=== PATIENT | female | born 1935 | race American Indian/Alaskan Native ===

== ENCOUNTER 2016-07-16 10:53 | Emergency (ER) | payer MEDICARE, MEDICAID ==
[2016-07-16 10:58] VITALS: BMI 17.7
[2016-07-16 11:07] VITALS: TEMP 97.7; O2SAT 100
--- NOTE | 2016-07-16 11:38 | ED PDOC ---
Arrival/HPI - General Chief Complaint: Medical Clearance Time Seen by Provider: 07/16/16 11:12 Historian: Patient - History of Present Illness Narrative History of Present Illness (Text): 07/16/16 11:35 A 81 year old female was brought into the emergency department by EMS after the power went out in her home. Patient reports she is uses 3L of O2 at home. Patient denies any fever, nausea, vomiting, abdominal pain, chest pain, shortness of breath or any other complaints at this time. Time/Duration: Prior to Arrival Symptom Course: Unchanged Quality: Other Context: Home Past Medical History - Provider Review Nursing Documentation Reviewed: Yes - Infectious Disease Hx of Infectious Diseases: None - Cardiac Hx Cardiac Disorders: Yes Hx Congestive Heart Failure: Yes Hx Hypertension: Yes - Pulmonary Hx Chronic Obstructive Pulmonary Disease (COPD): Yes - Neurological Hx Neurological Disorder: Yes Hx Seizures: Yes (with tia's as per daughter) Hx Transient Ischemic Attacks (TIA): Yes (x2) Other/Comment: residual from tia was slurred speech which resolved with therapy - HEENT Hx HEENT Disorder: Yes Hx Cataracts: Yes (left eye sx) Other/Comment: pt needs right eye cataract sx done but is a poor surgical risk as per daughter - Renal Hx Renal Disorder: No - Endocrine/Metabolic Hx Hypothyroidism: Yes - Hematological/Oncological Hx Blood Disorders: Yes Hx Cancer: (denies) Other/Comment: 4 yrs ago pt dx with lung ca at [facility] [place]. dr good sent pt for further tests which were negative for cancer, as per daughter - Integumentary Hx Dermatological Disorder: No - Musculoskeletal/Rheumatological Hx Falls: No - Gastrointestinal Hx Gastrointestinal Disorders: Yes Other/Comment: egd dx gastric erosions small hiatal hernia and gastric avm, 09/05 - Genitourinary/Gynecological Hx Reproductive Disorders: No - Psychiatric Hx Psychophysiologic Disorder: No Hx Substance Use: No - Surgical History Other/Comment: cataract extraction - Anesthesia Hx Anesthesia: Yes Hx Anesthesia Reactions: No Hx Malignant Hyperthermia: No Family/Social History - Physician Review Nursing Documentation Reviewed: Yes Family/Social History: No Known Family HX Smoking Status: Former Smoker Hx Alcohol Use: No Hx Substance Use: No Allergies/Home Meds Allergies/Adverse Reactions: Allergies No Known Allergies Allergy (Verified 07/16/16 10:58) Home Medications: Home Meds Medication Instructions Recorded Confirmed Fluticasone/Vilanterol [Breo 1 puff IH DAILY 06/28/16 07/03/16 Ellipta 100-25 Mcg INH] Review of Systems - Physician Review All systems were reviewed & negative as marked: Yes - Review of Systems Constitutional: Normal. absent: Fevers Respiratory: absent: SOB Cardiovascular: absent: Chest Pain Gastrointestinal: absent: Abdominal Pain, Nausea, Vomiting Physical Exam Vital Signs Reviewed: Yes Vital Signs Temp Pulse Resp BP Pulse Ox 07/16/16 11:05 97.7 F 81 18 132/83 100 Temperature: Afebrile Blood Pressure: Normal Pulse: Regular Respiratory Rate: Normal Appearance: Positive for: Well-Appearing, Non-Toxic, Comfortable Pain Distress: None Mental Status: Positive for: Alert and Oriented X 3 - Systems Exam Head: Present: Atraumatic, Normocephalic Pupils: Present: PERRL Extroacular Muscles: Present: EOMI Conjunctiva: Present: Normal Mouth: Present: Moist Mucous Membranes Neck: Present: Normal Range of Motion Respiratory/Chest: Present: Clear to Auscultation, Good Air Exchange. No: Respiratory Distress, Accessory Muscle Use Cardiovascular: Present: Regular Rate and Rhythm, Normal S1, S2. No: Murmurs Abdomen: Present: Normal Bowel Sounds. No: Tenderness, Distention, Peritoneal Signs Back: Present: Normal Inspection Upper Extremity: Present: Normal Inspection. No: Cyanosis, Edema Lower Extremity: Present: Normal Inspection. No: Edema Neurological: Present: GCS=15, CN II-XII Intact, Speech Normal Skin: Present: Warm, Dry, Normal Color. No: Rashes Psychiatric: Present: Alert, Oriented x 3, Normal Insight, Normal Concentration Medical Decision Making ED Course and Treatment: 07/16/16 11:35 Impression: A 81 year old female brought in after losing power in her home. Patient uses 3L of O2 at home. She denies any complaints. Progress Notes: - Scribe Statement The provider has reviewed the documentation as recorded by the Batsheva Hatfield Provider Scribe Attestation: All medical record entries made by the Scribe were at my direction and personally dictated by me. I have reviewed the chart and agree that the record accurately reflects my personal performance of the history, physical exam, medical decision making, and the department course for this patient. I have also personally directed, reviewed, and agree with the discharge instructions and disposition. Disposition/Present on Arrival - Present on Arrival Any Indicators Present on Arrival: No History of DVT/PE: No History of Uncontrolled Diabetes: No Urinary Catheter: No History of Decub. Ulcer: No History Surgical Site Infection Following: None - Disposition Have Diagnosis and Disposition been Completed?: Yes Diagnosis: Requires continuous at home supplemental oxygen Disposition: HOME/ ROUTINE Disposition Time: 12:15 Patient Problems: Current Active Problems Problem Status Diagnosed AAA (abdominal aortic aneurysm) without rupture Acute Chest pain Acute Chronic obstructive pulmonary disease Acute Dyspnea Acute Hypoxia Acute NSTEMI (non-ST elevated myocardial infarction) Acute Requires continuous at home supplemental oxygen Acute Weakness Acute Condition: GOOD Additional Instructions: Thank you for letting us take care of you today. Your provider was Dr. Linares. The emergency medical care you received today was directed at your acute symptoms. If you were prescribed any medication, please fill it and take as directed. It may take several days for your symptoms to resolve. Return to the Emergency Department if your symptoms worsen, do not improve, or if you have any other problems. Please contact your doctor or call one of the physicians/clinics you have been referred to that are listed on the Patient Visit Information form that is included in your discharge packet. Bring any paperwork you were given at discharge with you along with any medications you are taking to your follow up visit. Our treatment cannot replace ongoing medical care by a primary care provider (PCP) outside of the emergency department. Thank you for allowing the [facility] team to be part of your care today. Follow up with your doctor as scheduled. Referrals: [facility] Ed Rejuan, [Non-Staff] - Follow up with primary
[2016-07-16 13:11] VITALS: BP 144/81; PULSE 70; RESP 16
== END 2016-07-16 12:30 | disposition home or self-care (01) ==
LOC: ED 10:53
DX: Z99.81 Dependence on supplemental oxygen (principal); Z87.891 Personal history of nicotine dependence; I10 Essential (primary) hypertension; J44.9 Chronic obstructive pulmonary disease, unspecified

== ENCOUNTER 2016-07-20 17:38 | Observation (INO) | payer MEDICARE, MEDICAID ==
[2016-07-20 17:44] VITALS: BMI 17.7
--- NOTE | 2016-07-20 18:17 | ED PDOC ---
Arrival/HPI - General Chief Complaint: Female Genitourinary Historian: Patient - History of Present Illness Narrative History of Present Illness (Text): 07/20/16 18:16 Patient is an 81 yo female presents to ED complaining of bloody urine. Patient denies retention, denies flank pain or back pain, denies abdominal pain. Patient was reportedly at Dr. Good's office and gross hematuria was noted. She denies any bloody stool or vaginal bleeding. Denies lightheadedness or dizziness. Time/Duration: Prior to Arrival Past Medical History - Infectious Disease Hx of Infectious Diseases: None - Reproductive Menopause: Yes - Cardiac Hx Cardiac Disorders: Yes Hx Congestive Heart Failure: Yes Hx Hypertension: Yes - Pulmonary Hx Chronic Obstructive Pulmonary Disease (COPD): Yes - Neurological Hx Neurological Disorder: Yes Hx Seizures: Yes (with tia's as per daughter) Hx Transient Ischemic Attacks (TIA): Yes (x2) Other/Comment: residual from tia was slurred speech which resolved with therapy - HEENT Hx HEENT Disorder: Yes Hx Cataracts: Yes (left eye sx) Other/Comment: pt needs right eye cataract sx done but is a poor surgical risk as per daughter - Renal Hx Renal Disorder: No - Endocrine/Metabolic Hx Hypothyroidism: Yes - Hematological/Oncological Hx Blood Disorders: Yes Hx Cancer: (denies) Other/Comment: 4 yrs ago pt [place] [facility] [place] sent pt for further tests which were negative for cancer, as per daughter - Integumentary Hx Dermatological Disorder: No - Musculoskeletal/Rheumatological Hx Falls: No - Gastrointestinal Hx Gastrointestinal Disorders: Yes Other/Comment: egd dx gastric erosions small hiatal hernia and gastric avm, 09/05 - Genitourinary/Gynecological Hx Reproductive Disorders: No - Psychiatric Hx Psychophysiologic Disorder: No Hx Substance Use: No - Surgical History Other/Comment: cataract extraction - Anesthesia Hx Anesthesia: Yes Hx Anesthesia Reactions: No Hx Malignant Hyperthermia: No Family/Social History Family/Social History: Unknown Family HX Smoking Status: Former Smoker Hx Alcohol Use: No Hx Substance Use: No Allergies/Home Meds Allergies/Adverse Reactions: Allergies No Known Allergies Allergy (Verified 07/20/16 18:05) Home Medications: Home Meds Medication Instructions Recorded Confirmed Fluticasone/Vilanterol [Breo 1 puff IH DAILY 06/28/16 07/03/16 Ellipta 100-25 Mcg INH] Review of Systems - Review of Systems Constitutional: absent: Fatigue, Fevers Eyes: absent: Vision Changes ENT: absent: Hearing Changes Respiratory: absent: SOB Cardiovascular: absent: Chest Pain Gastrointestinal: absent: Abdominal Pain, Hematochezia, Hematemesis Genitourinary Female: Hematuria. absent: Dysuria, Frequency, Urine Output Changes, Vaginal Bleeding, Vaginal Discharge Musculoskeletal: absent: Back Pain Skin: absent: Rash Neurological: absent: Headache, Dizziness, Focal Weakness Hemo/Lymphatic: absent: Easy Bleeding, Easy Bruising Physical Exam - Physical Exam Narrative Physical Exam (Text): Head: Atraumatic. Normocephalic. Eyes: PERRL. EOMI. Conjunctivae are not pale. ENT: Mucous membranes are moist and intact. Oropharynx is clear and symmetric. Neck: Supple. Full ROM. No JVD. No lymphadenopathy. Cardiovascular: Regular rate. Regular rhythm. Systolic murmur. Pulmonary/Chest: No evidence of respiratory distress. Clear to auscultation bilaterally. No wheezing, rales or rhonchi. Abdominal: Soft and non-distended. No suprapubic pain or distension. Pulsatile mass noted but nontender. Equal and strong femoral pulses. Back: No CVA tenderness. No midline tenderness. No flank pain. Genitourinary: grossly bloody urine Extremities: No edema. No cyanosis. No clubbing. Full range of motion in all extremities. No calf tenderness. Skin: Skin is warm and dry. No petechiae. No purpura. Neurological: Alert, awake. No focal motor or sensory deficits. Psychiatric: Answers questions. At baseline mental status as per daughter. Vital Signs Reviewed: Yes Vital Signs Temp Pulse Resp BP Pulse Ox 07/20/16 23:48 80 16 142/90 98 07/20/16 20:48 93 H 16 132/79 96 07/20/16 17:47 97.4 F L 74 18 146/88 98 Temperature: Afebrile Appearance: Positive for: Well-Appearing, Non-Toxic Pain Distress: None Mental Status: No: Confused Medical Decision Making ED Course and Treatment: Patient sent from Dr. Good's office for hematuria. Patient with recent admission that was reviewed. During recent admission patient reportedly had chest pain, sob, abdominal pain WHICH SHE DOES NOT COMPLAIN OF CURRENTLY. Daughter at bedside and confirms history. She is comfortable with no chest pain or sob or abdominal pain in ED. She has prior hx of AAA, however no back pain is noted, no abdominal pain palpated. She has grossly bloody/dark urine here in the ED, this was reported by Dr. Good at office as well. She is not hypotensive or tachycardic. She is not in retention. I reviewed consultation from Dr. Fernandez during previous admission. Patient reportedly has possibly hematuria during her admission, but daughter reports she has not had grossly bloody urine such as currently. She is not on blood thinners current. No rectal bleeding of vaginal bleeding noted. She has not had outpatient cystoscopy. Given persistent hematuria, will admit for observation, case d/w Dr. Enrike Mccauley covering for PMD. Will initiate abx for possible uti, send urine culture. Treatment plan reviewed with patient with daughter at bedside. - Lab Interpretations Microbiology Results: Microbiology Results 07/20/16 20:12 Urine Urine Culture - Final 10-50,000 CFU/ML. MULTIPLE SPECIES. PROBABLE CONTAMINATION. Lab Results: 07/20/16 19:00 07/20/16 19:00 Lab Results 07/20/16 20:12: Urine Color Yellow, Urine Appearance Clear, Urine pH 6.0, Ur Specific [place] 1.015, Urine Protein Trace H, Urine Glucose (UA) Negative, Urine Ketones Negative, Urine Blood Large H, Urine Nitrate Negative, Urine Bilirubin Negative, Urine Urobilinogen 0.2, Ur Leukocyte Esterase Small H, Urine RBC 25 - 30, Urine WBC 10 - 15, Ur Epithelial Cells 4 - 5, Amorphous Sediment Few, Urine Bacteria Many, Urine Other Uyeast 07/20/16 19:00: WBC 6.7, RBC 5.14, Hgb 11.1 L, Hct 36.7, MCV 71.4 L, MCH 21.6 L , MCHC 30.2 L, RDW 24.4 H, Plt Count 568 H, Gran % 74.6 H, Lymph % (Auto) 14.2 L , Lawrence % (Auto) 7.2 H, Eos % (Auto) 3.1, Baso % (Auto) 0.9, Gran # 4.98, Lymph # 1.0 L, Lawrence # 0.5, Eos # 0.2, Baso # 0.06, PT 11.4, INR 1.06, APTT 29.2, Sodium 142, Potassium 3.7, Chloride 106, Carbon Dioxide 24, Anion Gap 16, BUN 25 H, Creatinine 1.0, Est GFR ( Amer) > 60, Est GFR (Non-Af Amer) 53, Random Glucose 96, Calcium 9.2, Total Bilirubin 0.4, AST 22, ALT 13, Alkaline Phosphatase 101, Total Protein 7.3, Albumin 3.8, Globulin 3.5, Albumin/Globulin Ratio 1.1 - RAD Interpretation Radiology Orders: 07/20/16 18:13 ABD & PELVIS W/O PO OR IV CONT [CT] Stat - Medication Orders Current Medication Orders: Discontinued Medications Albuterol/Ipratropium (Duoneb 3 Mg/0.5 Mg (3 Ml) Ud) 3 ml IH TIDRESP [facility] Aspirin (Ecotrin) 81 mg PO DAILY [facility] Last Admin: 07/22/16 09:45 Dose: 81 MG Docusate Sodium (Colace) 100 mg PO BID PRN PRN Reason: Constipation Donepezil HCl (Aricept) 5 mg PO HS [facility] Last Admin: 07/21/16 21:13 Dose: 5 MG Ferrous Sulfate (Feosol) 324 mg PO DAILY [facility] Last Admin: 07/22/16 09:41 Dose: 324 MG Ceftriaxone Sodium (Rocephin 1 Gram Ivpb) 100 mls @ 200 mls/hr IVPB ONCE STA PRN Reason: Protocol Stop: 07/20/16 22:31 Last Admin: 07/20/16 23:29 Dose: 200 MLS/HR eMAR Start Stop Document 07/20/16 23:29 HI (Rec: 07/20/16 23:29 HI [id number]) Intravenous Solution Start Date 07/20/16 Start Time 23:29 Ceftriaxone Sodium (Rocephin 1 Gram Ivpb) 100 mls @ 100 mls/hr IVPB DAILY [facility] PRN Reason: Protocol Last Admin: 07/22/16 09:45 Dose: 100 MLS/HR eMAR Start Stop Document 07/22/16 09:45 EP (Rec: 07/22/16 09:45 EP [id number]) Intravenous Solution Start Date 07/22/16 Start Time 09:45 End Date 07/22/16 End time 10:45 Total Infusion Time 60 Sodium Chloride (Sodium Chloride 0.45%) 1,000 mls @ 40 mls/hr IV .Q24H [facility] Last Admin: 07/21/16 17:26 Dose: 40 MLS/HR eMAR Start Stop Document 07/21/16 17:26 DM (Rec: 07/21/16 17:27 [id number] Intravenous Solution Start Date 07/21/16 Start Time 17:00 Potassium Chloride (Potassium Chloride 10 Meq/100 Ml) 100 mls @ 100 mls/hr IVPB ONCE ONE Stop: 07/22/16 11:34 Last Admin: 07/22/16 11:13 Dose: 100 MLS/HR eMAR Start Stop Document 07/22/16 11:13 EP (Rec: 07/22/16 11:15 EP [facility] [id number] Intravenous Solution Start Date 07/22/16 Start Time 11:15 End Date 07/22/16 End time 12:15 Total Infusion Time 60 Levetiracetam (Keppra) 750 mg PO DAILY [facility] Last Admin: 07/22/16 09:41 Dose: 750 MG Loratadine (Claritin) 10 mg PO DAILY [facility] Last Admin: 07/22/16 09:41 Dose: 10 MG Methimazole (Tapazole) 5 mg PO DAILY [facility] Last Admin: 07/22/16 09:42 Dose: 5 MG Metoprolol Tartrate (Lopressor) 25 mg PO 0800,1800 [facility] Last Admin: 07/22/16 08:44 Dose: Not Given Non-Admin Reason: BP Parameters Not Met MAR Pulse and Blood Pressure Document 07/22/16 08:44 EP (Rec: 07/22/16 08:44 EP [id number]) Pulse Pulse Rate (60-90) 80 Blood Pressure Blood Pressure (100/60-150/90) 100/71 Non-Formulary Medication (Fluticasone/Vilanterol [Breo Ellipta 100-25 Mcg Inh]) 1 puff IH DAILY [facility] Last Admin: 07/22/16 09:42 Dose: Pantoprazole Sodium (Protonix Ec Tab) 40 mg PO 0630 [facility] Last Admin: 07/22/16 05:47 Dose: 40 MG Polyethylene Glycol (Miralax) 17 gm PO DAILY [facility] Last Admin: 07/22/16 09:42 Dose: 17 GM Potassium Chloride (Potassium Chloride Oral Soln) 40 meq PO ONCE ONE Stop: 07/21/16 12:44 Last Admin: 07/21/16 17:23 Dose: 40 MEQ Tiotropium Kempner (Spiriva) 18 mcg IH DAILY [facility] Last Admin: 07/22/16 09:42 Dose: 18 MCG - Mindyibe Statement The provider has reviewed the documentation as recorded by the Batsheva Hayes Provider Scribe Attestation: All medical record entries made by the Batsheva were at my direction and personally dictated by me. I have reviewed the chart and agree that the record accurately reflects my personal performance of the history, physical exam, medical decision making, and the department course for this patient. I have also personally directed, reviewed, and agree with the discharge instructions and disposition. Disposition/Present on Arrival - Present on Arrival Any Indicators Present on Arrival: No History of DVT/PE: No History of Uncontrolled Diabetes: No Urinary Catheter: No History of Decub. Ulcer: No History Surgical Site Infection Following: None - Disposition Have Diagnosis and Disposition been Completed?: Yes Diagnosis: Hematuria, UTI (urinary tract infection) Disposition: HOSPITALIZED Disposition Time: 19:00 Patient Plan: Admission, Observation Patient Problems: Current Active Problems Problem Status Diagnosed AAA (abdominal aortic aneurysm) without rupture Acute Chest pain Acute Chronic obstructive pulmonary disease Acute Dyspnea Acute Hypoxia Acute NSTEMI (non-ST elevated myocardial infarction) Acute Weakness Acute Condition: FAIR
[2016-07-20 19:05] LABS: ADD MANUAL DIFF? NO
[2016-07-20 19:10] LABS: BASO # 0.06 [, K/mm3] (0.0-2.0); BASO % 0.9 % (0.0-3.0); EOS # 0.2 (0.0-0.7); EOS % 3.1 % (1.5-5.0); GRAN # 4.98 (1.4-6.5); GRAN % 74.6 % (50.0-68.0); HEMATOCRIT 36.7 % (36.0-48.0); LYMPH % 14.2 % (22.0-35.0); MEAN CELL VOLUME 71.4 fL (80.0-105.0); MEAN CORPUSCULAR HEMOGLOBIN 21.6 pg (25.0-35.0); MEAN CORPUSCULAR HGB CONC 30.2 g/dl (31.0-37.0); MONO # 0.5 (0.1-0.6); MONO % 7.2 % (1.0-6.0); PLATELET COUNT 568 [, 10^3/uL] (120.0-450.0); RED CELL DISTRIBUTION WIDTH 24.4 % (11.5-14.5); WHITE BLOOD COUNT 6.7 [, 10^3/ul] (4.5-11.0)
[2016-07-20 19:17] LABS: ALB/GLOB RATIO 1.1 (1.1-1.8); ALKALINE PHOSPHATASE 101 U/L (38-133); ALT/SGPT 13 U/L (7-56); AST/SGOT 22 U/L (15-39); BILIRUBIN,TOTAL 0.4 mg/dL (0.2-1.3); BLOOD UREA NITROGEN 25 mg/dL (7-21); CALCIUM 9.2 mg/dL (8.4-10.5); CARBON DIOXIDE 24 mmol/L (21-33); CHLORIDE 106 mmol/L (98-107); GFR AFRICAN-AMERICAN > 60; GLUCOSE,RANDOM 96 mg/dL (70-110); POTASSIUM 3.7 mmol/L (3.6-5.0); SODIUM 142 mmol/L (132-148); TOTAL PROTEIN 7.3 g/dL (5.8-8.3)
[2016-07-20 19:46] LABS: INR 1.06 (0.93-1.08); PARTIAL THROMBOPLASTIN TIME 29.2 Seconds (23.7-30.8)
[2016-07-20 20:32] LABS: URINE BILIRUBIN NEGATIVE (NEGATIVE); URINE BLOOD LARGE (NEGATIVE); URINE GLUCOSE (UA) NEGATIVE (NEGATIVE); URINE KETONE NEGATIVE (NEGATIVE); URINE LEUKOCYTE ESTERASE SMALL Leu/uL (NEGATIVE); URINE PROTEIN TRACE mg/dL (<30 mg/dL); URINE UROBILINOGEN 0.2 E.U./dL (<1 E.U./dL)
[2016-07-20 20:33] LABS: URINE APPEARANCE CLEAR (CLEAR); URINE COLOR YELLOW (YELLOW)
[2016-07-20 20:52] LABS: URINE AMORPHOUS SEDIMENT FEW; URINE BACTERIA MANY (NEG); URINE RBC 25 - 30 /hpf (0-2)
--- NOTE | 2016-07-20 21:16 | CT ---
EXAM: CT Abdomen and Pelvis Without Intravenous Contrast. CLINICAL HISTORY: 81 years old, female; Signs and symptoms; Other: Hematuria TECHNIQUE: Axial computed tomography images of the abdomen and pelvis without intravenous contrast. This CT exam was performed using one or more of the following dose reduction techniques: automated exposure control, adjustment of the mA and/or kV according to patient size, and/or use of iterative reconstruction technique. Coronal and sagittal reformatted images were created and reviewed. COMPARISON: CT - ABD PELVIS IV CONTRAST ONLY 06/29/2016 1:54:57 AM FINDINGS: Scarring at the lung bases, nodular appearance of the left lung base. This is evidenced changes. Atherosclerosis. Aneurysmal change involving the aorta. Proximal descending abdominal aorta measured at 3 cm. The abdominal aorta measured at up to 4.9 cm focus proximal to iliac bifurcation. Iliac arteries measured at 2.7 cm on the right and 2.5 cm on the left. Limited evaluation without intravenous contrast. The unenhanced liver, spleen, pancreas and adrenal glands demonstrate no acute abnormalities. Intrarenal calcification. No obstructing renal calculus or hydronephrosis. Phleboliths. Limited evaluation of the bowel without enteric contrast. Evidence of minimal hiatal hernia. The stomach is predominantly collapsed, limiting its evaluation. The small and large bowel as visualized demonstrate no evidence of obstruction or clear focus of inflammation. Degenerative changes. IMPRESSION: No definitive acute CT finding to correspond to reported history. Abdominal aorta as above. Correlate clinically. Followup as warranted.
[2016-07-20] MEDS ORDERED: cefTRIAXone 1 gm 100 ML IVPB STA (22:02)
--- NOTE | 2016-07-20 23:40 | CP.PCM.HP ---
History of Present Illness - History of Present Illness History of Present Illness: PGY-[address] Good/Parisa Admission: Hematuria 81 yo F with PMH of CVA, emphysema (on 5L O2 at home), Hx PE, and CAD with possible triple vessel disease, presents to ED complaining of bloody urine. Patient was reportedly at Dr. Good's office and gross hematuria was noted. It was described at "cool aid" bright red. In the ED, VSS. Hb stable at 11. BMP normal except BUN 25. U/A showed protein, blood, RBC. Many bacteria CT of abdomen and pelvis shows phleboliths, minimal hiatal hernia. No acute CT finding related to hemautira Pt receive 1g ceftriaxone x 1. blood and urine culture sent ROS: She denies any bloody stool or vaginal bleeding. Denies lightheadedness or dizziness. Patient denies retention, denies flank pain or back pain, denies abdominal pain. PMH: CVA (pt claims two TIAs), recent NSTEMI, May 2013 lung [place] [facility] [place], former smoker COPD/emphysema (on 5L O2 at home) AAA, bilobed, 9.4cm cranicaudal, and 4.1cm x 4.9 cm transverse, extending to common iliac aa. 2.7cm R, 2.6cm on L (Need tight blood pressure control for enlarged abdominal aortic aneurysm. Risk of rupture in 1-2 years is 10-12%) HTN Hx Seizure Alzheimer Hx Urinary retention and hematuria catarect L eye but poor surgical candidate Hypothyroidims Chronic microcytic anemia, Hx GI bleed Constipation Psx: thyroidectomy, L cataract FH: daughter w/ breast cancer Allergies: NKDA SH: Quit smoking half year ago, lives in senior home apt Meds: ASA, Budesonide, zofran, loperamide, Brovana PMD: Dr. Good POA: Daughter - please contact daughter in all medical decisions Urologist: Dr. Rucker Cardiac Technologist: Dr Luis avelar Present on Admission - Present on Admission Any Indicators Present on Admission: No Past Patient History - Infectious Disease Hx of Infectious Diseases: None - Past Social History Smoking Status: Former Smoker - CARDIAC Hx Cardiac Disorders: Yes Hx Congestive Heart Failure: Yes Hx Hypertension: Yes - PULMONARY Hx Chronic Obstructive Pulmonary Disease (COPD): Yes - NEUROLOGICAL Hx Neurological Disorder: Yes Hx Seizures: Yes (with tia's as per daughter) Hx Transient Ischemic Attacks (TIA): Yes (x2) Other/Comment: residual from tia was slurred speech which resolved with therapy - HEENT Hx HEENT Problems: Yes Hx Cataracts: Yes (left eye sx) Other/Comment: pt needs right eye cataract sx done but is a poor surgical risk as per daughter - RENAL Hx Chronic Kidney Disease: No - ENDOCRINE/METABOLIC Hx Hypothyroidism: Yes - HEMATOLOGICAL/ONCOLOGICAL Hx Blood Disorders: Yes Hx Cancer: (denies) Other/Comment: 4 yrs ago pt dx with lung ca [place] [facility] [place] good sent pt for further tests which were negative for cancer, as per daughter - INTEGUMENTARY Hx Dermatological Problems: No - MUSCULOSKELETAL/RHEUMATOLOGICAL Hx Falls: No - GASTROINTESTINAL Hx Gastrointestinal Disorders: Yes Other/Comment: egd dx gastric erosions small hiatal hernia and gastric avm, 09/05 - GENITOURINARY/GYNECOLOGICAL Hx Reproductive Disorders: No - PSYCHIATRIC Hx Psychophysiologic Disorder: No Hx Substance Use: No - SURGICAL HISTORY Other/Comment: cataract extraction - ANESTHESIA Hx Anesthesia: Yes Hx Anesthesia Reactions: No Hx Malignant Hyperthermia: No Meds Allergies/Adverse Reactions: Allergies Allergy/AdvReac Type Severity Reaction Status Date / Time No Known Allergies Allergy Verified 07/20/16 18:05 Physical Exam - Constitutional Appears: No Acute Distress - Head Exam Head Exam: ATRAUMATIC - Eye Exam Eye Exam: EOMI, Normal appearance, PERRL Pupil Exam: NORMAL ACCOMODATION - ENT Exam ENT Exam: Mucous Membranes Moist - Neck Exam Neck exam: Positive for: Normal Inspection. Negative for: Meningismus Additional comments: supple, no jvd - Respiratory Exam Respiratory Exam: Clear to Auscultation Bilateral, NORMAL BREATHING PATTERN. absent: Rales, Rhonchi, Wheezes - Cardiovascular Exam Cardiovascular Exam: REGULAR RHYTHM, +S1, +S2. absent: Systolic Murmur - GI/Abdominal Exam GI & Abdominal Exam: Normal Bowel Sounds, Soft. absent: Tenderness Additional comments: no suprapubic tendernss - Extremities Exam Extremities exam: Positive for: normal capillary refill, pedal pulses present. Negative for: calf tenderness, pedal edema - Back Exam Back exam: absent: CVA tenderness (L), CVA tenderness (R), paraspinal tenderness , vertebral tenderness - Neurological Exam Neurological exam: Alert, CN II-XII Intact, Oriented x3, Reflexes Normal - Psychiatric Exam Psychiatric exam: Normal Affect, Normal Mood - Skin Skin Exam: Dry, Normal Color, Warm Results - Vital Signs Recent Vital Signs: Last Vital Signs Temp 97.4 F L 07/20/16 17:47 Pulse 93 H 07/20/16 20:48 Resp 16 07/20/16 20:48 BP 132/79 07/20/16 20:48 Pulse Ox 96 07/20/16 20:48 - Labs Result Diagrams: 07/20/16 19:00 07/20/16 19:00 Labs: Laboratory Results - last 24 hr 07/20/16 07/20/16 19:00 20:12 WBC 6.7 RBC 5.14 Hgb 11.1 L Hct 36.7 MCV 71.4 L MCH 21.6 L MCHC 30.2 L RDW 24.4 H Plt Count 568 H Gran % 74.6 H Lymph % (Auto) 14.2 L [place] % (Auto) 7.2 H Eos % (Auto) 3.1 Baso % (Auto) 0.9 Gran # 4.98 Lymph # 1.0 L [place] # 0.5 Eos # 0.2 Baso # 0.06 PT 11.4 INR 1.06 APTT 29.2 Sodium 142 Potassium 3.7 Chloride 106 Carbon Dioxide 24 Anion Gap 16 BUN 25 H Creatinine 1.0 Est GFR ( Amer) > 60 Est GFR (Non-Af Amer) 53 Random Glucose 96 Calcium 9.2 Total Bilirubin 0.4 AST 22 ALT 13 Alkaline Phosphatase 101 Total Protein 7.3 Albumin 3.8 Globulin 3.5 Albumin/Globulin Ratio 1.1 Urine Color Yellow Urine Appearance Clear Urine pH 6.0 Ur Specific Tiro 1.015 Urine Protein Trace H Urine Glucose (UA) Negative Urine Ketones Negative Urine Blood Large H Urine Nitrate Negative Urine Bilirubin Negative Urine Urobilinogen 0.2 Ur Leukocyte Esterase Small H Urine RBC 25 - 30 Urine WBC 10 - 15 Ur Epithelial Cells 4 - 5 Amorphous Sediment Few Urine Bacteria Many Urine Other Uyeast Assessment & Plan - Assessment and Plan (Free Text) Plan: Hematuria, ulices UTI suspected, pending culture Hx urinary retention - infectious vs autoimmune vs malignancy vs recent trauma from [place] - CT of abdomen and pelvis shows phleboliths, minimal hiatal hernia. No acute CT finding related to hemautira - hemodynamically stable - Not on plavix - On ASA - coags wnl - No kidney stone visible - Ceftriaxone - HANNAH and dsDNA to r/o lupus pending culture - Check serum completment level - if low --> further investigate postinfectious glomerulonephritis, systemic lupus erythematosus nephritis, bacterial endocarditis, and membranoproliferative glomerulonephritis. - urol consult Microcytic Anemia, stable around 10, Asymptomatic Hx of angiodysplasia, duodenum, non-bleeding, per EGD August 2015 - Hemeoccult (+) - Still on ASA - Continue Feosol with laxative NSTEMI 06/29/16, Hx of CAD - ASA, BB (tartrate 25 bid), Lipitor 10, lipid at goal (May 2016) - Daughter, health Proxy - no cath. AAA, bilobed, 9.4cm cranicaudal, and 4.1cm x 4.9 cm transverse, extending to common iliac aa. 2.7cm R, 2.6cm on L. - Per IR: Risk of rupture next year is 10-12% - Family: no surgery. Continue medical management. HTN control COPD/Emphysema = Spiriva, Brovana, (on 5L O2 at home) O2 as needed Alzheimer = Donepezil Hx Seizure = Keppra, aspiration/seizure precautions Hyperthyroidism - Methiamzole 5 daily. Constipation = Miralax QD. Colace PRN Prophylaxis = SCD and protonix S/D/R/w Dr. Mccauley - Date & Time Date: 07/20/16 Time: 11:55
[2016-07-21] MEDS: Pantoprazole 40 mg EC Tab PO SCH (06:06)
[2016-07-21] MEDS ORDERED: Albuterol-Ipratrop 3 mg / 0.5 (3 ml) UD IH SCH (08:00)
[2016-07-21 08:06] LABS: ADD MANUAL DIFF? NO
[2016-07-21 08:24] LABS: BASO # 0.07 [, K/mm3] (0.0-2.0); BASO % 1.1 % (0.0-3.0); EOS # 0.2 (0.0-0.7); EOS % 3.7 % (1.5-5.0); GRAN # 4.61 (1.4-6.5); GRAN % 71.3 % (50.0-68.0); HEMATOCRIT 34.9 % (36.0-48.0); LYMPH % 15.9 % (22.0-35.0); MEAN CELL VOLUME 70.8 fL (80.0-105.0); MEAN CORPUSCULAR HEMOGLOBIN 21.5 pg (25.0-35.0); MEAN CORPUSCULAR HGB CONC 30.4 g/dl (31.0-37.0); MONO # 0.5 (0.1-0.6); PLATELET COUNT 550 [, 10^3/uL] (120.0-450.0); RED CELL DISTRIBUTION WIDTH 24.6 % (11.5-14.5); WHITE BLOOD COUNT 6.5 [, 10^3/ul] (4.5-11.0)
[2016-07-21 08:34] LABS: BLOOD UREA NITROGEN 20 mg/dL (7-21); CALCIUM 9.2 mg/dL (8.4-10.5); CARBON DIOXIDE 23 mmol/L (21-33); CHLORIDE 109 mmol/L (95-110); GFR AFRICAN-AMERICAN > 60; GLUCOSE,RANDOM 87 mg/dL (70-110); POTASSIUM 3.2 mmol/L (3.6-5.0); SODIUM 143 mmol/L (132-148)
[2016-07-21] MEDS: methIMAzole 5 MG TAB PO SCH (10:19)
[2016-07-21] MEDS: Non Formulary Medication (Fluticasone/Vilanterol [Breo Ellipta 100-25 Mcg Inh] 1 PUFF) IH SCH (10:20)
[2016-07-21] MEDS: POLYETHYLENE GLYCOL 3350 17 GM/Dose PACKET PO SCH (10:20)
[2016-07-21] MEDS: cefTRIAXone 1 gm 100 ML IVPB SCH (10:21)
[2016-07-21] MEDS: Tiotropium 18 mcg Cap For Inhalation IH SCH (10:23)
[2016-07-21] MEDS ORDERED: Potassium Chloride 40 mEq/30 ml LIQ UD PO ONE (12:43)
[2016-07-21] MEDS ORDERED: Sodium Chloride 0.45% 1,000 ML IV SCH (13:00)
--- NOTE | 2016-07-21 14:47 | HP ---
HISTORY OF PRESENT ILLNESS: I discussed this with her primary doctor, Dr. Soriano, [facility]. She has hematuria and she was worried. She comes into the Emergency Room with gross hematuria, painless. She is an [id number]-female who had gross hemat uria for the past 24 hours, comes to the Emergency Room. PAST MEDICAL HISTORY: She has history of CVA and emphysema on 5 liters oxygen at home, history of pu lmonary embolus, coronary artery disease, triple vessel disease. She was putting out gross blood whe n she urinated. She had an N-STEMI in 05/2013, lung cancer [facility], former smoker, COPD, emphysema. She had a AAA up to 9.4, I believe at this time they do not want anything done. S he has hypertension, history of seizures, Alzheimer's, history of urinary retention, hematuria, catar act left eye, hypothyroidism, chronic microcytic anemia, history of gastrointestinal bleed, constipat ion. PAST SURGICAL HISTORY: She had thyroidectomy, left cataract surgery. FAMILY HISTORY: She has a daughter with breast cancer. ALLERGIES: She has no known drug allergies. SOCIAL HISTORY: She quit smoking a half a year ago. No alcohol. Lives at a senior center. MEDICATIONS: She takes aspirin, budesonide, Zofran, loperamide, Brovana. I called and urology to take a look at her for the hematuria. She has CHF, hypertension, COPD. REVIEW OF SYSTEMS: She is comfortable at this time in bed, eating her lunch. No pain. No acute vis ion, or hearing changes, no sore throat. No chest pain or shortness of breath, no abdominal pain, no leg pain, just blood in the urine. PHYSICAL EXAMINATION: VITAL SIGNS: She has a 97.4 temp, 74 pulse, 18 respiratory rate, 146/88 blood pressure, 98% O2 sat o n room air. HEENT: Head is atraumatic, normocephalic. Extraocular muscles are intact. Pupils reactive to light . Throat is moist, no erythema. NECK: Supple, no JVD. HEART: Regular rate. LUNGS: Clear to auscultation with decreased breath sounds. ABDOMEN: Soft, nontender, positive bowel sounds. No palpable pain. There is a pulsatile mass noted from AAA. EXTREMITIES: No edema. No CVA tenderness. NEUROLOGIC: She is alert and pleasant. LABORATORY DATA: She has a white count of 6.5, hemoglobin 10.6, hematocrit 34.9, platelets of 550. INR is 1.06. She has a 143 sodium, potassium 3.2 I replaced potassium. BUN 20, creatinine 0.8, GFR is greater than 60, sugar is 87, calcium is 9.2. Urine is large blood, many bacteria. CAT scan of t he abdomen and pelvis showed no definite acute CT, she does have a AAA. I discussed this with the resident last night who did the H and P and today's resident who saw her, h oping that urology comes in. She is on IV fluids, ceftriaxone and her regular medications. We will check her labs tomorrow to see how the potassium is doing. She is here for hematuria, urinary tract infection, low potassium and a big history in the past. For Dr. Walsh who is off this weekend. Raul Mccauley DO cc: [id number] TT: 07/21/2016 14:46:20 rj
--- NOTE | 2016-07-21 14:58 | CARD ---
APPROVED REPORT EKG Measurement Heart [id number] ID [id number] <Conclusion> Normal sinus rhythm Left axis deviation Left bundle branch block Abnormal ECG
[2016-07-22] MEDS: Pantoprazole 40 mg EC Tab PO SCH (05:47)
[2016-07-22 08:12] LABS: ADD MANUAL DIFF? NO
[2016-07-22 08:19] LABS: BASO # 0.09 [, K/mm3] (0.0-2.0); BASO % 1.6 % (0.0-3.0); EOS # 0.3 (0.0-0.7); EOS % 4.4 % (1.5-5.0); GRAN # 4.17 (1.4-6.5); GRAN % 73.8 % (50.0-68.0); HEMATOCRIT 34.6 % (36.0-48.0); LYMPH # 0.7 (1.2-3.4); LYMPH % 12.6 % (22.0-35.0); MEAN CELL VOLUME 70.9 fL (80.0-105.0); MEAN CORPUSCULAR HEMOGLOBIN 20.9 pg (25.0-35.0); MEAN CORPUSCULAR HGB CONC 29.5 g/dl (31.0-37.0); MONO # 0.4 (0.1-0.6); MONO % 7.6 % (1.0-6.0); PLATELET COUNT 531 [, 10^3/uL] (120.0-450.0); RED CELL DISTRIBUTION WIDTH 24.7 % (11.5-14.5); WHITE BLOOD COUNT 5.7 [, 10^3/ul] (4.5-11.0)
[2016-07-22 08:32] LABS: ALB/GLOB RATIO 1.1 (1.1-1.8); ALKALINE PHOSPHATASE 84 U/L (38-133); ALT/SGPT 11 U/L (7-56); AST/SGOT 22 U/L (15-39); BILIRUBIN,TOTAL 0.5 mg/dL (0.2-1.3); BLOOD UREA NITROGEN 16 mg/dL (7-21); CALCIUM 8.8 mg/dL (8.4-10.5); CARBON DIOXIDE 24 mmol/L (21-33); CHLORIDE 106 mmol/L (98-107); GFR AFRICAN-AMERICAN > 60; GLUCOSE,RANDOM 87 mg/dL (70-110); POTASSIUM 3.4 mmol/L (3.6-5.0); SODIUM 138 mmol/L (132-148); TOTAL PROTEIN 6.4 g/dL (5.8-8.3)
[2016-07-22] MEDS: Tiotropium 18 mcg Cap For Inhalation IH SCH (09:42)
[2016-07-22] MEDS: POLYETHYLENE GLYCOL 3350 17 GM/Dose PACKET PO SCH (09:42)
[2016-07-22] MEDS: Non Formulary Medication (Fluticasone/Vilanterol [Breo Ellipta 100-25 Mcg Inh] 1 PUFF) IH SCH (09:42)
[2016-07-22] MEDS: methIMAzole 5 MG TAB PO SCH (09:42)
[2016-07-22] MEDS: cefTRIAXone 1 gm 100 ML IVPB SCH (09:45)
[2016-07-22] MEDS ORDERED: Potassium Chloride 10 mEq 100 ML IVPB ONE (10:35)
--- NOTE | 2016-07-22 12:15 | DS ---
SUBJECTIVE: I see her resting in bed. She is pleasant. She is eating, no acute distress. The nurs e tells me the urine has cleared up very nicely with the IV fluids and the antibiotics. She is comfo rtable in bed. I have been waiting for urology. She is in a 2-day observation status to come in and see her. I am hoping to discharge today after urology sees her, hopefully they will come. PHYSICAL EXAMINATION: VITAL SIGNS: She has a 97.8 temp, 70 pulse, 124/78 blood pressure, 20 respiratory rate, 100% O2 sat on nasal cannula. HEENT: Atraumatic, normocephalic. She is alert, no acute distress. No pain. HEART: Regular rate. LUNGS: Clear to auscultation. ABDOMEN: Soft, nontender, positive bowel sounds. No CVA tenderness. EXTREMITIES: No edema. LABORATORY DATA: She has a 5.7 white count, 10.2 hemoglobin, 34.6 hematocrit, with 531 platelets. I NR is 1.06, sodium 138, potassium 3.4. I am going to give her a K rider today before she can go home , I am hoping. BUN 16, creatinine 0.7, GFR is greater than 60, sugar is 87, calcium is 8.8, total bi li is 0.5, AST is 22, ALT is 11, alk phos 84, total protein 6.4. Urine had large, it is cleared now. ASSESSMENT AND PLAN: Waiting for urology to see her. I put a discharge order in after urology sees her today, I am hoping they come in. She will go home on her regular medications that she came in on , plus Cipro 500 twice a day for 16 days. Follow up with Dr. Walsh on the outpatient. This is al l pending on urology. Hopefully, this will work. She is still in observation status. She is here f or hematuria, urinary tract infection, low potassium. Hoping to discharge her today. Raul Mccauley DO cc: [id number] TT: 07/22/2016 12:14:09 jn
[2016-07-22 16:45] VITALS: PULSE 77
[2016-07-22 16:46] VITALS: BP 136/93; RESP 20; TEMP 98.4; O2SAT 100
== END 2016-07-22 17:33 | disposition home or self-care (01) ==
LOC: ED 17:38 → ERH 22:18 → 5RSO 07-21 00:43 → UNDODISOB 07-22 17:08
PROVIDERS: ADMIT Internal Medicine; ATTEND Internal Medicine
DX: R31.9 Hematuria, unspecified (principal); N39.0 Urinary tract infection, site not specified; I25.10 Atherosclerotic heart disease of native coronary artery without angina pectoris; Z86.711 Personal history of pulmonary embolism; Z86.73 Personal history of transient ischemic attack (TIA), and cerebral infarction without residual deficits; J44.9 Chronic obstructive pulmonary disease, unspecified; I10 Essential (primary) hypertension; G30.9 Alzheimer's disease, unspecified; F02.80 Dementia in other diseases classified elsewhere, unspecified severity, without behavioral disturbance, psychotic disturbance, mood disturbance, and anxiety; E03.9 Hypothyroidism, unspecified; R56.9 Unspecified convulsions; I71.4 Abdominal aortic aneurysm, without rupture; D50.9 Iron deficiency anemia, unspecified; I25.2 Old myocardial infarction; Z87.891 Personal history of nicotine dependence
CPT/HCPCS: 36415; 74176; 80048; 80053; 81001; 85025; 85610; 85730; 86039; 86160; 86225; 87040; 87086; 93005; 99284; G0378; J0696; J3480; J7030

== ENCOUNTER 2016-07-25 14:51 | Emergency (ER) | payer MEDICARE, MEDICAID ==
[2016-07-25 14:51] VITALS: BMI 17.7
[2016-07-25 15:31] VITALS: RESP 18
[2016-07-25 15:48] LABS: ADD MANUAL DIFF? NO
[2016-07-25 16:02] LABS: BLOOD UREA NITROGEN 20 mg/dL (7-21); CALCIUM 9.4 mg/dL (8.4-10.5); CARBON DIOXIDE 26 mmol/L (21-33); CHLORIDE 104 mmol/L (98-107); GFR AFRICAN-AMERICAN > 60; GLUCOSE,RANDOM 102 mg/dL (70-110); POTASSIUM 3.8 mmol/L (3.6-5.0); SODIUM 140 mmol/L (132-148); TOTAL PROTEIN 6.9 g/dL (5.8-8.3)
[2016-07-25 16:03] LABS: ALKALINE PHOSPHATASE 86 U/L (38-133); ALT/SGPT 11 U/L (7-56); AMYLASE 128 U/L (35-125); AST/SGOT 29 U/L (15-39); BILIRUBIN,TOTAL 0.4 mg/dL (0.2-1.3); LIPASE 236 U/L (23-300)
[2016-07-25 16:05] LABS: BASO # 0.08 K/mm3 (0.0-2.0); BASO % 1.4 % (0.0-3.0); EOS # 0.2 (0.0-0.7); GRAN # 4.27 (1.4-6.5); GRAN % 74.4 % (50.0-68.0); HEMATOCRIT 35.5 % (36.0-48.0); LYMPH # 0.7 (1.2-3.4); LYMPH % 12.9 % (22.0-35.0); MEAN CELL VOLUME 71.7 fL (80.0-105.0); MEAN CORPUSCULAR HGB CONC 30.7 g/dl (31.0-37.0); MONO # 0.4 (0.1-0.6); MONO % 7.3 % (1.0-6.0); PLATELET COUNT 579 10^3/uL (120.0-450.0); WHITE BLOOD COUNT 5.7 10^3/ul (4.5-11.0)
[2016-07-25 16:12] LABS: INR 1.05 (0.93-1.08); PARTIAL THROMBOPLASTIN TIME 28.8 Seconds (23.7-30.8)
[2016-07-25 16:15] LABS: TROPONIN I < 0.01 ng/mL
--- NOTE | 2016-07-25 16:30 | ED PDOC ---
Arrival/HPI - General Chief Complaint: Abdominal Pain Time Seen by Provider: 07/25/16 15:30 Historian: Patient - History of Present Illness Narrative History of Present Illness (Text): 07/25/16 16:26 81yo female with PMHx of COPD and abdominal Aneurysm present with complaint of mild RUQ abdominal pain. She reports similar symptom of abdominal pain intermittently x months. States she was told is secondary to the Aneurysm and in operable secondary to her history of COPD. States she is tolerating food and water. Denies nausea, vomiting, diarrhea, constipation, any other complaint. She was Discharged from the hospital on Saturday and still on Cipro for UTI. Past Medical History - Provider Review Nursing Documentation Reviewed: Yes - Infectious Disease Hx of Infectious Diseases: None - Cardiac Hx Cardiac Disorders: Yes Hx Congestive Heart Failure: Yes Hx Hypertension: Yes - Pulmonary Hx Chronic Obstructive Pulmonary Disease (COPD): Yes - Neurological Hx Neurological Disorder: Yes Hx Seizures: Yes (with tia's as per daughter) Hx Transient Ischemic Attacks (TIA): Yes (x2) Other/Comment: residual from tia was slurred speech which resolved with therapy - HEENT Hx HEENT Disorder: Yes Hx Cataracts: Yes (left eye sx) Other/Comment: pt needs right eye cataract sx done but is a poor surgical risk as per daughter - Renal Hx Renal Disorder: No - Endocrine/Metabolic Hx Hypothyroidism: Yes - Hematological/Oncological Hx Blood Disorders: Yes Hx Cancer: (denies) Other/Comment: 4 yrs ago pt dx with lung ca at [facility] [place]. dr good sent pt for further tests which were negative for cancer, as per daughter - Integumentary Hx Dermatological Disorder: No - Musculoskeletal/Rheumatological Hx Falls: No - Gastrointestinal Hx Gastrointestinal Disorders: Yes Other/Comment: egd dx gastric erosions small hiatal hernia and gastric avm, 09/05 - Genitourinary/Gynecological Hx Reproductive Disorders: No - Psychiatric Hx Psychophysiologic Disorder: No Hx Substance Use: No - Surgical History Other/Comment: cataract extraction - Anesthesia Hx Anesthesia: Yes Hx Anesthesia Reactions: No Hx Malignant Hyperthermia: No Family/Social History - Physician Review Nursing Documentation Reviewed: Yes Family/Social History: Unknown Family HX Smoking Status: Former Smoker Hx Alcohol Use: No Hx Substance Use: No Allergies/Home Meds Allergies/Adverse Reactions: Allergies No Known Allergies Allergy (Verified 07/25/16 15:30) Home Medications: Home Meds Medication Instructions Recorded Confirmed Fluticasone/Vilanterol [Breo 1 puff IH DAILY 06/28/16 07/03/16 Ellipta 100-25 Mcg INH] Review of Systems - Physician Review All systems were reviewed & negative as marked: Yes - Review of Systems Constitutional: Normal Eyes: Normal ENT: Normal Respiratory: Normal Cardiovascular: Normal Gastrointestinal: Abdominal Pain. absent: Constipation, Diarrhea, Nausea, Vomiting, Hematemesis Genitourinary Female: Normal Musculoskeletal: Normal Skin: Normal Neurological: Normal Endocrine: Normal Hemo/Lymphatic: Normal Psychiatric: Normal Physical Exam Vital Signs Reviewed: Yes Vital Signs Temp Pulse Resp BP Pulse Ox 07/25/16 17:30 98 F 70 18 132/76 96 07/25/16 15:27 97.3 F L 80 18 123/81 100 Temperature: Afebrile Blood Pressure: Normal Pulse: Regular Respiratory Rate: Normal Appearance: Positive for: Well-Appearing, Non-Toxic, Comfortable Pain Distress: None Mental Status: Positive for: Alert and Oriented X 3 - Systems Exam Head: Present: Atraumatic, Normocephalic Pupils: Present: PERRL Extroacular Muscles: Present: EOMI Conjunctiva: Present: Normal Mouth: Present: Moist Mucous Membranes Neck: Present: Normal Range of Motion Respiratory/Chest: Present: Clear to Auscultation, Good Air Exchange. No: Respiratory Distress, Accessory Muscle Use Cardiovascular: Present: Regular Rate and Rhythm, Normal S1, S2. No: Murmurs Abdomen: Present: Tenderness (Mild RUQ tenderness), Normal Bowel Sounds, Other ( soft). No: Distention, Peritoneal Signs, Rebound, Guarding, McBurney's Point Tender, Rovsing's Sign Present Back: Present: Normal Inspection Upper Extremity: Present: Normal Inspection. No: Cyanosis, Edema Lower Extremity: Present: Normal Inspection. No: Edema Neurological: Present: GCS=15, CN II-XII Intact, Speech Normal Skin: Present: Warm, Dry, Normal Color. No: Rashes Psychiatric: Present: Alert, Oriented x 3, Normal Insight, Normal Concentration Medical Decision Making ED Course and Treatment: 07/26/16 00:58 PT presented in ED for stated history. Lab was unremarkable. Pt was comfortable in ED. Noted to be tolerating sandwich and tea in ED. Abdominal US IMPRESSION: Hepatic steatosis. Mild aneurysmal dilatation of the aorta with anterior intramural thrombus. US finding was compared with pt's abdominal CT on 07/15/16 and no difference is noted. Case was DW Dr. Mccauley, States pt should be DC home. - Lab Interpretations Lab Results: 07/25/16 15:15 07/25/16 15:15 Lab Results 07/25/16 15:15: WBC 5.7, RBC 4.95, Hgb 10.9 L, Hct 35.5 L, MCV 71.7 L, MCH 22.0 L, MCHC 30.7 L, RDW 26.0 H, Plt Count 579 H, Gran % 74.4 H, Lymph % (Auto) 12.9 L, [place] % (Auto) 7.3 H, Eos % (Auto) 4.0, Baso % (Auto) 1.4, Gran # 4.27, Lymph # 0.7 L, [place] # 0.4, Eos # 0.2, Baso # 0.08, PT 11.3, INR 1.05, APTT 28.8, Sodium 140, Potassium 3.8, Chloride 104, Carbon Dioxide 26, Anion Gap 14, BUN 20 , Creatinine 0.8, Est GFR ( Amer) > 60, Est GFR (Non-Af Amer) > 60, Random Glucose 102, Calcium 9.4, Total Bilirubin 0.4, AST 29, ALT 11, Alkaline Phosphatase 86, Lactate Dehydrogenase 519, Total Creatine Kinase 34 L, Troponin I < 0.01 D, Total Protein 6.9, Albumin 3.4, Globulin 3.4, Albumin/Globulin Ratio 1.0 L, Amylase 128 H, Lipase 236 - RAD Interpretation Radiology Orders: 07/25/16 15:32 ABDOMEN COMPLETE [US] Stat Disposition/Present on Arrival - Present on Arrival Any Indicators Present on Arrival: No History of DVT/PE: No History of Uncontrolled Diabetes: No Urinary Catheter: No History of Decub. Ulcer: No History Surgical Site Infection Following: None - Disposition Have Diagnosis and Disposition been Completed?: Yes Diagnosis: AAA (abdominal aortic aneurysm), Abdominal pain Disposition: HOME/ ROUTINE Disposition Time: 18:15 Patient Plan: Discharge Patient Problems: Current Active Problems Problem Status Diagnosed AAA (abdominal aortic aneurysm) without rupture Acute Chest pain Acute Chronic obstructive pulmonary disease Acute Dyspnea Acute Hypoxia Acute NSTEMI (non-ST elevated myocardial infarction) Acute Weakness Acute Condition: STABLE Discharge Instructions (ExitCare): Abdominal Pain (ED) Additional Instructions: Follow up with your Doctor Return to ED for any new or worsening symptoms Referrals: Russ Good MD [Primary Care Provider] - Follow up with primary
--- NOTE | 2016-07-25 17:47 | US ---
HISTORY: RUQ pain COMPARISON: None. TECHNIQUE: Grayscale imaging was performed. FINDINGS: LIVER: Measures 14.1 cm. There is diffuse increased echogenicity of the liver parenchyma. No mass. No intrahepatic bile duct dilatation. GALLBLADDER: Unremarkable. No gallstones. COMMON BILE DUCT: Measures 3.6 mm. No stones. No dilatation. PANCREAS: Unremarkable as visualized. No mass. No ductal dilatation. RIGHT KIDNEY: Measures 9.1cm. Normal echogenicity. No calculus, mass, or hydronephrosis. LEFT KIDNEY: Measures 9.1cm. Normal echogenicity. No calculus, mass, or hydronephrosis. SPLEEN: Normal in size and contour. No mass. AORTA: There is mild aneurysmal dilatation of the aorta are with anterior intramural thrombus. IVC: Unremarkable. OTHER FINDINGS: None. IMPRESSION: Hepatic steatosis. Mild aneurysmal dilatation of the aorta with anterior intramural thrombus.
[2016-07-25 18:52] VITALS: BP 132/76; PULSE 70; TEMP 98; O2SAT 96
--- NOTE | 2016-07-26 18:34 | CARD ---
APPROVED REPORT EKG Measurement Heart [id number] <Conclusion> Normal sinus rhythm Possible Left atrial enlargement Left axis deviation Anteroseptal infarct, age undetermined T wave abnormality, consider lateral ischemia Abnormal ECG
== END 2016-07-25 19:02 | disposition home or self-care (01) ==
LOC: ED 14:51
DX: I71.4 Abdominal aortic aneurysm, without rupture (principal); R10.9 Unspecified abdominal pain; I10 Essential (primary) hypertension; Z86.73 Personal history of transient ischemic attack (TIA), and cerebral infarction without residual deficits; Z87.891 Personal history of nicotine dependence

== ENCOUNTER 2016-07-26 20:01 | Inpatient (IN) | payer MEDICARE, MEDICAID ==
[2016-07-26 20:01] VITALS: BMI 17.7
[2016-07-26 20:38] LABS: ADD MANUAL DIFF? NO
[2016-07-26 20:45] LABS: BASO # 0.06 K/mm3 (0.0-2.0); BASO % 0.9 % (0.0-3.0); EOS # 0.2 (0.0-0.7); EOS % 2.2 % (1.5-5.0); GRAN # 5.32 (1.4-6.5); GRAN % 76.5 % (50.0-68.0); HEMATOCRIT 36.8 % (36.0-48.0); LYMPH # 0.9 (1.2-3.4); LYMPH % 13.2 % (22.0-35.0); MEAN CELL VOLUME 72.3 fL (80.0-105.0); MEAN CORPUSCULAR HEMOGLOBIN 21.8 pg (25.0-35.0); MEAN CORPUSCULAR HGB CONC 30.2 g/dl (31.0-37.0); MONO # 0.5 (0.1-0.6); MONO % 7.2 % (1.0-6.0); PLATELET COUNT 607 10^3/uL (120.0-450.0)
--- NOTE | 2016-07-26 20:45 | ED PDOC ---
Arrival/HPI - General Chief Complaint: Abdominal Pain Time Seen by Provider: 07/26/16 20:02 - History of Present Illness Narrative History of Present Illness (Text): 81 y/o F c PMHx AAA p/w hematuria x 8 days. Patient has had gross hematuria and was previously on antibiotics for a possible UTI. She was initially planned on having a cystoscopy during admission but was discharged as she was stable at that time. She returned to the ER yesterday due to abdominal pain during which time a repeat US showed a stable AAA. She returns now with same complaint, denies any abdominal pain at this time. Denies vomiting, dyspnea, fever. Past Medical History - Infectious Disease Hx of Infectious Diseases: None - Cardiac Hx Cardiac Disorders: Yes Hx Congestive Heart Failure: Yes Hx Hypertension: Yes - Pulmonary Hx Chronic Obstructive Pulmonary Disease (COPD): Yes - Neurological Hx Neurological Disorder: Yes Hx Seizures: Yes Hx Transient Ischemic Attacks (TIA): Yes (x2) Other/Comment: residual from tia was slurred speech which resolved with therapy (from previous) - HEENT Hx HEENT Disorder: Yes Hx Cataracts: Yes (left eye sx) - Renal Hx Renal Disorder: No - Endocrine/Metabolic Hx Hypothyroidism: Yes - Hematological/Oncological Hx Blood Disorders: Yes Hx Cancer: Yes (denies) - Integumentary Hx Dermatological Disorder: No - Musculoskeletal/Rheumatological Hx Falls: No - Gastrointestinal Hx Gastrointestinal Disorders: Yes Other/Comment: egd dx gastric erosions small hiatal hernia and gastric avm, 09/05 (from previous) - Genitourinary/Gynecological Hx Reproductive Disorders: No - Psychiatric Hx Psychophysiologic Disorder: No Hx Substance Use: No - Surgical History Hx Cataract Extraction: Yes - Anesthesia Hx Anesthesia: Yes Hx Anesthesia Reactions: No Hx Malignant Hyperthermia: No Family/Social History Family/Social History: No Known Family HX Smoking Status: Former Smoker Hx Alcohol Use: No Hx Substance Use: No Allergies/Home Meds Allergies/Adverse Reactions: Allergies No Known Allergies Allergy (Verified 07/26/16 20:13) Home Medications: Home Meds Medication Instructions Recorded Confirmed Fluticasone/Vilanterol [Breo 1 puff IH DAILY 06/28/16 07/26/16 Ellipta 100-25 Mcg INH] Review of Systems - Physician Review All systems were reviewed & negative as marked: Yes - Review of Systems Constitutional: absent: Fevers Cardiovascular: absent: Chest Pain Physical Exam - Physical Exam Narrative Physical Exam (Text): Constitutional: No acute distress. Head: Normocephalic. Atraumatic. Eyes: PERRL. ENT: Moist mucous membranes. Neck: Supple. Cardiovascular: Regular rate. Chest: No tenderness. Respiratory: Clear to auscultation bilaterally. GI: Soft. Nontender. Nondistended. Back: No CVA tenderness. Musculoskeletal: No tenderness or swelling of extremities. Skin: No rash. Neurologic: Alert, no focal deficit. Vital Signs Reviewed: Yes Vital Signs Temp Pulse Resp BP Pulse Ox 07/26/16 20:24 98.6 F 75 24 119/77 98 Temperature: Afebrile Blood Pressure: Normal Pulse: Regular Respiratory Rate: Normal Appearance: Positive for: Well-Appearing, Non-Toxic, Comfortable Pain Distress: None Mental Status: Positive for: Alert and Oriented X 3 Medical Decision Making ED Course and Treatment: Dr. Soriano agrees with admission. Will consult with Dr. Rucker/Rebecca for hematuria. residential construction instructor notified. 07/26/16 20:57 EKG interpreted by me: NSR @ [address] elevations. - Lab Interpretations Lab Results: 07/26/16 20:34 Lab Results 07/26/16 20:34: WBC 7.0 D, RBC 5.09, Hgb 11.1 L, Hct 36.8, MCV 72.3 L, MCH 21.8 L, MCHC 30.2 L, RDW 26.0 H, Plt Count 607 H, Gran % 76.5 H, Lymph % (Auto) 13.2 L, [place] % (Auto) 7.2 H, Eos % (Auto) 2.2, Baso % (Auto) 0.9, Gran # 5.32, Lymph # 0.9 L, [place] # 0.5, Eos # 0.2, Baso # 0.06, PT 11.6, INR 1.07, APTT 29.3 Disposition/Present on Arrival - Present on Arrival Any Indicators Present on Arrival: No History of DVT/PE: No History of Uncontrolled Diabetes: No Urinary Catheter: No History of Decub. Ulcer: No History Surgical Site Infection Following: None - Disposition Have Diagnosis and Disposition been Completed?: Yes Diagnosis: Hematuria Disposition: HOSPITALIZED Disposition Time: 21:49 Patient Plan: Admission Patient Problems: Current Active Problems Problem Status Diagnosed AAA (abdominal aortic aneurysm) without rupture Acute Chest pain Acute Chronic obstructive pulmonary disease Acute Dyspnea Acute Hypoxia Acute NSTEMI (non-ST elevated myocardial infarction) Acute Weakness Acute Condition: FAIR
[2016-07-26 21:08] LABS: INR 1.07 (0.93-1.08); PARTIAL THROMBOPLASTIN TIME 29.3 Seconds (23.7-30.8)
[2016-07-26 22:32] LABS: BILIRUBIN,TOTAL 0.5 mg/dL (0.2-1.3); CALCIUM 9.3 mg/dL (8.4-10.5); POTASSIUM 3.8 mmol/L (3.6-5.0); TOTAL PROTEIN 7.5 g/dL (5.8-8.3)
--- NOTE | 2016-07-26 22:45 | CP.PCM.HP ---
History of Present Illness - History of Present Illness History of Present Illness: This is an 81 yo female with past medical hx of AAA, CVA, lung cancer, NSTEMI May 2013, COPD, CHF, on home O2, chronic microcytic anemia, HTN, seizures, dementia, cataracts, hyperthyroidism, constipation presenting with hematuria. Pt was recently admitted to the hospital and then discharged without cystoscopy. She was in the ER yesterday with abdominal and discharged. She was told to come into hospital today by Dr. Soriano. Pt has had gross hematuria with clots, it would happen every time she urinated. She says the hematuria has now resolved. She cannot say exactly when it resolved. She is on asa at home. She denies trauma, vigorous exercise. She reports weight loss of 10 lbs over the past month. She denies any exposure to chemicals or dyes. She denies bloody BMs. She denies dysuria or any other urinary sx. She denies any hx of radiation. She denies abdominal pain currently, but says earlier in the day she had some periumbilical pain that came on suddenly while she was watching tv. It was an achy sensation and was similar to pain she had yesterday when she came to ER. Rated it 8/10, did not take anything for it at home. PMH: AAA, bilobed, 9.4 cm, craniocaudal, 4.1 cm x 4.9 transverse, CVA, lung cancer, NSTEMI, CHF, COPD, on home o2, cataracts, anemia, HTN, seizures, dementia, hyperthyroidism, constipation PSH: thyroidectomy, left cataract Allergies: NKDA FH: Daughter- breast cancer; mother- stomach cancer Social hx: Quit 5 yrs ago. 1 ppd since very young age. No drinking. Denies drug use. Lives by herself in [facility] complex. Lives in [place]. Uses walker/ cane. Worked for [employer]. Present on Admission - Present on Admission Any Indicators Present on Admission: No History of DVT/PE: No History of Uncontrolled Diabetes: No Urinary Catheter: No Decubitus Ulcer Present: No Review of Systems - Review of Systems All systems: reviewed and no additional remarkable complaints except Review of Systems: Negative except as stated in HPI. Past Patient History - Infectious Disease Hx of Infectious Diseases: None - Tetanus Immunizations Tetanus Immunization: Unknown - Past Medical History & Family History Past Medical History?: Yes Pertinent Family History: Daughter- breast cancer Mother- stomach cancer - Past Social History Smoking Status: Former Smoker Chewing Tobacco Use: No Cigar Use: No Alcohol: None Drugs: Denies Home Situation {Lives}: Alone - CARDIAC Hx Cardiac Disorders: Yes Hx Congestive Heart Failure: Yes Hx Hypertension: Yes - PULMONARY Hx Chronic Obstructive Pulmonary Disease (COPD): Yes - NEUROLOGICAL Hx Neurological Disorder: Yes Hx Seizures: Yes Hx Transient Ischemic Attacks (TIA): Yes (x2) Other/Comment: residual from tia was slurred speech which resolved with therapy (from previous) - HEENT Hx HEENT Problems: Yes Hx Cataracts: Yes (left eye sx) - RENAL Hx Chronic Kidney Disease: No - ENDOCRINE/METABOLIC Hx Hypothyroidism: Yes - HEMATOLOGICAL/ONCOLOGICAL Hx Blood Disorders: Yes Hx Cancer: Yes (denies) - INTEGUMENTARY Hx Dermatological Problems: No - MUSCULOSKELETAL/RHEUMATOLOGICAL Hx Falls: No - GASTROINTESTINAL Hx Gastrointestinal Disorders: Yes Other/Comment: egd dx gastric erosions small hiatal hernia and gastric avm, 09/05 (from previous) - GENITOURINARY/GYNECOLOGICAL Hx Reproductive Disorders: No - PSYCHIATRIC Hx Psychophysiologic Disorder: No Hx Substance Use: No - SURGICAL HISTORY Hx Cataract Extraction: Yes - ANESTHESIA Hx Anesthesia: Yes Hx Anesthesia Reactions: No Hx Malignant Hyperthermia: No Meds Allergies/Adverse Reactions: Allergies Allergy/AdvReac Type Severity Reaction Status Date / Time No Known Allergies Allergy Verified 07/26/16 20:13 Physical Exam - Constitutional Appears: Non-toxic, No Acute Distress - Head Exam Head Exam: ATRAUMATIC, NORMAL INSPECTION, NORMOCEPHALIC - Eye Exam Eye Exam: EOMI - ENT Exam ENT Exam: Mucous Membranes Moist - Neck Exam Neck exam: Positive for: Normal Inspection - Respiratory Exam Respiratory Exam: Decreased Breath Sounds. absent: Accessory Muscle Use, Respiratory Distress - Cardiovascular Exam Cardiovascular Exam: REGULAR RHYTHM - GI/Abdominal Exam GI & Abdominal Exam: Tenderness. absent: Firm, Guarding Additional comments: mild periumbilical pain - Extremities Exam Extremities exam: Positive for: normal inspection - Neurological Exam Neurological exam: Alert, Oriented x3 - Psychiatric Exam Psychiatric exam: Normal Affect, Normal Mood - Skin Skin Exam: Dry, Intact, Normal Color, Warm Results - Vital Signs Recent Vital Signs: Last Vital Signs Temp 98.6 F 07/26/16 20:24 Pulse 75 07/26/16 20:24 Resp 24 07/26/16 20:24 BP 119/77 07/26/16 20:24 Pulse Ox 98 07/26/16 20:24 - Labs Result Diagrams: 07/26/16 20:34 07/26/16 20:34 Labs: Laboratory Results - last 24 hr 07/26/16 20:34 WBC 7.0 D RBC 5.09 Hgb 11.1 L Hct 36.8 MCV 72.3 L MCH 21.8 L MCHC 30.2 L RDW 26.0 H Plt Count 607 H Gran % 76.5 H Lymph % (Auto) 13.2 L [place] % (Auto) 7.2 H Eos % (Auto) 2.2 Baso % (Auto) 0.9 Gran # 5.32 Lymph # 0.9 L [place] # 0.5 Eos # 0.2 Baso # 0.06 PT 11.6 INR 1.07 APTT 29.3 Sodium 141 Potassium 3.8 Chloride 104 Carbon Dioxide 26 Anion Gap 15 BUN 24 H Creatinine 1.2 Est GFR ( Amer) 52 Est GFR (Non-Af Amer) 43 Random Glucose 124 H Calcium 9.3 Total Bilirubin 0.5 AST 26 ALT 8 Alkaline Phosphatase 94 Total Protein 7.5 Albumin 3.8 Globulin 3.7 Albumin/Globulin Ratio 1.0 L Lipase 203 Assessment & Plan - Assessment and Plan (Free Text) Assessment: This is an 81 yo female with pmh AAA, CVA, CHF, NSTEMI, COPD, chronic anemia, HTN, seizures, dementia, cataracts, hyperthyroidism presenting with hematuria 1. Hematuria -we will hold asa -urology consult. Dr. Rucker. recs appreciated -pt to go for cystoscopy -abdominal us showed hepatic steatosis and stable AAA -recent CT shows phleboliths, minimal hiatal hernia, no other acute findings -urine culture pending -NPO past midnight for possible cystoscopy 2. Hx of COPD -oxygen by nasal cannula -continue home breo and spiriva 3. Hx of NSTEMI -continue lipitor 10 daily -continue lopressor 4. Hx dementia -continue donepezil 5. Hx microcytic anemia -feosol daily 6. Hx seizures -aspiration/seizure precautions -continue keppra daily 7. Hx of hyperthyroidism -continue methimazole daily 8. Hx of constipation -continue miralax 9. GI/DVT ppx -protonix -SCDs to be discussed with Dr. Soriano
[2016-07-27 05:27] LABS: PH,URINE 5.5 (4.7-8.0); URINE BILIRUBIN NEGATIVE (NEGATIVE); URINE BLOOD TRACE-INTACT (NEGATIVE); URINE GLUCOSE (UA) NEGATIVE (NEGATIVE); URINE KETONE NEGATIVE (NEGATIVE); URINE LEUKOCYTE ESTERASE SMALL Leu/uL (NEGATIVE); URINE PROTEIN TRACE mg/dL (<30 mg/dL); URINE UROBILINOGEN 0.2 E.U./dL (<1 E.U./dL)
[2016-07-27 05:29] LABS: URINE APPEARANCE SLIGHT-CLOUDY (CLEAR); URINE COLOR YELLOW (YELLOW)
[2016-07-27 05:32] LABS: URINE BACTERIA RARE (NEG); URINE EPITHELIAL CELLS 0 - 2 /hpf (0-5); URINE RBC 0 - 2 /hpf (0-2)
[2016-07-27] MEDS: Tiotropium 18 mcg Cap For Inhalation IH SCH (09:17)
[2016-07-27] MEDS: methIMAzole 5 MG TAB PO SCH (09:18)
[2016-07-27] MEDS: POLYETHYLENE GLYCOL 3350 17 GM/Dose PACKET PO SCH (09:20)
--- NOTE | 2016-07-27 09:53 | CP.PCM.PN ---
Subjective - Date & Time of Evaluation Date of Evaluation: 07/27/16 Time of Evaluation: 09:51 - Subjective Subjective: PGY-1 medicine progress note. Patient seen and examined at bedside. No acute distress, patient is comfortable. Nurse reports no events overnight. Patient states she doing ok and her hematuria has resolved. She states that she was having abdominal pain but it has since gone away. She is reports difficulty swallowing when eating jello. She denies fever, chill, chest pain, sob, n/v/d/c. Per daughter home health nurse only visits for few hours a day and patient not getting all medication. Objective - Vital Signs/Intake and Output Vital Signs (last 24 hours): Temp Pulse Resp BP Pulse Ox 98.1 F 84 20 105/67 100 07/27/16 08:00 07/27/16 09:17 07/27/16 08:00 07/27/16 09:17 07/27/16 08:00 Intake and Output: 07/27/16 07/27/16 06:59 18:59 Intake Total 0 Balance 0 - Medications Medications: Current Medications Atorvastatin Calcium (Lipitor) 10 mg PO DIN [facility] Donepezil HCl (Aricept) 5 mg PO HS [facility] Ferrous Sulfate (Feosol) 324 mg PO DAILY [facility] Last Admin: 07/27/16 09:17 Dose: 324 mg Levetiracetam (Keppra) 750 mg PO DAILY [facility] Last Admin: 07/27/16 09:18 Dose: 750 mg Loratadine (Claritin) 10 mg PO DAILY [facility] Last Admin: 07/27/16 09:18 Dose: 10 mg Methimazole (Tapazole) 5 mg PO DAILY [facility] Last Admin: 07/27/16 09:18 Dose: 5 mg Metoprolol Tartrate (Lopressor) 25 mg PO 0800,1800 [facility] Last Admin: 07/27/16 09:17 Dose: 25 mg Non-Formulary Medication (Fluticasone/Vilanterol [Breo Ellipta 100-25 Mcg Inh]) 1 puff IH DAILY [facility] Pantoprazole Sodium (Protonix Inj) 40 mg IVP DAILY [facility] Last Admin: 07/27/16 09:19 Dose: 40 mg Polyethylene Glycol (Miralax) 17 gm PO DAILY [facility] Last Admin: 07/27/16 09:20 Dose: 17 gm Tiotropium [place] (Spiriva) 18 mcg IH DAILY [facility] Last Admin: 07/27/16 09:17 Dose: 18 mcg - Labs Labs: PT 11.6 Seconds (9.9-11.8) 07/26/16 20:34 INR 1.07 (0.93-1.08) 07/26/16 20:34 APTT 29.3 Seconds (23.7-30.8) 07/26/16 20:34 - Constitutional Appears: Well, No Acute Distress - Head Exam Head Exam: ATRAUMATIC, NORMOCEPHALIC - Eye Exam Eye Exam: EOMI, Normal appearance - ENT Exam ENT Exam: Mucous Membranes Moist - Respiratory Exam Respiratory Exam: Clear to Ausculation Bilateral, NORMAL BREATHING PATTERN. absent: Decreased Breath Sounds, Rhonchi, Wheezes, Respiratory Distress - Cardiovascular Exam Cardiovascular Exam: REGULAR RHYTHM. absent: Tachycardia, Murmur - GI/Abdominal Exam GI & Abdominal Exam: Soft, Normal Bowel Sounds. absent: Distended, Firm, Tenderness - Extremities Exam Extremities Exam: Normal Inspection. absent: Pedal Edema - Neurological Exam Neurological Exam: Alert, Awake, Oriented x3 - Skin Skin Exam: Dry, Intact, Normal Color, Warm Assessment and Plan - Assessment and Plan (Free Text) Assessment: 81 yo female with pmh AAA, CVA, CHF, NSTEMI, COPD, chronic anemia, HTN, seizures , dementia, cataracts, hyperthyroidism presenting with improving hematuria and abdominal pain Plan: 1. Hematuria - we will hold asa - urology consult. Dr. Rucker - abdominal us showed hepatic steatosis and stable AAA - recent CT on 07/20/16 showed phleboliths, minimal hiatal hernia, no other acute findings - urine culture pending - CT abd &pelvis with IV contrasted order - liquid diet 2. dysphagia - swallow eval - clear liquid diet, advance as tolerated 3. Hx of COPD - oxygen by nasal cannula, on home O2 - continue home breo and spiriva - start duonebs as needed 4. AAA - cont BP control - cont metoprolol 5. Hx of NSTEMI - continue Lipitor 10 daily - continue Lopressor 6. Hx microcytic anemia - feosol daily - at baseline, cont to monitor 7. Hx seizures - aspiration/seizure precautions - continue keppra daily 8. Hx of hyperthyroidism - continue methimazole daily 9. Hx of constipation - continue miralax 10. Hx dementia - continue donepezil 11. Ppx - GI ppx- protonix - DVT ppx- SCDs - PT/OT
[2016-07-27] MEDS ORDERED: Iohexol 350 MG/100 ML VIAL ONE (10:09)
[2016-07-27] MEDS ORDERED: Albuterol-Ipratrop 3 mg / 0.5 (3 ml) UD IH PRN (11:03)
--- NOTE | 2016-07-27 13:02 | CT ---
PROCEDURE: CT Abdomen and Pelvis with and without intravenous contrast HISTORY: hx of gross hematurias see ureters COMPARISON: 07/20/2016 TECHNIQUE: Axial images of the abdomen were obtained in the pre contrast, portal venous and delayed phases of enhancement. Coronal and sagittal reformats were generated. Contrast dose: 100 cc of Omni 350 Radiation dose: Total exam DLP = 580 mGy-cm. FINDINGS: LOWER THORAX: Unremarkable. LIVER: Unremarkable. No gross lesion or ductal dilatation. GALLBLADDER AND BILE DUCTS: Unremarkable. PANCREAS: Unremarkable. No gross lesion or ductal dilatation. SPLEEN: Unremarkable. ADRENALS: Unremarkable. No mass. KIDNEYS AND URETERS: Unremarkable. No hydronephrosis. No solid mass. There are no findings to explain the history hematuria VASCULATURE: There is a large infrarenal abdominal aortic aneurysm measuring 10 cm in length and 5.1 cm in diameter. There is large amount of mural thrombus. The aneurysm also extends into the common iliacs. BOWEL: Unremarkable. No obstruction. No gross mural thickening. APPENDIX: Normal appendix. PERITONEUM: Unremarkable. No free fluid. No free air. LYMPH NODES: Unremarkable. No enlarged lymph nodes. BLADDER: Unremarkable. REPRODUCTIVE: Unremarkable. BONES: No acute fracture. OTHER FINDINGS: None. IMPRESSION: Unremarkable bladder and kidneys. Large infrarenal abdominal aortic aneurysm.
--- NOTE | 2016-07-27 14:27 | CARD ---
APPROVED REPORT EKG Measurement Heart [id number] <Conclusion> Normal sinus rhythm Possible Left atrial enlargement Left Anterior Bhavesh-Block, Anteroseptal infarct, age undetermined ST & T wave abnormality, consider lateral ischemia Abnormal ECG
--- NOTE | 2016-07-27 14:59 | CON ---
DATE: 07/27/2016 CHIEF COMPLAINT: Hematuria. HISTORY OF PRESENT ILLNESS: This is an 81-year-old female with a history of gross hematuria bonilla g to the patient. She had a CAT scan done a week ago without contrast that was normal. She has a [facility] history of lung cancer, an abdominal aortic aneurysm, COPD. She is on oxygen at home, hypertensio n, and seizures. She complains of some abdominal pain which was upper abdominal pain. According to the nurses, she is voiding in good amounts. Her urine on this admission was clear. The ER shows the urine to have 0-2 RBCs and the urine is grossly clear. She is only on aspirin at home. She has no dysuria, no flank pain. I ordered a CT urogram this morning which I reviewed. It showed normal kidn eys and ureters. The bladder did not show any obvious intrinsic mass. PAST MEDICAL HISTORY: Significant also for cataract surgery and thyroidectomy. ALLERGIES: She has no allergies. SOCIAL HISTORY: She quit smoking 5 years ago, but smoked probably for 70-pack years. No alcohol use . REVIEW OF SYMPTOMS: Currently, she has no symptoms referable to the head, eyes, ears, nose or throat . She is on oxygen at rest. She has no abdominal pain at this time. No dysuria, no gross hematuria , no flank pain, no symptoms referable to her skin. PHYSICAL EXAMINATION: VITAL SIGNS: Show her to be afebrile, pulse 84, blood pressure 105/67, respirations 20. HEENT: Normocephalic. Sclerae clear. ABDOMEN: Soft, no rebound or guarding. No palpable masses, no CVA tenderness. GENITALIA: Unremarkable. I catheterized her since, on CAT scan, the bladder appeared full to make s ure there was no significant residual. She only had approximately 100 mL and had not voided for at l east an hour. I am sending a urine for cytology. IMPRESSION: I do not think this patient needs to have a cystoscopy at this time. She has many sever e medical issues. Urine is now clear. I spoke to her daughter and told her that she can bring her t o the office and I will do a cystoscopy just in the office under local. We will wait and see what th e urine cytology shows. I found no obvious source of the hematuria. If there is any intrinsic bladd er lesion, it would have to be small since nothing was seen on CAT scan and there was good acoustical windowing from the urine. I discussed this with the family. They are in agreement and from the uro logic point of view, she can be discharged and we will do a cystoscopy under local in the office. Marino Rucker MD cc: [id number] TT: 07/27/2016 14:58:19 Confirmation # [id number] Dictation # [id number]
[2016-07-27] MEDS: Non Formulary Medication (Fluticasone/Vilanterol [Breo Ellipta 100-25 Mcg Inh] 1 PUFF) IH SCH (18:28)
[2016-07-28 07:50] LABS: ADD MANUAL DIFF? NO
[2016-07-28 08:07] LABS: BASO # 0.05 K/mm3 (0.0-2.0); BASO % 0.6 % (0.0-3.0); EOS # 0.3 (0.0-0.7); EOS % 3.8 % (1.5-5.0); GRAN # 5.98 (1.4-6.5); GRAN % 76.3 % (50.0-68.0); HEMATOCRIT 35.3 % (36.0-48.0); LYMPH % 12.7 % (22.0-35.0); MEAN CELL VOLUME 72.2 fL (80.0-105.0); MEAN CORPUSCULAR HEMOGLOBIN 21.7 pg (25.0-35.0); MONO # 0.5 (0.1-0.6); MONO % 6.6 % (1.0-6.0); PLATELET COUNT 581 10^3/uL (120.0-450.0); RED CELL DISTRIBUTION WIDTH 26.2 % (11.5-14.5); WHITE BLOOD COUNT 7.9 10^3/ul (4.5-11.0)
[2016-07-28 08:10] LABS: ALKALINE PHOSPHATASE 86 U/L (38-133); ALT/SGPT 13 U/L (7-56); AST/SGOT 22 U/L (15-39); BILIRUBIN,TOTAL 0.6 mg/dL (0.2-1.3); BLOOD UREA NITROGEN 17 mg/dL (7-21); CALCIUM 9.2 mg/dL (8.4-10.5); CARBON DIOXIDE 27 mmol/L (21-33); CHLORIDE 104 mmol/L (98-107); GFR AFRICAN-AMERICAN > 60; GLUCOSE,RANDOM 81 mg/dL (70-110); POTASSIUM 3.2 mmol/L (3.6-5.0); SODIUM 141 mmol/L (132-148); TOTAL PROTEIN 6.7 g/dL (5.8-8.3)
[2016-07-28] MEDS ORDERED: Potassium Chloride 40 mEq/30 ml LIQ UD PO ONE (08:28)
--- NOTE | 2016-07-28 08:46 | CP.PCM.PN ---
Subjective - Date & Time of Evaluation Date of Evaluation: 07/28/16 Time of Evaluation: 08:43 - Subjective Subjective: PGY-1 Medicine progress note Patient seen and examined at bedside. No acute distress. Nurse reporst no acute event overnight. Patient reports some abdominal discomfort but denies n/v/d/c. She denies any urinary symptoms including hematuria. She denies any sob while on O2. She deneis chest pain, fever, chill, headache. She is eating will. Did not participate in PT yesterday. Objective - Vital Signs/Intake and Output Vital Signs (last 24 hours): Temp Pulse Resp BP Pulse Ox 97.9 F 77 18 137/86 100 07/28/16 07:30 07/28/16 07:30 07/28/16 07:30 07/28/16 07:30 07/28/16 07:30 Intake and Output: 07/28/16 07/28/16 06:59 18:59 Intake Total 660 Output Total 100 Balance 560 - Medications Medications: Current Medications Albuterol/Ipratropium (Duoneb 3 Mg/0.5 Mg (3 Ml) Ud) 3 ml IH [id number] PRN PRN Reason: Shortness of Breath Atorvastatin Calcium (Lipitor) 10 mg PO DIN [facility] Last Admin: 07/27/16 18:27 Dose: 10 mg Donepezil HCl (Aricept) 5 mg PO HS [facility] Last Admin: 07/27/16 21:07 Dose: 5 mg Ferrous Sulfate (Feosol) 324 mg PO DAILY [facility] Last Admin: 07/27/16 09:17 Dose: 324 mg Levetiracetam (Keppra) 750 mg PO DAILY [facility] Last Admin: 07/27/16 09:18 Dose: 750 mg Loratadine (Claritin) 10 mg PO DAILY [facility] Last Admin: 07/27/16 09:18 Dose: 10 mg Methimazole (Tapazole) 5 mg PO DAILY [facility] Last Admin: 07/27/16 09:18 Dose: 5 mg Metoprolol Tartrate (Lopressor) 25 mg PO 0800,1800 [facility] Last Admin: 07/27/16 18:27 Dose: 25 mg Non-Formulary Medication (Fluticasone/Vilanterol [Breo Ellipta 100-25 Mcg Inh]) 1 puff IH DAILY [facility] Last Admin: 07/27/16 18:28 Dose: Not Given Pantoprazole Sodium (Protonix Inj) 40 mg IVP DAILY [facility] Last Admin: 07/27/16 09:19 Dose: 40 mg Polyethylene Glycol (Miralax) 17 gm PO DAILY [facility] Last Admin: 07/27/16 09:20 Dose: 17 gm Tiotropium [place] (Spiriva) 18 mcg IH DAILY [facility] Last Admin: 07/27/16 09:17 Dose: 18 mcg - Labs Labs: 07/28/16 07:35 07/28/16 07:35 PT 11.6 Seconds (9.9-11.8) 07/26/16 20:34 INR 1.07 (0.93-1.08) 07/26/16 20:34 APTT 29.3 Seconds (23.7-30.8) 07/26/16 20:34 - Constitutional Appears: Well, No Acute Distress - Head Exam Head Exam: ATRAUMATIC, NORMOCEPHALIC - Eye Exam Eye Exam: Normal appearance - ENT Exam ENT Exam: Mucous Membranes Moist - Respiratory Exam Respiratory Exam: Clear to Ausculation Bilateral, NORMAL BREATHING PATTERN. absent: Decreased Breath Sounds, Rhonchi, Wheezes, Respiratory Distress - Cardiovascular Exam Cardiovascular Exam: REGULAR RHYTHM. absent: Tachycardia, Murmur - GI/Abdominal Exam GI & Abdominal Exam: Soft, Tenderness, Normal Bowel Sounds. absent: Distended, Firm, Guarding - Extremities Exam Extremities Exam: Normal Inspection. absent: Pedal Edema - Neurological Exam Neurological Exam: Alert, Awake, Oriented x3 - Skin Skin Exam: Dry, Intact, Normal Color, Warm Assessment and Plan - Assessment and Plan (Free Text) Assessment: 81 yo female with pmh AAA, CVA, CHF, NSTEMI, COPD, chronic anemia, HTN, seizures , dementia, cataracts, hyperthyroidism presenting with improving hematuria and abdominal pain. CT abd/pelvis with contrast showed unremarkable bladder and kidney. Plan: 1. Hematuria - we will hold asa - urology following Dr. Rucker recommend outpatient cystoscopy - CT abd/pelvis with contrast showed unremarkable bladder and kidney. 2. dysphagia - patient tolerating regular diet - patient refused swallow eval - continue aspiration precaution 3. hyperkalemia - this morning K is 3.2 - patient could not tolerate PO liquid KCl - K-rider was ordered - repeat K in AM 4. Hx of COPD - oxygen by nasal cannula, on home O2 - continue home breo and spiriva - start duonebs as needed 5. abnormal urine culture - clean catch urine culture showed gram positive cocci - however second urine culture is negative - most likely contamination 6. AAA - cont BP control - cont metoprolol 7. Hx of NSTEMI - continue Lipitor 10 daily - continue Lopressor 8. Hx microcytic anemia - feosol daily - at baseline, cont to monitor 9. Hx seizures - aspiration/seizure precautions - continue keppra daily 10. Hx of hyperthyroidism - continue methimazole daily 11. Hx of constipation - continue miralax 12. Hx dementia - continue donepezil 13. Ppx - GI ppx- protonix - DVT ppx- SCDs - PT/OT
[2016-07-28] MEDS: methIMAzole 5 MG TAB PO SCH (10:33)
[2016-07-28] MEDS: POLYETHYLENE GLYCOL 3350 17 GM/Dose PACKET PO SCH (10:34)
[2016-07-28] MEDS: Tiotropium 18 mcg Cap For Inhalation IH SCH (10:34)
[2016-07-28] MEDS: Non Formulary Medication (Fluticasone/Vilanterol [Breo Ellipta 100-25 Mcg Inh] 1 PUFF) IH SCH (10:34)
[2016-07-28] MEDS ORDERED: Potassium Chloride 10 mEq 100 ML IVPB ONE (10:50)
[2016-07-28] MEDS ORDERED: ALBUTEROL INH SCH (14:00)
[2016-07-28] MEDS ORDERED: IPRATROPIUM BROMIDE INH SCH (14:00)
[2016-07-28] MEDS ORDERED: Potassium Chloride 20 mEq ER Tab PO STA (14:34)
[2016-07-28 17:05] VITALS: O2SAT 98
[2016-07-28] MEDS: ALBUTEROL INH SCH ×2 (18:13→18:14)
[2016-07-28] MEDS: IPRATROPIUM BROMIDE INH SCH ×2 (18:13→18:14)
[2016-07-29 07:00] LABS: ADD MANUAL DIFF? NO
[2016-07-29 07:06] LABS: BASO # 0.04 K/mm3 (0.0-2.0); BASO % 0.5 % (0.0-3.0); EOS # 0.3 (0.0-0.7); EOS % 4.1 % (1.5-5.0); GRAN # 5.42 (1.4-6.5); GRAN % 74.2 % (50.0-68.0); HEMATOCRIT 35.2 % (36.0-48.0); LYMPH # 0.9 (1.2-3.4); MEAN CELL VOLUME 72.6 fL (80.0-105.0); MEAN CORPUSCULAR HEMOGLOBIN 22.1 pg (25.0-35.0); MEAN CORPUSCULAR HGB CONC 30.4 g/dl (31.0-37.0); MONO # 0.7 (0.1-0.6); MONO % 9.2 % (1.0-6.0); PLATELET COUNT 534 10^3/uL (120.0-450.0); RED CELL DISTRIBUTION WIDTH 25.7 % (11.5-14.5); WHITE BLOOD COUNT 7.3 10^3/ul (4.5-11.0)
[2016-07-29 07:19] LABS: ALKALINE PHOSPHATASE 84 U/L (38-133); ALT/SGPT 11 U/L (7-56); AST/SGOT 20 U/L (15-39); BILIRUBIN,TOTAL 0.5 mg/dL (0.2-1.3); BLOOD UREA NITROGEN 24 mg/dL (7-21); CALCIUM 9.2 mg/dL (8.4-10.5); CARBON DIOXIDE 27 mmol/L (21-33); CHLORIDE 107 mmol/L (98-107); GFR AFRICAN-AMERICAN > 60; GLUCOSE,RANDOM 88 mg/dL (70-110); POTASSIUM 3.9 mmol/L (3.6-5.0); SODIUM 140 mmol/L (132-148); TOTAL PROTEIN 6.5 g/dL (5.8-8.3)
[2016-07-29 07:41] VITALS: RESP 20; TEMP 97.9
[2016-07-29] MEDS: POLYETHYLENE GLYCOL 3350 17 GM/Dose PACKET PO SCH (09:14)
[2016-07-29] MEDS: Tiotropium 18 mcg Cap For Inhalation IH SCH (09:15)
[2016-07-29] MEDS: methIMAzole 5 MG TAB PO SCH (09:15)
[2016-07-29 09:17] VITALS: BP 116/68; PULSE 80
[2016-07-29] MEDS: Non Formulary Medication (Fluticasone/Vilanterol [Breo Ellipta 100-25 Mcg Inh] 1 PUFF) IH SCH (09:22)
[2016-07-29] MEDS: IPRATROPIUM BROMIDE INH SCH (09:22)
[2016-07-29] MEDS: ALBUTEROL INH SCH (09:22)
--- NOTE | 2016-07-29 21:56 | DS ---
For Dr. Soriano and Dr. Walsh, who are off. HISTORY OF PRESENT ILLNESS: She is resting comfortably in bed. She is pleasantly confused, which I believe is her baseline. She has no chest pain or shortness of breath, no abdominal pain. She is ea ting and I saw her with the nurse and there is no hematuria anymore. She is in good spirits and she is eating. PHYSICAL EXAMINATION: VITAL SIGNS: She has a 97.9 temp, 76 pulse, 131/80 blood pressure, 20 respiratory rate, 98% O2 sat o n room air. HEENT: Head is atraumatic, normocephalic. HEART: Regular rate. LUNGS: Clear to auscultation. ABDOMEN: Soft. EXTREMITIES: No edema. She is very funny when she talks. MEDICATIONS: She is currently on Aricept, Claritin, DuoNeb, Feosol, Ellipta inhaler, ipratropium/alb uterol inhaler, Keppra, Lipitor, Lopressor, MiraLax, Protonix, Spiriva, and Tapazole. LABORATORY DATA: She has a 140 sodium, potassium 3.9 normal now, BUN 24, creatinine 0.9, GFR is grea ter than 60, sugar is 88, calcium is 9.2, total bili is 0.5, AST is 20, ALT is 11, alk phos 84, total protein 6.5 and lipase is 203. INR is 1.07. White count 7.3, hemoglobin stable at 10.7, hematocrit 35.2, platelets are 534. PLAN: I plan on discharging her home with the same medication she came in on. There is no plan for cystoscopy from urology. She will follow up with Dr. Soriano and Dr. Walsh on the outpatient. Raul Mccauley DO cc: [id number] TT: 07/29/2016 21:56:03 [email or web address]
== END 2016-07-29 14:07 | disposition home health service (06) | DRG 696 ==
LOC: ED 20:01 → ERH 21:47 → 5RNO 23:40
PROVIDERS: ADMIT Internal Medicine; ATTEND Internal Medicine
DX: R31.0 Gross hematuria (principal); I11.0 Hypertensive heart disease with heart failure; I50.9 Heart failure, unspecified; E87.5 Hyperkalemia; F03.90 Unspecified dementia, unspecified severity, without behavioral disturbance, psychotic disturbance, mood disturbance, and anxiety; R13.10 Dysphagia, unspecified; R56.9 Unspecified convulsions; J44.9 Chronic obstructive pulmonary disease, unspecified; I71.4 Abdominal aortic aneurysm, without rupture; K59.00 Constipation, unspecified; H26.9 Unspecified cataract; D50.9 Iron deficiency anemia, unspecified; E05.90 Thyrotoxicosis, unspecified without thyrotoxic crisis or storm; K44.9 Diaphragmatic hernia without obstruction or gangrene; Z99.81 Dependence on supplemental oxygen; I25.2 Old myocardial infarction; Z87.891 Personal history of nicotine dependence; Z86.73 Personal history of transient ischemic attack (TIA), and cerebral infarction without residual deficits; Z85.118 Personal history of other malignant neoplasm of bronchus and lung; Z79.82 Long term (current) use of aspirin

== ENCOUNTER 2016-09-11 14:05 | Observation (INO) | payer MEDICARE, MEDICAID ==
[2016-09-11 14:21] VITALS: BMI 21.6
--- NOTE | 2016-09-11 14:59 | ED PDOC ---
Arrival/HPI - General Chief Complaint: Shortness Of Breath Time Seen by Provider: 09/11/16 14:30 Historian: Patient - History of Present Illness Narrative History of Present Illness (Text): 09/11/16 14:38 Juanita Steele is an 81 year old female, whose past medical history includes COPD and CHF, who presents to the emergency department complaining of worsening dyspnea on exertion for two days. Patient is currently asymptomatic and has no other complaint at this time. PMD: Dr. Soriano Time/Duration: < week Symptom Onset: Gradual Symptom Course: Worsening Severity Level: Mild Activities at Onset: Rest Context: Home Past Medical History - Provider Review Nursing Documentation Reviewed: Yes - Infectious Disease Hx of Infectious Diseases: None - Tetanus Immunization Tetanus Immunization: Unknown - Cardiac Hx Cardiac Disorders: Yes Hx Congestive Heart Failure: Yes Hx Hypertension: Yes - Pulmonary Hx Chronic Obstructive Pulmonary Disease (COPD): Yes - Neurological Other/Comment: residual from tia was slurred speech which resolved with therapy - HEENT Hx HEENT Disorder: Yes Hx Cataracts: Yes (left eye sx) - Renal Hx Renal Disorder: No - Endocrine/Metabolic Hx Hypothyroidism: Yes - Hematological/Oncological Hx Cancer: (denies) - Integumentary Hx Dermatological Disorder: No - Musculoskeletal/Rheumatological Hx Falls: No - Gastrointestinal Other/Comment: egd dx gastric erosions small hiatal hernia and gastric avm, 09/05 - Genitourinary/Gynecological Hx Genitourinary Disorders: No - Psychiatric Hx Psychophysiologic Disorder: No Hx Substance Use: No - Surgical History Hx Cataract Extraction: Yes - Anesthesia Hx Anesthesia: Yes Hx Anesthesia Reactions: No Hx Malignant Hyperthermia: No Family/Social History - Physician Review Nursing Documentation Reviewed: Yes Family/Social History: No Known Family HX Smoking Status: Never Smoked Hx Alcohol Use: No Hx Substance Use: No Allergies/Home Meds Allergies/Adverse Reactions: Allergies No Known Allergies Allergy (Verified 07/26/16 20:13) Home Medications: Home Meds Medication Instructions Recorded Confirmed Fluticasone/Vilanterol [Breo 1 puff IH DAILY 06/28/16 07/26/16 Ellipta 100-25 Mcg INH] Physical Exam - Physical Exam Narrative Physical Exam (Text): - Review of Systems Constitutional: Normal. absent: Fatigue, Weight Change, Fevers Eyes: Normal ENT: Normal Respiratory: Worsening dyspnea on exertion. Cardiovascular: Normal absent: Chest pain, Palpitations, Syncope Gastrointestinal: Normal absent: Abdominal pain, Diarrhea, Nausea, Vomiting Genitourinary: Normal. absent: Dysuria, Frequency, Hematuria Musculoskeletal: Normal. absent: Arthralgias, Back Pain, Neck Pain Skin: Normal Neurological: Normal absent: Focal Weakness Endocrine: Normal Hemo/Lymphatic: Normal Psychiatric: Normal - Physical exam Patient appears age appropriate, speaking full sentences without difficulty - Systems Exam Head: Present: Atraumatic, Normocephalic Pupils: Present: PERRL Extraocular Muscles: Present: EOMI Conjunctiva: Present: Normal Mouth: Present: Moist Mucous Membranes Neck: Present: Normal Range of Motion. No: MIDLINE TENDERNESS, Paraspinal Tenderness Respiratory/Chest: Present: Clear to Auscultation, Good Air Exchange. No: Respiratory Distress, Accessory Muscle Use, Tachypnic Cardiovascular: Present: Regular Rate and Rhythm, Normal S1, S2, Peripheral Pulses Present. No: Murmurs Abdomen: Present: Normal Bowel Sounds, No: Tenderness, Peritoneal Signs, Rebound, Guarding, Distention Back: Present: Normal Inspection. No: Midline Tenderness, Paraspinal Tenderness Upper Extremity: Present: Normal Inspection. No: Cyanosis, Edema Lower Extremity: Present: Normal Inspection. No: Edema Neurological: Present: GCS=15, Speech Normal, cranial nerves II through XII fully intact with no cerebellar abnormality, neuro-sensory fully intact. No focal neurological deficits. Skin: Present: Warm, Dry, Normal Color. No: Rashes Lymphatic: Present: OX3, NI, NC Psychiatric: Present: Alert, Oriented x 3, Normal Insight, Normal Concentration Vital Signs Reviewed: Yes Vital Signs Temp Pulse Resp BP Pulse Ox 09/11/16 18:41 64 18 131/68 98 09/11/16 16:54 69 18 133/71 98 09/11/16 15:27 75 18 135/79 98 09/11/16 14:20 98.4 F 77 18 137/86 98 Temperature: Afebrile Blood Pressure: Normal Pulse: Regular Respiratory Rate: Normal Appearance: Positive for: Well-Appearing, Non-Toxic, Comfortable Pain Distress: None Medical Decision Making ED Course and Treatment: 09/11/16 14:38 Impression: 81 year old female complaining of worsening dyspnea upon exertion for two days. Differential Diagnosis included but are not limited to: CHF, PNA, anemia Plan: -- EKG -- Chest X-ray -- Urinalysis -- Blood Culture -- Labs -- Aspirin -- Reassess and disposition Prior Visits: Notes and results from previous visits were reviewed. Patient last seen in the ED on 07/26/16 for a possible UTI. Patient was admitted to hospitalist care for further evaluation. Progress Notes: Patient's previous records were reviewed on 07/09/16. Patient had an echocardiogram done which showed borderline LVH, impaired systolic function, and severe pulmonary hypertension. 09/11/16 16:21 Chest X-ray: Creator : Dewayne Perez MD IMPRESSION: No active disease. Patient's EKG shows normal sinus, 77 bpm, LVH, no ST segment elevations. Interpreted by me.. 09/11/16 19:[address] Mccauley, agrees with obs under Dr. Soriano's service pt and family aware of and agree with plan - Lab Interpretations Lab Results: 09/11/16 15:17 09/11/16 15:17 Lab Results 09/11/16 15:33: Urine Color Yellow, Urine Appearance Clear, Urine pH 6.0, Ur Specific [place] 1.020, Urine Protein Negative, Urine Glucose (UA) Negative, Urine Ketones Negative, Urine Blood Negative, Urine Nitrate Negative, Urine Bilirubin Negative, Urine Urobilinogen 0.2, Ur Leukocyte Esterase Negative 09/11/16 15:17: Sodium 143, Potassium 4.3, Chloride 110 H, Carbon Dioxide 24, Anion Gap 13, BUN 25 H, Creatinine 0.9, Est GFR ( Amer) > 60, Est GFR ( Non-Af Amer) > 60, Random Glucose 89, Calcium 9.5, Total Bilirubin 0.5, AST 37, ALT 18, Alkaline Phosphatase 81, Lactate Dehydrogenase 522, Total Creatine Kinase 44, Troponin I < 0.01, NT-Pro-B Natriuret Pep 529 H, Total Protein 7.1, Albumin 3.6, Globulin 3.5, Albumin/Globulin Ratio 1.0 L 09/11/16 15:17: PT 10.5, INR 0.97, APTT 27.1 09/11/16 15:17: WBC 10.7 D, RBC 5.05, Hgb 12.6, Hct 40.3, MCV 79.8 L, MCH 25.0 , MCHC 31.3, RDW 25.3 H, Plt Count 586 H, MPV 10.4, Gran % 82.6 H, Lymph % (Auto ) 8.8 L, Camp % (Auto) 6.6 H, Eos % (Auto) 1.7, Baso % (Auto) 0.3, Gran # 8.85 H , Lymph # 0.9 L, Camp # 0.7 H, Eos # 0.2, Baso # 0.03 I have reviewed the lab results: Yes - RAD Interpretation Radiology Orders: 09/11/16 14:31 CHEST PORTABLE [RAD] Stat - Medication Orders Current Medication Orders: Discontinued Medications Aspirin (Aspirin Chewable) 324 mg PO STAT [facility] Stop: 09/11/16 14:44 Last Admin: 09/11/16 14:44 Dose: - Scribe Statement The provider has reviewed the documentation as recorded by the Scribe Sylwia Ascencio Provider Scribe Attestation: All medical record entries made by the Scribe were at my direction and personally dictated by me. I have reviewed the chart and agree that the record accurately reflects my personal performance of the history, physical exam, medical decision making, and the department course for this patient. I have also personally directed, reviewed, and agree with the discharge instructions and disposition. Disposition/Present on Arrival - Present on Arrival Any Indicators Present on Arrival: No History of DVT/PE: No History of Uncontrolled Diabetes: No Urinary Catheter: No History of Decub. Ulcer: No History Surgical Site Infection Following: None - Disposition Have Diagnosis and Disposition been Completed?: Yes Diagnosis: Dyspnea Disposition: HOSPITALIZED Disposition Time: 19:04 Patient Plan: Observation Condition: FAIR Referrals: Russ Soriano MD [Primary Care Provider] - Follow up with primary
--- NOTE | 2016-09-11 15:19 | RAD ---
HISTORY: cough COMPARISON: 06/28/2016 FINDINGS: LUNGS: No active pulmonary disease. PLEURA: No significant pleural effusion identified, no pneumothorax apparent. CARDIOVASCULAR: Normal. OSSEOUS STRUCTURES: No significant abnormalities. VISUALIZED UPPER ABDOMEN: Normal. OTHER FINDINGS: None. IMPRESSION: No active disease.
[2016-09-11 15:38] LABS: ADD MANUAL DIFF? NO
[2016-09-11 15:46] LABS: URINE BILIRUBIN NEGATIVE (NEGATIVE); URINE BLOOD NEGATIVE (NEGATIVE); URINE GLUCOSE (UA) NEGATIVE (NEGATIVE); URINE KETONE NEGATIVE (NEGATIVE); URINE LEUKOCYTE ESTERASE NEGATIVE Leu/uL (NEGATIVE); URINE PROTEIN NEGATIVE mg/dL (<30 mg/dL); URINE UROBILINOGEN 0.2 E.U./dL (<1 E.U./dL)
[2016-09-11 15:46] LABS: BASO # 0.03 K/mm3 (0.0-2.0); BASO % 0.3 % (0.0-3.0); EOS # 0.2 (0.0-0.7); EOS % 1.7 % (1.5-5.0); GRAN # 8.85 (1.4-6.5); GRAN % 82.6 % (50.0-68.0); HEMATOCRIT 40.3 % (36.0-48.0); LYMPH # 0.9 (1.2-3.4); LYMPH % 8.8 % (22.0-35.0); MEAN CELL VOLUME 79.8 fL (80.0-105.0); MEAN CORPUSCULAR HGB CONC 31.3 g/dl (31.0-37.0); MEAN PLATELET VOLUME 10.4 fl (7.0-11.0); MONO # 0.7 (0.1-0.6); MONO % 6.6 % (1.0-6.0); PLATELET COUNT 586 10^3/uL (120.0-450.0); RED CELL DISTRIBUTION WIDTH 25.3 % (11.5-14.5); WHITE BLOOD COUNT 10.7 10^3/ul (4.5-11.0)
[2016-09-11 15:50] LABS: URINE APPEARANCE CLEAR (CLEAR); URINE COLOR YELLOW (YELLOW)
[2016-09-11 15:55] LABS: ALKALINE PHOSPHATASE 81 U/L (38-133); ALT/SGPT 18 U/L (7-56); AST/SGOT 37 U/L (15-39); BILIRUBIN,TOTAL 0.5 mg/dL (0.2-1.3); BLOOD UREA NITROGEN 25 mg/dL (7-21); CALCIUM 9.5 mg/dL (8.4-10.5); CARBON DIOXIDE 24 mmol/L (21-33); CHLORIDE 110 mmol/L (98-107); GFR AFRICAN-AMERICAN > 60; GLUCOSE,RANDOM 89 mg/dL (70-110); POTASSIUM 4.3 mmol/L (3.6-5.0); SODIUM 143 mmol/L (132-148); TOTAL PROTEIN 7.1 g/dL (5.8-8.3)
[2016-09-11 16:00] LABS: INR 0.97 (0.93-1.08); PARTIAL THROMBOPLASTIN TIME 27.1 Seconds (23.7-30.8)
[2016-09-11 16:16] LABS: TROPONIN I < 0.01 ng/mL
--- NOTE | 2016-09-11 20:10 | CP.PCM.HP ---
<Holland Chatman - Last Filed: 09/12/16 03:20> History of Present Illness - History of Present Illness History of Present Illness: 81 y/o F with PMH of AAA, CVA, lung cancer, NSTEMI, CHF, COPD on home O2, cataracts, anemia, HTN, seizures, dementia, and hyperthyroidism presents to the hospital for 2 day hx of shortness of breath on exertion. Pt states she has experienced these symptoms in the past, but they have progressively gotten worse over the past 2 days. Pt is usually able to walk to down her hallway to the bathroom with ease, but states she now gets short of breath and has to sit in a chair before getting to the bathroom. Pt is accompanied by her daughter at bedside. Daughter states pt has been lethargic over the past week and has experienced flu-like symptoms, including cough and runny nose. Pt denies CP, N/V /D, fevers, chills, headaches, dizziness. PMH: AAA, CVA, lung cancer, NSTEMI, CHF, COPD, on home o2, cataracts, anemia, HTN, seizures, dementia, hyperthyroidism Surigical Hx: thyroidectomy, left cataract Family Hx: Breast and stomach cancer Social hx: Former smoker, occasional alcohol use. Denies illicit drug use Allergies: NKDA Medication: See MAR Present on Admission - Present on Admission Any Indicators Present on Admission: No Review of Systems - Constitutional Constitutional: absent: Fatigue, Fever, Weakness - EENT Eyes: absent: Blurred Vision, Change in Vision Nose/Mouth/Throat: absent: Nasal Congestion, Nasal Discharge - Cardiovascular Cardiovascular: absent: Chest Pain, Irregular Heart Rhythm - Respiratory Respiratory: Cough, Dyspnea - Gastrointestinal Gastrointestinal: absent: Abdominal Pain, Diarrhea, Vomiting - Genitourinary Genitourinary: absent: Dysuria, Hematuria - Integumentary Integumentary: absent: New Lesions, Rash - Neurological Neurological: absent: Numbness, Syncope, Tingling - Hematologic/Lymphatic Hematologic: absent: Easy Bleeding, Easy Bruising Past Patient History - Infectious Disease Hx of Infectious Diseases: None - Tetanus Immunizations Tetanus Immunization: Unknown - Past Medical History & Family History Past Medical History?: Yes - Past Social History Smoking Status: Never Smoked - CARDIAC Hx Cardiac Disorders: Yes Hx Congestive Heart Failure: Yes Hx Hypertension: Yes - PULMONARY Hx Chronic Obstructive Pulmonary Disease (COPD): Yes - NEUROLOGICAL Other/Comment: residual from tia was slurred speech which resolved with therapy - HEENT Hx HEENT Problems: Yes Hx Cataracts: Yes (left eye sx) - RENAL Hx Chronic Kidney Disease: No - ENDOCRINE/METABOLIC Hx Hypothyroidism: Yes - HEMATOLOGICAL/ONCOLOGICAL Hx Cancer: (denies) - INTEGUMENTARY Hx Dermatological Problems: No - MUSCULOSKELETAL/RHEUMATOLOGICAL Hx Falls: No - GASTROINTESTINAL Other/Comment: egd dx gastric erosions small hiatal hernia and gastric avm, 09/05 - GENITOURINARY/GYNECOLOGICAL Hx Genitourinary Disorders: No - PSYCHIATRIC Hx Psychophysiologic Disorder: No Hx Substance Use: No - SURGICAL HISTORY Hx Cataract Extraction: Yes - ANESTHESIA Hx Anesthesia: Yes Hx Anesthesia Reactions: No Hx Malignant Hyperthermia: No Meds Allergies/Adverse Reactions: Allergies Allergy/AdvReac Type Severity Reaction Status Date / Time No Known Allergies Allergy Verified 09/28/16 17:45 Physical Exam - Constitutional Appears: Well, No Acute Distress - Head Exam Head Exam: ATRAUMATIC, NORMAL INSPECTION, NORMOCEPHALIC - Eye Exam Eye Exam: EOMI, Normal appearance - ENT Exam ENT Exam: Mucous Membranes Moist, Normal Exam - Neck Exam Neck exam: Positive for: Normal Inspection. Negative for: Lymphadenopathy - Respiratory Exam Respiratory Exam: Clear to Auscultation Bilateral, NORMAL BREATHING PATTERN. absent: Rales, Rhonchi, Wheezes - Cardiovascular Exam Cardiovascular Exam: RRR, +S1, +S2 - GI/Abdominal Exam GI & Abdominal Exam: Normal Bowel Sounds, Soft. absent: Tenderness - Extremities Exam Extremities exam: Positive for: normal inspection. Negative for: calf tenderness, pedal edema - Neurological Exam Neurological exam: Alert, CN II-XII Intact, Oriented x3 - Psychiatric Exam Psychiatric exam: Normal Affect, Normal Mood - Skin Skin Exam: Intact, Normal Color, Warm Results - Vital Signs Recent Vital Signs: Last Vital Signs Temp 98.4 F 09/11/16 14:20 Pulse 64 09/11/16 18:41 Resp 18 09/11/16 18:41 BP 131/68 09/11/16 18:41 Pulse Ox 98 09/11/16 18:41 - Labs Result Diagrams: 09/11/16 15:17 09/11/16 15:17 Assessment & Plan - Assessment and Plan (Free Text) Plan: 81 y/o F with PMH of AAA, CVA, lung cancer, NSTEMI, CHF, COPD on home O2, cataracts, anemia, HTN, seizures, dementia, and hyperthyroidism presents with shortness of breath on exertion for the past 2 days. BNP mildly elevated at this time, it is unlikely this pt is in acute CHF exacerbation. Pt will be admitted and cardiology consultation is ordered. 1. SOB on exertion Solumedrol 40 mg q12 Duonebs scheduled and prn NC prn Cardiology consulted, Dr. Lopez 2. CAD Continue home medications Continue to monitor BP and vitals 3. Alzheimer Dementia Continue aricept 5. Hyperthyroidism Continue methimazole 6. Seizure disorder Continue Jaylan Chatman, PGY-1 <Justus Walsh - Last Filed: 10/03/16 13:47> Results - Vital Signs Recent Vital Signs: Last Vital Signs Temp 97.6 F 09/12/16 12:00 Pulse 70 09/12/16 14:00 Resp 19 09/12/16 12:00 BP 132/81 09/12/16 12:00 Pulse Ox 100 09/12/16 05:58 - Labs Result Diagrams: 09/12/16 05:15 09/12/16 05:15 Attending/Attestation - Attestation I have personally seen and examined this patient.: Yes I have fully participated in the care of the patient.: Yes I have reviewed all pertinent clinical information: Yes Notes (Text): 10/03/16 13:46 Resident note done after seen and examined by me with discussion. The note is a representation of my history, physical and plan for patient.
[2016-09-11] MEDS ORDERED: Albuterol-Ipratrop 3 mg / 0.5 (3 ml) UD IH PRN (20:18)
[2016-09-11 21:32] VITALS: O2SAT 100
--- NOTE | 2016-09-11 22:28 | CARD ---
APPROVED REPORT EKG Measurement Heart [id number] <Conclusion> Normal sinus rhythm Left axis deviation Anteroseptal infarct, age undetermined ST & T wave abnormality, consider lateral ischemia Abnormal ECG
[2016-09-11] MEDS: MethylPREDNISolone 40 mg Vial IVP SCH (23:26)
[2016-09-11 23:45] VITALS: RESP 19
[2016-09-12] MEDS: Albuterol-Ipratrop 3 mg / 0.5 (3 ml) UD IH SCH ×3 (02:00→13:58)
[2016-09-12] MEDS ORDERED: Pantoprazole 40 mg EC Tab PO SCH (06:30)
[2016-09-12 06:36] LABS: HEMATOCRIT 40.6 % (36.0-48.0); MEAN CELL VOLUME 78.4 fL (80.0-105.0); MEAN CORPUSCULAR HEMOGLOBIN 25.3 pg (25.0-35.0); MEAN CORPUSCULAR HGB CONC 32.3 g/dl (31.0-37.0); MEAN PLATELET VOLUME 10.3 fl (7.0-11.0); RED CELL DISTRIBUTION WIDTH 24.7 % (11.5-14.5); WHITE BLOOD COUNT 10.7 10^3/ul (4.5-11.0)
[2016-09-12 06:44] LABS: ALKALINE PHOSPHATASE 81 U/L (38-133); ALT/SGPT 21 U/L (7-56); AST/SGOT 20 U/L (15-39); BILIRUBIN,TOTAL 0.4 mg/dL (0.2-1.3); BLOOD UREA NITROGEN 24 mg/dL (7-21); CALCIUM 9.5 mg/dL (8.4-10.5); CARBON DIOXIDE 21 mmol/L (21-33); CHLORIDE 110 mmol/L (95-110); GFR AFRICAN-AMERICAN > 60; GLUCOSE,RANDOM 130 mg/dL (70-110); POTASSIUM 4.6 mmol/L (3.6-5.0); SODIUM 144 mmol/L (132-148); TOTAL PROTEIN 6.6 g/dL (5.8-8.3)
--- NOTE | 2016-09-12 06:53 | CP.PCM.PN ---
Objective - Vital Signs/Intake and Output Vital Signs (last 24 hours): Temp Pulse Resp BP Pulse Ox 98.3 F 72 19 152/97 H 100 09/12/16 05:58 09/12/16 05:59 09/12/16 05:58 09/12/16 05:58 09/12/16 05:58 Intake and Output: 09/11/16 09/12/16 18:59 06:59 Intake Total 360 Output Total 300 Balance 60 - Medications Medications: Current Medications Albuterol/Ipratropium (Duoneb 3 Mg/0.5 Mg (3 Ml) Ud) 3 ml IH Q2H PRN PRN Reason: Shortness of Breath Last Admin: 09/11/16 23:19 Dose: 3 ml Albuterol/Ipratropium (Duoneb 3 Mg/0.5 Mg (3 Ml) Ud) 3 ml IH [id number] [facility] Last Admin: 09/12/16 02:00 Dose: Not Given Aspirin (Ecotrin) 81 mg PO DAILY [facility] Atorvastatin Calcium (Lipitor) 10 mg PO DIN [facility] Donepezil HCl (Aricept) 5 mg PO HS [facility] Last Admin: 09/11/16 23:26 Dose: 5 mg Heparin Sodium (Porcine) (Heparin) 5,000 units SC Q12 [facility] PRN Reason: Protocol Last Admin: 09/11/16 23:26 Dose: 5,000 units Levetiracetam (Keppra) 750 mg PO DAILY [facility] Loratadine (Claritin) 10 mg PO DAILY [facility] Methimazole (Tapazole) 5 mg PO DAILY [facility] Methylprednisolone (Solu-Medrol) 40 mg IVP Q12 [facility] Last Admin: 09/11/16 23:26 Dose: 40 mg Metoprolol Tartrate (Lopressor) 25 mg PO 0800,1800 [facility] Non-Formulary Medication (Fluticasone/Vilanterol [Breo Ellipta 100-25 Mcg Inh]) 1 puff IH DAILY [facility] Pantoprazole Sodium (Protonix Ec Tab) 40 mg PO 0630 [facility] Last Admin: 09/12/16 06:28 Dose: 40 mg Polyethylene Glycol (Miralax) 17 gm PO DAILY [facility] - Labs Labs: 09/12/16 05:15 PT 10.5 Seconds (9.9-11.8) 09/11/16 15:17 INR 0.97 (0.93-1.08) 09/11/16 15:17 APTT 27.1 Seconds (23.7-30.8) 09/11/16 15:17
[2016-09-12] MEDS ORDERED: POLYETHYLENE GLYCOL 3350 17 GM/Dose PACKET PO SCH (10:00)
[2016-09-12] MEDS ORDERED: methIMAzole 5 MG TAB PO SCH (10:00)
[2016-09-12] MEDS ORDERED: Non Formulary Medication (Fluticasone/Vilanterol [Breo Ellipta 100-25 Mcg Inh] 1 PUFF) IH SCH (10:00)
[2016-09-12] MEDS: MethylPREDNISolone 40 mg Vial IVP SCH (11:14)
--- NOTE | 2016-09-12 11:50 | CP.PCM.DIS ---
<CarolmarciEdyta harley - Last Filed: 09/17/16 19:24> Provider - Provider Date of Admission: 09/11/16 19:04 Attending physician: Justus Walsh MD Primary care physician: Russ Soriano MD Consults: Cardio Time Spent in preparation of Discharge (in minutes): 40 Diagnosis - Discharge Diagnosis (1) Dyspnea Status: Acute (2) CHF (congestive heart failure) Status: Chronic (3) Chronic obstructive pulmonary disease Status: Chronic (4) On home O2 Status: Acute Hospital Course - Lab Results Lab Results: Most Recent Lab Values WBC 10.7 10^3/ul (4.5-11.0) 09/12/16 05:15 RBC 5.18 10^6/uL (3.5-6.1) 09/12/16 05:15 Hgb 13.1 gm/dL (12.0-16.0) 09/12/16 05:15 Hct 40.6 % (36.0-48.0) 09/12/16 05:15 MCV 78.4 fL (80.0-105.0) L 09/12/16 05:15 MCH 25.3 pg (25.0-35.0) 09/12/16 05:15 MCHC 32.3 g/dl (31.0-37.0) 09/12/16 05:15 RDW 24.7 % (11.5-14.5) H 09/12/16 05:15 Plt Count 604 10^3/uL (120.0-450.0) H 09/12/16 05:15 MPV 10.3 fl (7.0-11.0) 09/12/16 05:15 Gran % 82.6 % (50.0-68.0) H 09/11/16 15:17 Lymph % (Auto) 8.8 % (22.0-35.0) L 09/11/16 15:17 Freeborn % (Auto) 6.6 % (1.0-6.0) H 09/11/16 15:17 Eos % (Auto) 1.7 % (1.5-5.0) 09/11/16 15:17 Baso % (Auto) 0.3 % (0.0-3.0) 09/11/16 15:17 Gran # 8.85 (1.4-6.5) H 09/11/16 15:17 Lymph # 0.9 (1.2-3.4) L 09/11/16 15:17 Freeborn # 0.7 (0.1-0.6) H 09/11/16 15:17 Eos # 0.2 (0.0-0.7) 09/11/16 15:17 Baso # 0.03 K/mm3 (0.0-2.0) 09/11/16 15:17 PT 10.5 Seconds (9.9-11.8) 09/11/16 15:17 INR 0.97 (0.93-1.08) 09/11/16 15:17 APTT 27.1 Seconds (23.7-30.8) 09/11/16 15:17 Sodium 144 mmol/L (132-148) 09/12/16 05:15 Potassium 4.6 mmol/L (3.6-5.0) 09/12/16 05:15 Chloride 110 mmol/L (95-110) 09/12/16 05:15 Carbon Dioxide 21 mmol/L (21-33) 09/12/16 05:15 Anion Gap 18 (10-20) 09/12/16 05:15 BUN 24 mg/dL (7-21) H 09/12/16 05:15 Creatinine 0.9 mg/dL (0.5-1.4) 09/12/16 05:15 Est GFR ( Amer) > 60 09/12/16 05:15 Est GFR (Non-Af Amer) > 60 09/12/16 05:15 Random Glucose 130 mg/dL (70-110) H 09/12/16 05:15 Calcium 9.5 mg/dL (8.4-10.5) 09/12/16 05:15 Total Bilirubin 0.4 mg/dL (0.2-1.3) 09/12/16 05:15 AST 20 U/L (15-39) 09/12/16 05:15 ALT 21 U/L (7-56) 09/12/16 05:15 Alkaline Phosphatase 81 U/L (38-133) 09/12/16 05:15 Lactate Dehydrogenase 522 U/L (333-699) 09/11/16 15:17 Total Creatine Kinase 44 U/L (35-230) 09/11/16 15:17 Troponin I 0.01 ng/mL 09/12/16 08:00 NT-Pro-B Natriuret Pep 529 pg/mL (0-450) H 09/11/16 15:17 Total Protein 6.6 g/dL (5.8-8.3) 09/12/16 05:15 Albumin 3.3 g/dL (3.0-4.8) 09/12/16 05:15 Globulin 3.3 gm/dL 09/12/16 05:15 Albumin/Globulin Ratio 1.0 (1.1-1.8) L 09/12/16 05:15 Urine Color Yellow (YELLOW) 09/11/16 15:33 Urine Appearance Clear (CLEAR) 09/11/16 15:33 Urine pH 6.0 (4.7-8.0) 09/11/16 15:33 Ur Specific Pillager 1.020 (1.005-1.035) 09/11/16 15:33 Urine Protein Negative mg/dL (<30 mg/dL) 09/11/16 15:33 Urine Glucose (UA) Negative mg/dL (NEGATIVE) 09/11/16 15:33 Urine Ketones Negative mg/dL (NEGATIVE) 09/11/16 15:33 Urine Blood Negative (NEGATIVE) 09/11/16 15:33 Urine Nitrate Negative (NEGATIVE) 09/11/16 15:33 Urine Bilirubin Negative (NEGATIVE) 09/11/16 15:33 Urine Urobilinogen 0.2 E.U./dL (<1 E.U./dL) 09/11/16 15:33 Ur Leukocyte Esterase Negative Mildred/uL (NEGATIVE) 09/11/16 15:33 - Hospital Course Hospital Course: Patient is an 81 y/o with h/o AAA, CVA, lung cancer, NSTEMI, CHF, COPD on home O2, cataracts, anemia, HTN, seizures, dementia, and hyperthyroidism presented with exertional dyspnea. All the work ups were normal, including pro bnp, troponin and ekg. Patient was discharged to follow up with pmd ( Dr Soriano) and to continue home oxygen. - Date & Time of H&P Date of H&P: 09/11/16 Time of H&P: 20:10 Discharge Exam - Head Exam Head Exam: ATRAUMATIC, NORMAL INSPECTION, NORMOCEPHALIC - Eye Exam Eye Exam: EOMI, Normal appearance, PERRL - ENT Exam ENT Exam: Mucous Membranes Moist - Neck Exam Neck exam: Normal Inspection - Respiratory Exam Respiratory Exam: Clear to PA & Lateral, NORMAL BREATHING PATTERN, UNREMARKABLE. absent: Rales, Rhonchi, Wheezes, Respiratory Distress, Stridor - Cardiovascular Exam Cardiovascular Exam: REGULAR RHYTHM, RRR, +S1, +S2 - GI/Abdominal Exam GI & Abdominal Exam: Normal Bowel Sounds, Unremarkable. absent: Distended, Guarding, Rigid, Soft, Tenderness - Extremities Exam Extremities exam: normal inspection - Back Exam Back exam: NORMAL INSPECTION - Neurological Exam Neurological exam: Alert, Oriented x3 - Psychiatric Exam Psychiatric exam: Normal Affect, Normal Mood - Skin Skin Exam: Dry, Intact, Normal Color, Warm Discharge Plan - Follow Up Plan Condition: FAIR Disposition: HOME/ ROUTINE Patient education suggested?: Yes Instructions: Heart Failure (DC), Heart Failure (GEN), Chest Pain (DC), Chest Pain (GEN), Pacemaker (DC), Pacemaker (GEN), Pulmonary Edema (DC), Pulmonary Edema (GEN), Constipation (DC), Constipation (GEN), Syncope (DC), Syncope (GEN) , Ascites (DC), Ascites (GEN) Additional Instructions: Please continue your home oxygen. Follow up with Dr Soriano in the office. Referrals: Russ Soriano MD [Primary Care Provider] - <Russ Soriano - Last Filed: 09/30/16 19:09> Provider - Provider Date of Admission: 09/11/16 19:04 Attending physician: Justus Walsh MD Primary care physician: Russ Soriano MD Hospital Course - Lab Results Lab Results: Most Recent Lab Values WBC 10.7 10^3/ul (4.5-11.0) 09/12/16 05:15 RBC 5.18 10^6/uL (3.5-6.1) 09/12/16 05:15 Hgb 13.1 gm/dL (12.0-16.0) 09/12/16 05:15 Hct 40.6 % (36.0-48.0) 09/12/16 05:15 MCV 78.4 fL (80.0-105.0) L 09/12/16 05:15 MCH 25.3 pg (25.0-35.0) 09/12/16 05:15 MCHC 32.3 g/dl (31.0-37.0) 09/12/16 05:15 RDW 24.7 % (11.5-14.5) H 09/12/16 05:15 Plt Count 604 10^3/uL (120.0-450.0) H 09/12/16 05:15 MPV 10.3 fl (7.0-11.0) 09/12/16 05:15 Gran % 82.6 % (50.0-68.0) H 09/11/16 15:17 Lymph % (Auto) 8.8 % (22.0-35.0) L 09/11/16 15:17 Freeborn % (Auto) 6.6 % (1.0-6.0) H 09/11/16 15:17 Eos % (Auto) 1.7 % (1.5-5.0) 09/11/16 15:17 Baso % (Auto) 0.3 % (0.0-3.0) 09/11/16 15:17 Gran # 8.85 (1.4-6.5) H 09/11/16 15:17 Lymph # 0.9 (1.2-3.4) L 09/11/16 15:17 Freeborn # 0.7 (0.1-0.6) H 09/11/16 15:17 Eos # 0.2 (0.0-0.7) 09/11/16 15:17 Baso # 0.03 K/mm3 (0.0-2.0) 09/11/16 15:17 PT 10.5 Seconds (9.9-11.8) 09/11/16 15:17 INR 0.97 (0.93-1.08) 09/11/16 15:17 APTT 27.1 Seconds (23.7-30.8) 09/11/16 15:17 Sodium 144 mmol/L (132-148) 09/12/16 05:15 Potassium 4.6 mmol/L (3.6-5.0) 09/12/16 05:15 Chloride 110 mmol/L (95-110) 09/12/16 05:15 Carbon Dioxide 21 mmol/L (21-33) 09/12/16 05:15 Anion Gap 18 (10-20) 09/12/16 05:15 BUN 24 mg/dL (7-21) H 09/12/16 05:15 Creatinine 0.9 mg/dL (0.5-1.4) 09/12/16 05:15 Est GFR ( Amer) > 60 09/12/16 05:15 Est GFR (Non-Af Amer) > 60 09/12/16 05:15 Random Glucose 130 mg/dL (70-110) H 09/12/16 05:15 Calcium 9.5 mg/dL (8.4-10.5) 09/12/16 05:15 Total Bilirubin 0.4 mg/dL (0.2-1.3) 09/12/16 05:15 AST 20 U/L (15-39) 09/12/16 05:15 ALT 21 U/L (7-56) 09/12/16 05:15 Alkaline Phosphatase 81 U/L (38-133) 09/12/16 05:15 Lactate Dehydrogenase 522 U/L (333-699) 09/11/16 15:17 Total Creatine Kinase 44 U/L (35-230) 09/11/16 15:17 Troponin I 0.01 ng/mL 09/12/16 08:00 NT-Pro-B Natriuret Pep 529 pg/mL (0-450) H 09/11/16 15:17 Total Protein 6.6 g/dL (5.8-8.3) 09/12/16 05:15 Albumin 3.3 g/dL (3.0-4.8) 09/12/16 05:15 Globulin 3.3 gm/dL 09/12/16 05:15 Albumin/Globulin Ratio 1.0 (1.1-1.8) L 09/12/16 05:15 Urine Color Yellow (YELLOW) 09/11/16 15:33 Urine Appearance Clear (CLEAR) 09/11/16 15:33 Urine pH 6.0 (4.7-8.0) 09/11/16 15:33 Ur Specific Pillager 1.020 (1.005-1.035) 09/11/16 15:33 Urine Protein Negative mg/dL (<30 mg/dL) 09/11/16 15:33 Urine Glucose (UA) Negative mg/dL (NEGATIVE) 09/11/16 15:33 Urine Ketones Negative mg/dL (NEGATIVE) 09/11/16 15:33 Urine Blood Negative (NEGATIVE) 09/11/16 15:33 Urine Nitrate Negative (NEGATIVE) 09/11/16 15:33 Urine Bilirubin Negative (NEGATIVE) 09/11/16 15:33 Urine Urobilinogen 0.2 E.U./dL (<1 E.U./dL) 09/11/16 15:33 Ur Leukocyte Esterase Negative Mildred/uL (NEGATIVE) 09/11/16 15:33 Attending/Attestation - Attestation I have personally seen and examined this patient.: Yes I have fully participated in the care of the patient.: Yes I have reviewed all pertinent clinical information, including history, physical exam and plan: Yes Notes (Text): 09/30/16 19:09 Medical record note made by the resident after discussion with my direction and input after the patient was personally seen and examined by me. I have reviewed the chart and agree that the record accurately reflects by personal performance of the history, physical exam, data review, and medical decision-making, in the course for the patient. I have also personally directed the plan of care.
[2016-09-12 13:10] VITALS: BP 132/81; TEMP 97.6
--- NOTE | 2016-09-12 15:11 | CON ---
DATE: 09/12/2016 HISTORY OF PRESENT ILLNESS: The patient is an 81-year-old woman who recently was admitted for a non- STEMI. It was elected to treat her medically according to the family, given her age, her history of dementia and her comorbidities. She was treated medically on aspirin as well as atorvastatin and Lop ressor. She presents now with shortness of breath. PAST MEDICAL HISTORY: Also notable for COPD. Workup in the past included an echocardiogram which re vealed an ejection fraction of 28%. No diabetes noted. SOCIAL HISTORY: She is a former smoker. REVIEW OF SYSTEMS: The patient is free of cardiac symptomatology with dyspnea markedly improved. PHYSICAL EXAMINATION: VITAL SIGNS: Blood pressure is 152/97, heart rate is in the 70s. NECK: Negative JVD. LUNGS: Decreased breath sounds bilaterally. HEART: Reveals S1, S2. EXTREMITIES: Without edema. EKG shows normal sinus rhythm with poor R-wave progression and IVCD. LABORATORIES: Troponins are negative x 2. The proBNP is 529. BUN and creatinine are unremarkable, hemoglobin of 13. IMPRESSION: 1. Mild systolic congestive heart failure. 2. Severe dilated cardiomyopathy. 3. Chronic obstructive pulmonary disease. 4. Coronary artery disease. 5. History of non-ST elevation myocardial infarction in the past treated medically. PLAN: Given these findings, we will add Lasix to her cardiac regimen. We will continue her Lasix as well as her beta blockers. Carlos Lopez MD cc: [facility] TT: 09/12/2016 15:10:50 Confirmation # [id number] Dictation # [id number]
[2016-09-12 17:21] VITALS: PULSE 70
== END 2016-09-12 19:20 | disposition home or self-care (01) ==
LOC: ED 14:05 → ERH 19:04 → 2RSO 22:21
PROVIDERS: ADMIT Internal Medicine; ATTEND Internal Medicine
DX: I11.0 Hypertensive heart disease with heart failure (principal); I50.20 Unspecified systolic (congestive) heart failure; J44.9 Chronic obstructive pulmonary disease, unspecified; Z99.81 Dependence on supplemental oxygen; I42.0 Dilated cardiomyopathy; R06.00 Dyspnea, unspecified; I25.2 Old myocardial infarction; D64.9 Anemia, unspecified; E05.90 Thyrotoxicosis, unspecified without thyrotoxic crisis or storm; I25.10 Atherosclerotic heart disease of native coronary artery without angina pectoris; G40.909 Epilepsy, unspecified, not intractable, without status epilepticus; G30.9 Alzheimer's disease, unspecified; F02.80 Dementia in other diseases classified elsewhere, unspecified severity, without behavioral disturbance, psychotic disturbance, mood disturbance, and anxiety; Z86.73 Personal history of transient ischemic attack (TIA), and cerebral infarction without residual deficits; Z85.118 Personal history of other malignant neoplasm of bronchus and lung; Z87.891 Personal history of nicotine dependence; Z80.0 Family history of malignant neoplasm of digestive organs
CPT/HCPCS: 36415; 71010; 80053; 81003; 82550; 83615; 83880; 84484; 85025; 85027; 85610; 85730; 87040; 93005; 94640; 94760; 99285; G0378; J1644; J2920

== ENCOUNTER 2016-09-25 15:56 | Emergency (ER) | payer MEDICARE, MEDICAID ==
[2016-09-25 15:56] VITALS: BMI 21.6
--- NOTE | 2016-09-25 16:21 | ED PDOC ---
Arrival/HPI - General Time Seen by Provider: 09/25/16 16:14 - History of Present Illness Narrative History of Present Illness (Text): 81 y/o F c PMHx COPD and CHF p/w dyspnea on exertion since this morning. Patient states breathing is worse with laying flat. She states it feels like her previous CHF, unlike COPD. She is on home O2 3-4L. She denies chest pain, palpitations, abdominal pain, nausea, vomiting, dysuria, back pain. Past Medical History - Infectious Disease Hx of Infectious Diseases: None - Tetanus Immunization Tetanus Immunization: Unknown - Pulmonary Hx Chronic Obstructive Pulmonary Disease (COPD): Yes - Neurological Other/Comment: residual from tia was slurred speech which resolved with therapy - HEENT Hx HEENT Disorder: Yes Hx Cataracts: Yes (left eye sx) - Renal Hx Renal Disorder: No - Endocrine/Metabolic Hx Hypothyroidism: Yes - Hematological/Oncological Hx Cancer: (denies) - Integumentary Hx Dermatological Disorder: No - Musculoskeletal/Rheumatological Hx Falls: No - Gastrointestinal Other/Comment: egd dx gastric erosions small hiatal hernia and gastric avm, 09/05 - Genitourinary/Gynecological Hx Genitourinary Disorders: No - Psychiatric Hx Psychophysiologic Disorder: No Hx Substance Use: No - Surgical History Hx Cataract Extraction: Yes - Anesthesia Hx Anesthesia: Yes Hx Anesthesia Reactions: No Hx Malignant Hyperthermia: No Family/Social History Family/Social History: No Known Family HX Smoking Status: Never Smoked Hx Alcohol Use: No Hx Substance Use: No Allergies/Home Meds Allergies/Adverse Reactions: Allergies No Known Allergies Allergy (Verified 07/26/16 20:13) Home Medications: Home Meds Medication Instructions Recorded Confirmed Fluticasone/Vilanterol [Breo 1 puff IH DAILY 06/28/16 09/12/16 Ellipta 100-25 Mcg INH] Carvedilol 3.125 PO BID 09/12/16 Review of Systems - Physician Review All systems were reviewed & negative as marked: Yes - Review of Systems Constitutional: absent: Fevers Cardiovascular: absent: Chest Pain Physical Exam - Physical Exam Narrative Physical Exam (Text): Constitutional: No acute distress. Head: Normocephalic. Atraumatic. Eyes: PERRL. ENT: Moist mucous membranes. Neck: Supple. No JVD. Cardiovascular: Regular rate. No S3. Chest: No tenderness. Respiratory: Mild bibasilar crackles bilaterally. GI: Soft. Nontender. Nondistended. Back: No CVA tenderness. Musculoskeletal: No tenderness of extremities. No pitting edema. Skin: No rash. Neurologic: Alert, no focal deficit. Vital Signs Temp Pulse Resp BP Pulse Ox 09/25/16 17:02 140/87 09/25/16 16:56 16 95 09/25/16 16:40 98.2 F 71 18 129/73 97 Medical Decision Making ED Course and Treatment: EKG Sinus rhythm, 90 bpm, no ST elevations. ST depressions laterally. No change from previous. Differential includes CHF/COPD/PNA/URI/ACS. Will treat with supplemental O2, Lasix. 09/25/16 18:07 Patient appears well, no accessory muscle use. CXR no active disease. Pulse oximetry on home dose O2 normal. Labs unremarkable. Discussed case with Dr. Soriano who is in agreement with discharge home and follow up with him in office. - Lab Interpretations Lab Results: 09/25/16 16:57 09/25/16 16:57 Lab Results 09/25/16 16:57: Sodium 143, Potassium 4.9, Chloride 111 H, Carbon Dioxide 25, Anion Gap 12, BUN 29 H, Creatinine 1.0, Est GFR ( Amer) > 60, Est GFR ( Non-Af Amer) 53, Random Glucose 112 H, Calcium 9.2, Total Bilirubin 0.3, AST 20 , ALT 24, Alkaline Phosphatase 76, Total Creatine Kinase 40, Troponin I < 0.01, NT-Pro-B Natriuret Pep 328, Total Protein 6.6, Albumin 3.5, Globulin 3.1, Albumin/Globulin Ratio 1.1 09/25/16 16:57: PT 10.3, INR 0.95, APTT 27.5 09/25/16 16:57: WBC 10.1, RBC 4.97, Hgb 13.2, Hct 40.4, MCV 81.3, MCH 26.6, MCHC 32.7, RDW 22.7 H, Plt Count 429, MPV 10.2, Gran % 84.0 H, Lymph % (Auto) 6.6 L, Gosper % (Auto) 6.7 H, Eos % (Auto) 2.3, Baso % (Auto) 0.4, Gran # 8.49 H, Lymph # 0.7 L, Gosper # 0.7 H, Eos # 0.2, Baso # 0.04 - RAD Interpretation Radiology Orders: 09/25/16 16:17 CHEST PORTABLE [RAD] Stat - Medication Orders Current Medication Orders: Discontinued Medications Furosemide (Lasix) 20 mg IVP STAT STA Stop: 09/25/16 16:19 Last Admin: 09/25/16 17:02 Dose: 20 mg Disposition/Present on Arrival - Present on Arrival Any Indicators Present on Arrival: No History of DVT/PE: No History of Uncontrolled Diabetes: No Urinary Catheter: No History Surgical Site Infection Following: None - Disposition Have Diagnosis and Disposition been Completed?: Yes Diagnosis: CHF (congestive heart failure) Disposition: HOME/ ROUTINE Disposition Time: 18:09 Patient Plan: Discharge Condition: STABLE Discharge Instructions (ExitCare): Heart Failure (ED) Referrals: Russ Soriano MD [Primary Care Provider] - Follow up with primary
[2016-09-25 16:42] VITALS: TEMP 98.2
[2016-09-25 17:02] VITALS: RESP 16
[2016-09-25 17:02] LABS: ADD MANUAL DIFF? NO
[2016-09-25 17:05] LABS: BASO # 0.04 K/mm3 (0.0-2.0); BASO % 0.4 % (0.0-3.0); EOS # 0.2 (0.0-0.7); EOS % 2.3 % (1.5-5.0); GRAN # 8.49 (1.4-6.5); HEMATOCRIT 40.4 % (36.0-48.0); LYMPH # 0.7 (1.2-3.4); LYMPH % 6.6 % (22.0-35.0); MEAN CELL VOLUME 81.3 fL (80.0-105.0); MEAN CORPUSCULAR HEMOGLOBIN 26.6 pg (25.0-35.0); MEAN CORPUSCULAR HGB CONC 32.7 g/dl (31.0-37.0); MEAN PLATELET VOLUME 10.2 fl (7.0-11.0); MONO # 0.7 (0.1-0.6); MONO % 6.7 % (1.0-6.0); PLATELET COUNT 429 10^3/uL (120.0-450.0); RED CELL DISTRIBUTION WIDTH 22.7 % (11.5-14.5); WHITE BLOOD COUNT 10.1 10^3/ul (4.5-11.0)
[2016-09-25 17:15] LABS: INR 0.95 (0.93-1.08); PARTIAL THROMBOPLASTIN TIME 27.5 Seconds (23.7-30.8)
[2016-09-25 17:16] LABS: ALB/GLOB RATIO 1.1 (1.1-1.8); ALKALINE PHOSPHATASE 76 U/L (38-133); ALT/SGPT 24 U/L (7-56); AST/SGOT 20 U/L (15-39); BILIRUBIN,TOTAL 0.3 mg/dL (0.2-1.3); BLOOD UREA NITROGEN 29 mg/dL (7-21); CALCIUM 9.2 mg/dL (8.4-10.5); CARBON DIOXIDE 25 mmol/L (21-33); CHLORIDE 111 mmol/L (98-107); GFR AFRICAN-AMERICAN > 60; GLUCOSE,RANDOM 112 mg/dL (70-110); POTASSIUM 4.9 mmol/L (3.6-5.0); SODIUM 143 mmol/L (132-148); TOTAL PROTEIN 6.6 g/dL (5.8-8.3)
[2016-09-25 17:30] LABS: TROPONIN I < 0.01 ng/mL
[2016-09-25 18:04] LABS: URINE BILIRUBIN NEGATIVE (NEGATIVE); URINE BLOOD NEGATIVE (NEGATIVE); URINE GLUCOSE (UA) NEGATIVE (NEGATIVE); URINE KETONE NEGATIVE (NEGATIVE); URINE LEUKOCYTE ESTERASE NEGATIVE Leu/uL (NEGATIVE); URINE PROTEIN NEGATIVE mg/dL (<30 mg/dL); URINE UROBILINOGEN 0.2 E.U./dL (<1 E.U./dL)
[2016-09-25 18:06] LABS: URINE APPEARANCE CLEAR (CLEAR); URINE COLOR YELLOW (YELLOW)
[2016-09-25 19:18] VITALS: BP 140/83; PULSE 82; O2SAT 99
--- NOTE | 2016-09-26 01:31 | CARD ---
APPROVED REPORT EKG Measurement Heart [id number] <Conclusion> Sinus rhythm with short TN Left axis deviation Incomplete left bundle branch block ST & T wave abnormality, consider lateral ischemia Abnormal ECG
--- NOTE | 2016-09-26 08:00 | RAD ---
HISTORY: dyspnea COMPARISON: No prior. FINDINGS: LUNGS: Mild hyperinflation. Rule out chronic changes of emphysema or overlying COPD. No acute consolidation. . PLEURA: No significant pleural effusion identified, no pneumothorax apparent. CARDIOVASCULAR: Heart is enlarged OSSEOUS STRUCTURES: Mild multilevel degenerative spondylosis of the thoracic spine. Degenerative changes both shoulder girdles. VISUALIZED UPPER ABDOMEN: Normal. OTHER FINDINGS: None. IMPRESSION: Mild hyperinflation. Rule out chronic changes of emphysema or overlying COPD. No acute consolidation. . Cardiomegaly.
== END 2016-09-25 19:33 | disposition home or self-care (01) ==
LOC: ED 15:56
DX: I50.9 Heart failure, unspecified (principal)
CPT/HCPCS: 71010; 80053; 81003; 82550; 83880; 84484; 85025; 85610; 85730; 87086; 93005; 96374; 99284; J1940

== ENCOUNTER 2016-09-28 17:42 | Inpatient (IN) | payer MEDICARE, MEDICAID ==
[2016-09-28 17:45] VITALS: BMI 17.8
[2016-09-28] MEDS ORDERED: Albuterol-Ipratrop 3 mg / 0.5 (3 ml) UD ONE (17:59)
--- NOTE | 2016-09-28 18:04 | ED PDOC ---
Arrival/HPI - General Chief Complaint: Shortness Of Breath Time Seen by Provider: 09/28/16 17:46 Historian: Patient - History of Present Illness Narrative History of Present Illness (Text): 09/28/16 18:03 81 year old female whose past medical history includes COPD and CHF presents to the emergency department with shortness of breath. Denies chest pain, fever/ chills, or cough. Time/Duration: < week Symptom Onset: Gradual Symptom Course: Unchanged Associated Symptoms (Text): None Past Medical History - Provider Review Nursing Documentation Reviewed: Yes - Infectious Disease Hx of Infectious Diseases: None - Tetanus Immunization Tetanus Immunization: Unknown - Pulmonary Hx Chronic Obstructive Pulmonary Disease (COPD): Yes - Neurological Other/Comment: residual from tia was slurred speech which resolved with therapy - HEENT Hx HEENT Disorder: Yes Hx Cataracts: Yes (left eye sx) - Renal Hx Renal Disorder: No - Endocrine/Metabolic Hx Hypothyroidism: Yes - Hematological/Oncological Hx Cancer: (denies) - Integumentary Hx Dermatological Disorder: No - Musculoskeletal/Rheumatological Hx Falls: No - Gastrointestinal Other/Comment: egd dx gastric erosions small hiatal hernia and gastric avm, 09/05 - Genitourinary/Gynecological Hx Genitourinary Disorders: No - Psychiatric Hx Psychophysiologic Disorder: No Hx Substance Use: No - Surgical History Hx Cataract Extraction: Yes - Anesthesia Hx Anesthesia: Yes Hx Anesthesia Reactions: No Hx Malignant Hyperthermia: No Family/Social History - Physician Review Nursing Documentation Reviewed: Yes Family/Social History: Unknown Family HX Smoking Status: Never Smoked Hx Alcohol Use: No Hx Substance Use: No Allergies/Home Meds Allergies/Adverse Reactions: Allergies No Known Allergies Allergy (Verified 09/28/16 17:45) Home Medications: Home Meds Medication Instructions Recorded Confirmed Fluticasone/Vilanterol [Breo 1 puff IH DAILY 06/28/16 09/28/16 Ellipta 100-25 Mcg INH] Albuterol 0.083% [Albuterol 0.083% 1 inh NEB PRN PRN 09/28/16 09/28/16 Inhal Twyla (2.5 mg/3 ml) UD] Review of Systems - Physician Review All systems were reviewed & negative as marked: Yes Physical Exam - Physical Exam Narrative Physical Exam (Text): - Review of Systems Constitutional: Normal. absent: Fatigue, Weight Change, Fevers Eyes: Normal ENT: Normal Respiratory: SOB absent: Cough, Sputum Cardiovascular: Normal absent: Chest pain, Palpitations, Syncope Gastrointestinal: Normal absent: Abdominal pain, Diarrhea, Nausea, Vomiting Genitourinary: Normal. absent: Dysuria, Frequency, Hematuria Musculoskeletal: Normal. absent: Arthralgias, Back Pain, Neck Pain Skin: Normal Neurological: Normal absent: Focal Weakness Endocrine: Normal Hemo/Lymphatic: Normal Psychiatric: Normal - Physical exam Patient appears age appropriate, speaking full sentences without difficulty - Systems Exam Head: Present: Atraumatic, Normocephalic Pupils: Present: PERRL Extraocular Muscles: Present: EOMI Conjunctiva: Present: Normal Mouth: Present: Moist Mucous Membranes Neck: Present: Normal Range of Motion. No: MIDLINE TENDERNESS, Paraspinal Tenderness Respiratory/Chest: Present: Mild Respiratory Distress, Expiratory Wheeze No: Accessory Muscle Use, Tachypneic Cardiovascular: Present: Regular Rate and Rhythm, Normal S1, S2, Peripheral Pulses Present. No: Murmurs Abdomen: Present: Normal Bowel Sounds, No: Tenderness, Peritoneal Signs, Rebound, Guarding, Distention Back: Present: Normal Inspection. No: Midline Tenderness, Paraspinal Tenderness Upper Extremity: Present: Normal Inspection. No: Cyanosis, Edema Lower Extremity: Present: Normal Inspection. No: Edema Neurological: Present: GCS=15, Speech Normal, cranial nerves II through XII fully intact with no cerebellar abnormality, neuro-sensory fully intact. No focal neurological deficits. Skin: Present: Warm, Dry, Normal Color. No: Rashes Lymphatic: Present: OX3, NI, NC Psychiatric: Present: Alert, Oriented x 3, Normal Insight, Normal Concentration Vital Signs Temp Pulse Resp BP Pulse Ox 09/28/16 21:05 87 20 129/84 99 09/28/16 19:12 87 18 135/78 98 09/28/16 18:54 149/85 09/28/16 18:05 20 98 09/28/16 17:50 98.9 F 84 20 149/81 99 Medical Decision Making ED Course and Treatment: Impression: 81 year old female whose past medical history includes COPD and CHF presents to the emergency department with shortness of breath. On physical exam , patient in mild respiratory distress with expiratory wheeze. Differential Diagnosis include but are not limited to: COPD vs Pneumonia Plan: -- Aspirin, Duoneb, Lasix, Solumedrol -- Labs -- Reassess and disposition Prior Visits: Notes and results from previous visits were reviewed. Patient last seen in the ED on 09/25/16, treated with Lasix, and discharged home. Progress Notes: 09/28/16 18:24 EKG shows NSR at [address] segment elevations, LVH, ST depressions in lateral leads. No changes vs previous EKG on 09/11/16. Interpreted by me. Chest x-ray read by me shows no pneumothorax, no pneumonia, no cardiomegaly, no infiltrates. 09/28/16 19:33 On reevaluation, patient states that she feels much better, but still remains symptomatic. Wheezing has greatly improved. 09/28/16 19:46 vane Mccauley, covering Dr. Walsh, agrees with admission for COPD exacerbation resident aware pt and family aware of and agree with plan - Lab Interpretations Microbiology Results: Microbiology Results 09/28/16 18:53 Blood-Venous Blood Culture - Preliminary NO GROWTH AFTER 48 HOURS 09/28/16 18:45 Blood-Venous Blood Culture - Preliminary NO GROWTH AFTER 48 HOURS Lab Results: 09/28/16 18:45 09/28/16 18:45 Lab Results 09/28/16 18:45: Sodium 145, Potassium 3.8, Chloride 110, Carbon Dioxide 26, Anion Gap 13, BUN 31 H, Creatinine 0.9, Est GFR ( Amer) > 60, Est GFR ( Non-Af Amer) > 60, Random Glucose 95, Calcium 9.4, Total Bilirubin 0.4, AST 28, ALT 24, Alkaline Phosphatase 87, Lactate Dehydrogenase 706 H, Total Creatine Kinase 54, Troponin I < 0.01, NT-Pro-B Natriuret Pep 350, Total Protein 7.3, Albumin 3.8, Globulin 3.4, Albumin/Globulin Ratio 1.1 09/28/16 18:45: PT 10.4, INR 0.96, APTT 22.9 L 09/28/16 18:45: WBC 10.1, RBC 5.01, Hgb 13.3, Hct 41.1, MCV 82.0, MCH 26.5, MCHC 32.4, RDW 22.3 H, Plt Count 434, MPV 10.7, Gran % 81.3 H, Lymph % (Auto) 8.2 L, Grimes % (Auto) 7.3 H, Eos % (Auto) 2.8, Baso % (Auto) 0.4, Gran # 8.22 H, Lymph # 0.8 L, Grimes # 0.7 H, Eos # 0.3, Baso # 0.04 - RAD Interpretation Radiology Orders: 09/28/16 18:02 CHEST PORTABLE [RAD] Stat - EKG Interpretation Interpreted by ED Physician: Yes Type: 12 lead EKG - Medication Orders Current Medication Orders: Aspirin (Ecotrin) 81 mg PO DAILY [facility] Last Admin: 09/30/16 10:42 Dose: 81 mg Atorvastatin Calcium (Lipitor) 10 mg PO DIN [facility] Last Admin: 09/30/16 18:37 Dose: 10 mg Budesonide (Pulmicort Respules) 0.5 mg IH [id number] [facility] Last Admin: 10/01/16 07:25 Dose: 0.5 mg Donepezil HCl (Aricept) 5 mg PO HS [facility] Last Admin: 09/30/16 22:05 Dose: 5 mg Ferrous Sulfate (Feosol) 324 mg PO DAILY [facility] Last Admin: 09/30/16 10:42 Dose: 324 mg Levalbuterol HCl (Xopenex) 0.63 mg IH [id number] [facility] Last Admin: 10/01/16 07:25 Dose: 0.63 mg Levalbuterol HCl (Xopenex) 0.63 mg IH Q2 PRN PRN Reason: Shortness of Breath Levetiracetam (Keppra) 750 mg PO DAILY [facility] Last Admin: 09/30/16 10:42 Dose: 750 mg Levofloxacin (Levaquin) 500 mg PO DAILY [facility] Last Admin: 09/30/16 10:42 Dose: 500 mg Loratadine (Claritin) 10 mg PO DAILY [facility] Last Admin: 09/30/16 10:42 Dose: 10 mg Methimazole (Tapazole) 5 mg PO DAILY [facility] Last Admin: 09/30/16 10:42 Dose: 5 mg Methylprednisolone (Solu-Medrol) 20 mg IVP Q12 [facility] Metoprolol Tartrate (Lopressor) 25 mg PO 0800,1800 [facility] Last Admin: 09/30/16 18:38 Dose: 25 mg Pantoprazole Sodium (Protonix Ec Tab) 40 mg PO 0630 [facility] Last Admin: 10/01/16 05:58 Dose: 40 mg Polyethylene Glycol (Miralax) 17 gm PO DAILY [facility] Last Admin: 09/30/16 10:42 Dose: 17 gm Tiotropium Fortuna (Spiriva) 18 mcg IH DAILY [facility] Last Admin: 09/30/16 10:42 Dose: 18 mcg Discontinued Medications Albuterol/Ipratropium (Duoneb 3 Mg/0.5 Mg (3 Ml) Ud) Confirm Administered Dose 3 ml .ROUTE .STK-MED ONE Stop: 09/28/16 18:00 Last Admin: 09/28/16 18:55 Dose: Albuterol/Ipratropium (Duoneb 3 Mg/0.5 Mg (3 Ml) Ud) 3 ml IH Q15M [facility] Stop: 09/28/16 18:46 Last Admin: 09/28/16 18:45 Dose: 3 ml Albuterol/Ipratropium (Duoneb 3 Mg/0.5 Mg (3 Ml) Ud) 3 ml IH Q4H FRANCESCO Stop: 09/29/16 04:46 Last Admin: 09/29/16 04:15 Dose: Not Given Non-Admin Reason: Agitation Aspirin (Aspirin Chewable) 324 mg PO STAT STA Stop: 09/28/16 18:02 Last Admin: 09/28/16 18:55 Dose: 324 mg Carvedilol (Coreg) 3.125 mg PO BID [facility] Last Admin: 09/29/16 10:26 Dose: 3.125 mg Furosemide (Lasix) 20 mg IVP STAT STA Stop: 09/28/16 18:02 Last Admin: 09/28/16 18:54 Dose: 20 mg Methylprednisolone (Solu-Medrol) 125 mg IVP STAT STA Stop: 09/28/16 18:02 Last Admin: 09/28/16 18:54 Dose: 125 mg Methylprednisolone (Solu-Medrol) 40 mg IVP Q8 [facility] Last Admin: 09/29/16 05:44 Dose: 40 mg Methylprednisolone (Solu-Medrol) 40 mg IVP Q12 [facility] Methylprednisolone (Solu-Medrol) 40 mg IVP 0600,1800 [facility] Last Admin: 09/30/16 05:40 Dose: 40 mg Methylprednisolone (Solu-Medrol) 30 mg IVP Q12 [facility] Methylprednisolone (Solu-Medrol) 30 mg IVP Q12 [facility] Last Admin: 09/30/16 22:05 Dose: 30 mg - Scribe Statement The provider has reviewed the documentation as recorded by the Batsheva Hayes Provider Batsheva Attestation: All medical record entries made by the Batsheva were at my direction and personally dictated by me. I have reviewed the chart and agree that the record accurately reflects my personal performance of the history, physical exam, medical decision making, and the department course for this patient. I have also personally directed, reviewed, and agree with the discharge instructions and disposition. Disposition/Present on Arrival - Present on Arrival Any Indicators Present on Arrival: No History of DVT/PE: No History of Uncontrolled Diabetes: No Urinary Catheter: No History of Decub. Ulcer: No History Surgical Site Infection Following: None - Disposition Have Diagnosis and Disposition been Completed?: Yes Diagnosis: Chronic obstructive pulmonary disease Disposition: HOSPITALIZED Disposition Time: 19:46 Patient Plan: Admission Condition: FAIR
[2016-09-28] MEDS: Albuterol-Ipratrop 3 mg / 0.5 (3 ml) UD IH SCH ×4 (18:15→20:57)
[2016-09-28 18:46] LABS: ADD MANUAL DIFF? NO
[2016-09-28 19:03] LABS: BASO # 0.04 K/mm3 (0.0-2.0); BASO % 0.4 % (0.0-3.0); EOS # 0.3 (0.0-0.7); EOS % 2.8 % (1.5-5.0); GRAN # 8.22 (1.4-6.5); GRAN % 81.3 % (50.0-68.0); HEMATOCRIT 41.1 % (36.0-48.0); LYMPH # 0.8 (1.2-3.4); LYMPH % 8.2 % (22.0-35.0); MEAN CORPUSCULAR HEMOGLOBIN 26.5 pg (25.0-35.0); MEAN CORPUSCULAR HGB CONC 32.4 g/dl (31.0-37.0); MEAN PLATELET VOLUME 10.7 fl (7.0-11.0); MONO # 0.7 (0.1-0.6); MONO % 7.3 % (1.0-6.0); PLATELET COUNT 434 10^3/uL (120.0-450.0); RED CELL DISTRIBUTION WIDTH 22.3 % (11.5-14.5); WHITE BLOOD COUNT 10.1 10^3/ul (4.5-11.0)
[2016-09-28 19:09] LABS: INR 0.96 (0.93-1.08); PARTIAL THROMBOPLASTIN TIME 22.9 Seconds (23.7-30.8)
[2016-09-28 19:30] LABS: ALB/GLOB RATIO 1.1 (1.1-1.8); ALKALINE PHOSPHATASE 87 U/L (38-133); ALT/SGPT 24 U/L (7-56); AST/SGOT 28 U/L (15-39); BILIRUBIN,TOTAL 0.4 mg/dL (0.2-1.3); BLOOD UREA NITROGEN 31 mg/dL (7-21); CALCIUM 9.4 mg/dL (8.4-10.5); CARBON DIOXIDE 26 mmol/L (21-33); CHLORIDE 110 mmol/L (95-110); GFR AFRICAN-AMERICAN > 60; GLUCOSE,RANDOM 95 mg/dL (70-110); POTASSIUM 3.8 mmol/L (3.6-5.0); SODIUM 145 mmol/L (132-148); TOTAL PROTEIN 7.3 g/dL (5.8-8.3)
[2016-09-28 19:31] LABS: TROPONIN I < 0.01 ng/mL
[2016-09-28] MEDS ORDERED: Albuterol 0.083% Inhal Sol (2.5 mg/3 mL) UD IH PRN (20:42)
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
[2016-09-28] MEDS: MethylPREDNISolone 40 mg Vial IVP SCH (23:39)
[2016-09-29] MEDS: Albuterol-Ipratrop 3 mg / 0.5 (3 ml) UD IH SCH ×2 (00:27→04:15)
[2016-09-29] MEDS: MethylPREDNISolone 40 mg Vial IVP SCH ×2 (05:44→18:28)
[2016-09-29] MEDS: Pantoprazole 40 mg EC Tab PO SCH (05:45)
[2016-09-29] MEDS ORDERED: Levalbuterol 0.63 MG/3 ML Inhal Soln UD IH PRN (06:33)
[2016-09-29 06:47] LABS: ADD MANUAL DIFF? NO
[2016-09-29 06:51] LABS: BASO # 0.01 K/mm3 (0.0-2.0); BASO % 0.1 % (0.0-3.0); GRAN % 95.1 % (50.0-68.0); HEMATOCRIT 40.6 % (36.0-48.0); LYMPH # 0.3 (1.2-3.4); LYMPH % 3.7 % (22.0-35.0); MEAN CELL VOLUME 80.2 fL (80.0-105.0); MEAN CORPUSCULAR HEMOGLOBIN 26.3 pg (25.0-35.0); MEAN CORPUSCULAR HGB CONC 32.8 g/dl (31.0-37.0); MEAN PLATELET VOLUME 10.3 fl (7.0-11.0); MONO # 0.1 (0.1-0.6); MONO % 1.1 % (1.0-6.0); PLATELET COUNT 436 10^3/uL (120.0-450.0); RED CELL DISTRIBUTION WIDTH 21.8 % (11.5-14.5); WHITE BLOOD COUNT 9.3 10^3/ul (4.5-11.0)
[2016-09-29 07:03] LABS: ALKALINE PHOSPHATASE 77 U/L (38-133); ALT/SGPT 23 U/L (7-56); AST/SGOT 22 U/L (15-39); BILIRUBIN,TOTAL 0.3 mg/dL (0.2-1.3); BLOOD UREA NITROGEN 33 mg/dL (7-21); CALCIUM 9.3 mg/dL (8.4-10.5); CARBON DIOXIDE 24 mmol/L (21-33); CHLORIDE 111 mmol/L (98-107); GFR AFRICAN-AMERICAN > 60; GLUCOSE,RANDOM 160 mg/dL (70-110); POTASSIUM 4.1 mmol/L (3.6-5.0); SODIUM 145 mmol/L (132-148); TOTAL PROTEIN 6.7 g/dL (5.8-8.3)
[2016-09-29] MEDS: Budesonide 0.5 mg/2 ml Inhal Susp UD IH SCH ×2 (08:17→19:13)
[2016-09-29] MEDS: Levalbuterol 0.63 MG/3 ML Inhal Soln UD IH SCH ×3 (08:18→19:13)
[2016-09-29] MEDS ORDERED: MethylPREDNISolone 40 mg Vial IVP SCH (10:00)
[2016-09-29] MEDS ORDERED: Non Formulary Medication (Fluticasone/Vilanterol [Breo Ellipta 100-25 Mcg Inh] 1 PUFF) IH SCH (10:00)
--- NOTE | 2016-09-29 10:10 | CON ---
DATE: 09/29/2016 REASON FOR CONSULTATION: Chronic obstructive pulmonary disease. REFERRING PHYSICIAN: Dr. Mccauley. HISTORY OF PRESENT ILLNESS: The patient is an 81-year-old female with past medical history significant for advanced chronic obstructive pulmonary disease, on home oxygen, coronary artery disease, cerebrovascular accident, pulmonary embolism in the past, who presents with a 3-day history of worsening shortness of breath at rest, dyspnea on exertion, and cough. The patient denies sputum production. The patient also denies chest pain, coughing up of blood or chest pain -- made worse with deep respirations. There is no history of temperatures , chills or infectious exposure. There is no history of night sweats, weight loss or appetite change prior to the above events. No history of leg or calf pains. No history of syncope or diaphoresis. No history of recent travel or trauma. REVIEW OF SYSTEMS: No history of nausea, vomiting or diarrhea. No acute urinary symptoms. No new neurological or musculoskeletal complaints. Rest of review of systems is negative. ALLERGIES: No known allergies. SOCIAL HISTORY: Positive for extensive tobacco usage. No alcohol. FAMILY HISTORY: No inheritable diseases. HOME MEDICATIONS: Include Tapazole, Keppra, Spiriva, Claritin, Breo Ellipta, Feosol Aricept, Lipitor, Ecotrin, albuterol nebulizer treatments, and Coreg. PHYSICAL EXAMINATION: GENERAL: The patient appears comfortable this morning. She is not short of breath at rest. VITAL SIGNS: Temperature is 97.0, pulse 89, respirations 18, blood pressure 129 /73. Oxygen saturation on nasal cannula is 100%. HEENT: Normocephalic, atraumatic. NECK: No JVD. CARDIOVASCULAR: Systolic ejection murmur at the lower left sternal border. No S3 gallop. LUNGS: Decreased breath sounds at the bases. Minimal rhonchi. Minimal wheezing. EXTREMITIES: No clubbing, cyanosis, or edema. Calves are nontender to palpation. GASTROINTESTINAL: Abdomen is soft, nontender, nondistended. Bowel sounds are positive. SKIN: No acute rash. NEUROLOGIC: Limited at the present time. PERTINENT LABORATORY DATA: Chest x-ray was done yesterday and reviewed. There is no official reading on the chart at this point in time. The most current chest x-ray does not seem significantly changed from the previous film. CBC: White count 10.1, hemoglobin 13.3, hematocrit 41.1, platelets of 434. Complete metabolic profile: BUN 31, LDH 706. Rest of the metabolic profile is within normal limits. IMPRESSION: 1. Acute bronchitis. 2. Acute bronchospasm. 3. Advanced chronic obstructive pulmonary disease -- on home oxygen. 4. Coronary artery disease. PLAN: The patient presents to [facility] with a 3-day history of worsening pulmonary symptoms. I did review the chest x-ray -- as above. The chest x-ray does not seem significantly changed from the previous film. On physical exam, the patient is in mild to moderate bronchospasm. However, there is no significant alveolar arterial gradient. Oxygen saturation on nasal cannula is currently 100%. This morning, I will discontinue the Breo Ellipta ( which is a long-acting drug). I will switch to a short acting beta agonist and inhaled Pulmicort. The patient is also on Spiriva. I will also decrease the intravenous steroids this morning. Lastly, due to her age and above diagnoses, I will start the patient on oral antibiotic therapy. There are no temperatures noted. There is no leukocytosis. The patient does state to feeling much better this morning -- compared to the past few days. She is clinically improved. Additional pulmonary intervention will be based on the clinical status of the patient. I will discuss the above with the attending physician. Thank you very much for this pulmonary consultation. Dylon Galvan MD cc: [phone] TT: 09/29/2016 10:09:57 Confirmation # [id number] Dictation # [id number]
[2016-09-29] MEDS: POLYETHYLENE GLYCOL 3350 17 GM/Dose PACKET PO SCH (10:26)
[2016-09-29] MEDS: levoFLOXacin 500 MG TAB PO SCH (10:26)
[2016-09-29] MEDS: methIMAzole 5 MG TAB PO SCH (10:26)
[2016-09-29] MEDS: Tiotropium 18 mcg Cap For Inhalation IH SCH (11:52)
--- NOTE | 2016-09-29 14:41 | HP ---
HISTORY OF PRESENT ILLNESS: I discussed this with the resident yesterday and we admitted her to the hospital. She has been back and forth to the hospital a few times. She was sent home from the ER le ss than a week ago. She comes into the Emergency Room with sudden shortness of breath and not feelin g well. She has done this many times in the past and here she is with COPD, breathing treatments hel ped and she is on steroids. PAST MEDICAL HISTORY: Hypertension, AAA, CVA, lung cancer, NSTEMI, CHF, COPD on oxygen at home, anem ia, hypertension, seizures, dementia, hyperthyroidism. She is here wheezing even after breathing [place] atments and steroids and not feeling well. She had a thyroidectomy, left cataract surgery. FAMILY HISTORY: There is breast and stomach cancer in the family. SOCIAL HISTORY: Former smoker, occasional alcohol, no drugs. ALLERGIES: No known drug allergies. MEDICATIONS: She is on a fair amount of medications. REVIEW OF SYSTEMS: She had some weight loss, old poor vision, old hearing loss, nothing acute. Not dizzy. No sore throat. No chest pain, no palpitations. She is wheezing. She is coughing. She has phlegm. No blood. No abdominal pain, no nausea, vomiting, no back pain or leg pain. Skin for the most part intact. Not dizzy, not numb. She is alert. She understands what is going on, a little sca red, for multiple trips to the ER, uncomfortable. She had left eye surgery, cataracts, hypothyroidis m. EGD showed gastric erosions with a small hiatal hernia and gastric AVM. No known drug allergies. PHYSICAL EXAMINATION: VITAL SIGNS: 98.9 temp, 87 pulse, 18 respiratory rate, 135/78 blood pressure, 98% O2 sat on oxygen. HEENT: Head is atraumatic, normocephalic. Extraocular muscles are intact. Pupils equal and reactiv e to light. Throat is moist. NECK: Supple. HEART: Regular rate. Normal S1, S2. LUNGS: Decreased breath sounds. There is wheezing bilaterally, even 24 hours later, on steroids and breathing treatments, still wheezing, uncomfortable. ABDOMEN: Soft, nontender, positive bowel sounds. No CVA tenderness. EXTREMITIES: No edema. NEUROLOGIC: Alert and oriented x 3. Normal affect. LABORATORY DATA: She had a bunch of tests. Sodium 145, potassium 4.1, BUN 33, creatinine 0.9, GFR is greater than 60, sugar is 160, calcium is 9.3, total bili is 0.3, AST is 22, ALT is 23, alkaline melanie sphatase 77, troponin is less than 0.01, total protein 6.7. White count 9.3, 13.3 hemoglobin, 40.6 h ematocrit with 436 platelets. She is on Aricept, Claritin, Coreg, Ecotrin, Feosol, Keppra, Levaquin, Lipitor, Lopressor, MiraLax, p antoprazole, Protonix, Pulmicort, Solu-Medrol 40 b.i.d. now, Spiriva, Tapazole, Xopenex. She was seen by Dr. Galvan, the group fitness assistant department head. She is here for chronic obstructive pulmonary diseas e, numerous times to the hospital. Raul Mccauley DO cc: [id number] TT: 09/29/2016 14:40:48 cookie
--- NOTE | 2016-09-29 15:53 | CARD ---
APPROVED REPORT EKG Measurement Heart [id number] <Conclusion> Normal sinus rhythm Left axis deviation Pulmonary disease pattern ST & T wave abnormality, consider lateral ischemia Abnormal ECG
[2016-09-30] MEDS: Levalbuterol 0.63 MG/3 ML Inhal Soln UD IH SCH ×4 (01:01→20:11)
[2016-09-30] MEDS: MethylPREDNISolone 40 mg Vial IVP SCH ×3 (05:40→22:05)
[2016-09-30] MEDS: Pantoprazole 40 mg EC Tab PO SCH (05:41)
[2016-09-30] MEDS: Budesonide 0.5 mg/2 ml Inhal Susp UD IH SCH ×2 (07:59→20:11)
[2016-09-30 08:04] LABS: HEMATOCRIT 39.7 % (36.0-48.0); MEAN CORPUSCULAR HEMOGLOBIN 26.7 pg (25.0-35.0); MEAN PLATELET VOLUME 10.7 fl (7.0-11.0); RED CELL DISTRIBUTION WIDTH 21.9 % (11.5-14.5); WHITE BLOOD COUNT 17.8 10^3/ul (4.5-11.0)
--- NOTE | 2016-09-30 08:10 | RAD ---
HISTORY: cough COMPARISON: No prior. FINDINGS: LUNGS: No active pulmonary disease. PLEURA: No significant pleural effusion identified, no pneumothorax apparent. CARDIOVASCULAR: Normal. OSSEOUS STRUCTURES: No significant abnormalities. VISUALIZED UPPER ABDOMEN: Normal. OTHER FINDINGS: None. IMPRESSION: No active disease.
[2016-09-30 08:21] LABS: ALKALINE PHOSPHATASE 78 U/L (38-133); ALT/SGPT 27 U/L (7-56); AST/SGOT 29 U/L (15-39); BILIRUBIN,TOTAL 0.3 mg/dL (0.2-1.3); BLOOD UREA NITROGEN 37 mg/dL (7-21); CALCIUM 9.2 mg/dL (8.4-10.5); CARBON DIOXIDE 27 mmol/L (21-33); CHLORIDE 109 mmol/L (98-107); GFR AFRICAN-AMERICAN > 60; GLUCOSE,RANDOM 104 mg/dL (70-110); POTASSIUM 4.2 mmol/L (3.6-5.0); SODIUM 143 mmol/L (132-148); TOTAL PROTEIN 6.4 g/dL (5.8-8.3)
--- NOTE | 2016-09-30 08:55 | PN ---
DATE: 09/30/2016 SUBJECTIVE: The patient appears comfortable this morning. She is not short of breath at rest. PHYSICAL EXAMINATION: VITAL SIGNS: Temperature is 97.7, pulse 84, respirations 18/20, blood pressure 128/85. Oxygen saturation on nasal cannula is 98%. HEENT: Normocephalic, atraumatic. No JVD. CARDIOVASCULAR: Systolic ejection murmur at the lower left sternal border. No S3 gallop. LUNGS: Improved breath sounds at the bases. Less rhonchi. No wheezing this morning. EXTREMITIES: No clubbing, cyanosis, or edema. Calves are nontender to palpation. GASTROINTESTINAL: Abdomen is soft, nontender, nondistended. Bowel sounds are positive. SKIN: No acute rash. NEUROLOGIC: Limited at the present time. IMPRESSION: 1. Acute bronchitis. 2. Acute bronchospasm. 3. Advanced chronic obstructive pulmonary disease -- on home oxygen. 4. Coronary artery disease. PLAN: The patient appears comfortable this morning. She is not short of breath at rest. She states she is feeling much better overall. On physical exam, there is certainly less bronchospasm noted. In addition, the oxygen saturation is now 98% on nasal cannula. I will continue with the current nebulizer treatments and decrease the intravenous steroids this morning. The patient also remains on antibiotic therapy. There are no temperatures noted. There is no leukocytosis. Repeat a.m. labs are pending. Clinical status of the patient is significantly improved -- compared to yesterday. I will discuss the above with the attending physician. Dylon Galvan MD cc: [phone] TT: 09/30/2016 08:55:08 Confirmation # [id number] Dictation # [id number] en MTDD
[2016-09-30] MEDS ORDERED: MethylPREDNISolone 40 mg Vial IVP SCH (10:00)
--- NOTE | 2016-09-30 10:01 | PN ---
DATE: 09/30/2016 I saw the patient this morning, resting comfortably in bed. She had a fairly good night. She is sti ll on oxygen. She is breathing fairly well. She is on lots of medications for her lungs, Aricept, Claritin, Ecotrin, Feosol, Keppra, Levaquin, Li pitor, Lopressor, MiraLax, Protonix, Pulmicort, Solu-Medrol which was knocked down to 30 IV q. [address] registry officer today, Spiriva, Tapazole, Xopenex around the clock. PHYSICAL EXAMINATION: VITAL SIGNS: Temp 98.3, 80 pulse, 148/86 blood pressure, 20 respiratory rate, 99% O2 sat on nasal ca nnula. HEENT: Head is atraumatic, normocephalic. HEART: Regular rate. LUNGS: Decreased breath sounds, but clear. Wheezing is still there, but less. ABDOMEN: Soft. EXTREMITIES: No edema. She feels weak. She has a 9.3 white count, 13.3 hemoglobin, 40.6 hematocrit with 436 platelets. Sodium 145, potassiu m 4.1, BUN 33, creatinine 0.9, GFR is greater than 60, sugar is 160, calcium is 9.3, total bili is 0. 3, AST is 22, ALT is 23, alk phos 77, total protein 6.7. She is being seen by pulmonary. She is on IV steroids. She is here for chronic obstructive pulmonar y disease, acute bronchitis, coronary artery disease. I think she is slowly improving. We will see if we can get physical therapy involved. She might need TCU. I will put in an evaluation. I will c heck her labs tomorrow. Encouraged her to get out of bed to chair and eat her breakfast. Continue w ith her pulmonary toilet as per pulmonary. Raul Mccauley DO cc: [id number] TT: 09/30/2016 10:01:23 Confirmation # [id number] Dictation # [id number] en
[2016-09-30] MEDS: levoFLOXacin 500 MG TAB PO SCH (10:42)
[2016-09-30] MEDS: methIMAzole 5 MG TAB PO SCH (10:42)
[2016-09-30] MEDS: POLYETHYLENE GLYCOL 3350 17 GM/Dose PACKET PO SCH (10:42)
[2016-09-30] MEDS: Tiotropium 18 mcg Cap For Inhalation IH SCH (10:42)
[2016-10-01] MEDS: Levalbuterol 0.63 MG/3 ML Inhal Soln UD IH SCH ×4 (01:36→20:03)
[2016-10-01] MEDS: Pantoprazole 40 mg EC Tab PO SCH (05:58)
[2016-10-01 07:06] LABS: HEMATOCRIT 41.2 % (36.0-48.0); MEAN CELL VOLUME 80.8 fL (80.0-105.0); MEAN CORPUSCULAR HEMOGLOBIN 26.3 pg (25.0-35.0); MEAN CORPUSCULAR HGB CONC 32.5 g/dl (31.0-37.0); MEAN PLATELET VOLUME 10.5 fl (7.0-11.0); RED CELL DISTRIBUTION WIDTH 21.7 % (11.5-14.5); WHITE BLOOD COUNT 15.2 10^3/ul (4.5-11.0)
[2016-10-01 07:12] LABS: ALKALINE PHOSPHATASE 71 U/L (38-133); ALT/SGPT 34 U/L (7-56); AST/SGOT 27 U/L (15-39); BILIRUBIN,TOTAL 0.2 mg/dL (0.2-1.3); BLOOD UREA NITROGEN 48 mg/dL (7-21); CALCIUM 8.9 mg/dL (8.4-10.5); CARBON DIOXIDE 24 mmol/L (21-33); CHLORIDE 110 mmol/L (98-107); GFR AFRICAN-AMERICAN > 60; GLUCOSE,RANDOM 140 mg/dL (70-110); POTASSIUM 4.2 mmol/L (3.6-5.0); SODIUM 143 mmol/L (132-148); TOTAL PROTEIN 6.2 g/dL (5.8-8.3)
[2016-10-01] MEDS: Budesonide 0.5 mg/2 ml Inhal Susp UD IH SCH ×2 (07:25→20:03)
--- NOTE | 2016-10-01 08:27 | PN ---
DATE: 10/01/2016 SUBJECTIVE: The patient appears comfortable this morning. She is not short of breath at rest. PHYSICAL EXAMINATION: VITAL SIGNS: Temperature 98.5, pulse 79, respirations 18/20, blood pressure 154 /94. HEENT: Normocephalic, atraumatic. No JVD. CARDIOVASCULAR: Systolic ejection murmur at the lower left sternal border. No S3 gallop. LUNGS: Minimal/less rhonchi. No wheezing. EXTREMITIES: No clubbing, cyanosis, or edema. Calves are nontender to palpation. GASTROINTESTINAL: Abdomen is soft, nontender, nondistended. Bowel sounds are positive. SKIN: No acute rash. NEUROLOGIC: Limited at the present time. IMPRESSION: 1. Acute bronchitis. 2. Acute bronchospasm. 3. Advanced chronic obstructive pulmonary disease -- on home oxygen. 4. Coronary artery disease. PLAN: The patient appears comfortable this morning. She is not short of breath at rest. She does state to feeling better overall. On physical exam, her bronchospasm continues to resolve. In addition, the alveolar-arterial gradient also continues to resolve. I will continue with the current nebulizer treatments and decrease the intravenous steroids this morning. The patient also remains on oral antibiotic therapy. There are no temperatures noted. There is a leukocytosis -- which may very well be due to the steroids. Initial white count was normal. Clinical status of the patient is significantly improved -- compared to the initial presentation. I will discuss the above with the attending physician. Dylon Galvan MD cc: [phone] TT: 10/01/2016 08:26:43 Confirmation # [id number] Dictation # [id number] en MTDD
[2016-10-01] MEDS ORDERED: MethylPREDNISolone 40 mg Vial IVP SCH (10:00)
[2016-10-01] MEDS: levoFLOXacin 500 MG TAB PO SCH (10:26)
[2016-10-01] MEDS: methIMAzole 5 MG TAB PO SCH (10:27)
[2016-10-01] MEDS: POLYETHYLENE GLYCOL 3350 17 GM/Dose PACKET PO SCH (10:33)
[2016-10-01] MEDS: Tiotropium 18 mcg Cap For Inhalation IH SCH (11:05)
--- NOTE | 2016-10-01 11:35 | CP.PCM.DIS ---
<Tristin Boyce - Last Filed: 10/06/16 08:29> Provider - Provider Date of Admission: 09/28/16 19:49 Attending physician: Justus Walsh MD Primary care physician: Russ Soriano MD Consults: pulmonary - Dr. Galvan Time Spent in preparation of Discharge (in minutes): 40 Hospital Course - Lab Results Lab Results: Most Recent Lab Values WBC 15.2 10^3/ul (4.5-11.0) H 10/01/16 06:30 RBC 5.10 10^6/uL (3.5-6.1) 10/01/16 06:30 Hgb 13.4 gm/dL (12.0-16.0) 10/01/16 06:30 Hct 41.2 % (36.0-48.0) 10/01/16 06:30 MCV 80.8 fL (80.0-105.0) 10/01/16 06:30 MCH 26.3 pg (25.0-35.0) 10/01/16 06:30 MCHC 32.5 g/dl (31.0-37.0) 10/01/16 06:30 RDW 21.7 % (11.5-14.5) H 10/01/16 06:30 Plt Count 474 10^3/uL (120.0-450.0) H 10/01/16 06:30 MPV 10.5 fl (7.0-11.0) 10/01/16 06:30 Gran % 95.1 % (50.0-68.0) H 09/29/16 06:30 Lymph % (Auto) 3.7 % (22.0-35.0) L 09/29/16 06:30 [place] % (Auto) 1.1 % (1.0-6.0) 09/29/16 06:30 Eos % (Auto) 0.0 % (1.5-5.0) L 09/29/16 06:30 Baso % (Auto) 0.1 % (0.0-3.0) 09/29/16 06:30 Gran # 8.80 (1.4-6.5) H 09/29/16 06:30 Lymph # 0.3 (1.2-3.4) L 09/29/16 06:30 Dent # 0.1 (0.1-0.6) 09/29/16 06:30 Eos # 0.0 (0.0-0.7) 09/29/16 06:30 Baso # 0.01 K/mm3 (0.0-2.0) 09/29/16 06:30 PT 10.4 Seconds (9.9-11.8) 09/28/16 18:45 INR 0.96 (0.93-1.08) 09/28/16 18:45 APTT 22.9 Seconds (23.7-30.8) L 09/28/16 18:45 Sodium 143 mmol/L (132-148) 10/01/16 05:10 Potassium 4.2 mmol/L (3.6-5.0) 10/01/16 05:10 Chloride 110 mmol/L (98-107) H 10/01/16 05:10 Carbon Dioxide 24 mmol/L (21-33) 10/01/16 05:10 Anion Gap 13 (10-20) 10/01/16 05:10 BUN 48 mg/dL (7-21) H 10/01/16 05:10 Creatinine 1.0 mg/dL (0.5-1.4) 10/01/16 05:10 Est GFR ( Amer) > 60 10/01/16 05:10 Est GFR (Non-Af Amer) 53 10/01/16 05:10 Random Glucose 140 mg/dL (70-110) H 10/01/16 05:10 Calcium 8.9 mg/dL (8.4-10.5) 10/01/16 05:10 Total Bilirubin 0.2 mg/dL (0.2-1.3) 10/01/16 05:10 AST 27 U/L (15-39) 10/01/16 05:10 ALT 34 U/L (7-56) 10/01/16 05:10 Alkaline Phosphatase 71 U/L (38-133) 10/01/16 05:10 Lactate Dehydrogenase 706 U/L (333-699) H 09/28/16 18:45 Total Creatine Kinase 54 U/L (35-230) 09/28/16 18:45 Troponin I < 0.01 ng/mL 09/28/16 18:45 NT-Pro-B Natriuret Pep 350 pg/mL (0-450) 09/28/16 18:45 Total Protein 6.2 g/dL (5.8-8.3) 10/01/16 05:10 Albumin 3.1 g/dL (3.0-4.8) 10/01/16 05:10 Globulin 3.1 gm/dL 10/01/16 05:10 Albumin/Globulin Ratio 1.0 (1.1-1.8) L 10/01/16 05:10 - Hospital Course Hospital Course: Patient is an 81yo female with history of hypertension, AAA, CVA, lung cancer, NSTEMI, CHF, COPD on home oxygen, anemia, hypertension, seizure disorder, dementia and hyperthyroidism that presented to [facility] c/o shortness of breath and wheezing. She had reported that the symptoms started suddenly while at home. She reported that her symptoms had been gradually getting worse over the last few days prior to presentation. She reported using home oxygen and inhalers but stated that they provided only minimal relief. Her CXR revealed no active disease and her EKG showed normal sinus rhythm at 81bpm with left axis deviation, pulmonary disease pattern, ST-T wave abnormality ( unchanged from prior EKGs). She was subsequently treated with bronchodilators ( duoneb 3mL INH q4h), oxygen via NC, solumedrol 40mg q8h. Pulmonology was consulted (Dr. Galvan). Her home medications were reconciled and resumed as deemed necessary. She subsequently reported improvement in her symptoms. She was eventually discharged and was agreeable to follow up with her primary doctor within 1-2 weeks as well as pulmonary within 1-2 weeks. Discharge Exam - Head Exam Head Exam: ATRAUMATIC, NORMAL INSPECTION, NORMOCEPHALIC - Eye Exam Eye Exam: EOMI, PERRL - Respiratory Exam Respiratory Exam: Clear to PA & Lateral. absent: Rales, Rhonchi, Wheezes - Cardiovascular Exam Cardiovascular Exam: RRR, +S1, +S2. absent: Gallop, Rubs - GI/Abdominal Exam GI & Abdominal Exam: Soft. absent: Distended, Firm, Guarding, Rebound, Tenderness - Neurological Exam Neurological exam: Alert, Oriented x3 - Psychiatric Exam Psychiatric exam: Normal Affect, Normal Mood - Skin Skin Exam: Dry, Intact, Normal Color, Warm Discharge Plan - Discharge Medications Prescriptions: Methylprednisolone [Medrol Dose Pack (21 tabs)] See Taper PO DAILY #21 mg - Follow Up Plan Condition: FAIR Disposition: HOME/ ROUTINE Instructions: Pulmonary Embolism (GEN), COPD (Chronic Obstructive Pulmonary Disease) (DC), Noncardiac Chest Pain (DC) Additional Instructions: 1. Follow up with your primary doctor within 1-2 weeks. 2. Fill the prescription sent to your pharmacy and take as directed. 3. Return to the emergency room should your symptoms worsen or change in severity. Referrals: Russ Soriano MD [Primary Care Provider] - <Russ Soriano - Last Filed: 10/11/16 19:30> Provider - Provider Date of Admission: 09/28/16 19:49 Attending physician: Justus Walsh MD Primary care physician: Russ Soriano MD Hospital Course - Lab Results Lab Results: Most Recent Lab Values WBC 15.2 10^3/ul (4.5-11.0) H 10/01/16 06:30 RBC 5.10 10^6/uL (3.5-6.1) 10/01/16 06:30 Hgb 13.4 gm/dL (12.0-16.0) 10/01/16 06:30 Hct 41.2 % (36.0-48.0) 10/01/16 06:30 MCV 80.8 fL (80.0-105.0) 10/01/16 06:30 MCH 26.3 pg (25.0-35.0) 10/01/16 06:30 MCHC 32.5 g/dl (31.0-37.0) 10/01/16 06:30 RDW 21.7 % (11.5-14.5) H 10/01/16 06:30 Plt Count 474 10^3/uL (120.0-450.0) H 10/01/16 06:30 MPV 10.5 fl (7.0-11.0) 10/01/16 06:30 Gran % 95.1 % (50.0-68.0) H 09/29/16 06:30 Lymph % (Auto) 3.7 % (22.0-35.0) L 09/29/16 06:30 Dent % (Auto) 1.1 % (1.0-6.0) 09/29/16 06:30 Eos % (Auto) 0.0 % (1.5-5.0) L 09/29/16 06:30 Baso % (Auto) 0.1 % (0.0-3.0) 09/29/16 06:30 Gran # 8.80 (1.4-6.5) H 09/29/16 06:30 Lymph # 0.3 (1.2-3.4) L 09/29/16 06:30 Dent # 0.1 (0.1-0.6) 09/29/16 06:30 Eos # 0.0 (0.0-0.7) 09/29/16 06:30 Baso # 0.01 K/mm3 (0.0-2.0) 09/29/16 06:30 PT 10.4 Seconds (9.9-11.8) 09/28/16 18:45 INR 0.96 (0.93-1.08) 09/28/16 18:45 APTT 22.9 Seconds (23.7-30.8) L 09/28/16 18:45 Sodium 143 mmol/L (132-148) 10/01/16 05:10 Potassium 4.2 mmol/L (3.6-5.0) 10/01/16 05:10 Chloride 110 mmol/L (98-107) H 10/01/16 05:10 Carbon Dioxide 24 mmol/L (21-33) 10/01/16 05:10 Anion Gap 13 (10-20) 10/01/16 05:10 BUN 48 mg/dL (7-21) H 10/01/16 05:10 Creatinine 1.0 mg/dL (0.5-1.4) 10/01/16 05:10 Est GFR ( Amer) > 60 10/01/16 05:10 Est GFR (Non-Af Amer) 53 10/01/16 05:10 Random Glucose 140 mg/dL (70-110) H 10/01/16 05:10 Calcium 8.9 mg/dL (8.4-10.5) 10/01/16 05:10 Total Bilirubin 0.2 mg/dL (0.2-1.3) 10/01/16 05:10 AST 27 U/L (15-39) 10/01/16 05:10 ALT 34 U/L (7-56) 10/01/16 05:10 Alkaline Phosphatase 71 U/L (38-133) 10/01/16 05:10 Lactate Dehydrogenase 706 U/L (333-699) H 09/28/16 18:45 Total Creatine Kinase 54 U/L (35-230) 09/28/16 18:45 Troponin I < 0.01 ng/mL 09/28/16 18:45 NT-Pro-B Natriuret Pep 350 pg/mL (0-450) 09/28/16 18:45 Total Protein 6.2 g/dL (5.8-8.3) 10/01/16 05:10 Albumin 3.1 g/dL (3.0-4.8) 10/01/16 05:10 Globulin 3.1 gm/dL 10/01/16 05:10 Albumin/Globulin Ratio 1.0 (1.1-1.8) L 10/01/16 05:10 Attending/Attestation - Attestation I have personally seen and examined this patient.: Yes I have fully participated in the care of the patient.: Yes I have reviewed all pertinent clinical information, including history, physical exam and plan: Yes Notes (Text): 10/11/16 19:30 Medical record note made by the resident after discussion with my direction and input after the patient was personally seen and examined by me. I have reviewed the chart and agree that the record accurately reflects by personal performance of the history, physical exam, data review, and medical decision-making, in the course for the patient. I have also personally directed the plan of care.
[2016-10-01 18:02] VITALS: PULSE 92
[2016-10-01 18:45] VITALS: BP 125/87; RESP 18; TEMP 98.6; O2SAT 95
== END 2016-10-01 21:30 | disposition home or self-care (01) | DRG 192 ==
LOC: ED 17:42 → ERH 19:49 → 2RNO 21:28
PROVIDERS: ADMIT Internal Medicine; ATTEND Internal Medicine
DX: J44.1 Chronic obstructive pulmonary disease with (acute) exacerbation (principal); I11.0 Hypertensive heart disease with heart failure; I50.9 Heart failure, unspecified; F03.90 Unspecified dementia, unspecified severity, without behavioral disturbance, psychotic disturbance, mood disturbance, and anxiety; E05.90 Thyrotoxicosis, unspecified without thyrotoxic crisis or storm; I71.4 Abdominal aortic aneurysm, without rupture; J44.0 Chronic obstructive pulmonary disease with (acute) lower respiratory infection; J20.9 Acute bronchitis, unspecified; I25.10 Atherosclerotic heart disease of native coronary artery without angina pectoris; G40.909 Epilepsy, unspecified, not intractable, without status epilepticus; D50.9 Iron deficiency anemia, unspecified; K59.00 Constipation, unspecified; Z99.81 Dependence on supplemental oxygen; I25.2 Old myocardial infarction; Z86.73 Personal history of transient ischemic attack (TIA), and cerebral infarction without residual deficits; Z85.118 Personal history of other malignant neoplasm of bronchus and lung; Z87.891 Personal history of nicotine dependence; Z86.711 Personal history of pulmonary embolism

== ENCOUNTER 2016-10-09 17:24 | Inpatient (IN) | payer MEDICARE, MEDICAID ==
--- NOTE | 2016-10-09 18:43 | ED PDOC ---
Arrival/HPI <Nicholas Tang - Last Filed: 10/09/16 20:17> - General Historian: Patient, Family - History of Present Illness Time/Duration: Other (1 day) Context: Home <Anabela Mendoza - Last Filed: 10/11/16 12:21> - General Chief Complaint: Weakness/Neurological Deficit Time Seen by Provider: 10/09/16 18:27 - History of Present Illness Narrative History of Present Illness (Text): 10/09/16 18:30 This 81 yo female with a pmh senile dementia, copd, chf, presents to this ED c/ o generalized weakness, b/l swelling legs x 3 days. Patient's daughter stated patient is to weak to ambulate. Daughter Called Dr. Walsh, who told daughter to come to ED for revaluation, and possible admission. Dr. Edwards pmd (Anabela Mendoza) Past Medical History - Provider Review Nursing Documentation Reviewed: Yes - Infectious Disease Hx of Infectious Diseases: None - Tetanus Immunization Tetanus Immunization: Unknown - Reproductive Menopause: Yes - Cardiac Hx Congestive Heart Failure: Yes Hx Hypertension: Yes - Pulmonary Hx Chronic Obstructive Pulmonary Disease (COPD): Yes - Neurological Other/Comment: residual from tia was slurred speech which resolved with therapy - HEENT Hx HEENT Disorder: Yes Hx Cataracts: Yes (left eye sx) - Renal Hx Renal Disorder: No - Endocrine/Metabolic Hx Hypothyroidism: Yes - Hematological/Oncological Hx Cancer: (denies) - Integumentary Hx Dermatological Disorder: No - Musculoskeletal/Rheumatological Hx Falls: No - Gastrointestinal Other/Comment: egd dx gastric erosions small hiatal hernia and gastric avm, 09/05 - Genitourinary/Gynecological Hx Genitourinary Disorders: No - Psychiatric Hx Psychophysiologic Disorder: No Hx Substance Use: No - Surgical History Hx Cataract Extraction: Yes - Anesthesia Hx Anesthesia: Yes Hx Anesthesia Reactions: No Hx Malignant Hyperthermia: No <Anabela Mendoza - Last Filed: 10/11/16 12:21> Family/Social History - Physician Review Nursing Documentation Reviewed: Yes Family/Social History: No Known Family HX Smoking Status: Never Smoked Hx Alcohol Use: No Hx Substance Use: No <Anabela Mendoza - Last Filed: 10/11/16 12:21> Allergies/Home Meds <Nicholas Tang - Last Filed: 10/09/16 20:17> <Anabela Mendoza Luis - Last Filed: 10/11/16 12:21> Allergies/Adverse Reactions: Allergies No Known Allergies Allergy (Verified 10/09/16 17:49) Home Medications: Home Meds Medication Instructions Recorded Confirmed Fluticasone/Vilanterol [Breo 1 puff IH DAILY 06/28/16 10/09/16 Ellipta 100-25 Mcg INH] Albuterol 0.083% [Albuterol 0.083% 1 inh NEB PRN PRN 09/28/16 10/09/16 Inhal Twyla (2.5 mg/3 ml) UD] Carvedilol [Coreg] 3.125 mg PO BID 10/09/16 10/09/16 Ferrous Sulfate [Feosol] 325 mg PO DAILY 10/09/16 10/09/16 Review of Systems - Review of Systems Constitutional: Fatigue, Other (failure to thrive). absent: Weight Change, Fevers Eyes: Normal ENT: Normal Respiratory: absent: SOB, Cough, Sputum, Wheezing Cardiovascular: Normal. absent: Chest Pain, Palpitations Gastrointestinal: Normal. absent: Abdominal Pain, Nausea, Vomiting Genitourinary Female: Normal Musculoskeletal: Other (swelling legs) Skin: Normal Neurological: Other (dementia. unable to ambulate) Endocrine: Normal Hemo/Lymphatic: Normal Psychiatric: Normal <Anabela Mendoza Luis - Last Filed: 10/11/16 12:21> Physical Exam Temperature: Afebrile Blood Pressure: Normal Pulse: Regular Respiratory Rate: Normal Appearance: Positive for: Well-Appearing, Non-Toxic, Comfortable Pain Distress: None - Systems Exam Head: Present: Atraumatic, Normocephalic Pupils: Present: PERRL Extroacular Muscles: Present: EOMI Conjunctiva: Present: Normal Mouth: Present: Moist Mucous Membranes Pharnyx: Present: Normal Nose (External): Present: Atraumatic Neck: Present: Normal Range of Motion, Trachea Midline. No: Meningeal Signs, JVD Respiratory/Chest: Present: Clear to Auscultation, Good Air Exchange. No: Respiratory Distress, Accessory Muscle Use, Wheezes, Decreased Breath Sounds, Rales, Retracting, Rhonchi Cardiovascular: Present: Regular Rate and Rhythm, Normal S1, S2. No: Murmurs Abdomen: Present: Normal Bowel Sounds. No: Tenderness, Distention, Peritoneal Signs, Rebound, Guarding Back: Present: Normal Inspection. No: CVA Tenderness, Midline Tenderness, Paraspinal Tenderness Upper Extremity: Present: Normal Inspection, Normal ROM, NORMAL PULSES, Capillary Refill < 2s. No: Cyanosis, Edema Lower Extremity: Present: Normal Inspection, NORMAL PULSES, Neurovascularly Intact, Capillary Refill < 2 s. No: Edema, CALF TENDERNESS Neurological: Present: GCS=15, CN II-XII Intact, Speech Normal (baseline). No: Memory Normal (pmh dementia) Skin: Present: Warm, Dry, Normal Color. No: Rashes Psychiatric: Present: Alert <Anabela Mendoza P - Last Filed: 10/11/16 12:21> Vital Signs Temp Pulse Resp BP Pulse Ox 10/09/16 21:55 82 21 120/81 100 10/09/16 18:06 98 F 87 22 114/84 100 Medical Decision Making <Nicholas Tang - Last Filed: 10/09/16 20:17> Re-evaluation Time: 22:35 Reassessment Condition: Re-examined, Improving,but remains with symptoms <Anabela Mendoza P - Last Filed: 10/11/16 12:21> ED Course and Treatment: 10/09/16 22:[address] Mccauley regarding physical exam, and symptoms. I reviewed labs , cxr. I recommended admission for CHF exacerbation. He agrees with admission , and recommended to admit patient on Dr. Walsh service, and to call medical concierge. (Anabela Mendoza P) - Lab Interpretations Microbiology Results: Microbiology Results 10/09/16 18:50 Urine Urine Culture - Final No Growth (<1,000 CFU/ML) Lab Results: 10/09/16 19:35 10/09/16 20:16 Lab Results 10/09/16 21:00: Troponin I 0.02 D 10/09/16 20:16: Sodium 139, Potassium 3.9, Chloride 106, Carbon Dioxide 27, Anion Gap 10, BUN 30 H, Creatinine 1.0, Est GFR ( Amer) > 60, Est GFR ( Non-Af Amer) 53, Random Glucose 80, Calcium 8.3 L, Total Bilirubin 0.5, AST 23, ALT 22, Alkaline Phosphatase 59, NT-Pro-B Natriuret Pep 475 H, Total Protein 5.9 , Albumin 2.9 L, Globulin 3.0, Albumin/Globulin Ratio 1.0 L, Lipase 86 10/09/16 19:35: PT 11.1, INR 1.03, APTT 28.9 10/09/16 19:35: WBC 13.0 H, RBC 5.21, Hgb 14.1, Hct 42.9, MCV 82.3, MCH 27.1, MCHC 32.9, RDW 20.5 H, Plt Count 460 H, MPV 10.6, Gran % 84.0 H, Lymph % (Auto) 6.9 L, [place] % (Auto) 7.5 H, Eos % (Auto) 1.4 L, Baso % (Auto) 0.2, Gran # 10.91 H, Lymph # 0.9 L, [place] # 1.0 H, Eos # 0.2, Baso # 0.03 10/09/16 18:50: Urine Color yellow, Urine Appearance Clear, Urine pH 6.0, Ur Specific [place] >= 1.030, Urine Protein Negative, Urine Glucose (UA) Negative, Urine Ketones Negative, Urine Blood Negative, Urine Nitrate Negative, Urine Bilirubin Negative, Urine Urobilinogen 0.2, Ur Leukocyte Esterase Negative - RAD Interpretation Radiology Orders: 10/09/16 20:34 CHEST PORTABLE [RAD] Stat - Medication Orders Current Medication Orders: Acetaminophen (Tylenol 325mg Tab) 650 mg PO Q4 PRN PRN Reason: Fever >100.4 F Albuterol Sulfate (Albuterol 0.083% Inhal [place] (2.5 Mg/3 Ml) Ud) 2.5 mg INH Q2H PRN PRN Reason: Wheezing Aspirin (Ecotrin) 81 mg PO DAILY [facility] Last Admin: 10/11/16 10:05 Dose: 81 mg Atorvastatin Calcium (Lipitor) 10 mg PO DIN [facility] Last Admin: 10/10/16 18:02 Dose: 10 mg Budesonide (Pulmicort Respules) 0.5 mg IH [id number] [facility] Last Admin: 10/11/16 07:53 Dose: 0.5 mg Carvedilol (Coreg) 3.125 mg PO BID [facility] Last Admin: 10/11/16 10:04 Dose: 3.125 mg Donepezil HCl (Aricept) 5 mg PO HS [facility] Last Admin: 10/10/16 21:50 Dose: 5 mg Enoxaparin Sodium (Lovenox) 40 mg SC DAILY [facility] PRN Reason: Protocol Last Admin: 10/11/16 10:07 Dose: 40 mg Ferrous Sulfate (Feosol) 324 mg PO DAILY [facility] Last Admin: 10/11/16 10:05 Dose: 324 mg Furosemide (Lasix) 20 mg IVP Q12 [facility] Last Admin: 10/11/16 10:06 Dose: 20 mg Ibuprofen (Motrin Tab) 800 mg PO Q8H PRN PRN Reason: Pain, Mild (1-3) Levalbuterol HCl (Xopenex) 0.63 mg IH [id number] [facility] Last Admin: 10/11/16 07:54 Dose: 0.63 mg Levalbuterol HCl (Xopenex) 0.63 mg IH Q2 PRN PRN Reason: Shortness of Breath Levetiracetam (Keppra) 750 mg PO DAILY [facility] Last Admin: 10/11/16 10:06 Dose: 750 mg Lisinopril (Zestril) 2.5 mg PO DAILY [facility] Last Admin: 10/11/16 10:17 Dose: 2.5 mg Loratadine (Claritin) 10 mg PO DAILY [facility] Last Admin: 10/11/16 10:03 Dose: 10 mg Methimazole (Tapazole) 5 mg PO DAILY [facility] Last Admin: 10/11/16 10:08 Dose: 5 mg Ondansetron HCl (Zofran Inj) 8 mg IVP Q6H PRN PRN Reason: Nausea/Vomiting Last Admin: 10/11/16 10:17 Dose: 8 mg Pantoprazole Sodium (Protonix Ec Tab) 40 mg PO 0630 [facility] Last Admin: 10/11/16 05:35 Dose: 40 mg Polyethylene Glycol (Miralax) 17 gm PO DAILY [facility] Last Admin: 10/11/16 10:07 Dose: 17 gm Prednisone (Prednisone Tab) 30 mg PO DAILY [facility] Last Admin: 10/11/16 10:07 Dose: 30 mg Tiotropium [place] (Spiriva) 18 mcg IH DAILY [facility] Last Admin: 10/11/16 10:08 Dose: 18 mcg Discontinued Medications Furosemide (Lasix) 40 mg IVP STAT STA Stop: 10/09/16 21:37 Last Admin: 10/09/16 21:55 Dose: 40 mg Prednisone (Prednisone Tab) 40 mg PO DAILY [facility] Last Admin: 10/10/16 11:13 Dose: 40 mg - PA / ENGINEERING TECH / Resident Statement SHEN has reviewed & agrees with the documentation as recorded. SHEN has examined the patient and agrees with the treatment plan. <Nicholas Tang - Last Filed: 10/09/16 20:17> Disposition/Present on Arrival <Nicholas Tang - Last Filed: 10/09/16 20:17> - Present on Arrival Any Indicators Present on Arrival: No History of DVT/PE: No History of Uncontrolled Diabetes: No Urinary Catheter: No History of Decub. Ulcer: No History Surgical Site Infection Following: None - Disposition Have Diagnosis and Disposition been Completed?: Yes Disposition Time: 22:38 Patient Plan: Admission <Anabela Mendoza - Last Filed: 10/11/16 12:21> - Disposition Diagnosis: CHF exacerbation Disposition: HOSPITALIZED Patient Problems: Current Active Problems Problem Status Onset CHF exacerbation Acute Condition: GOOD
[2016-10-09 19:51] LABS: ADD MANUAL DIFF? NO
[2016-10-09 20:05] LABS: URINE BILIRUBIN NEGATIVE (NEGATIVE); URINE BLOOD NEGATIVE (NEGATIVE); URINE GLUCOSE (UA) NEGATIVE (NEGATIVE); URINE KETONE NEGATIVE (NEGATIVE); URINE LEUKOCYTE ESTERASE NEGATIVE Leu/uL (NEGATIVE); URINE UROBILINOGEN 0.2 E.U./dL (<1 E.U./dL)
[2016-10-09 20:06] LABS: BASO # 0.03 K/mm3 (0.0-2.0); BASO % 0.2 % (0.0-3.0); EOS # 0.2 (0.0-0.7); EOS % 1.4 % (1.5-5.0); GRAN # 10.91 (1.4-6.5); HEMATOCRIT 42.9 % (36.0-48.0); LYMPH # 0.9 (1.2-3.4); LYMPH % 6.9 % (22.0-35.0); MEAN CELL VOLUME 82.3 fL (80.0-105.0); MEAN CORPUSCULAR HEMOGLOBIN 27.1 pg (25.0-35.0); MEAN CORPUSCULAR HGB CONC 32.9 g/dl (31.0-37.0); MEAN PLATELET VOLUME 10.6 fl (7.0-11.0); MONO % 7.5 % (1.0-6.0); PLATELET COUNT 460 10^3/uL (120.0-450.0); RED CELL DISTRIBUTION WIDTH 20.5 % (11.5-14.5)
[2016-10-09 20:11] LABS: URINE APPEARANCE CLEAR (CLEAR); URINE PROTEIN NEGATIVE mg/dL (<30 mg/dL)
[2016-10-09 20:13] LABS: INR 1.03 (0.93-1.08); PARTIAL THROMBOPLASTIN TIME 28.9 Seconds (23.7-30.8)
[2016-10-09 20:59] LABS: ALKALINE PHOSPHATASE 59 U/L (38-133); ALT/SGPT 22 U/L (7-56); AST/SGOT 23 U/L (15-39); BILIRUBIN,TOTAL 0.5 mg/dL (0.2-1.3); BLOOD UREA NITROGEN 30 mg/dL (7-21); CALCIUM 8.3 mg/dL (8.4-10.5); CARBON DIOXIDE 27 mmol/L (21-33); CHLORIDE 106 mmol/L (98-107); GFR AFRICAN-AMERICAN > 60; GLUCOSE,RANDOM 80 mg/dL (70-110); LIPASE 86 U/L (23-300); POTASSIUM 3.9 mmol/L (3.6-5.0); SODIUM 139 mmol/L (132-148); TOTAL PROTEIN 5.9 g/dL (5.8-8.3)
--- NOTE | 2016-10-09 22:36 | CP.PCM.HP ---
History of Present Illness - History of Present Illness History of Present Illness: Patient is an 81yo female with history of hypertension, AAA, CVA, lung cancer, NSTEMI, CHF, COPD on home oxygen, anemia, hypertension, seizure disorder, dementia and hyperthyroidism that presented to [facility] c/o shortness of breath and wheezing and lower extremity swelling as per the daughter. She had reported that the symptoms started suddenly gradually since discharge last week. As per daughter, she has been acting a little bit slower than normal, not answering questions that she normally can, and has been incontinent of urine the past week as well which is new. Patient herself denies any MUELLER, CP, SOB, abdominal pain, N/V/D, dysuria/freq/urg, or lower extremity pain but the patient is ANOx1 and has advanced dementia PMD: Dr. Walsh/Christie PMH: AAA, CVA, lung cancer, NSTEMI, CHF, COPD, on home o2, cataracts, anemia, HTN, seizures, dementia, hyperthyroidism Surigical Hx: thyroidectomy, left cataract Family Hx: Breast and stomach cancer Social hx: Former smoker, occasional alcohol use. Denies illicit drug use Allergies: NKDA Medication: See MAR Present on Admission - Present on Admission Any Indicators Present on Admission: No History of DVT/PE: No History of Uncontrolled Diabetes: No Urinary Catheter: No Decubitus Ulcer Present: No Review of Systems - Review of Systems All systems: reviewed and no additional remarkable complaints except Past Patient History - Infectious Disease Hx of Infectious Diseases: None - Tetanus Immunizations Tetanus Immunization: Unknown - Past Medical History & Family History Past Medical History?: Yes - Past Social History Smoking Status: Never Smoked - CARDIAC Hx Congestive Heart Failure: Yes Hx Hypertension: Yes - PULMONARY Hx Chronic Obstructive Pulmonary Disease (COPD): Yes - NEUROLOGICAL Other/Comment: residual from tia was slurred speech which resolved with therapy - HEENT Hx HEENT Problems: Yes Hx Cataracts: Yes (left eye sx) - RENAL Hx Chronic Kidney Disease: No - ENDOCRINE/METABOLIC Hx Hypothyroidism: Yes - HEMATOLOGICAL/ONCOLOGICAL Hx Cancer: (denies) - INTEGUMENTARY Hx Dermatological Problems: No - MUSCULOSKELETAL/RHEUMATOLOGICAL Hx Falls: No - GASTROINTESTINAL Other/Comment: egd dx gastric erosions small hiatal hernia and gastric avm, 09/05 - GENITOURINARY/GYNECOLOGICAL Hx Genitourinary Disorders: No - PSYCHIATRIC Hx Psychophysiologic Disorder: No Hx Substance Use: No - SURGICAL HISTORY Hx Cataract Extraction: Yes - ANESTHESIA Hx Anesthesia: Yes Hx Anesthesia Reactions: No Hx Malignant Hyperthermia: No Meds Allergies/Adverse Reactions: Allergies Allergy/AdvReac Type Severity Reaction Status Date / Time No Known Allergies Allergy Verified 10/09/16 17:49 Physical Exam - Constitutional Appears: Non-toxic, Confused Additional comments: pleasant elderly female, responding to questions mostly with cocktail chatter - Head Exam Head Exam: ATRAUMATIC, NORMAL INSPECTION - Eye Exam Eye Exam: EOMI - ENT Exam ENT Exam: Mucous Membranes Moist - Neck Exam Neck exam: Positive for: Full Rom. Negative for: Lymphadenopathy - Respiratory Exam Respiratory Exam: Wheezes, NORMAL BREATHING PATTERN. absent: Clear to Auscultation Bilateral, Rales, Rhonchi, Respiratory Distress, Stridor - Cardiovascular Exam Cardiovascular Exam: REGULAR RHYTHM, +S1, +S2, Systolic Murmur - GI/Abdominal Exam GI & Abdominal Exam: Normal Bowel Sounds, Soft. absent: Organomegaly, Tenderness - Extremities Exam Extremities exam: Positive for: full ROM, normal capillary refill, normal inspection, pedal pulses present. Negative for: calf tenderness, joint swelling , pedal edema, tenderness - Back Exam Back exam: NORMAL INSPECTION. absent: CVA tenderness (L), CVA tenderness (R) - Neurological Exam Neurological exam: Alert, Oriented x3 Results - Vital Signs Recent Vital Signs: Last Vital Signs Temp 98 F 10/09/16 18:06 Pulse 82 10/09/16 21:55 Resp 21 10/09/16 21:55 BP 120/81 10/09/16 21:55 Pulse Ox 100 10/09/16 21:55 - Labs Result Diagrams: 10/09/16 19:35 10/09/16 20:16 Labs: Laboratory Results - last 24 hr 10/09/16 10/09/16 10/09/16 18:50 19:35 19:35 WBC 13.0 H RBC 5.21 Hgb 14.1 Hct 42.9 MCV 82.3 MCH 27.1 MCHC 32.9 RDW 20.5 H Plt Count 460 H MPV 10.6 Gran % 84.0 H Lymph % (Auto) 6.9 L [place] % (Auto) 7.5 H Eos % (Auto) 1.4 L Baso % (Auto) 0.2 Gran # 10.91 H Lymph # 0.9 L [place] # 1.0 H Eos # 0.2 Baso # 0.03 PT 11.1 INR 1.03 APTT 28.9 Sodium Potassium Chloride Carbon Dioxide Anion Gap BUN Creatinine Est GFR ( Amer) Est GFR (Non-Af Amer) Random Glucose Calcium Total Bilirubin AST ALT Alkaline Phosphatase Troponin I NT-Pro-B Natriuret Pep Total Protein Albumin Globulin Albumin/Globulin Ratio Lipase Urine Color yellow Urine Appearance Clear Urine pH 6.0 Ur Specific [place] >= 1.030 Urine Protein Negative Urine Glucose (UA) Negative Urine Ketones Negative Urine Blood Negative Urine Nitrate Negative Urine Bilirubin Negative Urine Urobilinogen 0.2 Ur Leukocyte Esterase Negative 10/09/16 10/09/16 20:16 21:00 WBC RBC Hgb Hct MCV MCH MCHC RDW Plt Count MPV Gran % Lymph % (Auto) [place] % (Auto) Eos % (Auto) Baso % (Auto) Gran # Lymph # [place] # Eos # Baso # PT INR APTT Sodium 139 Potassium 3.9 Chloride 106 Carbon Dioxide 27 Anion Gap 10 BUN 30 H Creatinine 1.0 Est GFR ( Amer) > 60 Est GFR (Non-Af Amer) 53 Random Glucose 80 Calcium 8.3 L Total Bilirubin 0.5 AST 23 ALT 22 Alkaline Phosphatase 59 Troponin I 0.02 D NT-Pro-B Natriuret Pep 475 H Total Protein 5.9 Albumin 2.9 L Globulin 3.0 Albumin/Globulin Ratio 1.0 L Lipase 86 Urine Color Urine Appearance Urine pH Ur Specific [place] Urine Protein Urine Glucose (UA) Urine Ketones Urine Blood Urine Nitrate Urine Bilirubin Urine Urobilinogen Ur Leukocyte Esterase Assessment & Plan - Assessment and Plan (Free Text) Assessment: 81 yo female with pmh AAA, CVA, CHF, NSTEMI, COPD, chronic anemia, HTN, seizures , dementia, cataracts, hyperthyroidism presenting with shortness of breath and wheezing secondary to COPD exacerbation. COPD Exacerbation/CHF exacerbation -Prednisone PO 40mg daily -Albuterol IH prn -Oxygen via NC prn when hypoxic -Aspiration precaution Leukoyctosis -most likely from steroids -urine clean -f/u VBG lactate -sent blood cultures; chest x-ray does not look suspicious for PNA; patient is oxygenating well -BNP slightly elevated at 420; compared to previous levels not extremely high for her CAD -Resume home medications -Resume to monitor BP and vitals Alzheimer Dementia -Resume aricept Hyperthyroidism -Resume methimazole Seizure disorder Prophylactic measures -protonix for GI ppx -lovenox for DVT -Miralax daily -Palliative Care consult for POLST and goals of care discussion Case discussed with Dr. Parisa Curiel Decision To Admit - Pt Status Changed To: Hospital Disposition Of: Observation - . Bed Request Type: Med/Surg Admitting Physician: Justus Walsh
[2016-10-09] MEDS ORDERED: Albuterol 0.083% Inhal Sol (2.5 mg/3 mL) UD INH PRN ×2 (22:37→22:45)
[2016-10-10 00:29] VITALS: BMI 18.7
[2016-10-10] MEDS: Pantoprazole 40 mg EC Tab PO SCH (06:59)
[2016-10-10] MEDS ORDERED: Levalbuterol 0.63 MG/3 ML Inhal Soln UD IH PRN (07:54)
[2016-10-10] MEDS: Budesonide 0.5 mg/2 ml Inhal Susp UD IH SCH ×2 (08:04→19:58)
[2016-10-10] MEDS: Levalbuterol 0.63 MG/3 ML Inhal Soln UD IH SCH ×3 (08:04→19:58)
--- NOTE | 2016-10-10 08:49 | RAD ---
HISTORY: weakness. for admission COMPARISON: 09/28/2016 FINDINGS: LUNGS: Vascular tear appears minimally prominent minimal pulmonary venous congestion with cephalization is possible. No dense consolidation suggested. Infrahilar peribronchial possible thickening and/or summation of soft tissues is noted and similar to equivocally slightly increased. Trace discoid atelectasis left lung base -an interval change PLEURA: No significant pleural effusion identified, no pneumothorax apparent. CARDIOVASCULAR: Top-normal heart size. Atherosclerotic vascular calcification OSSEOUS STRUCTURES: No significant abnormalities. VISUALIZED UPPER ABDOMEN: Normal. OTHER FINDINGS: None. IMPRESSION: No infiltrate. Trace interval discoid atelectasis left lung base lateral Possible minimal pulmonary venous congestion -not too dissimilar Left infrahilar Possible peribronchial thickening versus summation a finding is cyst similar to equivocally slightly increased Nonspecific inflammatory changes can simulate this.
--- NOTE | 2016-10-10 08:49 | CON ---
DATE: 10/10/2016 REASON FOR CONSULTATION: Chronic obstructive pulmonary disease. REFERRING PHYSICIAN: Dr. aWlsh. History is obtained via extensive discussion with the night nurse. I have also reviewed the chart at length, discuss the case with the patient at length. HISTORY OF PRESENT ILLNESS: The patient is an 81-year-old female with past medical history significant for advanced chronic obstructive pulmonary disease, on home oxygen; coronary artery disease, cerebrovascular accident, pulmonary embolism in the past, who presents to [facility] with a 3-day history of worsening shortness of breath at rest and dyspnea on exertion. I have also reviewed the Emergency Room notes. As per the daughter, the patient has also been increasingly weak over the past 3 days. There is no history of cough or sputum production. There is no history of chest pain, coughing up of blood or chest pain - made worse with deep respirations. There is no history of temperatures, chills or infectious exposure. There is no history of night sweats. There is no documented history of weight loss or appetite change - prior to the above events. There is no history of leg or calf pains. There is no history of syncope or diaphoresis. No history of recent travel or trauma. REVIEW OF SYSTEMS: No history of nausea, vomiting or diarrhea. No acute urinary symptoms. No new musculoskeletal complaints. Rest of review of systems is negative. ALLERGIES: No known allergies. SOCIAL HISTORY: Positive for tobacco, negative for alcohol. FAMILY HISTORY: No inheritable diseases. HOME MEDICATIONS: Include Spiriva, Protonix, Claritin, Breo Ellipta, Aricept, Lipitor, Ecotrin, albuterol, Tapazole, Keppra, MiraLax, Coreg, Medrol Dosepak, Feosol. PHYSICAL EXAMINATION: GENERAL: The patient is not short of breath at rest this morning. She appears comfortable, but very weak. VITAL SIGNS: Temperature is 97.9, pulse 84, respirations 18, blood pressure 116 /71. Oxygen saturation on nasal cannula is 97-100%. HEENT: Normocephalic, atraumatic. NECK: No JVD. CARDIOVASCULAR: Systolic ejection murmur at the lower left sternal border. No S3 gallop. LUNGS: Decreased breath sounds at the bases. Minimal bilateral rhonchi. No wheezing. EXTREMITIES: No clubbing, cyanosis, or edema. Calves are nontender to palpation. GASTROINTESTINAL: Abdomen is soft, nontender, nondistended. Bowel sounds are positive. SKIN: No acute rash. NEUROLOGIC: Limited at the present time. IMPRESSION: 1. Recurrent bronchitis. 2. Advanced chronic obstructive pulmonary disease - on home oxygen. 3. Coronary artery disease. 4. Failure to thrive. PLAN: Again, I did discuss the case with the night nurse at length. I have also reviewed the chart at length, and discussed the case with the patient at length. The patient presents to [facility] with a 3-day history of worsening shortness of breath at rest and dyspnea on exertion. There are no other pulmonary symptoms reported. However, the daughter does report that the patient has had increased weakness over the past 3 days. She was thus admitted for additional evaluation. I did review the chest x-ray as above. The chest x- ray shows no significant change - compared to the previous films. On physical exam, there is mild bronchospasm noted. The patient is on Breo Ellipta at home. However, in her condition, I doubt that she will remember use the medication. I will thus change to a short acting beta agonist and inhaled Pulmicort for now. The patient has also been placed on oral steroids. There is no significant alveolar arterial gradient. Oxygen saturation on nasal cannula is 97-100%. The patient has had multiple admissions over the past month. She does appear increasingly weak and debilitated. Consult with Brandie Liu (palliative care) is ordered. Consult with Dr. Lopez (cardiology) is also ordered. The patient's overall status does appear poor at this point in time. I will discuss the above with Dr. Walsh. Thank you very much for this pulmonary consultation. Dylon Galvan MD cc: [phone] TT: 10/10/2016 08:48:22 Confirmation # [id number] Dictation # [id number] mn ANGEL
[2016-10-10 08:50] LABS: ADD MANUAL DIFF? NO; BASO # 0.02 K/mm3 (0.0-2.0); BASO % 0.2 % (0.0-3.0); EOS # 0.2 (0.0-0.7); EOS % 1.4 % (1.5-5.0); GRAN # 10.96 (1.4-6.5); GRAN % 85.5 % (50.0-68.0); HEMATOCRIT 44.8 % (36.0-48.0); LYMPH # 0.8 (1.2-3.4); LYMPH % 6.2 % (22.0-35.0); MEAN CELL VOLUME 81.2 fL (80.0-105.0); MEAN CORPUSCULAR HEMOGLOBIN 27.4 pg (25.0-35.0); MEAN CORPUSCULAR HGB CONC 33.7 g/dl (31.0-37.0); MEAN PLATELET VOLUME 10.2 fl (7.0-11.0); MONO # 0.9 (0.1-0.6); MONO % 6.7 % (1.0-6.0); PLATELET COUNT 414 10^3/uL (120.0-450.0); WHITE BLOOD COUNT 12.8 10^3/ul (4.5-11.0)
[2016-10-10 08:51] LABS: VENOUS BLOOD GAS BASE EXCESS 3.8 mmol/L (0.0-2.0); VENOUS BLOOD PH 7.51 (7.32-7.43)
[2016-10-10 08:55] LABS: ALB/GLOB RATIO 1.1 (1.1-1.8); ALKALINE PHOSPHATASE 72 U/L (38-133); ALT/SGPT 26 U/L (7-56); AST/SGOT 22 U/L (15-39); BILIRUBIN,TOTAL 0.5 mg/dL (0.2-1.3); BLOOD UREA NITROGEN 24 mg/dL (7-21); CALCIUM 8.7 mg/dL (8.4-10.5); CARBON DIOXIDE 26 mmol/L (21-33); CHLORIDE 105 mmol/L (95-110); GFR AFRICAN-AMERICAN > 60; GLUCOSE,RANDOM 87 mg/dL (70-110); POTASSIUM 3.6 mmol/L (3.6-5.0); SODIUM 140 mmol/L (132-148); TOTAL PROTEIN 6.2 g/dL (5.8-8.3)
--- NOTE | 2016-10-10 09:35 | CP.PCM.PN ---
Subjective - Date & Time of Evaluation Date of Evaluation: 10/10/16 Time of Evaluation: 09:29 - Subjective Subjective: Medicine progress note for Dr. Walsh/Dr. Christie Boyce PGY1 Patient seen and examined at bedside. No acute overnight events or new complaints reported. Poor historian regarding events that lead her to being admitted to the hospital. History of dementia. However, denies chest pain, palpitations, abdominal pain, nausea, vomiting. Objective - Vital Signs/Intake and Output Vital Signs (last 24 hours): Temp Pulse Resp BP Pulse Ox 98.3 F 93 H 20 139/92 H 100 10/10/16 09:25 10/10/16 09:25 10/10/16 09:25 10/10/16 09:25 10/10/16 09:25 Intake and Output: 10/10/16 10/10/16 06:59 18:59 Intake Total 100 Balance 100 - Medications Medications: Current Medications Acetaminophen (Tylenol 325mg Tab) 650 mg PO Q4 PRN PRN Reason: Fever >100.4 F Albuterol Sulfate (Albuterol 0.083% Inhal Twyla (2.5 Mg/3 Ml) Ud) 2.5 mg INH Q2H PRN PRN Reason: Wheezing Aspirin (Ecotrin) 81 mg PO DAILY [facility] Atorvastatin Calcium (Lipitor) 10 mg PO DIN [facility] Budesonide (Pulmicort Respules) 0.5 mg IH [id number] [facility] Last Admin: 10/10/16 08:04 Dose: 0.5 mg Carvedilol (Coreg) 3.125 mg PO BID [facility] Donepezil HCl (Aricept) 5 mg PO HS [facility] Enoxaparin Sodium (Lovenox) 40 mg SC DAILY [facility] PRN Reason: Protocol Ferrous Sulfate (Feosol) 324 mg PO DAILY [facility] Furosemide (Lasix) 20 mg IVP Q12 [facility] Ibuprofen (Motrin Tab) 800 mg PO Q8H PRN PRN Reason: Pain, Mild (1-3) Levalbuterol HCl (Xopenex) 0.63 mg IH [id number] [facility] Last Admin: 10/10/16 08:04 Dose: 0.63 mg Levalbuterol HCl (Xopenex) 0.63 mg IH Q2 PRN PRN Reason: Shortness of Breath Levetiracetam (Keppra) 750 mg PO DAILY [facility] Loratadine (Claritin) 10 mg PO DAILY [facility] Methimazole (Tapazole) 5 mg PO DAILY [facility] Ondansetron HCl (Zofran Inj) 8 mg IVP Q6H PRN PRN Reason: Nausea/Vomiting Pantoprazole Sodium (Protonix Ec Tab) 40 mg PO 0630 [facility] Last Admin: 10/10/16 06:59 Dose: 40 mg Polyethylene Glycol (Miralax) 17 gm PO DAILY [facility] Prednisone (Prednisone Tab) 40 mg PO DAILY [facility] Tiotropium [place] (Spiriva) 18 mcg IH DAILY [facility] - Labs Labs: 10/10/16 05:00 10/10/16 08:30 PT 11.1 Seconds (9.9-11.8) 10/09/16 19:35 INR 1.03 (0.93-1.08) 10/09/16 19:35 APTT 28.9 Seconds (23.7-30.8) 10/09/16 19:35 - Constitutional Appears: No Acute Distress, Confused - Head Exam Head Exam: ATRAUMATIC, NORMAL INSPECTION, NORMOCEPHALIC - Eye Exam Eye Exam: EOMI, PERRL - Respiratory Exam Respiratory Exam: Wheezes, NORMAL BREATHING PATTERN. absent: Rales, Rhonchi, Respiratory Distress, Stridor - Cardiovascular Exam Cardiovascular Exam: +S1, +S2. absent: Gallop, JVD, Rubs - GI/Abdominal Exam GI & Abdominal Exam: Soft. absent: Distended, Firm, Guarding, Rigid, Tenderness , Rebound - Extremities Exam Extremities Exam: absent: Pedal Edema, Tenderness - Neurological Exam Neurological Exam: Alert, Awake - Skin Skin Exam: Dry, Intact, Normal Color, Warm Assessment and Plan - Assessment and Plan (Free Text) Plan: 81yo female with history of AAA, CVA, CHF (LVEF 28% on echo from 06/2016), NSTEMI, COPD, chronic anemia, HTN, seizures, dementia, cataracts, hyperthyroidism presenting with shortness of breath and wheezing secondary likely secondary to COPD exacerbation. 1. COPD Exacerbation -Continue with prednisone 40mg PO qd; will taper -Continue xopenex and budesonide per pulmonary recommendations -Oxygen via NC; titrate to SaO2 >90% -CXR reviewed -Blood cultures pending -Leukocytosis likely secondary to steroids 2. Compensated CHF -LVEF 28% on echo from 06/2016 -BNP elevated however no significant pulmonary edema on CXR, lower extremity edema, or JVD -CXR reviewed -Continue lasix 20mg IVP q12h -EKG revealed sinus rhythm at 90bpm with left axis deviation, t wave inversions in lateral leads seen on prior EKG -Cardiology consulted - Dr. Lopez 3. CAD -Continue ASA, lipitor, coreg 4. Dementia -Continue aricept 5. Hyperthyroidism -Continue methimazole 6. GI/DVT prophylaxis -Protonix/Lovenox Patient seen and case discussed with attending, Dr. Walsh
[2016-10-10] MEDS ORDERED: Non Formulary Medication (Fluticasone/Vilanterol [Breo Ellipta 100-25 Mcg Inh] 1 PUFF) IH SCH (10:00)
[2016-10-10] MEDS: Enoxaparin 40 mg Syringe SC SCH (11:13)
[2016-10-10] MEDS: methIMAzole 5 MG TAB PO SCH (11:13)
[2016-10-10] MEDS: POLYETHYLENE GLYCOL 3350 17 GM/Dose PACKET PO SCH (11:14)
[2016-10-10] MEDS: Tiotropium 18 mcg Cap For Inhalation IH SCH (11:20)
--- NOTE | 2016-10-10 16:14 | CARD ---
APPROVED REPORT EKG Measurement Heart [id number] <Conclusion> Sinus rhythm with short [place] Possible Left atrial enlargement Left axis deviation Anterior infarct, age undetermined ST & T wave abnormality, consider lateral ischemia Abnormal ECG
--- NOTE | 2016-10-10 17:26 | CON ---
DATE: 10/10/2016 HISTORY OF PRESENT ILLNESS: The patient is an 81-year-old woman who presents with CHF symptoms. PAST MEDICAL HISTORY: Notable for marked dementia. The patient was admitted in 08/2016 for a non-STEMI. Because of her dementia and her comorbidities, the family elected to treat her medically only; no invasive procedures were planned. She was treated with aspirin, beta blockers as well as statin therapy. She has a known ischemic dilated cardiomyopathy with an ejection fraction of 28%. In addition, she has notable disease for COPD and severe pulmonary hypertension. The rest of her history is not reliable nor obtainable, although the patient denies chest pain. PHYSICAL EXAMINATION: VITAL SIGNS: Blood pressure 139/92, heart rate is in the 90s. NECK: Negative JVD. LUNGS: Decreased breath sounds bilaterally. HEART: Reveals S1, S2. EXTREMITIES: Without edema. EKG shows LVH, poor R-wave progression and diffuse ST-T changes. LABORATORY DATA: The hemoglobin is 15.1. Chemistries: Troponins are negative x 2 with a proBNP stephanie t is mildly elevated. IMPRESSION: 1. Mild congestive heart failure, acute systolic. 2. End-stage ischemic dilated cardiomyopathy. 3. Chronic obstructive pulmonary disease. 4. Pulmonary hypertension. 5. Dementia. Given these findings, I agree with conservative medical therapy. Lasix has been ordered. The respon se to Lasix has been good. Will continue her aspirin and beta blockers. Carlos Lopez MD cc: [id number] TT: 10/10/2016 17:26:21 Confirmation # [id number] Dictation # [id number] mn
[2016-10-11] MEDS: Levalbuterol 0.63 MG/3 ML Inhal Soln UD IH SCH ×4 (02:25→20:54)
[2016-10-11] MEDS: Pantoprazole 40 mg EC Tab PO SCH (05:35)
[2016-10-11 07:49] LABS: ADD MANUAL DIFF? NO
[2016-10-11 07:53] LABS: BASO # 0.03 K/mm3 (0.0-2.0); BASO % 0.4 % (0.0-3.0); EOS # 0.3 (0.0-0.7); EOS % 3.7 % (1.5-5.0); GRAN # 4.58 (1.4-6.5); GRAN % 61.2 % (50.0-68.0); HEMATOCRIT 38.8 % (36.0-48.0); LYMPH # 1.8 (1.2-3.4); LYMPH % 24.6 % (22.0-35.0); MEAN CELL VOLUME 94.9 fL (80.0-105.0); MEAN CORPUSCULAR HEMOGLOBIN 30.3 pg (25.0-35.0); MEAN PLATELET VOLUME 10.8 fl (7.0-11.0); MONO # 0.8 (0.1-0.6); MONO % 10.1 % (1.0-6.0); PLATELET COUNT 232 10^3/uL (120.0-450.0); RED CELL DISTRIBUTION WIDTH 15.9 % (11.5-14.5); WHITE BLOOD COUNT 7.5 10^3/ul (4.5-11.0)
[2016-10-11] MEDS: Budesonide 0.5 mg/2 ml Inhal Susp UD IH SCH ×2 (07:53→20:54)
--- NOTE | 2016-10-11 08:26 | PN ---
DATE: 10/11/2016 PULMONARY NOTE SUBJECTIVE: The patient appears comfortable this morning. She is not short of breath at rest. OBJECTIVE: VITAL SIGNS: Temperature 98.2, pulse 78, respirations 18/20, blood pressure 120 /87. Oxygen saturation on nasal cannula is 100%. HEENT: Normocephalic, atraumatic. No JVD. CARDIOVASCULAR: Systolic ejection murmur at the lower left sternal border. No S3 gallop. LUNGS: Decreased breath sounds at the bases. Less rhonchi. No wheezing. EXTREMITIES: No clubbing, cyanosis, or edema. Calves are nontender to palpation. GASTROINTESTINAL: Abdomen is soft, nontender, nondistended. Bowel sounds are positive. SKIN: No acute rash. NEUROLOGIC: Limited at the present time. IMPRESSION: 1. Recurrent bronchitis. 2. Advanced chronic obstructive pulmonary disease - on home oxygen. 3. Coronary artery disease. 4. Failure to thrive. PLAN: The patient appears comfortable this morning. She is not short of breath at rest. She states she is feeling better overall. On physical exam, her bronchospasm is less. In addition, the oxygen saturation on nasal cannula is now 100%. I will continue with the current nebulizer treatments and decrease the oral steroids this morning. The patient remains on Lasix/ afterload reduction. Input by cardiology (Dr. Lopez) is noted. Clinical status of the patient is certainly improved - compared to the initial presentation. However, the overall status/prognosis of this elderly woman - remains very guarded. I will discuss the above with Dr. Walsh. Dylon Galvan MD cc: [phone] TT: 10/11/2016 08:26:16 Confirmation # [id number] Dictation # [id number] MTDD
[2016-10-11 08:35] LABS: BLOOD UREA NITROGEN 17 mg/dL (7-21); CARBON DIOXIDE 29 mmol/L (21-33); CHLORIDE 103 mmol/L (98-107); GFR AFRICAN-AMERICAN > 60; GLUCOSE,RANDOM 83 mg/dL (70-110); POTASSIUM 4.4 mmol/L (3.6-5.0); SODIUM 140 mmol/L (132-148)
[2016-10-11 08:36] LABS: ALB/GLOB RATIO 1.3 (1.1-1.8); ALKALINE PHOSPHATASE 132 U/L (38-133); ALT/SGPT 35 U/L (7-56); AST/SGOT 23 U/L (15-39); BILIRUBIN,TOTAL 0.6 mg/dL (0.2-1.3); CALCIUM 9.7 mg/dL (8.4-10.5); TOTAL PROTEIN 6.2 g/dL (5.8-8.3)
[2016-10-11] MEDS: POLYETHYLENE GLYCOL 3350 17 GM/Dose PACKET PO SCH (10:07)
[2016-10-11] MEDS: Enoxaparin 40 mg Syringe SC SCH (10:07)
[2016-10-11] MEDS: Tiotropium 18 mcg Cap For Inhalation IH SCH (10:08)
[2016-10-11] MEDS: methIMAzole 5 MG TAB PO SCH (10:08)
--- NOTE | 2016-10-11 10:10 | PN ---
DATE: 10/11/2016 SUBJECTIVE: The patient's breathing is much improved. PHYSICAL EXAMINATION: VITAL SIGNS: Blood pressure varies from 101-120 systolic, heart rate is in the 90s. NECK: Negative JVD. LUNGS: Without rales. HEART: Revealed S1, S2. EXTREMITIES: Without edema. LABORATORY DATA: Troponins are negative. Glucose is 197, potassium is 4.4. IMPRESSION: 1. Status post congestive heart failure. 2. Chronic obstructive pulmonary disease. 3. Dilated cardiomyopathy. 4. Pulmonary hypertension. 5. Dementia. PLAN: Given these findings, the patient is on low dose beta blockers. We will add low dose SETH inhi bitors. Carlos Lopez MD cc: [id number] TT: 10/11/2016 10:09:15 Confirmation # [id number] Dictation # [id number]
[2016-10-11] MEDS ORDERED: POLYETHYLENE GLYCOL 3350 17 GM/Dose PACKET PO PRN (12:35)
--- NOTE | 2016-10-11 14:53 | CP.PCM.CON ---
History of Present Illness - History of Present Illness History of Present Illness: Palliative consult requested by Dr Sofia Walsh Reason: Advance care planning 81 year old female who presented with shortness of breath, dyspnea on exertion and weakness for prior three days. PMHx: COPD, dementia,CAD, CHF,pulmonary hypertension, NSTEMI, EF 28%, cadrdiomyopathy. Social History: Former smoker, no alcohol or drug use. Lives with daughter. Family History: Non contributory. Advanced Care Planning: The patient does not have an Advanced Directive Review of Systems:As per HPI, all other systems negative. Past Patient History - Infectious Disease Hx of Infectious Diseases: None - Tetanus Immunizations Tetanus Immunization: Unknown - Past Medical History & Family History Past Medical History?: Yes - Past Social History Smoking Status: Never Smoked - CARDIAC Hx Congestive Heart Failure: Yes Hx Hypertension: Yes - PULMONARY Hx Chronic Obstructive Pulmonary Disease (COPD): Yes - NEUROLOGICAL Other/Comment: residual from tia was slurred speech which resolved with therapy - HEENT Hx HEENT Problems: Yes Hx Cataracts: Yes (left eye sx) - RENAL Hx Chronic Kidney Disease: No - ENDOCRINE/METABOLIC Hx Hypothyroidism: Yes - HEMATOLOGICAL/ONCOLOGICAL Hx Cancer: (denies) - INTEGUMENTARY Hx Dermatological Problems: No - MUSCULOSKELETAL/RHEUMATOLOGICAL Hx Falls: No - GASTROINTESTINAL Other/Comment: egd dx gastric erosions small hiatal hernia and gastric avm, 09/05 - GENITOURINARY/GYNECOLOGICAL Hx Genitourinary Disorders: No - PSYCHIATRIC Hx Psychophysiologic Disorder: No Hx Substance Use: No - SURGICAL HISTORY Hx Cataract Extraction: Yes - ANESTHESIA Hx Anesthesia: Yes Hx Anesthesia Reactions: No Hx Malignant Hyperthermia: No Meds Allergies/Adverse Reactions: Allergies Allergy/AdvReac Type Severity Reaction Status Date / Time No Known Allergies Allergy Verified 10/09/16 17:49 - Medications Medications: Current Medications Acetaminophen (Tylenol 325mg Tab) 650 mg PO Q4 PRN PRN Reason: Fever >100.4 F Albuterol Sulfate (Albuterol 0.083% Inhal Twyla (2.5 Mg/3 Ml) Ud) 2.5 mg INH Q2H PRN PRN Reason: Wheezing Aspirin (Ecotrin) 81 mg PO DAILY ON LICENSE OF [facility] Last Admin: 10/11/16 10:05 Dose: 81 mg Atorvastatin Calcium (Lipitor) 10 mg PO DIN ON [facility] OF [facility] Last Admin: 10/10/16 18:02 Dose: 10 mg Budesonide (Pulmicort Respules) 0.5 mg IH [id number] ON [facility] OF [facility] Last Admin: 10/11/16 07:53 Dose: 0.5 mg Carvedilol (Coreg) 3.125 mg PO BID ON [facility] OF [facility] Last Admin: 10/11/16 10:04 Dose: 3.125 mg Donepezil HCl (Aricept) 5 mg PO HS ON [facility] OF [facility] Last Admin: 10/10/16 21:50 Dose: 5 mg Enoxaparin Sodium (Lovenox) 40 mg SC DAILY ON [facility] PRN Reason: Protocol Last Admin: 10/11/16 10:07 Dose: 40 mg Ferrous Sulfate (Feosol) 324 mg PO DAILY ON [facility] Last Admin: 10/11/16 10:05 Dose: 324 mg Furosemide (Lasix) 20 mg IVP Q12 ON [facility] Last Admin: 10/11/16 10:06 Dose: 20 mg Ibuprofen (Motrin Tab) 800 mg PO Q8H PRN PRN Reason: Pain, Mild (1-3) Levalbuterol HCl (Xopenex) 0.63 mg IH [id number] ON [facility] OF [facility] Last Admin: 10/11/16 13:18 Dose: 0.63 mg Levalbuterol HCl (Xopenex) 0.63 mg IH Q2 PRN PRN Reason: Shortness of Breath Levetiracetam (Keppra) 750 mg PO DAILY [facility] Last Admin: 10/11/16 10:06 Dose: 750 mg Lisinopril (Zestril) 2.5 mg PO DAILY [facility] Last Admin: 10/11/16 10:17 Dose: 2.5 mg Loratadine (Claritin) 10 mg PO DAILY [facility] Last Admin: 10/11/16 10:03 Dose: 10 mg Methimazole (Tapazole) 5 mg PO DAILY [facility] Last Admin: 10/11/16 10:08 Dose: 5 mg Ondansetron HCl (Zofran Inj) 8 mg IVP Q6H PRN PRN Reason: Nausea/Vomiting Last Admin: 10/11/16 10:17 Dose: 8 mg Pantoprazole Sodium (Protonix Ec Tab) 40 mg PO 0630 [facility] Last Admin: 10/11/16 05:35 Dose: 40 mg Polyethylene Glycol (Miralax) 17 gm PO TID PRN PRN Reason: Constipation Prednisone (Prednisone Tab) 30 mg PO DAILY ON [facility] Last Admin: 10/11/16 10:07 Dose: 30 mg Tiotropium [place] (Spiriva) 18 mcg IH DAILY ON [facility] Last Admin: 10/11/16 10:08 Dose: 18 mcg Physical Exam - Constitutional Appears: No Acute Distress, Chronically Ill - Head Exam Head Exam: NORMOCEPHALIC - Eye Exam Eye Exam: Normal appearance, PERRL - ENT Exam ENT Exam: Mucous Membranes Moist, Normal Oropharynx - Neck Exam Neck exam: Positive for: Normal Inspection - Respiratory Exam Respiratory Exam: Decreased Breath Sounds, NORMAL BREATHING PATTERN - Cardiovascular Exam Cardiovascular Exam: REGULAR RHYTHM, +S1, +S2 - GI/Abdominal Exam GI & Abdominal Exam: Normal Bowel Sounds, Soft Additional comments: no tenderness - Extremities Exam Extremities exam: Positive for: normal inspection, pedal pulses present - Back Exam Back exam: NORMAL INSPECTION - Neurological Exam Neurological exam: Alert Additional comments: oriented to self - Skin Skin Exam: Dry, Warm - Additional Findings Additional findings: palliative performance scale rating 50% Results - Vital Signs Recent Vital Signs: Last Vital Signs Temp 98.2 F 10/11/16 09:07 Pulse 95 H 10/11/16 10:04 Resp 20 10/11/16 09:07 BP 127/85 10/11/16 10:06 Pulse Ox 100 10/11/16 09:07 - Labs Result Diagrams: 10/11/16 07:00 10/11/16 07:00 Labs: Laboratory Results - last 24 hr 10/11/16 10/11/16 10/11/16 07:00 07:00 07:31 WBC 7.5 D RBC 4.09 Hgb 12.4 Hct 38.8 MCV 94.9 MCH 30.3 MCHC 32.0 RDW 15.9 H Plt Count 232 MPV 10.8 Gran % 61.2 Lymph % (Auto) 24.6 [place] % (Auto) 10.1 H Eos % (Auto) 3.7 Baso % (Auto) 0.4 Gran # 4.58 Lymph # 1.8 [place] # 0.8 H Eos # 0.3 Baso # 0.03 Sodium 140 Potassium 4.4 Chloride 103 Carbon Dioxide 29 Anion Gap 12 BUN 17 Creatinine 0.9 Est GFR ( Amer) > 60 Est GFR (Non-Af Amer) > 60 POC Glucose (mg/dL) 197 H Random Glucose 83 Calcium 9.7 Total Bilirubin 0.6 AST 23 ALT 35 Alkaline Phosphatase 132 Total Protein 6.2 Albumin 3.5 Globulin 2.7 Albumin/Globulin Ratio 1.3 Assessment & Plan - Assessment and Plan (Free Text) Assessment: 81 year old female admitted with CHF, COPD,dementia, deconditioning . I was asked to discuss goals of care and advanced care planning .The patient is alert. She appears to comprehend questions but her responses are no accurate. She is in no apparent distress. She needs assistance with ADL's I left a message for patient daughter to have further discussion regarding advance care planning. Plan: Advance care planning
--- NOTE | 2016-10-11 21:56 | CP.PCM.PN ---
<Tristin Boyce - Last Filed: 10/11/16 21:53> Subjective - Date & Time of Evaluation Date of Evaluation: 10/11/16 Time of Evaluation: 08:10 - Subjective Subjective: Medicine progress note for Dr. Walsh/Dr. Soriano service - Tristin Boyce PGY1 Patient seen and examined at bedside this morning. Patient reported constipation and requested something for relief. Otherwise, denies chest pain, palpitations, SOB. Objective - Vital Signs/Intake and Output Vital Signs (last 24 hours): Temp Pulse Resp BP Pulse Ox 98.6 F 93 H 20 96/69 L 99 10/11/16 16:00 10/11/16 18:31 10/11/16 16:00 10/11/16 21:49 10/11/16 16:00 - Medications Medications: Current Medications Acetaminophen (Tylenol 325mg Tab) 650 mg PO Q4 PRN PRN Reason: Fever >100.4 F Albuterol Sulfate (Albuterol 0.083% Inhal Twyla (2.5 Mg/3 Ml) Ud) 2.5 mg INH Q2H PRN PRN Reason: Wheezing Aspirin (Ecotrin) 81 mg PO DAILY [facility] Last Admin: 10/11/16 10:05 Dose: 81 mg Atorvastatin Calcium (Lipitor) 10 mg PO DIN [facility] Last Admin: 10/11/16 18:32 Dose: 10 mg Budesonide (Pulmicort Respules) 0.5 mg IH [id number] [facility] Last Admin: 10/11/16 20:54 Dose: 0.5 mg Carvedilol (Coreg) 3.125 mg PO BID [facility] Last Admin: 10/11/16 18:31 Dose: 3.125 mg Donepezil HCl (Aricept) 5 mg PO HS [facility] Last Admin: 10/11/16 21:49 Dose: 5 mg Enoxaparin Sodium (Lovenox) 40 mg SC DAILY [facility] PRN Reason: Protocol Last Admin: 10/11/16 10:07 Dose: 40 mg Ferrous Sulfate (Feosol) 324 mg PO DAILY [facility] Last Admin: 10/11/16 10:05 Dose: 324 mg Furosemide (Lasix) 20 mg IVP Q12 [facility] Last Admin: 10/11/16 21:49 Dose: Not Given Ibuprofen (Motrin Tab) 800 mg PO Q8H PRN PRN Reason: Pain, Mild (1-3) Levalbuterol HCl (Xopenex) 0.63 mg IH [id number] [facility] Last Admin: 10/11/16 20:54 Dose: 0.63 mg Levalbuterol HCl (Xopenex) 0.63 mg IH Q2 PRN PRN Reason: Shortness of Breath Levetiracetam (Keppra) 750 mg PO DAILY [facility] Last Admin: 10/11/16 10:06 Dose: 750 mg Lisinopril (Zestril) 2.5 mg PO DAILY [facility] Last Admin: 10/11/16 10:17 Dose: 2.5 mg Loratadine (Claritin) 10 mg PO DAILY [facility] Last Admin: 10/11/16 10:03 Dose: 10 mg Methimazole (Tapazole) 5 mg PO DAILY [facility] Last Admin: 10/11/16 10:08 Dose: 5 mg Ondansetron HCl (Zofran Inj) 8 mg IVP Q6H PRN PRN Reason: Nausea/Vomiting Last Admin: 10/11/16 10:17 Dose: 8 mg Pantoprazole Sodium (Protonix Ec Tab) 40 mg PO 0630 [facility] Last Admin: 10/11/16 05:35 Dose: 40 mg Polyethylene Glycol (Miralax) 17 gm PO TID PRN PRN Reason: Constipation Prednisone (Prednisone Tab) 30 mg PO DAILY [facility] Last Admin: 10/11/16 10:07 Dose: 30 mg Tiotropium [place] (Spiriva) 18 mcg IH DAILY [facility] Last Admin: 10/11/16 10:08 Dose: 18 mcg - Labs Labs: 10/11/16 07:00 10/11/16 07:00 PT 11.1 Seconds (9.9-11.8) 10/09/16 19:35 INR 1.03 (0.93-1.08) 10/09/16 19:35 APTT 28.9 Seconds (23.7-30.8) 10/09/16 19:35 - Constitutional Appears: No Acute Distress - Head Exam Head Exam: ATRAUMATIC, NORMAL INSPECTION, NORMOCEPHALIC - Eye Exam Eye Exam: EOMI, PERRL - ENT Exam ENT Exam: Mucous Membranes Moist - Respiratory Exam Respiratory Exam: Clear to Ausculation Bilateral. absent: Rales, Rhonchi, Wheezes - Cardiovascular Exam Cardiovascular Exam: RRR, +S1, +S2. absent: Gallop, Rubs - GI/Abdominal Exam GI & Abdominal Exam: Soft. absent: Distended, Firm, Guarding, Rigid, Tenderness , Rebound - Neurological Exam Neurological Exam: Alert, Awake, Oriented x3 - Skin Skin Exam: Dry, Intact, Normal Color, Warm Assessment and Plan - Assessment and Plan (Free Text) Plan: 81yo female with history of AAA, CVA, CHF (LVEF 28% on echo from 06/2016), NSTEMI, COPD, chronic anemia, HTN, seizures, dementia, cataracts, hyperthyroidism presenting with shortness of breath and wheezing secondary likely secondary to COPD exacerbation. 1. COPD Exacerbation -Continue with prednisone 40mg PO qd; will taper -Continue xopenex and budesonide per pulmonary recommendations -Oxygen via NC; titrate to SaO2 >90% -CXR reviewed -Blood cultures pending -Leukocytosis likely secondary to steroids 2. Compensated CHF -LVEF 28% on echo from 06/2016 -BNP elevated however no significant pulmonary edema on CXR, lower extremity edema, or JVD -CXR reviewed -Continue lasix 20mg IVP q12h -EKG revealed sinus rhythm at 90bpm with left axis deviation, t wave inversions in lateral leads seen on prior EKG -Cardiology consulted - Dr. Lopez 3. Constipation -Miralax PRN 4. CAD -Continue ASA, lipitor, coreg 5. Dementia -Continue aricept 6. Hyperthyroidism -Continue methimazole 7. GI/DVT prophylaxis -Protonix/Lovenox Patient seen and case discussed with attending, Dr. Soriano <Russ Soriano - Last Filed: 10/12/16 18:48> Objective - Vital Signs/Intake and Output Vital Signs (last 24 hours): Temp Pulse Resp BP Pulse Ox 98.2 F 72 18 110/68 100 10/12/16 06:00 10/12/16 17:48 10/12/16 06:00 10/12/16 17:48 10/12/16 06:00 Intake and Output: 10/12/16 10/12/16 06:59 18:59 Intake Total 480 Balance 480 - Medications Medications: Current Medications Acetaminophen (Tylenol 325mg Tab) 650 mg PO Q4 PRN PRN Reason: Fever >100.4 F Albuterol Sulfate (Albuterol 0.083% Inhal Twyla (2.5 Mg/3 Ml) Ud) 2.5 mg INH Q2H PRN PRN Reason: Wheezing Aspirin (Ecotrin) 81 mg PO DAILY [facility] Last Admin: 10/12/16 09:41 Dose: 81 mg Atorvastatin Calcium (Lipitor) 10 mg PO DIN [facility] Last Admin: 10/12/16 17:48 Dose: 10 mg Budesonide (Pulmicort Respules) 0.5 mg IH [id number] [facility] Last Admin: 10/12/16 07:36 Dose: 0.5 mg Carvedilol (Coreg) 3.125 mg PO BID [facility] Last Admin: 10/12/16 17:48 Dose: 3.125 mg Donepezil HCl (Aricept) 5 mg PO HS [facility] Last Admin: 10/11/16 21:49 Dose: 5 mg Enoxaparin Sodium (Lovenox) 40 mg SC DAILY [facility] PRN Reason: Protocol Last Admin: 10/12/16 09:42 Dose: 40 mg Ferrous Sulfate (Feosol) 324 mg PO DAILY [facility] Last Admin: 10/12/16 09:41 Dose: 324 mg Furosemide (Lasix) 20 mg IVP Q12 [facility] Last Admin: 10/11/16 21:49 Dose: Not Given Ibuprofen (Motrin Tab) 800 mg PO Q8H PRN PRN Reason: Pain, Mild (1-3) Levalbuterol HCl (Xopenex) 0.63 mg IH [id number] [facility] Last Admin: 10/12/16 13:31 Dose: Not Given Levalbuterol HCl (Xopenex) 0.63 mg IH Q2 PRN PRN Reason: Shortness of Breath Levetiracetam (Keppra) 750 mg PO DAILY [facility] Last Admin: 10/12/16 09:41 Dose: 750 mg Lisinopril (Zestril) 2.5 mg PO DAILY [facility] Last Admin: 10/11/16 10:17 Dose: 2.5 mg Loratadine (Claritin) 10 mg PO DAILY [facility] Last Admin: 10/12/16 09:40 Dose: 10 mg Methimazole (Tapazole) 5 mg PO DAILY [facility] Last Admin: 10/12/16 09:43 Dose: 5 mg Ondansetron HCl (Zofran Inj) 8 mg IVP Q6H PRN PRN Reason: Nausea/Vomiting Last Admin: 10/11/16 10:17 Dose: 8 mg Pantoprazole Sodium (Protonix Ec Tab) 40 mg PO 0630 [facility] Last Admin: 10/12/16 06:00 Dose: 40 mg Polyethylene Glycol (Miralax) 17 gm PO TID PRN PRN Reason: Constipation Last Admin: 10/12/16 09:42 Dose: 17 gm Prednisone (Prednisone Tab) 20 mg PO DAILY [facility] Last Admin: 10/12/16 09:42 Dose: 20 mg Tiotropium [place] (Spiriva) 18 mcg IH DAILY [facility] Last Admin: 10/12/16 09:42 Dose: 18 mcg - Labs Labs: 10/12/16 07:00 10/12/16 07:00 PT 11.1 Seconds (9.9-11.8) 10/09/16 19:35 INR 1.03 (0.93-1.08) 10/09/16 19:35 APTT 28.9 Seconds (23.7-30.8) 10/09/16 19:35 Attending/Attestation - Attestation I have personally seen and examined this patient.: Yes I have fully participated in the care of the patient.: Yes I have reviewed all pertinent clinical information, including history, physical exam and plan: Yes Notes (Text): 10/12/16 18:48 Medical record note made by the resident after discussion with my direction and input after the patient was personally seen and examined by me. I have reviewed the chart and agree that the record accurately reflects by personal performance of the history, physical exam, data review, and medical decision-making, in the course for the patient. I have also personally directed the plan of care.
[2016-10-12 01:21] VITALS: O2SAT 100
[2016-10-12] MEDS: Pantoprazole 40 mg EC Tab PO SCH (06:00)
[2016-10-12] MEDS: Budesonide 0.5 mg/2 ml Inhal Susp UD IH SCH (07:36)
[2016-10-12] MEDS: Levalbuterol 0.63 MG/3 ML Inhal Soln UD IH SCH ×2 (07:36→13:31)
[2016-10-12 07:49] LABS: ADD MANUAL DIFF? NO
[2016-10-12 07:54] LABS: BASO # 0.01 K/mm3 (0.0-2.0); BASO % 0.1 % (0.0-3.0); EOS % 0.1 % (1.5-5.0); GRAN # 17.05 (1.4-6.5); HEMATOCRIT 43.3 % (36.0-48.0); LYMPH # 0.6 (1.2-3.4); LYMPH % 3.3 % (22.0-35.0); MEAN CELL VOLUME 81.9 fL (80.0-105.0); MEAN CORPUSCULAR HEMOGLOBIN 27.6 pg (25.0-35.0); MEAN CORPUSCULAR HGB CONC 33.7 g/dl (31.0-37.0); MEAN PLATELET VOLUME 10.3 fl (7.0-11.0); MONO # 0.6 (0.1-0.6); MONO % 3.5 % (1.0-6.0); PLATELET COUNT 525 10^3/uL (120.0-450.0); RED CELL DISTRIBUTION WIDTH 19.9 % (11.5-14.5); WHITE BLOOD COUNT 18.3 10^3/ul (4.5-11.0)
--- NOTE | 2016-10-12 08:19 | PN ---
DATE: 10/12/2016 SUBJECTIVE: The patient appears comfortable at rest. She is not short of breath. PHYSICAL EXAMINATION: VITAL SIGNS: Temperature is 97.4, pulse at the present time is approximately 80 , respiratory rate 18, blood pressure 96/71. Oxygen saturation on nasal cannula is 100%. HEENT: Normocephalic, atraumatic. No JVD. CARDIOVASCULAR: Systolic ejection murmur at the lower left sternal border. No S3 gallop. LUNGS: Decreased breath sounds at the bases. No rhonchi or wheezing this morning. EXTREMITIES: No clubbing, cyanosis, or edema. Calves are nontender to palpation. GASTROINTESTINAL: Abdomen is soft, nontender, nondistended. Bowel sounds are positive. SKIN: No acute rash. NEUROLOGIC: Limited at the present time. IMPRESSION: 1. Recurrent bronchitis. 2. Advanced chronic obstructive pulmonary disease -- on home oxygen. 3. Coronary artery disease. 4. Failure to thrive. PLAN: The patient appears comfortable this morning. She is not short of breath at rest. She does state to feeling better overall. On physical exam, her bronchospasm continues to resolve. In addition, the oxygen saturation on nasal cannula is now 100%. I will continue with the current nebulizer treatments and steroid taper this morning. The patient remains on Lasix/ afterload reduction. Input by Dr. Lopez (cardiology) is noted. Input by Brandie Liu (palliative care) is also noted. Clinical status of the patient is certainly improved -- compared to the initial presentation. However, the overall status/prognosis for this elderly patient -- with multiple medical problems -- remains poor. I will discuss the above with Dr. Walsh. Dylon Galvan MD cc: [phone] TT: 10/12/2016 08:19:16 Confirmation # [id number] Dictation # [id number]
[2016-10-12 08:37] LABS: ALB/GLOB RATIO 1.1 (1.1-1.8); BILIRUBIN,TOTAL 0.5 mg/dL (0.2-1.3); CALCIUM 9.2 mg/dL (8.4-10.5)
[2016-10-12] MEDS: Tiotropium 18 mcg Cap For Inhalation IH SCH (09:42)
[2016-10-12] MEDS: Enoxaparin 40 mg Syringe SC SCH (09:42)
[2016-10-12] MEDS: methIMAzole 5 MG TAB PO SCH (09:43)
[2016-10-12 10:01] VITALS: RESP 18; TEMP 98.2
--- NOTE | 2016-10-12 10:52 | CP.PCM.PN ---
Subjective - Date & Time of Evaluation Date of Evaluation: 10/12/16 Time of Evaluation: 10:00 - Subjective Subjective: Medicine progress note for Dr. Walsh/Dr. Soriano service - Tristin Boyce PGY1 Patient seen and examined at bedside this morning. No acute overnight events or new complaints reported. Leukocytosis this morning however patient has been on prednisone. Additionally, creatinine 1.5 with a BUn/Cr ratio of 38. Likely acute kidney injury secondary to dehydration however workup pending. Patient reports that she wishes to go home however she discussed with her daughter who wants her to go to TCU or [facility]. She denied physical therapy eval and discussed with patient this morning that she needs to work with physical therapy. Will obtain TCU eval. Denies chest pain, palpitations, SOB. Objective - Vital Signs/Intake and Output Vital Signs (last 24 hours): Temp Pulse Resp BP Pulse Ox 98.2 F 75 18 106/74 100 10/12/16 06:00 10/12/16 09:40 10/12/16 06:00 10/12/16 09:40 10/12/16 06:00 - Medications Medications: Current Medications Acetaminophen (Tylenol 325mg Tab) 650 mg PO Q4 PRN PRN Reason: Fever >100.4 F Albuterol Sulfate (Albuterol 0.083% Inhal Twyla (2.5 Mg/3 Ml) Ud) 2.5 mg INH Q2H PRN PRN Reason: Wheezing Aspirin (Ecotrin) 81 mg PO DAILY [facility] Last Admin: 10/12/16 09:41 Dose: 81 mg Atorvastatin Calcium (Lipitor) 10 mg PO DIN [facility] Last Admin: 10/11/16 18:32 Dose: 10 mg Budesonide (Pulmicort Respules) 0.5 mg IH [id number] [facility] Last Admin: 10/12/16 07:36 Dose: 0.5 mg Carvedilol (Coreg) 3.125 mg PO BID [facility] Last Admin: 10/12/16 09:40 Dose: 3.125 mg Donepezil HCl (Aricept) 5 mg PO HS [facility] Last Admin: 10/11/16 21:49 Dose: 5 mg Enoxaparin Sodium (Lovenox) 40 mg SC DAILY [facility] PRN Reason: Protocol Last Admin: 10/12/16 09:42 Dose: 40 mg Ferrous Sulfate (Feosol) 324 mg PO DAILY [facility] Last Admin: 10/12/16 09:41 Dose: 324 mg Furosemide (Lasix) 20 mg IVP Q12 [facility] Last Admin: 10/11/16 21:49 Dose: Not Given Ibuprofen (Motrin Tab) 800 mg PO Q8H PRN PRN Reason: Pain, Mild (1-3) Levalbuterol HCl (Xopenex) 0.63 mg IH [id number] [facility] Last Admin: 10/12/16 07:36 Dose: 0.63 mg Levalbuterol HCl (Xopenex) 0.63 mg IH Q2 PRN PRN Reason: Shortness of Breath Levetiracetam (Keppra) 750 mg PO DAILY [facility] Last Admin: 10/12/16 09:41 Dose: 750 mg Lisinopril (Zestril) 2.5 mg PO DAILY [facility] Last Admin: 10/11/16 10:17 Dose: 2.5 mg Loratadine (Claritin) 10 mg PO DAILY [facility] Last Admin: 10/12/16 09:40 Dose: 10 mg Methimazole (Tapazole) 5 mg PO DAILY [facility] Last Admin: 10/12/16 09:43 Dose: 5 mg Ondansetron HCl (Zofran Inj) 8 mg IVP Q6H PRN PRN Reason: Nausea/Vomiting Last Admin: 10/11/16 10:17 Dose: 8 mg Pantoprazole Sodium (Protonix Ec Tab) 40 mg PO 0630 [facility] Last Admin: 10/12/16 06:00 Dose: 40 mg Polyethylene Glycol (Miralax) 17 gm PO TID PRN PRN Reason: Constipation Last Admin: 10/12/16 09:42 Dose: 17 gm Prednisone (Prednisone Tab) 20 mg PO DAILY [facility] Last Admin: 10/12/16 09:42 Dose: 20 mg Tiotropium [place] (Spiriva) 18 mcg IH DAILY [facility] Last Admin: 10/12/16 09:42 Dose: 18 mcg - Labs Labs: 10/12/16 07:00 10/12/16 07:00 PT 11.1 Seconds (9.9-11.8) 10/09/16 19:35 INR 1.03 (0.93-1.08) 10/09/16 19:35 APTT 28.9 Seconds (23.7-30.8) 10/09/16 19:35 - Constitutional Appears: Non-toxic, No Acute Distress - Head Exam Head Exam: ATRAUMATIC, NORMAL INSPECTION, NORMOCEPHALIC - Eye Exam Eye Exam: EOMI - Respiratory Exam Respiratory Exam: Wheezes (mild wheezing bilaterally). absent: Rales, Rhonchi - Cardiovascular Exam Cardiovascular Exam: RRR, +S1, +S2. absent: Gallop, JVD, Rubs - GI/Abdominal Exam GI & Abdominal Exam: Soft. absent: Distended, Firm, Guarding, Rigid, Tenderness , Rebound - Neurological Exam Neurological Exam: Alert, Awake - Psychiatric Exam Psychiatric exam: Normal Affect, Normal Mood - Skin Skin Exam: Dry, Intact, Normal Color, Warm Assessment and Plan - Assessment and Plan (Free Text) Plan: 81yo female with history of AAA, CVA, CHF (LVEF 28% on echo from 06/2016), NSTEMI, COPD, chronic anemia, HTN, seizures, dementia, cataracts, hyperthyroidism presenting with shortness of breath and wheezing secondary likely secondary to COPD exacerbation. 1. COPD Exacerbation -Continue with prednisone taper -Continue xopenex and budesonide per pulmonary recommendations -Oxygen via NC; titrate to SaO2 >90% -CXR reviewed -Blood cultures pending -Leukocytosis likely secondary to steroids 2. Acute kidney injury -Held patients lisinopril, lasix and motrin -BUN/Cr ratio >20 indicated pre-renal cause likely dehydration -Encouraged increased fluid intake -Urine studies pending 3. Leukocytosis -Likely secondary to oral steroids -Afebrile -Will continue to follow white count 4. Compensated CHF -LVEF 28% on echo from 06/2016 -BNP elevated however no significant pulmonary edema on CXR, lower extremity edema, or JVD -CXR reviewed -Continue lasix 20mg IVP q12h -EKG revealed sinus rhythm at 90bpm with left axis deviation, t wave inversions in lateral leads seen on prior EKG -Cardiology consulted - Dr. Lopez 5. Constipation -Miralax PRN 6. CAD -Continue ASA, lipitor, coreg 7. Dementia -Continue aricept 8. Hyperthyroidism -Continue methimazole 9. GI/DVT prophylaxis -Protonix/Lovenox 10. Disposition -Patient requires evaluation by physical therapy for discharge planning purposes. Daughter wishes for patient to go to TCU or [facility]. TCU eval pending. Will follow up with residential case manager. Patient seen and case discussed with attending, Dr. Soriano
--- NOTE | 2016-10-12 11:33 | CP.PCM.DIS ---
<Tristin Boyce - Last Filed: 10/13/16 10:33> Provider - Provider Date of Admission: 10/09/16 22:31 Attending physician: Justus Walsh MD Primary care physician: Justus Walsh MD Consults: Cardiology - Dr. Lopez Pulmonary - Dr. Galvan Time Spent in preparation of Discharge (in minutes): 30 Hospital Course - Lab Results Lab Results: Micro Results 10/10/16 08:30 Blood-Venous Blood Culture - Preliminary NO GROWTH AFTER 48 HOURS 10/10/16 08:30 Blood-Venous Blood Culture - Preliminary NO GROWTH AFTER 48 HOURS Most Recent Lab Values WBC 18.3 10^3/ul (4.5-11.0) H D 10/12/16 07:00 RBC 5.29 10^6/uL (3.5-6.1) 10/12/16 07:00 Hgb 14.6 gm/dL (12.0-16.0) 10/12/16 07:00 Hct 43.3 % (36.0-48.0) 10/12/16 07:00 MCV 81.9 fL (80.0-105.0) 10/12/16 07:00 MCH 27.6 pg (25.0-35.0) 10/12/16 07:00 MCHC 33.7 g/dl (31.0-37.0) 10/12/16 07:00 RDW 19.9 % (11.5-14.5) H 10/12/16 07:00 Plt Count 525 10^3/uL (120.0-450.0) H 10/12/16 07:00 MPV 10.3 fl (7.0-11.0) 10/12/16 07:00 Gran % 93.0 % (50.0-68.0) H 10/12/16 07:00 Lymph % (Auto) 3.3 % (22.0-35.0) L 10/12/16 07:00 Ventura % (Auto) 3.5 % (1.0-6.0) 10/12/16 07:00 Eos % (Auto) 0.1 % (1.5-5.0) L 10/12/16 07:00 Baso % (Auto) 0.1 % (0.0-3.0) 10/12/16 07:00 Gran # 17.05 (1.4-6.5) H 10/12/16 07:00 Lymph # 0.6 (1.2-3.4) L 10/12/16 07:00 Ventura # 0.6 (0.1-0.6) 10/12/16 07:00 Eos # 0.0 (0.0-0.7) 10/12/16 07:00 Baso # 0.01 K/mm3 (0.0-2.0) 10/12/16 07:00 PT 11.1 Seconds (9.9-11.8) 10/09/16 19:35 INR 1.03 (0.93-1.08) 10/09/16 19:35 APTT 28.9 Seconds (23.7-30.8) 10/09/16 19:35 pO2 127 mm/Hg (30-55) H 10/10/16 08:35 VBG pH 7.51 (7.32-7.43) H 10/10/16 08:35 VBG pCO2 33.0 (40-60) L 10/10/16 08:35 VBG HCO3 26.3 mmol/l (21-28) 10/10/16 08:35 VBG Total CO2 27.3 mmol.L (22-28) 10/10/16 08:35 VBG O2 Sat (Calc) 99.5 % (40-65) H 10/10/16 08:35 VBG Base Excess 3.8 mmol/L (0.0-2.0) H 10/10/16 08:35 VBG Potassium 3.6 mmol/L (3.6-5.2) 10/10/16 08:35 Sodium 141.0 mmol/L (132-148) 10/10/16 08:35 Chloride 107.0 mmol/L (98-107) 10/10/16 08:35 Glucose 88 mg/dl (65-105) 10/10/16 08:35 Lactate 1.1 mmol/L (0.7-2.1) 10/10/16 08:35 FiO2 21.0 % 10/10/16 08:35 Sodium 138 mmol/L (132-148) 10/12/16 07:00 Potassium 5.0 mmol/L (3.6-5.0) 10/12/16 07:00 Chloride 103 mmol/L (98-107) 10/12/16 07:00 Carbon Dioxide 24 mmol/L (21-33) 10/12/16 07:00 Anion Gap 16 (10-20) 10/12/16 07:00 BUN 57 mg/dL (7-21) H 10/12/16 07:00 Creatinine 1.5 mg/dL (0.5-1.4) H 10/12/16 07:00 Est GFR ( Amer) 40 10/12/16 07:00 Est GFR (Non-Af Amer) 33 10/12/16 07:00 POC Glucose (mg/dL) 197 mg/dL (65-110) H 10/11/16 07:31 Random Glucose 96 mg/dL (70-110) 10/12/16 07:00 Calcium 9.2 mg/dL (8.4-10.5) 10/12/16 07:00 Total Bilirubin 0.5 mg/dL (0.2-1.3) 10/12/16 07:00 AST 23 U/L (15-39) 10/12/16 07:00 ALT 35 U/L (7-56) 10/12/16 07:00 Alkaline Phosphatase 64 U/L (38-133) 10/12/16 07:00 Troponin I 0.03 ng/mL D 10/10/16 02:05 NT-Pro-B Natriuret Pep 475 pg/mL (0-450) H 10/09/16 20:16 Total Protein 6.0 g/dL (5.8-8.3) 10/12/16 07:00 Albumin 3.1 g/dL (3.0-4.8) 10/12/16 07:00 Globulin 2.9 gm/dL 10/12/16 07:00 Albumin/Globulin Ratio 1.1 (1.1-1.8) 10/12/16 07:00 Lipase 86 U/L (23-300) 10/09/16 20:16 Venous Blood Potassium 3.6 mmol/L (3.6-5.2) 10/10/16 08:35 Urine Color yellow (YELLOW) 10/09/16 18:50 Urine Appearance Clear (CLEAR) 10/09/16 18:50 Urine pH 6.0 (4.7-8.0) 10/09/16 18:50 Ur Specific Stafford >= 1.030 (1.005-1.035) 10/09/16 18:50 Urine Protein Negative mg/dL (<30 mg/dL) 10/09/16 18:50 Urine Glucose (UA) Negative mg/dL (NEGATIVE) 10/09/16 18:50 Urine Ketones Negative mg/dL (NEGATIVE) 10/09/16 18:50 Urine Blood Negative (NEGATIVE) 10/09/16 18:50 Urine Nitrate Negative (NEGATIVE) 10/09/16 18:50 Urine Bilirubin Negative (NEGATIVE) 10/09/16 18:50 Urine Urobilinogen 0.2 E.U./dL (<1 E.U./dL) 10/09/16 18:50 Ur Leukocyte Esterase Negative Mildred/uL (NEGATIVE) 10/09/16 18:50 - Hospital Course Hospital Course: Patient is an 81yo female with history of hypertension, AAA, CVA, lung cancer, NSTEMI, CHF, COPD on home oxygen, anemia, hypertension, seizure disorder, dementia and hyperthyroidism that presented to [facility] c/o shortness of breath and wheezing. She had reported that the symptoms started suddenly while at home. She reported that her symptoms had been gradually getting worse since discharge of her prior hospital course. Patient's daughter reported that she had been not acting as her usual self. Her CXR revealed no infiltrate, trace discoid atelectasis left lung base, possible minimal pulmonary venous congestion, possible peribronchial thickening (see full report) . Her EKG revealed normal sinus rhythm at 90bpm with possible left atrial enlargement, left axis deviation, anterior infarct (age undetermined), ST&T wave abnormality/consider lateral ischemia. Pulmonology (Dr. Galvan) and Cardiology (Dr. Lopez) were consulted. She was subsequently treated with bronchodilators, oxygen via NC, oral prednisone taper and lasix. Her home medications were reconciled and resumed as deemed necessary. She subsequently reported improvement in her symptoms and was discharged to the transitional care unit for further treatment and physical therapy/rehabilitation. Discharge Exam - Head Exam Head Exam: ATRAUMATIC, NORMAL INSPECTION, NORMOCEPHALIC - Eye Exam Eye Exam: EOMI, PERRL - Respiratory Exam Respiratory Exam: Wheezes. absent: Rales, Rhonchi - Cardiovascular Exam Cardiovascular Exam: RRR, +S1, +S2. absent: Gallop, JVD, Rubs - GI/Abdominal Exam GI & Abdominal Exam: Soft. absent: Distended, Firm, Guarding, Rebound, Tenderness - Neurological Exam Neurological exam: Alert - Skin Skin Exam: Dry, Intact, Normal Color, Warm Discharge Plan - Follow Up Plan Condition: GOOD Disposition: TRANSF TO SNF Instructions: Heart Failure (DC), Heart Failure (GEN), Chest Pain (DC), Chest Pain (GEN) Additional Instructions: Patient discharged to TCU. Patient to follow up with primary care doctor while on TCU. Referrals: Justus Walsh MD [Primary Care Provider] - <Russ Soriano - Last Filed: 10/15/16 17:46> Provider - Provider Date of Admission: 10/09/16 22:31 Attending physician: Justus Walsh MD Primary care physician: Justus Walsh MD Hospital Course - Lab Results Lab Results: Micro Results 10/10/16 08:30 Blood-Venous Blood Culture - Final NO GROWTH AFTER 5 DAYS 10/10/16 08:30 Blood-Venous Gram Stain - Final TEST NOT PERFORMED 10/10/16 08:30 Blood-Venous Blood Culture - Final NO GROWTH AFTER 5 DAYS 10/10/16 08:30 Blood-Venous Gram Stain - Final TEST NOT PERFORMED Most Recent Lab Values WBC 18.3 10^3/ul (4.5-11.0) H D 10/12/16 07:00 RBC 5.29 10^6/uL (3.5-6.1) 10/12/16 07:00 Hgb 14.6 gm/dL (12.0-16.0) 10/12/16 07:00 Hct 43.3 % (36.0-48.0) 10/12/16 07:00 MCV 81.9 fL (80.0-105.0) 10/12/16 07:00 MCH 27.6 pg (25.0-35.0) 10/12/16 07:00 MCHC 33.7 g/dl (31.0-37.0) 10/12/16 07:00 RDW 19.9 % (11.5-14.5) H 10/12/16 07:00 Plt Count 525 10^3/uL (120.0-450.0) H 10/12/16 07:00 MPV 10.3 fl (7.0-11.0) 10/12/16 07:00 Gran % 93.0 % (50.0-68.0) H 10/12/16 07:00 Lymph % (Auto) 3.3 % (22.0-35.0) L 10/12/16 07:00 Ventura % (Auto) 3.5 % (1.0-6.0) 10/12/16 07:00 Eos % (Auto) 0.1 % (1.5-5.0) L 10/12/16 07:00 Baso % (Auto) 0.1 % (0.0-3.0) 10/12/16 07:00 Gran # 17.05 (1.4-6.5) H 10/12/16 07:00 Lymph # 0.6 (1.2-3.4) L 10/12/16 07:00 Ventura # 0.6 (0.1-0.6) 10/12/16 07:00 Eos # 0.0 (0.0-0.7) 10/12/16 07:00 Baso # 0.01 K/mm3 (0.0-2.0) 10/12/16 07:00 PT 11.1 Seconds (9.9-11.8) 10/09/16 19:35 INR 1.03 (0.93-1.08) 10/09/16 19:35 APTT 28.9 Seconds (23.7-30.8) 10/09/16 19:35 pO2 127 mm/Hg (30-55) H 10/10/16 08:35 VBG pH 7.51 (7.32-7.43) H 10/10/16 08:35 VBG pCO2 33.0 (40-60) L 10/10/16 08:35 VBG HCO3 26.3 mmol/l (21-28) 10/10/16 08:35 VBG Total CO2 27.3 mmol.L (22-28) 10/10/16 08:35 VBG O2 Sat (Calc) 99.5 % (40-65) H 10/10/16 08:35 VBG Base Excess 3.8 mmol/L (0.0-2.0) H 10/10/16 08:35 VBG Potassium 3.6 mmol/L (3.6-5.2) 10/10/16 08:35 Sodium 141.0 mmol/L (132-148) 10/10/16 08:35 Chloride 107.0 mmol/L (98-107) 10/10/16 08:35 Glucose 88 mg/dl (65-105) 10/10/16 08:35 Lactate 1.1 mmol/L (0.7-2.1) 10/10/16 08:35 FiO2 21.0 % 10/10/16 08:35 Sodium 138 mmol/L (132-148) 10/12/16 07:00 Potassium 5.0 mmol/L (3.6-5.0) 10/12/16 07:00 Chloride 103 mmol/L (98-107) 10/12/16 07:00 Carbon Dioxide 24 mmol/L (21-33) 10/12/16 07:00 Anion Gap 16 (10-20) 10/12/16 07:00 BUN 57 mg/dL (7-21) H 10/12/16 07:00 Creatinine 1.5 mg/dL (0.5-1.4) H 10/12/16 07:00 Est GFR ( Amer) 40 10/12/16 07:00 Est GFR (Non-Af Amer) 33 10/12/16 07:00 POC Glucose (mg/dL) 197 mg/dL (65-110) H 10/11/16 07:31 Random Glucose 96 mg/dL (70-110) 10/12/16 07:00 Calcium 9.2 mg/dL (8.4-10.5) 10/12/16 07:00 Total Bilirubin 0.5 mg/dL (0.2-1.3) 10/12/16 07:00 AST 23 U/L (15-39) 10/12/16 07:00 ALT 35 U/L (7-56) 10/12/16 07:00 Alkaline Phosphatase 64 U/L (38-133) 10/12/16 07:00 Troponin I 0.03 ng/mL D 10/10/16 02:05 NT-Pro-B Natriuret Pep 475 pg/mL (0-450) H 10/09/16 20:16 Total Protein 6.0 g/dL (5.8-8.3) 10/12/16 07:00 Albumin 3.1 g/dL (3.0-4.8) 10/12/16 07:00 Globulin 2.9 gm/dL 10/12/16 07:00 Albumin/Globulin Ratio 1.1 (1.1-1.8) 10/12/16 07:00 Lipase 86 U/L (23-300) 10/09/16 20:16 Venous Blood Potassium 3.6 mmol/L (3.6-5.2) 10/10/16 08:35 Urine Color yellow (YELLOW) 10/09/16 18:50 Urine Appearance Clear (CLEAR) 10/09/16 18:50 Urine pH 6.0 (4.7-8.0) 10/09/16 18:50 Ur Specific Stafford >= 1.030 (1.005-1.035) 10/09/16 18:50 Urine Protein Negative mg/dL (<30 mg/dL) 10/09/16 18:50 Urine Glucose (UA) Negative mg/dL (NEGATIVE) 10/09/16 18:50 Urine Ketones Negative mg/dL (NEGATIVE) 10/09/16 18:50 Urine Blood Negative (NEGATIVE) 10/09/16 18:50 Urine Nitrate Negative (NEGATIVE) 10/09/16 18:50 Urine Bilirubin Negative (NEGATIVE) 10/09/16 18:50 Urine Urobilinogen 0.2 E.U./dL (<1 E.U./dL) 10/09/16 18:50 Ur Leukocyte Esterase Negative Mildred/uL (NEGATIVE) 10/09/16 18:50 Attending/Attestation - Attestation I have personally seen and examined this patient.: Yes I have fully participated in the care of the patient.: Yes I have reviewed all pertinent clinical information, including history, physical exam and plan: Yes Notes (Text): 10/15/16 17:46 Medical record note made by the resident after discussion with my direction and input after the patient was personally seen and examined by me. I have reviewed the chart and agree that the record accurately reflects by personal performance of the history, physical exam, data review, and medical decision-making, in the course for the patient. I have also personally directed the plan of care.
[2016-10-12 17:55] VITALS: BP 110/68; PULSE 72
== END 2016-10-12 18:45 | DRG 190 ==
LOC: ED 17:24 → ERH 22:31 → 3RSO 23:18
PROVIDERS: ADMIT Internal Medicine; ATTEND Internal Medicine
DX: J44.1 Chronic obstructive pulmonary disease with (acute) exacerbation (principal); I50.23 Acute on chronic systolic (congestive) heart failure; N17.9 Acute kidney failure, unspecified; I11.0 Hypertensive heart disease with heart failure; I42.0 Dilated cardiomyopathy; I27.2 Other secondary pulmonary hypertension; Z99.81 Dependence on supplemental oxygen; G30.9 Alzheimer's disease, unspecified; F02.80 Dementia in other diseases classified elsewhere, unspecified severity, without behavioral disturbance, psychotic disturbance, mood disturbance, and anxiety; G40.909 Epilepsy, unspecified, not intractable, without status epilepticus; D64.9 Anemia, unspecified; E05.90 Thyrotoxicosis, unspecified without thyrotoxic crisis or storm; I25.10 Atherosclerotic heart disease of native coronary artery without angina pectoris; R62.7 Adult failure to thrive; I25.5 Ischemic cardiomyopathy; K59.00 Constipation, unspecified; E86.0 Dehydration; D72.829 Elevated white blood cell count, unspecified; T38.0X5A Adverse effect of glucocorticoids and synthetic analogues, initial encounter; Z86.73 Personal history of transient ischemic attack (TIA), and cerebral infarction without residual deficits; Z85.118 Personal history of other malignant neoplasm of bronchus and lung; I25.2 Old myocardial infarction; Z86.711 Personal history of pulmonary embolism; Z79.51 Long term (current) use of inhaled steroids; Z87.891 Personal history of nicotine dependence

== ENCOUNTER 2016-10-12 18:45 | Inpatient (IN) | payer OTHER, MEDICAID ==
[2016-10-12] MEDS ORDERED: POLYETHYLENE GLYCOL 3350 17 GM/Dose PACKET PO PRN (19:16)
[2016-10-12] MEDS ORDERED: Albuterol 0.083% Inhal Sol (2.5 mg/3 mL) UD IH PRN (19:16)
[2016-10-12] MEDS ORDERED: Levalbuterol 0.63 MG/3 ML Inhal Soln UD IH PRN (19:16)
[2016-10-12] MEDS: Budesonide 0.5 mg/2 ml Inhal Susp UD IH SCH (19:50)
[2016-10-12] MEDS: Arformoterol 15 mcg/2 ml Inh Sol IH SCH (19:50)
[2016-10-13] MEDS: Levalbuterol 0.63 MG/3 ML Inhal Soln UD IH SCH ×4 (02:05→19:47)
[2016-10-13] MEDS: Enoxaparin 40 mg Syringe SC SCH (05:27)
[2016-10-13] MEDS: Pantoprazole 40 mg EC Tab PO SCH (05:30)
[2016-10-13] MEDS ORDERED: Pantoprazole 40 mg EC Tab PO SCH (07:30)
[2016-10-13] MEDS: Arformoterol 15 mcg/2 ml Inh Sol IH SCH ×2 (07:35→19:47)
[2016-10-13] MEDS: Budesonide 0.5 mg/2 ml Inhal Susp UD IH SCH ×2 (07:35→19:47)
[2016-10-13] MEDS ORDERED: Enoxaparin 40 mg Syringe SC SCH (10:00)
[2016-10-13] MEDS: levETIRAcetam Solution 100 MG/ML BOTTLE PO SCH (10:16)
[2016-10-13] MEDS: Tiotropium 18 mcg Cap For Inhalation IH SCH (10:17)
[2016-10-13] MEDS: methIMAzole 5 MG TAB PO SCH (10:17)
--- NOTE | 2016-10-13 10:51 | PN ---
DATE: 10/13/2016 SUBJECTIVE: The patient appears comfortable this morning. She is not short of breath at rest. PHYSICAL EXAMINATION: VITAL SIGNS: Temperature is 97.5, pulse 75, respirations 18, blood pressure 105 /75. Oxygen saturation on nasal cannula is 99%. HEENT: Normocephalic, atraumatic. No JVD. CARDIOVASCULAR: Systolic ejection murmur at the lower left sternal border. No S3 gallop. LUNGS: Decreased breath sounds at the bases. No rhonchi. No wheezing. EXTREMITIES: No clubbing, cyanosis, or edema. Calves are nontender to palpation. GASTROINTESTINAL: Abdomen is soft, nontender, nondistended. Bowel sounds are positive. SKIN: No acute rash. NEUROLOGIC: Limited at the present time. IMPRESSION: 1. Recurrent bronchitis. 2. Advanced chronic obstructive pulmonary disease--on home oxygen. 3. Coronary artery disease. 4. Failure to thrive. PLAN: The patient appears comfortable this morning. She is not short of breath at rest. She does state to feeling much better overall. On physical exam, her bronchospasm continues to resolve. In addition, the oxygen saturation on nasal cannula is now 99%-100%. I will continue with the current nebulizer treatments and oral steroids (decreased yesterday) for now. The patient is now on the transitional unit -- where she will participate with physical therapy. Her clinical status is significantly improved -- compared to the initial presentation. However, due to her age and above diagnoses, she does remain guarded overall. I will discuss the above with the attending physician. Dylon Galvan MD cc: [id number] TT: 10/13/2016 10:51:02 Confirmation # [id number] Dictation # [id number] jn [place]TD[place]
--- NOTE | 2016-10-13 15:28 | HP ---
For Dr. Walsh who is off. HISTORY OF PRESENT ILLNESS: The patient is now in the transitional care unit. I am seeing her for Dr. Walsh, who is off this weekend. She came to the hospital not feeling well. She had shortness of breath and wheezing and acute COPD, when she came in with CHF. She has leukocytosis, coronary artery disease , Alzheimer disease. She has failure to thrive and weakness. She has a history of aortic abdominal aneurysm, CVA, CHF, NSTEMI, COPD, chronic anemia, hypertension, seizures, dementia, cataracts, hypothyroidism, she is short of breath, COPD. She had a thyroidectomy, left eye cataract. FAMILY HISTORY: Breast and stomach cancer. SOCIAL HISTORY: She is a former smoker, occasional alcohol, no illicit drugs. ALLERGIES: No known drug allergies. MEDICATIONS: She is currently on albuterol, Aricept, aspirin, Brovana, Claritin , Coreg, iron, Keppra, Lasix, Lipitor, Lovenox, MiraLax, Motrin, prednisone, Protonix, Pulmicort, Spiriva, Tapazole, Tylenol, Xopenex, Zestril, Zofran. REVIEW OF SYSTEMS: No acute vision or hearing changes. No sore throat. She is alert and aware and she knows where she is. No neck pain. No chest pain or palpitations. There is shortness of breath that is a chronic thing. No coughing at this time. No abdominal pain, nausea, vomiting, constipation, diarrhea. She is weak in the legs. PHYSICAL EXAMINATION: VITAL SIGNS: 97.5 temp, 75 pulse, 105/75 blood pressure, 18 respiratory rate, 99% O2 sat on room air. HEENT: Head is atraumatic, normocephalic. Extraocular muscles are intact. Throat is moist, no erythema. NECK: Supple, no JVD. HEART: Regular rate, systolic ejection murmur. LUNGS: Decreased breath sounds bilaterally. No wheezes, no rhonchi, no rales. ABDOMEN: Soft, nontender, positive bowel sounds, no guarding, no rebound. No CVA tenderness. SKIN: No acute rash. Is intact. NEUROLOGIC: She is alert and comfortable at this time. No numbness or tingling appreciated. EXTREMITIES: Have no edema, but they are weak. LABORATORY DATA: She had no blood tests. She will get blood tests. She will be back on her medications. She is here for physical therapy. Continue treatment and will follow her. Raul Mccauley DO cc: [id number] TT: 10/13/2016 15:27:46 cookie ORTIZ
--- NOTE | 2016-10-13 19:06 | CON ---
DATE: 10/13/2016 REASON FOR CONSULTATION: Congestive heart failure. HISTORY OF PRESENT ILLNESS: The patient does not give reliable answers and is confused to place and most of the information was obtained from the most recent admission. The patient is an 81-year-old A frican [place] female who has a history of dementia and cardiomyopathy and because of her dementia, the family has elected to manage the patient conservatively and not to consider invasive cardiac work up. The patient was recently transferred to TCU. There was no reported dizziness or syncope and whe n the patient was asked about chest pain or shortness of breath, she denied either; however, her answ ers may not be reliable. CURRENT MEDICATIONS: Albuterol inhaler q.2 hours p.r.n., Aricept 5 mg at bedtime, aspirin 81 mg once a day, Brovana 15 mg inhalation twice a day, Claritin 10 mg daily, Coreg 3.125 mg once a day, Feosol 1 tablet daily, Keppra 750 mg daily, Lasix 20 mg intravenously q.12 hours, Lovenox 40 mg subcutaneou sly daily, Lipitor 10 mg once a day, prednisone 20 mg daily, Protonix 40 mg once a day, Spiriva 18 mc g inhalation daily, Tapazole 5 mg daily, Zestril 2.5 mg once a day, Xopenex inhaler q.6 hours p.r.n., Zofran 8 mg intravenously q.6 hours p.r.n. REVIEW OF SYSTEMS: According to the nursing team no reported seizures and no reported nausea or vomi ting. PHYSICAL EXAMINATION: GENERAL: The patient is an elderly female who does not appear to be in acute distress. VITAL SIGNS: Blood pressure, 105/74, heart rate 75, temperature 97.5, respirations 18. HEENT: Normocephalic. CHEST: Minimal rhonchi. HEART: S1, S2 regular. ABDOMEN: Soft. EXTREMITIES: No edema. LABORATORY DATA: The most recent CBC yesterday: WBC 18.3, hemoglobin 14.6, hematocrit 43.3, platele t count 525,000. D-dimer is 2.73. Chemistry yesterday revealed BUN and creatinine of 57 and 1.5 res pectively. Blood sugar was 197. EKG revealed sinus rhythm with short WI interval, possible left atr ial enlargement, left axis deviation, anterior infarct of indeterminate age, ST-T wave changes, consi jackson lateral ischemia. Echocardiographic study performed in June of this year revealed borderline co ncentric LVH, severely impaired systolic function with septal and apical hypokinesis, ldicrwlr-ri-ksa ere pulmonary hypertension, ejection fraction was estimated at 28.8%. ASSESSMENT: 1. Cardiomyopathy. 2. Consider ischemic etiology. 3. Dementia. 4. Xulwuhgz-qy-wwqfvl pulmonary hypertension. 5. Hyperthyroidism. RECOMMENDATIONS: Continue current conservative medical approach including aspirin 81 mg once a day, Coreg 3.125 mg twice a day, Keppra 750 mg once daily, Lasix at 20 mg intravenous twice a day, Lipitor 10 mg once a day, subcutaneous Lovenox 40 mg once a day, prednisone 20 mg once a day, Protonix 40 mg p.o. once a day, Tapazole 5 mg once a day, Zestril 2.5 mg once a day. The patient may not be a suit able candidate for either Aldactone or SETH inhibitors because of underlying renal insufficiency. Carroll Scherer MD cc: [id number] TT: 10/13/2016 19:05:24 Confirmation # [id number] Dictation # [id number] dn
[2016-10-13 19:27] LABS: HEMATOCRIT 44.3 % (36.0-48.0); MEAN CELL VOLUME 83.6 fL (80.0-105.0); MEAN CORPUSCULAR HEMOGLOBIN 27.7 pg (25.0-35.0); MEAN CORPUSCULAR HGB CONC 33.2 g/dl (31.0-37.0); MEAN PLATELET VOLUME 10.7 fl (7.0-11.0); RED CELL DISTRIBUTION WIDTH 19.8 % (11.5-14.5); WHITE BLOOD COUNT 15.5 10^3/ul (4.5-11.0)
[2016-10-13 19:36] LABS: CALCIUM 8.2 mg/dL (8.4-10.5); POTASSIUM 4.6 mmol/L (3.6-5.0)
[2016-10-14] MEDS: Levalbuterol 0.63 MG/3 ML Inhal Soln UD IH SCH ×4 (01:56→20:01)
[2016-10-14] MEDS: Enoxaparin 40 mg Syringe SC SCH (05:35)
[2016-10-14] MEDS: Pantoprazole 40 mg EC Tab PO SCH (05:36)
[2016-10-14] MEDS: Budesonide 0.5 mg/2 ml Inhal Susp UD IH SCH ×2 (07:27→20:01)
[2016-10-14] MEDS: Arformoterol 15 mcg/2 ml Inh Sol IH SCH ×2 (07:27→20:00)
[2016-10-14 08:54] LABS: HEMATOCRIT 44.6 % (36.0-48.0); MEAN CELL VOLUME 83.7 fL (80.0-105.0); MEAN CORPUSCULAR HEMOGLOBIN 27.6 pg (25.0-35.0); MEAN PLATELET VOLUME 10.3 fl (7.0-11.0); RED CELL DISTRIBUTION WIDTH 19.5 % (11.5-14.5)
[2016-10-14 09:20] LABS: ALB/GLOB RATIO 1.1 (1.1-1.8); BILIRUBIN,TOTAL 0.4 mg/dL (0.2-1.3); CALCIUM 8.4 mg/dL (8.4-10.5); TOTAL PROTEIN 6.2 g/dL (5.8-8.3)
[2016-10-14] MEDS: Tiotropium 18 mcg Cap For Inhalation IH SCH (10:27)
[2016-10-14] MEDS: methIMAzole 5 MG TAB PO SCH (10:27)
[2016-10-14] MEDS: levETIRAcetam Solution 100 MG/ML BOTTLE PO SCH (11:17)
--- NOTE | 2016-10-14 11:43 | PN ---
DATE: 10/14/[address] Walsh who is off this morning. I saw her in the transitional care unit. She is doing well. There was pancakes in front of her, apple pie on her table and she is comfortable, no chest pain or shortness of breath, no abdominal pain. MEDICATIONS: She is on albuterol, Aricept, aspirin, Brovana, Claritin, Coreg, Feosol, Keppra, Lasix, Lipitor, Lovenox, MiraLAX, Motrin, prednisone, Protonix, Pulmicort, Spiriva, Tapazole, Tylenol, Xopenex, Zestril, Zofran. PHYSICAL EXAMINATION: VITAL SIGNS: 97.5 temp, 75 pulse, 105/75 blood pressure, 18 respiratory rate, 99% O2 sat on room air. HEAD: Atraumatic, normocephalic. Throat is moist. NECK: Supple. HEART: Regular rate. LUNGS: Decreased breath sounds bilaterally but clear, no wheezes, no rhonchi, no rales. ABDOMEN: Soft. EXTREMITIES: No edema. LABORATORY DATA: She has a 15 white count, probably from the steroids, prednisone, 14.7 hemoglobin, 44.6 hematocrit, 409 platelets. Sodium 138, potassium is 4, BUN is 15, creatinine 1.2 and getting better. GFR is better, sugar is 122, calcium 8.4, total bili is 0.4, AST is 29, ALT is 34, alk phosphatase 64, total protein 6.2, albumin 3.2, globulin 3. ASSESSMENT AND PLAN: She is being seen by cardiology, pulmonology. She has recurrent bronchitis, advanced chronic obstructive pulmonary disease, coronary artery disease, failure to thrive. I think she is starting to turn around. I think more days here will help her. We will check her labs tomorrow. We will continue as per consults. Raul Mccauley DO cc: [id number] TT: 10/14/2016 11:42:42 Confirmation # [id number] Dictation # [id number] ciera ORTIZ
--- NOTE | 2016-10-14 15:45 | PN ---
DATE: 10/14/2016 SUBJECTIVE: The patient is confused. Denies any shortness of breath or chest pain. No reported pro blems by the nursing team in terms of shortness of breath. PHYSICAL EXAMINATION: VITAL SIGNS: Blood pressure /79, heart rate 76, temperature 97.5, respirations 18. HEENT: Normocephalic. CHEST: Minimal rhonchi. HEART: S1, S2 regular. ABDOMEN: Soft. EXTREMITIES: No edema. LABORATORIES: CBC: WBC , hemoglobin 14.7, hematocrit 44.6, platelet count 409,000. Today's SM A-7 is within normal limits except for glucose 122 and BUN of 58. Creatinine has improved to 1.2. ASSESSMENT: 1. Cardiomyopathy. 2. Consider underlying coronary artery disease. 3. Moderate to severe pulmonary hypertension. 4. Dementia. 5. Pre-renal azotemia. 6. Hyperthyroidism. RECOMMENDATIONS: Continue current albuterol inhaler, continue Aricept, continue aspirin 81 mg once a day, Coreg 3.125 mg twice a day, Keppra 750 mg daily, change Lasix to 20 mg orally daily, continue L ipitor 10 mg once a day, subcutaneous Lovenox at 40 mg once a day, Tapazole 5 mg once a day. Carroll Scherer MD cc: [id number] TT: 10/14/2016 15:44:29 Confirmation # [id number] Dictation # [id number]
[2016-10-15] MEDS: Levalbuterol 0.63 MG/3 ML Inhal Soln UD IH SCH ×4 (02:08→19:55)
[2016-10-15] MEDS: Enoxaparin 40 mg Syringe SC SCH (05:12)
[2016-10-15 07:08] LABS: HEMATOCRIT 41.2 % (36.0-48.0); MEAN CELL VOLUME 83.1 fL (80.0-105.0); MEAN CORPUSCULAR HEMOGLOBIN 27.2 pg (25.0-35.0); MEAN CORPUSCULAR HGB CONC 32.8 g/dl (31.0-37.0); MEAN PLATELET VOLUME 10.3 fl (7.0-11.0); RED CELL DISTRIBUTION WIDTH 19.3 % (11.5-14.5); WHITE BLOOD COUNT 12.3 10^3/ul (4.5-11.0)
[2016-10-15] MEDS: Budesonide 0.5 mg/2 ml Inhal Susp UD IH SCH ×2 (07:23→19:55)
[2016-10-15] MEDS: Arformoterol 15 mcg/2 ml Inh Sol IH SCH ×2 (07:23→19:54)
[2016-10-15 07:26] LABS: BILIRUBIN,TOTAL 0.3 mg/dL (0.2-1.3); CALCIUM 8.4 mg/dL (8.4-10.5); POTASSIUM 4.3 mmol/L (3.6-5.0); TOTAL PROTEIN 5.8 g/dL (5.8-8.3)
--- NOTE | 2016-10-15 08:05 | PN ---
DATE: 10/15/2016 SUBJECTIVE: The patient appears very comfortable at rest. She is not short of breath. PHYSICAL EXAMINATION: VITAL SIGNS: Temperature is 97.5, pulse 76, respirations 18, blood pressure 112 /79. Oxygen saturation on nasal cannula is 99%. HEENT: Normocephalic, atraumatic. No JVD. CARDIOVASCULAR: Systolic ejection murmur at the lower left sternal border. No S3 gallop. LUNGS: Improved breath sounds at the bases. No rhonchi. No wheezing. EXTREMITIES: No clubbing, cyanosis, or edema. Calves are nontender to palpation. GASTROINTESTINAL: Abdomen is soft, nontender, nondistended. Bowel sounds are positive. SKIN: No acute rash. NEUROLOGIC: Limited at the present time. IMPRESSION: 1. Recurrent bronchitis. 2. Advanced chronic obstructive pulmonary disease - on home oxygen. 3. Coronary artery disease. 4. Failure to thrive. PLAN: The patient appears comfortable this morning. She is not short of breath at rest. She does state to feeling much better overall. On physical exam, her bronchospasm continues to resolve. In addition, there is no significant alveolar arterial gradient. I will continue with the current nebulizer treatments and oral steroids for now. The patient remains on the transitional unit - where she will participate with physical therapy. Her clinical status is significantly improved -- compared to the initial presentation. However, again, due to her age and above diagnoses -- her overall prognosis does remain very guarded. I will discuss the above with the attending physician. Dylon Galvan MD cc: [id number] TT: 10/15/2016 08:04:28 Confirmation # [id number] Dictation # [id number] jn [email or web address]
[2016-10-15] MEDS: Tiotropium 18 mcg Cap For Inhalation IH SCH (10:29)
[2016-10-15] MEDS: methIMAzole 5 MG TAB PO SCH (10:29)
[2016-10-15] MEDS: levETIRAcetam Solution 100 MG/ML BOTTLE PO SCH (11:11)
--- NOTE | 2016-10-15 12:45 | CP.PCM.CON ---
History of Present Illness - History of Present Illness History of Present Illness: Palliate care consult requested by Dr Cece Walsh Reason Advance Care planning 81 year old admitted to TCU for deconditioning. She was recently transferred for the acute care setting after being treated for weakness and dyspnea, PMHx: COPD,dementia, CAD,CHF, pulmonary hypertension, NSTEMI, EF 28%, cardiomyopathy,hypothyroidism,TIA. Social History: Former smoker, no alcohol or drug use. . Family History: Non contributory. Advance Care Planning: The patient does not have an Advanced Directive. Review of Systems: As per HPI, all else reviewed and are negative Past Patient History - Infectious Disease Hx of Infectious Diseases: None - Tetanus Immunizations Tetanus Immunization: Unknown - Past Medical History & Family History Past Medical History?: Yes - Past Social History Smoking Status: Former Smoker - CARDIAC Hx Cardiac Disorders: Yes (CAD, NSTEMI) Hx Congestive Heart Failure: Yes Hx Hypertension: Yes - PULMONARY Hx Chronic Obstructive Pulmonary Disease (COPD): Yes - NEUROLOGICAL HX Cerebrovascular Accident: Yes - HEENT Hx HEENT Problems: Yes Hx Cataracts: Yes (left eye sx) - RENAL Hx Chronic Kidney Disease: No - ENDOCRINE/METABOLIC Hx Hypothyroidism: Yes - HEMATOLOGICAL/ONCOLOGICAL Hx Cancer: (denies) - INTEGUMENTARY Hx Dermatological Problems: No - MUSCULOSKELETAL/RHEUMATOLOGICAL Hx Falls: No - GASTROINTESTINAL Other/Comment: egd dx gastric erosions small hiatal hernia and gastric avm, 09/05 - GENITOURINARY/GYNECOLOGICAL Hx Genitourinary Disorders: No - PSYCHIATRIC Hx Psychophysiologic Disorder: No - SURGICAL HISTORY Hx Surgeries: Yes (L Cataract removal) - ANESTHESIA Hx Anesthesia: Yes Hx Anesthesia Reactions: No Hx Malignant Hyperthermia: No Meds Allergies/Adverse Reactions: Allergies Allergy/AdvReac Type Severity Reaction Status Date / Time No Known Allergies Allergy Verified 10/09/16 17:49 - Medications Medications: Current Medications Acetaminophen (Tylenol 325mg Tab) 325 mg PO Q6H PRN; Protocol PRN Reason: Fever >100.4 F Albuterol Sulfate (Albuterol 0.083% Inhal Twyla (2.5 Mg/3 Ml) Ud) 2.5 mg IH Q2H PRN; Protocol PRN Reason: Shortness of Breath Arformoterol Tartrate (Brovana) 15 mcg IH [id number] [facility] Last Admin: 10/15/16 07:23 Dose: 15 mcg Aspirin (Aspirin Chewable) 81 mg PO 0800 [facility] PRN Reason: Protocol Last Admin: 10/15/16 08:48 Dose: 81 mg Atorvastatin Calcium (Lipitor) 10 mg PO DIN [facility] PRN Reason: Protocol Last Admin: 10/14/16 18:09 Dose: 10 mg Budesonide (Pulmicort Respules) 0.5 mg IH [id number] [facility] PRN Reason: Protocol Last Admin: 10/15/16 07:23 Dose: 0.5 mg Carvedilol (Coreg) 3.125 mg PO 0800,1800 [facility] PRN Reason: Protocol Last Admin: 10/15/16 08:48 Dose: 3.125 mg Donepezil HCl (Aricept) 5 mg PO HS [facility] PRN Reason: Protocol Last Admin: 10/14/16 21:55 Dose: 5 mg Enoxaparin Sodium (Lovenox) 40 mg SC 0600 [facility] PRN Reason: Protocol Last Admin: 10/15/16 05:12 Dose: 40 mg Ferrous Sulfate (Feosol) 324 mg PO DAILY [facility] PRN Reason: Protocol Last Admin: 10/13/16 10:16 Dose: 324 mg Ibuprofen (Motrin Tab) 800 mg PO Q8H PRN; Protocol PRN Reason: Pain, Mild (1-3) Levalbuterol HCl (Xopenex) 0.63 mg IH Q2H PRN; Protocol PRN Reason: Shortness of Breath Levalbuterol HCl (Xopenex) 0.63 mg IH [id number] [facility] PRN Reason: Protocol Last Admin: 10/15/16 07:23 Dose: 0.63 mg Levetiracetam (Keppra) 750 mg PO DAILY [facility] PRN Reason: Protocol Last Admin: 10/15/16 11:11 Dose: 750 mg Lisinopril (Zestril) 2.5 mg PO DAILY [facility] PRN Reason: Protocol Loratadine (Claritin) 10 mg PO DAILY [facility] PRN Reason: Protocol Last Admin: 10/15/16 10:29 Dose: 10 mg Methimazole (Tapazole) 5 mg PO DAILY [facility] PRN Reason: Protocol Last Admin: 10/15/16 10:29 Dose: 5 mg Ondansetron HCl (Zofran Inj) 8 mg IVP Q6H PRN; Protocol PRN Reason: Nausea/Vomiting Pantoprazole Sodium (Protonix Ec Tab) 40 mg PO 0630 [facility] PRN Reason: Protocol Last Admin: 10/14/16 05:36 Dose: 40 mg Polyethylene Glycol (Miralax) 17 gm PO TID PRN; Protocol PRN Reason: Constipation Prednisone (Prednisone Tab) 20 mg PO DAILY [facility] PRN Reason: Protocol Last Admin: 10/15/16 10:29 Dose: 20 mg Tiotropium [place] (Spiriva) 18 mcg IH DAILY [facility] PRN Reason: Protocol Last Admin: 10/15/16 10:29 Dose: 18 mcg Physical Exam - Constitutional Appears: No Acute Distress, Chronically Ill - Head Exam Head Exam: NORMAL INSPECTION - Eye Exam Eye Exam: Normal appearance, PERRL - ENT Exam ENT Exam: Mucous Membranes Moist, Normal Oropharynx - Neck Exam Neck exam: Positive for: Normal Inspection - Respiratory Exam Respiratory Exam: Decreased Breath Sounds, NORMAL BREATHING PATTERN - Cardiovascular Exam Cardiovascular Exam: REGULAR RHYTHM, +S1, +S2, Systolic Murmur - GI/Abdominal Exam GI & Abdominal Exam: Normal Bowel Sounds, Soft Additional comments: no tenderness - Extremities Exam Extremities exam: Positive for: normal inspection, pedal edema, pedal pulses present - Back Exam Back exam: NORMAL INSPECTION - Neurological Exam Neurological exam: Alert Additional comments: confused - Skin Skin Exam: Dry, Warm - Additional Findings Additional findings: Palliative performance scale rating 40 % Results - Vital Signs Recent Vital Signs: Last Vital Signs Temp 97.9 F 10/15/16 10:00 Pulse 77 10/15/16 10:00 Resp 14 10/15/16 10:00 BP 109/76 10/15/16 10:00 Pulse Ox 99 10/15/16 10:00 - Labs Result Diagrams: 10/15/16 06:15 10/15/16 06:15 Labs: Laboratory Results - last 24 hr 10/15/16 10/15/16 06:15 06:15 WBC 12.3 H RBC 4.96 Hgb 13.5 Hct 41.2 MCV 83.1 MCH 27.2 MCHC 32.8 RDW 19.3 H Plt Count 440 MPV 10.3 Sodium 140 Potassium 4.3 Chloride 110 Carbon Dioxide 24 Anion Gap 10 BUN 47 H Creatinine 1.1 Est GFR ( Amer) 58 Est GFR (Non-Af Amer) 48 Random Glucose 110 Calcium 8.4 Total Bilirubin 0.3 AST 19 ALT 35 Alkaline Phosphatase 57 Total Protein 5.8 Albumin 2.9 L Globulin 2.8 Albumin/Globulin Ratio 1.0 L Assessment & Plan - Assessment and Plan (Free Text) Assessment: 81 year old female admitted with dyspnea ,weakness and deconditioning. multiple comorbidities, pklease see PMH. Patient is confused, unable to make decisions regarding resuscitation wishes. She defers to her daughter Jinny who is her POA. Patient daughter at bedside. Advance care planning discussed. Daughter feels that patient would want DNR/DNI. POLST explained. Questions answered. Daughter agrees to enact a POLST. She and I are meeting again tomorrow to finalize POLST document. Time spent with daughter in goals of care discussion and advance care planning, 30 minutes. Plan: [place] of care. Advance care planning.
--- NOTE | 2016-10-15 13:08 | PN ---
DATE: 10/15/2016 SUBJECTIVE: The patient is in the TCU. She is comfortable. Eating. Sitting in a chair. PHYSICAL EXAMINATION: VITAL SIGNS: Blood pressure is 109/76. The heart rate is in the 70s. NECK: Negative JVD. LUNGS: Without rales. HEART: S1, S2. EXTREMITIES: Without edema. LABORATORY DATA: The hemoglobin is 13.5. Chemistries: BUN and creatinine are 47 and 1.1. IMPRESSION: 1. Resolution of congestive heart failure. 2. Dilated cardiomyopathy. 3. Chronic obstructive pulmonary disease. 4. Pulmonary hypertension. 5. Renal insufficiency. Given these findings, the patient is doing well on her present medication. Will continue her low dos e lisinopril as well as her beta blockers for her cardiomyopathy. Carlos Lopez MD cc: [id number] TT: 10/15/2016 13:08:20 Confirmation # [id number] Dictation # [id number] mn
[2016-10-16] MEDS: Levalbuterol 0.63 MG/3 ML Inhal Soln UD IH SCH ×5 (02:41→20:54)
[2016-10-16] MEDS: Enoxaparin 40 mg Syringe SC SCH (06:07)
[2016-10-16] MEDS: Pantoprazole 40 mg EC Tab PO SCH ×2 (06:07→07:36)
[2016-10-16] MEDS: Budesonide 0.5 mg/2 ml Inhal Susp UD IH SCH ×2 (07:18→20:49)
[2016-10-16] MEDS: Arformoterol 15 mcg/2 ml Inh Sol IH SCH ×2 (07:18→20:48)
[2016-10-16 08:01] LABS: ADD MANUAL DIFF? NO
[2016-10-16 08:05] LABS: BASO # 0.01 K/mm3 (0.0-2.0); BASO % 0.1 % (0.0-3.0); EOS # 0.1 (0.0-0.7); GRAN % 85.2 % (50.0-68.0); HEMATOCRIT 42.2 % (36.0-48.0); LYMPH # 0.9 (1.2-3.4); LYMPH % 7.3 % (22.0-35.0); MEAN CELL VOLUME 83.2 fL (80.0-105.0); MEAN CORPUSCULAR HEMOGLOBIN 27.2 pg (25.0-35.0); MEAN CORPUSCULAR HGB CONC 32.7 g/dl (31.0-37.0); MEAN PLATELET VOLUME 10.3 fl (7.0-11.0); MONO # 0.8 (0.1-0.6); MONO % 6.4 % (1.0-6.0); PLATELET COUNT 425 10^3/uL (120.0-450.0); RED CELL DISTRIBUTION WIDTH 19.1 % (11.5-14.5); WHITE BLOOD COUNT 12.6 10^3/ul (4.5-11.0)
[2016-10-16 08:20] LABS: BLOOD UREA NITROGEN 39 mg/dL (7-21); CALCIUM 8.5 mg/dL (8.4-10.5); CARBON DIOXIDE 24 mmol/L (21-33); CHLORIDE 109 mmol/L (98-107); GFR AFRICAN-AMERICAN > 60; GLUCOSE,RANDOM 109 mg/dL (70-110); MAGNESIUM 2.3 mg/dL (1.7-2.2); PHOSPHOROUS 2.6 mg/dL (2.5-4.5); POTASSIUM 4.1 mmol/L (3.6-5.0); SODIUM 139 mmol/L (132-148)
--- NOTE | 2016-10-16 09:48 | PN ---
DATE: 10/16/2016 SUBJECTIVE: The patient appears very comfortable this morning. She is not short of breath at rest. OBJECTIVE: VITAL SIGNS: Temperature is 97.4, pulse 72, respirations 18, blood pressure 126 /83. Oxygen saturation on nasal cannula is 100%. HEENT: Normocephalic, atraumatic. No JVD. CARDIOVASCULAR: Systolic ejection murmur at the lower left sternal border. No S3 gallop. LUNGS: Clear bilaterally. EXTREMITIES: No clubbing, cyanosis, or edema. Calves are nontender to palpation. GASTROINTESTINAL: Abdomen is soft, nontender, nondistended. Bowel sounds are positive. SKIN: No acute rash. NEUROLOGIC: Limited at the present time. IMPRESSION: 1. Recurrent bronchitis. 2. Advanced chronic obstructive pulmonary disease - on home oxygen. 3. Coronary artery disease. 4. Failure to thrive. PLAN: The patient appears very comfortable this morning. She is not short of breath at rest. She does state to feeling much better overall. On physical exam, her lungs are now clear. Oxygen saturation on nasal cannula is now 100%. I will continue with the current nebulizer treatments and decrease the oral steroids this morning. Input by cardiology (Dr. Lopez) also noted. Clinical status of the patient is certainly improved - compared to the initial presentation. However, the overall status/prognosis for this very elderly patient - remains very guarded at best. Input by Brandie Liu (palliative care) is noted. I will discuss the above with Dr. Walsh. Dylon Galvan MD cc: [phone] TT: 10/16/2016 09:48:21 Confirmation # [id number] Dictation # [id number] ORTIZ
[2016-10-16] MEDS: methIMAzole 5 MG TAB PO SCH (10:16)
[2016-10-16] MEDS: Tiotropium 18 mcg Cap For Inhalation IH SCH (10:16)
[2016-10-16] MEDS: levETIRAcetam Solution 100 MG/ML BOTTLE PO SCH (10:20)
--- NOTE | 2016-10-16 13:51 | CP.PCM.PN ---
Subjective - Date & Time of Evaluation Date of Evaluation: 10/16/16 Time of Evaluation: 08:15 - Subjective Subjective: Internal Medicine Progress Note for Dr. Walsh/Dr. Soriano Service Patient seen and examined at bedside in the TCU. Today is TCU day 4. No acute events overnight. Denies complaints this AM, including chest pain, shortness of breath, pain with breathing, fever/chills, abdominal pain, or diarrhea. Receiving a breathing treatment at time of exam. Objective - Vital Signs/Intake and Output Vital Signs (last 24 hours): Temp Pulse Resp BP Pulse Ox 97.7 F 75 14 111/80 99 10/16/16 10:00 10/16/16 10:00 10/16/16 10:00 10/16/16 10:00 10/16/16 10:00 - Medications Medications: Current Medications Acetaminophen (Tylenol 325mg Tab) 325 mg PO Q6H PRN; Protocol PRN Reason: Fever >100.4 F Albuterol Sulfate (Albuterol 0.083% Inhal Twyla (2.5 Mg/3 Ml) Ud) 2.5 mg IH Q2H PRN; Protocol PRN Reason: Shortness of Breath Arformoterol Tartrate (Brovana) 15 mcg IH [id number] [facility] Last Admin: 10/16/16 07:18 Dose: 15 mcg Aspirin (Aspirin Chewable) 81 mg PO 0800 [facility] PRN Reason: Protocol Last Admin: 10/16/16 07:56 Dose: 81 mg Atorvastatin Calcium (Lipitor) 10 mg PO DIN [facility] PRN Reason: Protocol Last Admin: 10/15/16 18:19 Dose: 10 mg Budesonide (Pulmicort Respules) 0.5 mg IH [id number] [facility] PRN Reason: Protocol Last Admin: 10/16/16 07:18 Dose: 0.5 mg Carvedilol (Coreg) 3.125 mg PO 0800,1800 [facility] PRN Reason: Protocol Last Admin: 10/16/16 07:57 Dose: 3.125 mg Donepezil HCl (Aricept) 5 mg PO HS [facility] PRN Reason: Protocol Last Admin: 10/15/16 22:10 Dose: 5 mg Enoxaparin Sodium (Lovenox) 40 mg SC 0600 [facility] PRN Reason: Protocol Last Admin: 10/16/16 06:07 Dose: 40 mg Ferrous Sulfate (Feosol) 324 mg PO DAILY [facility] PRN Reason: Protocol Last Admin: 10/13/16 10:16 Dose: 324 mg Ibuprofen (Motrin Tab) 800 mg PO Q8H PRN; Protocol PRN Reason: Pain, Mild (1-3) Levalbuterol HCl (Xopenex) 0.63 mg IH Q2H PRN; Protocol PRN Reason: Shortness of Breath Levalbuterol HCl (Xopenex) 0.63 mg IH [id number] [facility] PRN Reason: Protocol Last Admin: 10/16/16 07:18 Dose: 0.63 mg Levetiracetam (Keppra) 750 mg PO DAILY [facility] PRN Reason: Protocol Last Admin: 10/16/16 10:20 Dose: 750 mg Lisinopril (Zestril) 2.5 mg PO DAILY [facility] PRN Reason: Protocol Loratadine (Claritin) 10 mg PO DAILY [facility] PRN Reason: Protocol Last Admin: 10/16/16 10:15 Dose: 10 mg Methimazole (Tapazole) 5 mg PO DAILY [facility] PRN Reason: Protocol Last Admin: 10/16/16 10:16 Dose: 5 mg Ondansetron HCl (Zofran Inj) 8 mg IVP Q6H PRN; Protocol PRN Reason: Nausea/Vomiting Pantoprazole Sodium (Protonix Ec Tab) 40 mg PO 0630 [facility] PRN Reason: Protocol Last Admin: 10/16/16 07:36 Dose: 40 mg Polyethylene Glycol (Miralax) 17 gm PO TID PRN; Protocol PRN Reason: Constipation Prednisone (Prednisone Tab) 10 mg PO DAILY [facility] Last Admin: 10/16/16 10:16 Dose: Not Given Tiotropium [place] (Spiriva) 18 mcg IH DAILY [facility] PRN Reason: Protocol Last Admin: 10/16/16 10:16 Dose: 18 mcg - Labs Labs: 10/16/16 07:45 10/16/16 07:45 - Constitutional Appears: Non-toxic, No Acute Distress - Head Exam Head Exam: ATRAUMATIC, NORMAL INSPECTION, NORMOCEPHALIC - Eye Exam Eye Exam: EOMI, Normal appearance. absent: Conjunctival injection, Scleral icterus Pupil Exam: absent: Irregular, Unequal - ENT Exam ENT Exam: Mucous Membranes Moist Additional comments: Receiving breathing treatment on via non-rebreather mask - Neck Exam Neck Exam: Normal Inspection - Respiratory Exam Respiratory Exam: Decreased Breath Sounds (mildly decreased breath sounds all avila), Clear to Ausculation Bilateral, Wheezes (upper airway end-expiratory wheezes on initial exam, resolved by time of repeat exam), NORMAL BREATHING PATTERN. absent: Accessory Muscle Use, Chest Wall Tenderness, Rales, Rhonchi, Respiratory Distress, Stridor - Cardiovascular Exam Cardiovascular Exam: REGULAR RHYTHM, RRR, +S1, +S2. absent: Bradycardia, Tachycardia, Irregular Rhythm, +S4 - GI/Abdominal Exam GI & Abdominal Exam: Soft, Normal Bowel Sounds. absent: Distended, Firm, Rigid , Tenderness, Diminished Bowel Sounds, Hyperactive Bowel Sounds, Hypoactive Bowel Sounds - Extremities Exam Extremities Exam: absent: Calf Tenderness, Joint Swelling, Pedal Edema, Tenderness - Back Exam Back Exam: absent: rash noted - Neurological Exam Additional comments: Resting but easily aroused, awake and alert but loses focus easily/quickly, requiring frequent re-orientation - Psychiatric Exam Psychiatric exam: Normal Affect, Normal Mood Additional comments: Forgetful/easily loses focus requiring frequent reorientation - Skin Skin Exam: Dry, Intact, Normal Color, Warm Assessment and Plan - Assessment and Plan (Free Text) Assessment: This is an 81 yo AA F with PMH of AAA, CVA, CHF (LVEF 28% on echo from 06/2016), NSTEMI, COPD, chronic anemia, HTN, seizures, dementia, cataracts, and hyperthyroidism who initially presented to [facility] with shortness of breath and wheezing secondary likely secondary to COPD exacerbation, and is now in the TCU for rehab. As per patient's daughter (primary caregiver), patient's care needs have become too much for the daughter, so the daughter is seeking placement for her mother. Plan: 1) COPD Exacerbation -Continue with prednisone taper , now down to 10mg PO daily as per Pulm -Continue xopenex and budesonide per pulmonary recommendations -Oxygen via NC; titrate to SaO2 >90% -CXR reviewed -Blood cultures negative x5 days -Leukocytosis improved but persists, likely secondary to steroids -Pulm (Dr. Galvan) following, appreciate all recs 2) Compensated CHF -LVEF 28% on echo from 06/2016 -BNP elevated however no significant pulmonary edema on CXR, lower extremity edema, or JVD -CXR reviewed -EKG revealed sinus rhythm at 90bpm with left axis deviation, t wave inversions in lateral leads seen on prior EKG -Cardiology (Dr. Lopez) consulted, appreciate all recs 3) Constipation -Miralax PRN 4) CAD -Continue ASA, lipitor, coreg 5) Dementia -Continue aricept 6) Hyperthyroidism -Continue methimazole Dispo: TCU, pending placement for long-term care FEN: Heart-healthy diet Access: Peripheral IVs Consults: Pulm, Cardio, Palliative Ppx: Protonix for GI, Lovenox for DVT Patient seen, reviewed, and discussed with attending, Dr. Walsh.
[2016-10-17] MEDS: Levalbuterol 0.63 MG/3 ML Inhal Soln UD IH SCH ×4 (02:00→20:55)
[2016-10-17] MEDS: Enoxaparin 40 mg Syringe SC SCH (05:52)
[2016-10-17] MEDS: Pantoprazole 40 mg EC Tab PO SCH (05:52)
[2016-10-17] MEDS: Budesonide 0.5 mg/2 ml Inhal Susp UD IH SCH ×2 (07:22→20:55)
[2016-10-17] MEDS: Arformoterol 15 mcg/2 ml Inh Sol IH SCH ×2 (07:22→20:56)
--- NOTE | 2016-10-17 08:43 | PN ---
DATE: 10/17/2016 SUBJECTIVE: The patient appears very comfortable this morning. She is not short of breath at rest. PHYSICAL EXAMINATION: VITAL SIGNS: Temperature is 97.8, pulse 61, respirations 18, blood pressure 141 /80. Oxygen saturation on nasal cannula ranges between 92%-100%. HEENT: Normocephalic, atraumatic. No JVD. CARDIOVASCULAR: Systolic ejection murmur at the lower left sternal border. No S3 gallop. LUNGS: Clear bilaterally. EXTREMITIES: No clubbing, cyanosis, or edema. Calves are nontender to palpation. GASTROINTESTINAL: Abdomen is soft, nontender, nondistended. Bowel sounds are positive. SKIN: No acute rash. NEUROLOGIC: Limited at the present time. IMPRESSION: 1. Recurrent bronchitis. 2. Advanced chronic obstructive pulmonary disease -- on home oxygen. 3. Coronary artery disease. 4. Failure to thrive. PLAN: The patient appears very comfortable this morning. She is not short of breath at rest. She does state to feeling much better overall. On physical exam, her lungs remain clear. I will continue with the current nebulizer treatments and low-dose oral steroids (decreased yesterday) for now. Clinical status of this patient is significantly improved -- compared to the initial presentation. However, again, the overall status/prognosis for this elderly patient -- with advanced lung disease -- does remain very guarded. I will discuss the above with Dr. Walsh. Dylon Galvan MD cc: [phone] TT: 10/17/2016 08:43:02 Confirmation # [id number] Dictation # [id number] MTDD
[2016-10-17] MEDS: Tiotropium 18 mcg Cap For Inhalation IH SCH (09:47)
[2016-10-17] MEDS: methIMAzole 5 MG TAB PO SCH (09:47)
[2016-10-17] MEDS: levETIRAcetam Solution 100 MG/ML BOTTLE PO SCH (09:50)
--- NOTE | 2016-10-17 15:03 | PN ---
DATE: 10/17/2016 The patient is in the TCU, undergoing physical therapy in the gym. The patient is not happy about th e work that she needs to do. However, she is without shortness of breath. PHYSICAL EXAMINATION: VITAL SIGNS: Blood pressure is 103/76, the heart rate is in the 70s. NECK: Negative JVD. LUNGS: Without rales. HEART: Revealed S1, S2. EXTREMITIES: Without edema. No labs were drawn today. IMPRESSION: 1. Congestive heart failure, resolved. 2. Dilated cardiomyopathy. 3. Chronic obstructive pulmonary disease. 4. Pulmonary hypertension. 5. Renal insufficiency. Given these findings, her blood pressure is well controlled. I have encouraged the patient to do her best to continue with physical therapy. Carlos Lopez MD cc: [phone] TT: 10/17/2016 15:02:17 Confirmation # [id number] Dictation # [id number]
[2016-10-18] MEDS: Levalbuterol 0.63 MG/3 ML Inhal Soln UD IH SCH ×4 (02:05→22:22)
[2016-10-18] MEDS: Enoxaparin 40 mg Syringe SC SCH (05:34)
[2016-10-18] MEDS: Pantoprazole 40 mg EC Tab PO SCH (05:35)
[2016-10-18] MEDS: Budesonide 0.5 mg/2 ml Inhal Susp UD IH SCH ×2 (07:38→22:23)
[2016-10-18] MEDS: Arformoterol 15 mcg/2 ml Inh Sol IH SCH ×2 (07:38→22:22)
[2016-10-18 09:37] LABS: ADD MANUAL DIFF? NO
[2016-10-18 09:39] LABS: BASO # 0.01 K/mm3 (0.0-2.0); BASO % 0.1 % (0.0-3.0); EOS # 0.2 (0.0-0.7); GRAN # 8.39 (1.4-6.5); HEMATOCRIT 41.7 % (36.0-48.0); LYMPH # 0.7 (1.2-3.4); LYMPH % 6.9 % (22.0-35.0); MEAN CELL VOLUME 85.1 fL (80.0-105.0); MEAN CORPUSCULAR HEMOGLOBIN 27.6 pg (25.0-35.0); MEAN CORPUSCULAR HGB CONC 32.4 g/dl (31.0-37.0); MONO # 0.5 (0.1-0.6); PLATELET COUNT 344 10^3/uL (120.0-450.0); RED CELL DISTRIBUTION WIDTH 19.2 % (11.5-14.5); WHITE BLOOD COUNT 9.8 10^3/ul (4.5-11.0)
[2016-10-18 09:48] LABS: CALCIUM 8.3 mg/dL (8.4-10.5); PHOSPHOROUS 2.1 mg/dL (2.5-4.5); POTASSIUM 3.8 mmol/L (3.6-5.0)
[2016-10-18] MEDS: Tiotropium 18 mcg Cap For Inhalation IH SCH (10:44)
[2016-10-18] MEDS: methIMAzole 5 MG TAB PO SCH (10:48)
[2016-10-18] MEDS: levETIRAcetam Solution 100 MG/ML BOTTLE PO SCH (11:36)
--- NOTE | 2016-10-18 14:30 | CP.PCM.PN ---
Subjective - Date & Time of Evaluation Date of Evaluation: 10/18/16 Time of Evaluation: 13:00 - Subjective Subjective: Alert, oriented to place and self. Offers no complaints Objective - Vital Signs/Intake and Output Vital Signs (last 24 hours): Temp Pulse Resp BP Pulse Ox 98.4 F 86 14 108/79 100 10/18/16 10:00 10/18/16 10:00 10/18/16 10:00 10/18/16 10:00 10/18/16 10:00 Intake and Output: 10/18/16 10/18/16 06:59 18:59 Intake Total 600 420 Balance 600 420 - Medications Medications: Current Medications Acetaminophen (Tylenol 325mg Tab) 325 mg PO Q6H PRN; Protocol PRN Reason: Fever >100.4 F Albuterol Sulfate (Albuterol 0.083% Inhal Twyla (2.5 Mg/3 Ml) Ud) 2.5 mg IH Q2H PRN; Protocol PRN Reason: Shortness of Breath Arformoterol Tartrate (Brovana) 15 mcg IH [id number] [facility] Last Admin: 10/18/16 07:38 Dose: 15 mcg Aspirin (Aspirin Chewable) 81 mg PO 0800 [facility] PRN Reason: Protocol Last Admin: 10/18/16 08:18 Dose: 81 mg Atorvastatin [place] (Lipitor) 10 mg PO DIN [facility] PRN Reason: Protocol Last Admin: 10/17/16 17:17 Dose: 10 mg Budesonide (Pulmicort Respules) 0.5 mg IH [id number] [facility] PRN Reason: Protocol Last Admin: 10/18/16 07:38 Dose: 0.5 mg Carvedilol (Coreg) 3.125 mg PO 0800,1800 [facility] PRN Reason: Protocol Last Admin: 10/18/16 08:19 Dose: 3.125 mg Donepezil HCl (Aricept) 5 mg PO HS [facility] PRN Reason: Protocol Last Admin: 10/17/16 21:20 Dose: 5 mg Enoxaparin Sodium (Lovenox) 40 mg SC 0600 [facility] PRN Reason: Protocol Last Admin: 10/18/16 05:34 Dose: 40 mg Ferrous Sulfate (Feosol) 324 mg PO DAILY [facility] PRN Reason: Protocol Last Admin: 10/13/16 10:16 Dose: 324 mg Ibuprofen (Motrin Tab) 800 mg PO Q8H PRN; Protocol PRN Reason: Pain, Mild (1-3) Levalbuterol HCl (Xopenex) 0.63 mg IH Q2H PRN; Protocol PRN Reason: Shortness of Breath Levalbuterol HCl (Xopenex) 0.63 mg IH [id number] [facility] PRN Reason: Protocol Last Admin: 10/18/16 13:43 Dose: 0.63 mg Levetiracetam (Keppra) 750 mg PO DAILY [facility] PRN Reason: Protocol Last Admin: 10/18/16 11:36 Dose: 750 mg Lisinopril (Zestril) 2.5 mg PO DAILY [facility] PRN Reason: Protocol Loratadine (Claritin) 10 mg PO DAILY [facility] PRN Reason: Protocol Last Admin: 10/18/16 10:38 Dose: 10 mg Methimazole (Tapazole) 5 mg PO DAILY [facility] PRN Reason: Protocol Last Admin: 10/18/16 10:48 Dose: 5 mg Ondansetron HCl (Zofran Inj) 8 mg IVP Q6H PRN; Protocol PRN Reason: Nausea/Vomiting Pantoprazole Sodium (Protonix Ec Tab) 40 mg PO 0630 [facility] PRN Reason: Protocol Last Admin: 10/18/16 05:35 Dose: 40 mg Polyethylene Glycol (Miralax) 17 gm PO TID PRN; Protocol PRN Reason: Constipation Prednisone (Prednisone Tab) 10 mg PO 0800 [facility] PRN Reason: Protocol Last Admin: 10/18/16 08:20 Dose: 10 mg Tiotropium [place] (Spiriva) 18 mcg IH DAILY [facility] PRN Reason: Protocol Last Admin: 10/18/16 10:44 Dose: 18 mcg - Labs Labs: 10/18/16 08:00 10/18/16 08:00 - Constitutional Appears: No Acute Distress, Chronically Ill - Eye Exam Eye Exam: Normal appearance, PERRL - ENT Exam ENT Exam: Normal Exam - Respiratory Exam Respiratory Exam: Decreased Breath Sounds, NORMAL BREATHING PATTERN - Cardiovascular Exam Cardiovascular Exam: REGULAR RHYTHM, +S1 - GI/Abdominal Exam GI & Abdominal Exam: Soft, Normal Bowel Sounds - Extremities Exam Extremities Exam: Normal Capillary Refill, Pedal Edema - Neurological Exam Neurological Exam: Alert - Skin Skin Exam: Dry, Warm Assessment and Plan - Assessment and Plan (Free Text) Assessment: 81 year old female admitted to [facility] for deconditoning. Patient is alert. DaughterJinny is at bedside. We discussed resuscitation wishes. Patient states she does not want CPR or intubation if her condition worsens. She is undecided about permanent feeding tube placement. A POLST was completed. The patients daughterJinny is named as her health care surrogate. Time spent in advance care planning discussion & POLST, 30 minutes. Plan: POLST completed
--- NOTE | 2016-10-18 16:16 | CP.PCM.PN ---
Subjective - Date & Time of Evaluation Date of Evaluation: 10/18/16 Time of Evaluation: 07:30 - Subjective Subjective: Internal Medicine Progress Note for Dr. Walsh/Dr. Soriano Service Patient seen and examined at bedside in the TCU. Today is TCU day 6. No acute events overnight. Denies complaints this AM, including chest pain, shortness of breath, pain with breathing, fever/chills, abdominal pain, or diarrhea. Pending placement for long-term care. Objective - Vital Signs/Intake and Output Vital Signs (last 24 hours): Temp Pulse Resp BP Pulse Ox 98.4 F 86 14 108/79 100 10/18/16 10:00 10/18/16 10:00 10/18/16 10:00 10/18/16 10:00 10/18/16 10:00 Intake and Output: 10/18/16 10/18/16 06:59 18:59 Intake Total 600 420 Balance 600 420 - Medications Medications: Current Medications Acetaminophen (Tylenol 325mg Tab) 325 mg PO Q6H PRN; Protocol PRN Reason: Fever >100.4 F Albuterol Sulfate (Albuterol 0.083% Inhal Twyla (2.5 Mg/3 Ml) Ud) 2.5 mg IH Q2H PRN; Protocol PRN Reason: Shortness of Breath Arformoterol Tartrate (Brovana) 15 mcg IH [id number] [facility] Last Admin: 10/18/16 07:38 Dose: 15 mcg Aspirin (Aspirin Chewable) 81 mg PO 0800 [facility] PRN Reason: Protocol Last Admin: 10/18/16 08:18 Dose: 81 mg Atorvastatin Calcium (Lipitor) 10 mg PO DIN [facility] PRN Reason: Protocol Last Admin: 10/17/16 17:17 Dose: 10 mg Budesonide (Pulmicort Respules) 0.5 mg IH [id number] [facility] PRN Reason: Protocol Last Admin: 10/18/16 07:38 Dose: 0.5 mg Carvedilol (Coreg) 3.125 mg PO 0800,1800 [facility] PRN Reason: Protocol Last Admin: 10/18/16 08:19 Dose: 3.125 mg Donepezil HCl (Aricept) 5 mg PO HS [facility] PRN Reason: Protocol Last Admin: 10/17/16 21:20 Dose: 5 mg Enoxaparin Sodium (Lovenox) 40 mg SC 0600 [facility] PRN Reason: Protocol Last Admin: 10/18/16 05:34 Dose: 40 mg Ferrous Sulfate (Feosol) 324 mg PO DAILY [facility] PRN Reason: Protocol Last Admin: 10/13/16 10:16 Dose: 324 mg Ibuprofen (Motrin Tab) 800 mg PO Q8H PRN; Protocol PRN Reason: Pain, Mild (1-3) Levalbuterol HCl (Xopenex) 0.63 mg IH Q2H PRN; Protocol PRN Reason: Shortness of Breath Levalbuterol HCl (Xopenex) 0.63 mg IH [id number] [facility] PRN Reason: Protocol Last Admin: 10/18/16 13:43 Dose: 0.63 mg Levetiracetam (Keppra) 750 mg PO DAILY [facility] PRN Reason: Protocol Last Admin: 10/18/16 11:36 Dose: 750 mg Lisinopril (Zestril) 2.5 mg PO DAILY [facility] PRN Reason: Protocol Loratadine (Claritin) 10 mg PO DAILY [facility] PRN Reason: Protocol Last Admin: 10/18/16 10:38 Dose: 10 mg Methimazole (Tapazole) 5 mg PO DAILY [facility] PRN Reason: Protocol Last Admin: 10/18/16 10:48 Dose: 5 mg Ondansetron HCl (Zofran Inj) 8 mg IVP Q6H PRN; Protocol PRN Reason: Nausea/Vomiting Pantoprazole Sodium (Protonix Ec Tab) 40 mg PO 0630 [facility] PRN Reason: Protocol Last Admin: 10/18/16 05:35 Dose: 40 mg Polyethylene Glycol (Miralax) 17 gm PO TID PRN; Protocol PRN Reason: Constipation Prednisone (Prednisone Tab) 10 mg PO 0800 [facility] PRN Reason: Protocol Last Admin: 10/18/16 08:20 Dose: 10 mg Tiotropium [place] (Spiriva) 18 mcg IH DAILY [facility] PRN Reason: Protocol Last Admin: 10/18/16 10:44 Dose: 18 mcg - Labs Labs: 10/18/16 08:00 10/18/16 08:00 - Additional Findings Additional findings: - Constitutional Appears: Non-toxic, No Acute Distress - Head Exam Head Exam: ATRAUMATIC, NORMAL INSPECTION, NORMOCEPHALIC - Eye Exam Eye Exam: EOMI, Normal appearance. absent: Conjunctival injection, Scleral icterus Pupil Exam: absent: Irregular, Unequal - ENT Exam ENT Exam: Mucous Membranes Moist - Neck Exam Neck Exam: Normal Inspection - Respiratory Exam Respiratory Exam: Decreased Breath Sounds (mildly decreased breath sounds all avila), Clear to Ausculation Bilateral, Wheezes (faint upper airway end- expiratory wheezes), NORMAL BREATHING PATTERN. absent: Accessory Muscle Use, Chest Wall Tenderness, Rales, Rhonchi, Respiratory Distress, Stridor - Cardiovascular Exam Cardiovascular Exam: REGULAR RHYTHM, RRR, +S1, +S2. absent: Bradycardia, Tachycardia, Irregular Rhythm, +S4 - GI/Abdominal Exam GI & Abdominal Exam: Soft, Normal Bowel Sounds. absent: Distended, Firm, Rigid , Tenderness, Diminished Bowel Sounds, Hyperactive Bowel Sounds, Hypoactive Bowel Sounds - Extremities Exam Extremities Exam: absent: Calf Tenderness, Joint Swelling, Pedal Edema, Tenderness - Back Exam Back Exam: absent: rash noted - Neurological Exam Neurological Exam: Awake and alert, moving all extremities spontaneously, following all commands - Psychiatric Exam Psychiatric exam: Normal Affect, Normal Mood - Skin Skin Exam: Dry, Intact, Normal Color, Warm Assessment and Plan - Assessment and Plan (Free Text) Assessment: This is an 81 yo AA F with PMH of AAA, CVA, CHF (LVEF 28% on echo from 06/2016), NSTEMI, COPD, chronic anemia, HTN, seizures, dementia, cataracts, and hyperthyroidism who initially presented to [facility] with shortness of breath and wheezing secondary likely secondary to COPD exacerbation, and is now in the TCU for rehab. As per patient's daughter (primary caregiver), patient's care needs have become too much for the daughter, so the daughter is seeking placement for her mother. Plan: 1) COPD Exacerbation -Continue with prednisone taper, now down to 10mg PO daily as per Pulm -Continue xopenex and budesonide per pulmonary recommendations -Oxygen via NC; titrate to SaO2 >90% -CXR reviewed -Blood cultures negative x5 days -Leukocytosis improved, 9.8 today -Pulm (Dr. Galvan) following, appreciate all recs 2) Compensated CHF -LVEF 28% on echo from 06/2016 -BNP elevated however no significant pulmonary edema on CXR, lower extremity edema, or JVD -CXR reviewed -EKG revealed sinus rhythm at 90bpm with left axis deviation, t wave inversions in lateral leads seen on prior EKG -Cardiology (Dr. Lopez) consulted, appreciate all recs 3) Constipation -Miralax PRN 4) CAD -Continue ASA, lipitor, coreg 5) Dementia -Continue aricept 6) Hyperthyroidism -Continue methimazole Dispo: TCU, pending placement for long-term care FEN: Heart-healthy diet Access: Peripheral IVs Consults: Pulm, Cardio, Palliative Ppx: Protonix for GI, Lovenox for DVT Patient seen, reviewed, and discussed with attending, Dr. Walsh.
[2016-10-19] MEDS: Levalbuterol 0.63 MG/3 ML Inhal Soln UD IH SCH ×4 (01:30→20:41)
[2016-10-19] MEDS: Enoxaparin 40 mg Syringe SC SCH (05:23)
[2016-10-19] MEDS: Pantoprazole 40 mg EC Tab PO SCH (05:31)
[2016-10-19] MEDS: Arformoterol 15 mcg/2 ml Inh Sol IH SCH ×2 (07:27→20:40)
[2016-10-19] MEDS: Budesonide 0.5 mg/2 ml Inhal Susp UD IH SCH ×2 (07:28→20:41)
[2016-10-19] MEDS: Tiotropium 18 mcg Cap For Inhalation IH SCH (09:14)
[2016-10-19] MEDS: methIMAzole 5 MG TAB PO SCH (09:15)
[2016-10-19] MEDS: levETIRAcetam Solution 100 MG/ML BOTTLE PO SCH (10:27)
[2016-10-20] MEDS: Levalbuterol 0.63 MG/3 ML Inhal Soln UD IH SCH ×4 (01:12→20:35)
[2016-10-20] MEDS: Pantoprazole 40 mg EC Tab PO SCH (05:49)
[2016-10-20] MEDS: Enoxaparin 40 mg Syringe SC SCH (05:49)
[2016-10-20] MEDS: Arformoterol 15 mcg/2 ml Inh Sol IH SCH ×2 (07:39→20:35)
[2016-10-20] MEDS: Budesonide 0.5 mg/2 ml Inhal Susp UD IH SCH ×2 (07:39→20:35)
--- NOTE | 2016-10-20 09:33 | PN ---
DATE: 10/20/2016 The patient was seen and examined at bedside in transitional care unit. She is currently receiving i nhalation therapy with albuterol only as an emergency, otherwise she is receiving Brovana and budeson jayjay by inhalation. She is also on oral prednisone at 10 mg. PHYSICAL EXAMINATION: HEAD, EARS, NOSE AND THROAT: Within normal limits. NECK: Supple with no jugular vein distention. CHEST: Symmetrical. HEART: S1, S2. No S3. Regular. LUNGS: Diminished breath sounds at both bases, few wheezes. GASTROINTESTINAL: Soft, nontender with no organomegaly. EXTREMITIES: No edema. NEUROLOGIC: Limited at present time. SKIN: Clear with no skin rashes. ASSESSMENT: 1. Resolving acute bronchitis. 2. Advanced chronic obstructive pulmonary disease, on home oxygen. 3. Coronary artery disease. PLAN: The patient continues to improve. We will keep on current inhalation therapy and low dose baljit roids. We will recheck p.r.n. Nicholas Alexis MD cc: [id number] TT: 10/20/2016 09:32:41 Confirmation # [id number] Dictation # [id number]
[2016-10-20] MEDS: methIMAzole 5 MG TAB PO SCH (10:51)
[2016-10-20] MEDS: Tiotropium 18 mcg Cap For Inhalation IH SCH (10:51)
[2016-10-20] MEDS: levETIRAcetam Solution 100 MG/ML BOTTLE PO SCH (10:57)
[2016-10-20 11:45] LABS: ADD MANUAL DIFF? NO
[2016-10-20 11:47] LABS: BASO # 0.02 K/mm3 (0.0-2.0); BASO % 0.2 % (0.0-3.0); EOS # 0.2 (0.0-0.7); EOS % 1.6 % (1.5-5.0); GRAN # 10.36 (1.4-6.5); GRAN % 89.5 % (50.0-68.0); HEMATOCRIT 43.3 % (36.0-48.0); LYMPH # 0.5 (1.2-3.4); LYMPH % 4.5 % (22.0-35.0); MEAN CELL VOLUME 84.9 fL (80.0-105.0); MEAN CORPUSCULAR HEMOGLOBIN 28.2 pg (25.0-35.0); MEAN CORPUSCULAR HGB CONC 33.3 g/dl (31.0-37.0); MEAN PLATELET VOLUME 10.8 fl (7.0-11.0); MONO # 0.5 (0.1-0.6); MONO % 4.2 % (1.0-6.0); PLATELET COUNT 391 10^3/uL (120.0-450.0); RED CELL DISTRIBUTION WIDTH 18.7 % (11.5-14.5); WHITE BLOOD COUNT 11.6 10^3/ul (4.5-11.0)
[2016-10-20 12:01] LABS: CALCIUM 8.9 mg/dL (8.4-10.5); MAGNESIUM 2.3 mg/dL (1.7-2.2); PHOSPHOROUS 2.7 mg/dL (2.5-4.5)
--- NOTE | 2016-10-20 13:35 | CP.PCM.PN ---
Subjective - Date & Time of Evaluation Date of Evaluation: 10/20/16 Time of Evaluation: 07:55 - Subjective Subjective: Internal Medicine Progress Note for Dr. Walsh/Dr. Soriano Service Patient seen and examined at bedside in the TCU. Today is TCU day 8. No acute events overnight. Denies complaints this AM, including chest pain, shortness of breath, pain with breathing, fever/chills, abdominal pain, or diarrhea. Still pending placement for home health aide care. Unsafe to discharge. Objective - Vital Signs/Intake and Output Vital Signs (last 24 hours): Temp Pulse Resp BP Pulse Ox 98.3 F 74 16 129/83 97 10/19/16 06:00 10/20/16 08:26 10/19/16 12:17 10/20/16 08:26 10/19/16 12:17 - Medications Medications: Current Medications Acetaminophen (Tylenol 325mg Tab) 325 mg PO Q6H PRN; Protocol PRN Reason: Fever >100.4 F Albuterol Sulfate (Albuterol 0.083% Inhal Twyla (2.5 Mg/3 Ml) Ud) 2.5 mg IH Q2H PRN; Protocol PRN Reason: Shortness of Breath Arformoterol Tartrate (Brovana) 15 mcg IH [id number] [facility] Last Admin: 10/20/16 07:39 Dose: 15 mcg Aspirin (Aspirin Chewable) 81 mg PO 0800 [facility] PRN Reason: Protocol Last Admin: 10/20/16 08:26 Dose: 81 mg Atorvastatin Calcium (Lipitor) 10 mg PO DIN [facility] PRN Reason: Protocol Last Admin: 10/19/16 17:41 Dose: 10 mg Budesonide (Pulmicort Respules) 0.5 mg IH [id number] [facility] PRN Reason: Protocol Last Admin: 10/20/16 07:39 Dose: 0.5 mg Carvedilol (Coreg) 3.125 mg PO 0800,1800 [facility] PRN Reason: Protocol Last Admin: 10/20/16 08:26 Dose: 3.125 mg Donepezil HCl (Aricept) 5 mg PO HS [facility] PRN Reason: Protocol Last Admin: 10/19/16 21:30 Dose: 5 mg Enoxaparin Sodium (Lovenox) 40 mg SC 0600 [facility] PRN Reason: Protocol Last Admin: 10/20/16 05:49 Dose: 40 mg Ferrous Sulfate (Feosol) 324 mg PO DAILY [facility] PRN Reason: Protocol Last Admin: 10/13/16 10:16 Dose: 324 mg Ibuprofen (Motrin Tab) 800 mg PO Q8H PRN; Protocol PRN Reason: Pain, Mild (1-3) Levalbuterol HCl (Xopenex) 0.63 mg IH Q2H PRN; Protocol PRN Reason: Shortness of Breath Levalbuterol HCl (Xopenex) 0.63 mg IH [id number] [facility] PRN Reason: Protocol Last Admin: 10/20/16 07:40 Dose: 0.63 mg Levetiracetam (Keppra) 750 mg PO DAILY [facility] PRN Reason: Protocol Last Admin: 10/20/16 10:57 Dose: 750 mg Lisinopril (Zestril) 2.5 mg PO DAILY [facility] PRN Reason: Protocol Loratadine (Claritin) 10 mg PO DAILY [facility] PRN Reason: Protocol Last Admin: 10/20/16 10:50 Dose: 10 mg Methimazole (Tapazole) 5 mg PO DAILY [facility] PRN Reason: Protocol Last Admin: 10/20/16 10:51 Dose: 5 mg Ondansetron HCl (Zofran Inj) 8 mg IVP Q6H PRN; Protocol PRN Reason: Nausea/Vomiting Pantoprazole Sodium (Protonix Ec Tab) 40 mg PO 0630 [facility] PRN Reason: Protocol Last Admin: 10/20/16 05:49 Dose: 40 mg Polyethylene Glycol (Miralax) 17 gm PO TID PRN; Protocol PRN Reason: Constipation Prednisone (Prednisone Tab) 10 mg PO 0800 [facility] PRN Reason: Protocol Last Admin: 10/20/16 08:26 Dose: 10 mg Tiotropium [place] (Spiriva) 18 mcg IH DAILY [facility] PRN Reason: Protocol Last Admin: 10/20/16 10:51 Dose: 18 mcg - Labs Labs: 10/20/16 11:30 10/20/16 11:30 - Additional Findings Additional findings: - Constitutional Appears: Non-toxic, No Acute Distress - Head Exam Head Exam: ATRAUMATIC, NORMAL INSPECTION, NORMOCEPHALIC - Eye Exam Eye Exam: EOMI, Normal appearance. absent: Conjunctival injection, Scleral icterus Pupil Exam: absent: Irregular, Unequal - ENT Exam ENT Exam: Mucous Membranes Moist - Neck Exam Neck Exam: Normal Inspection - Respiratory Exam Respiratory Exam: Decreased Breath Sounds (mildly decreased breath sounds all avila), Clear to Ausculation Bilateral, Wheezes (increased upper airway end- expiratory wheezes), NORMAL BREATHING PATTERN. absent: Accessory Muscle Use, Chest Wall Tenderness, Rales, Rhonchi, Respiratory Distress, Stridor - Cardiovascular Exam Cardiovascular Exam: REGULAR RHYTHM, RRR, +S1, +S2. absent: Bradycardia, Tachycardia, Irregular Rhythm, +S4 - GI/Abdominal Exam GI & Abdominal Exam: Soft, Normal Bowel Sounds. absent: Distended, Firm, Rigid , Tenderness, Diminished Bowel Sounds, Hyperactive Bowel Sounds, Hypoactive Bowel Sounds - Extremities Exam Extremities Exam: absent: Calf Tenderness, Joint Swelling, Pedal Edema, Tenderness - Back Exam Back Exam: absent: rash noted - Neurological Exam Neurological Exam: Awake and alert, moving all extremities spontaneously, following all commands - Psychiatric Exam Psychiatric exam: Normal Affect, Normal Mood - Skin Skin Exam: Dry, Intact, Normal Color, Warm Assessment and Plan - Assessment and Plan (Free Text) Assessment: This is an 81 yo AA F with PMH of AAA, CVA, CHF (LVEF 28% on echo from 06/2016), NSTEMI, COPD, chronic anemia, HTN, seizures, dementia, cataracts, and hyperthyroidism who initially presented to [facility] with shortness of breath and wheezing secondary likely secondary to COPD exacerbation, and is now in the TCU for rehab. As per patient's daughter (primary caregiver), patient's care needs have become too much for the daughter, so the daughter is seeking placement for her mother. Placement still pending, so discharge unsafe at this time. Plan: 1) COPD Exacerbation -10mh PO daily of prednisone currently, but more wheezing today, so will increase back up to 20mg daily. -Continue xopenex and budesonide per pulmonary recommendations -Oxygen via NC; titrate to SaO2 >90% -CXR reviewed -Blood cultures negative x5 days -Leukocytosis improved, 9.8 today -Pulm (Dr. Galvan) following, appreciate all recs 2) Compensated CHF -LVEF 28% on echo from 06/2016 -BNP elevated however no significant pulmonary edema on CXR, lower extremity edema, or JVD -CXR reviewed -EKG revealed sinus rhythm at 90bpm with left axis deviation, t wave inversions in lateral leads seen on prior EKG -Cardiology (Dr. Lopez) consulted, appreciate all recs 3) Constipation -Miralax PRN 4) CAD -Continue ASA, lipitor, coreg 5) Dementia -Continue aricept 6) Hyperthyroidism -Continue methimazole Dispo: TCU, pending placement for long-term care FEN: Heart-healthy diet Access: Peripheral IVs Consults: Pulm, Cardio, Palliative Ppx: Protonix for GI, Lovenox for DVT Patient seen, reviewed, and discussed with attending, Dr. Soriano.
[2016-10-21] MEDS: Levalbuterol 0.63 MG/3 ML Inhal Soln UD IH SCH ×4 (03:00→21:23)
[2016-10-21] MEDS: Enoxaparin 40 mg Syringe SC SCH (05:18)
[2016-10-21] MEDS: Pantoprazole 40 mg EC Tab PO SCH (05:32)
[2016-10-21] MEDS: Budesonide 0.5 mg/2 ml Inhal Susp UD IH SCH ×2 (07:50→21:22)
[2016-10-21] MEDS: Arformoterol 15 mcg/2 ml Inh Sol IH SCH ×2 (07:50→21:22)
[2016-10-21] MEDS: methIMAzole 5 MG TAB PO SCH (10:50)
[2016-10-21] MEDS: levETIRAcetam Solution 100 MG/ML BOTTLE PO SCH (10:50)
[2016-10-21] MEDS: Tiotropium 18 mcg Cap For Inhalation IH SCH (10:50)
--- NOTE | 2016-10-21 14:17 | PN ---
DATE: 10/21/2016 The patient is an 81-year-old female, seen and examined at bedside. Currently, she is comfortable, n o chest pain. She is very lethargic at this point though with positive chills, no fevers, no nausea, no vomiting. The patient, at this point, is waiting for discharge to a long-term care due to an uns afe discharge to home. PHYSICAL EXAMINATION: VITAL SIGNS: Blood pressure is currently 106/74, pulse rate of 98, temperature is 98.8, O2 saturatio n is 95% on room air. HEENT: Normocephalic, atraumatic. [place] conjunctivae, nonicteric sclerae. NECK: No JVD. No thyromegaly. CARDIOVASCULAR: Tachycardic, regular rate and rhythm. S1, S2 appreciated. No S3 noted. LUNGS: Bilateral air entry is positive with decrease at the base. ABDOMEN: Nondistended, nontender. Positive bowel sounds. EXTREMITIES: Peripheral pulses +2, no pitting edema. WBCs of 11.6, hemoglobin of 14.4, hematocrit of 43.3, platelets of 391. Chemistry within normal limi ts. LFTs also within normal limits. ASSESSMENT: 1. Chronic obstructive pulmonary disease exacerbation. 2. Congestive heart failure. 3. Coronary artery disease in the past. 4. Failure to thrive. 5. Unsafe discharge to home. PLAN: At this point, we will continue the current medication she is on as well as respiratory treatm ents and we will work with the social workers for long-term placement for this patient. Russ Soriano MD cc: [id number] TT: 10/21/2016 14:16:36 Confirmation # [id number] Dictation # [id number]
[2016-10-22] MEDS: Levalbuterol 0.63 MG/3 ML Inhal Soln UD IH SCH ×4 (02:01→20:10)
[2016-10-22] MEDS: Pantoprazole 40 mg EC Tab PO SCH (06:25)
[2016-10-22] MEDS: Arformoterol 15 mcg/2 ml Inh Sol IH SCH ×2 (07:41→20:09)
[2016-10-22] MEDS: Budesonide 0.5 mg/2 ml Inhal Susp UD IH SCH ×2 (07:42→20:10)
--- NOTE | 2016-10-22 08:38 | PN ---
DATE: 10/22/2016 SUBJECTIVE: The patient appears very comfortable this morning. She is not short of breath at rest. PHYSICAL EXAMINATION: VITAL SIGNS: Temperature is 98.1, pulse 87, respirations 18/20, blood pressure 110/74. Oxygen saturation on room air is 95%. HEENT: Normocephalic, atraumatic. No JVD. CARDIOVASCULAR: Systolic ejection murmur at the lower left sternal border. No S3 gallop. LUNGS: Clear bilaterally. EXTREMITIES: No clubbing, cyanosis, or edema. Calves are nontender to palpation. GASTROINTESTINAL: Abdomen is soft, nontender, nondistended. Bowel sounds are positive. SKIN: No acute rash. NEUROLOGIC: Limited at the present time. IMPRESSION: 1. Recurrent bronchitis. 2. Advanced chronic obstructive pulmonary disease - on home oxygen. 3. Coronary artery disease. 4. Failure to thrive. PLAN: The patient appears very comfortable this morning. She is not short of breath at rest. She states she is feeling much better overall. On physical exam, her lungs remain clear. Oxygen saturation on room air is now 95%. I will continue with the current pulmonary nebulizer treatments and discontinue the steroids this morning. The patient is advised to increase her activity as tolerated. Her clinical status is significantly improved - compared to the initial presentation. I will discuss the above with the attending physician. Dylon Galvan MD cc: [phone] TT: 10/22/2016 08:38:07 Confirmation # [id number] Dictation # [id number] ORTIZ
[2016-10-22] MEDS: methIMAzole 5 MG TAB PO SCH (10:10)
[2016-10-22] MEDS: Tiotropium 18 mcg Cap For Inhalation IH SCH (10:10)
[2016-10-22] MEDS: levETIRAcetam Solution 100 MG/ML BOTTLE PO SCH (10:11)
--- NOTE | 2016-10-22 10:45 | PN ---
DATE: 10/22/2016 The patient is in a chair without shortness of breath, without chest pain. PHYSICAL EXAMINATION: VITAL SIGNS: Blood pressure is 110/70. Heart rate is in the 80s. NECK: Negative JVD. LUNGS: Without rales. HEART: Reveals S1, S2 with a short systolic ejection murmur. EXTREMITIES: Without edema. LABORATORIES: Not drawn today. IMPRESSION: 1. Status post exacerbation of chronic obstructive pulmonary disease. 2. Dilated cardiomyopathy. 3. Congestive heart failure has resolved. 4. Pulmonary hypertension. 5. Renal insufficiency. PLAN: Given these findings, the patient is markedly improved since admission. Her hemodynamic statu s is stable. She will continue physical therapy. Carlos Lopez MD cc: [id number] TT: 10/22/2016 10:44:45 Confirmation # [id number] Dictation # [id number] ne
--- NOTE | 2016-10-22 22:59 | CP.PCM.DIS ---
Provider - Provider Date of Admission: 10/12/16 18:45 Attending physician: Justus Walsh MD Primary care physician: Justus Walsh MD Consults: Palliative: Paramscotty Pulm: Mandy Cardio: John Time Spent in preparation of Discharge (in minutes): 35 Diagnosis - Discharge Diagnosis (1) COPD exacerbation Status: Chronic Priority: High (2) Dementia Status: Chronic Priority: High (3) Congestive heart failure Status: Chronic Priority: Medium (4) CAD (coronary artery disease) Status: Chronic Priority: Medium Hospital Course - Lab Results Lab Results: Most Recent Lab Values WBC 11.6 10^3/ul (4.5-11.0) H 10/20/16 11:30 RBC 5.10 10^6/uL (3.5-6.1) 10/20/16 11:30 Hgb 14.4 gm/dL (12.0-16.0) 10/20/16 11:30 Hct 43.3 % (36.0-48.0) 10/20/16 11:30 MCV 84.9 fL (80.0-105.0) 10/20/16 11:30 MCH 28.2 pg (25.0-35.0) 10/20/16 11:30 MCHC 33.3 g/dl (31.0-37.0) 10/20/16 11:30 RDW 18.7 % (11.5-14.5) H 10/20/16 11:30 Plt Count 391 10^3/uL (120.0-450.0) 10/20/16 11:30 MPV 10.8 fl (7.0-11.0) 10/20/16 11:30 Gran % 89.5 % (50.0-68.0) H 10/20/16 11:30 Lymph % (Auto) 4.5 % (22.0-35.0) L 10/20/16 11:30 [place] % (Auto) 4.2 % (1.0-6.0) 10/20/16 11:30 Eos % (Auto) 1.6 % (1.5-5.0) 10/20/16 11:30 Baso % (Auto) 0.2 % (0.0-3.0) 10/20/16 11:30 Gran # 10.36 (1.4-6.5) H 10/20/16 11:30 Lymph # 0.5 (1.2-3.4) L 10/20/16 11:30 Hinds # 0.5 (0.1-0.6) 10/20/16 11:30 Eos # 0.2 (0.0-0.7) 10/20/16 11:30 Baso # 0.02 K/mm3 (0.0-2.0) 10/20/16 11:30 Sodium 139 mmol/L (132-148) 10/20/16 11:30 Potassium 4.0 mmol/L (3.6-5.0) 10/20/16 11:30 Chloride 109 mmol/L (98-107) H 10/20/16 11:30 Carbon Dioxide 21 mmol/L (21-33) 10/20/16 11:30 Anion Gap 13 (10-20) 10/20/16 11:30 BUN 35 mg/dL (7-21) H 10/20/16 11:30 Creatinine 1.1 mg/dL (0.5-1.4) 10/20/16 11:30 Est GFR ( Amer) 58 10/20/16 11:30 Est GFR (Non-Af Amer) 48 10/20/16 11:30 Random Glucose 110 mg/dL (70-110) 10/20/16 11:30 Calcium 8.9 mg/dL (8.4-10.5) 10/20/16 11:30 Phosphorus 2.7 mg/dL (2.5-4.5) 10/20/16 11:30 Magnesium 2.3 mg/dL (1.7-2.2) H 10/20/16 11:30 Total Bilirubin 0.3 mg/dL (0.2-1.3) 10/15/16 06:15 AST 19 U/L (15-39) 10/15/16 06:15 ALT 35 U/L (7-56) 10/15/16 06:15 Alkaline Phosphatase 57 U/L (38-133) 10/15/16 06:15 Total Protein 5.8 g/dL (5.8-8.3) 10/15/16 06:15 Albumin 2.9 g/dL (3.0-4.8) L 10/15/16 06:15 Globulin 2.8 gm/dL 10/15/16 06:15 Albumin/Globulin Ratio 1.0 (1.1-1.8) L 10/15/16 06:15 - Hospital Course Hospital Course: This is an 81 yo AA F with PMH of AAA, CVA, CHF (LVEF 28% on echo from 06/2016), NSTEMI, COPD, chronic anemia, HTN, seizures, dementia, cataracts, and hyperthyroidism who initially presented to [facility] with shortness of breath and wheezing secondary likely secondary to COPD exacerbation, and was later transferred to the TCU for rehab. As per patient's daughter (primary caregiver) , patient's care needs have become too much for the daughter, so the daughter sought placement for her mother. While here, patient was seen by Cardio, Pulm, and Palliative. As per Palliative, patient elected to be DNR/DNI, but remained undecided regarding placement of feeding tube if necessary. She completed a POLST and named her daughter as health care surrogate. As per Pulm, patient was fully weaned from PO steroids today, and continues on regular nebulizer treatments. As per Cardio, patient is stable and should continue with physical therapy as tolerated. As per Case Management, placement was found at two different [facility] facilities after patient's daughter's primary choices ([facility] and [facility] denied the patient due to lack of beds. The patient is medically cleared for discharge to these sites. As per Case management, patient 's daughter is refusing discharge to either site despite explanation of availability of these sites and lack of availability at sites she prefers, and is also refusing to take patient home. Case management and PMD (Dr. Soriano) will follow up with the daughter to hopefully resolve the situation. All home meds were reconciled and continued on discharge. No additional scripts were required for the patient. Patient is accepting of need for long-term care, and is herself ready to leave. Patient was then discharged. Patient seen, reviewed, and discussed with attending, Dr. Soriano. Discharge Exam - Additional Findings Additional findings: - Constitutional Appears: Non-toxic, No Acute Distress - Head Exam Head Exam: ATRAUMATIC, NORMAL INSPECTION, NORMOCEPHALIC - Eye Exam Eye Exam: EOMI, Normal appearance. absent: Conjunctival injection, Scleral icterus Pupil Exam: absent: Irregular, Unequal - ENT Exam ENT Exam: Mucous Membranes Moist - Neck Exam Neck Exam: Normal Inspection - Respiratory Exam Respiratory Exam: Decreased Breath Sounds (mildly decreased breath sounds all avila, unchanged from prior exams), Clear to Ausculation Bilateral, Wheezes ( improved upper airway end-expiratory wheezes), NORMAL BREATHING PATTERN. absent : Accessory Muscle Use, Chest Wall Tenderness, Rales, Rhonchi, Respiratory Distress, Stridor - Cardiovascular Exam Cardiovascular Exam: REGULAR RHYTHM, RRR, +S1, +S2. absent: Bradycardia, Tachycardia, Irregular Rhythm, +S4 - GI/Abdominal Exam GI & Abdominal Exam: Soft, Normal Bowel Sounds. absent: Distended, Firm, Rigid , Tenderness, Diminished Bowel Sounds, Hyperactive Bowel Sounds, Hypoactive Bowel Sounds - Extremities Exam Extremities Exam: absent: Calf Tenderness, Joint Swelling, Pedal Edema, Tenderness - Neurological Exam Neurological Exam: Awake and alert, moving all extremities spontaneously, following all commands - Psychiatric Exam Psychiatric exam: Normal Affect, Normal Mood - Skin Skin Exam: Dry, Intact, Normal Color, Warm Discharge Plan - Follow Up Plan Condition: GOOD Disposition: NURSING FACILITY MEDICAID CERT Instructions: Heart Failure (DC), Emphysema (DC), COPD (Chronic Obstructive Pulmonary Disease) (DC), Chronic Lung Disease and Infection Prevention (DC) Referrals: Justus Walsh MD [Primary Care Provider] -
[2016-10-23] MEDS: Levalbuterol 0.63 MG/3 ML Inhal Soln UD IH SCH ×3 (02:20→13:23)
[2016-10-23] MEDS: Pantoprazole 40 mg EC Tab PO SCH (05:57)
[2016-10-23] MEDS: Arformoterol 15 mcg/2 ml Inh Sol IH SCH (07:33)
[2016-10-23] MEDS: Budesonide 0.5 mg/2 ml Inhal Susp UD IH SCH (07:33)
[2016-10-23] MEDS: Tiotropium 18 mcg Cap For Inhalation IH SCH (11:03)
[2016-10-23] MEDS: levETIRAcetam Solution 100 MG/ML BOTTLE PO SCH (11:03)
[2016-10-23] MEDS: methIMAzole 5 MG TAB PO SCH (11:03)
--- NOTE | 2016-10-23 12:51 | CP.PCM.PN ---
Subjective - Date & Time of Evaluation Date of Evaluation: 10/23/16 Time of Evaluation: 09:15 - Subjective Subjective: Internal Medicine Progress Note for Dr. Walsh/Dr. Soriano Service Patient seen and examined at bedside in the TCU. Today is TCU day 11. No acute events overnight. Denies complaints this AM, including chest pain, shortness of breath, pain with breathing, fever/chills, abdominal pain, or diarrhea. Placement was arranged, but patient's daughter (VANE) refused placement at the facilities with availabilities, and continues to insist only on facilities that do not have availability. She refuses to take the patient home as well. PMD and Case management working with patient's daughter to discharge patient. Objective - Vital Signs/Intake and Output Vital Signs (last 24 hours): Temp Pulse Resp BP Pulse Ox 98.7 F 90 20 127/89 97 10/23/16 06:00 10/23/16 08:10 10/23/16 06:00 10/23/16 08:10 10/23/16 06:00 Intake and Output: 10/23/16 10/23/16 06:59 18:59 Intake Total 420 Balance 420 - Medications Medications: Current Medications Acetaminophen (Tylenol 325mg Tab) 325 mg PO Q6H PRN; Protocol PRN Reason: Fever >100.4 F Albuterol Sulfate (Albuterol 0.083% Inhal Twyla (2.5 Mg/3 Ml) Ud) 2.5 mg IH Q2H PRN; Protocol PRN Reason: Shortness of Breath Last Admin: 10/22/16 18:31 Dose: 2.5 mg Arformoterol Tartrate (Brovana) 15 mcg IH [id number] [facility] Last Admin: 10/23/16 07:33 Dose: 15 mcg Aspirin (Aspirin Chewable) 81 mg PO 0800 [facility] PRN Reason: Protocol Last Admin: 10/23/16 08:10 Dose: 81 mg Atorvastatin Calcium (Lipitor) 10 mg PO DIN [facility] PRN Reason: Protocol Last Admin: 10/22/16 17:36 Dose: 10 mg Budesonide (Pulmicort Respules) 0.5 mg IH [id number] [facility] PRN Reason: Protocol Last Admin: 10/23/16 07:33 Dose: 0.5 mg Carvedilol (Coreg) 3.125 mg PO 0800,1800 [facility] PRN Reason: Protocol Last Admin: 10/23/16 08:10 Dose: 3.125 mg Donepezil HCl (Aricept) 5 mg PO HS [facility] PRN Reason: Protocol Last Admin: 10/22/16 21:44 Dose: 5 mg Ferrous Sulfate (Feosol) 324 mg PO DAILY [facility] PRN Reason: Protocol Last Admin: 10/13/16 10:16 Dose: 324 mg Ibuprofen (Motrin Tab) 800 mg PO Q8H PRN; Protocol PRN Reason: Pain, Mild (1-3) Levalbuterol HCl (Xopenex) 0.63 mg IH Q2H PRN; Protocol PRN Reason: Shortness of Breath Levalbuterol HCl (Xopenex) 0.63 mg IH [id number] [facility] PRN Reason: Protocol Last Admin: 10/23/16 07:33 Dose: 0.63 mg Levetiracetam (Keppra) 750 mg PO DAILY [facility] PRN Reason: Protocol Last Admin: 10/23/16 11:03 Dose: 750 mg Lisinopril (Zestril) 2.5 mg PO DAILY [facility] PRN Reason: Protocol Loratadine (Claritin) 10 mg PO DAILY [facility] PRN Reason: Protocol Last Admin: 10/23/16 11:03 Dose: 10 mg Methimazole (Tapazole) 5 mg PO DAILY [facility] PRN Reason: Protocol Last Admin: 10/23/16 11:03 Dose: 5 mg Ondansetron HCl (Zofran Inj) 8 mg IVP Q6H PRN; Protocol PRN Reason: Nausea/Vomiting Pantoprazole Sodium (Protonix Ec Tab) 40 mg PO 0630 [facility] PRN Reason: Protocol Last Admin: 10/23/16 05:57 Dose: 40 mg Polyethylene Glycol (Miralax) 17 gm PO TID PRN; Protocol PRN Reason: Constipation Tiotropium Vancleve (Spiriva) 18 mcg IH DAILY [facility] PRN Reason: Protocol Last Admin: 10/23/16 11:03 Dose: 18 mcg - Labs Labs: 10/20/16 11:30 10/20/16 11:30 - Additional Findings Additional findings: - Constitutional Appears: Non-toxic, No Acute Distress - Head Exam Head Exam: ATRAUMATIC, NORMAL INSPECTION, NORMOCEPHALIC - Eye Exam Eye Exam: EOMI, Normal appearance. absent: Conjunctival injection, Scleral icterus Pupil Exam: absent: Irregular, Unequal - ENT Exam ENT Exam: Mucous Membranes Moist - Neck Exam Neck Exam: Normal Inspection - Respiratory Exam Respiratory Exam: Decreased Breath Sounds (mildly decreased breath sounds all avila, unchanged from prior exams), Clear to Ausculation Bilateral, Wheezes ( upper airway end-expiratory wheezes, unchanged from prior exam), NORMAL BREATHING PATTERN. absent: Accessory Muscle Use, Chest Wall Tenderness, Rales, Rhonchi, Respiratory Distress, Stridor - Cardiovascular Exam Cardiovascular Exam: REGULAR RHYTHM, RRR, +S1, +S2. absent: Bradycardia, Tachycardia, Irregular Rhythm, +S4 - GI/Abdominal Exam GI & Abdominal Exam: Soft, Normal Bowel Sounds. absent: Distended, Firm, Rigid , Tenderness, Diminished Bowel Sounds, Hyperactive Bowel Sounds, Hypoactive Bowel Sounds - Extremities Exam Extremities Exam: absent: Calf Tenderness, Joint Swelling, Pedal Edema, Tenderness - Neurological Exam Neurological Exam: Awake and alert, moving all extremities spontaneously, following all commands - Psychiatric Exam Psychiatric exam: Normal Affect, Normal Mood - Skin Skin Exam: Dry, Intact, Normal Color, Warm Assessment and Plan - Assessment and Plan (Free Text) Assessment: This is an 81 yo AA F with PMH of AAA, CVA, CHF (LVEF 28% on echo from 06/2016), NSTEMI, COPD, chronic anemia, HTN, seizures, dementia, cataracts, and hyperthyroidism who initially presented [place] [facility] [place] with shortness of breath and wheezing secondary likely secondary to COPD exacerbation. Patient's daughter ( POA) refusing discharge to Long-term care facility and also refusing to take patient home, so patient remains. Case Management and PMD attempting to resolve issue with POA. Plan: 1) Placement issues -Placement available yesterday at [facility], but POA daughter now refusing placement not at [facility] or [facility] (neither has bed available) and is also refusing to take patient home. Patient remains clear for discharge from medical standpoint. Case management and PMD working with POA to resolve. 2) COPD Exacerbation -10mh PO daily of prednisone currently, but more wheezing today, so will increase back up to 20mg daily. -Continue xopenex and budesonide per pulmonary recommendations -Oxygen via NC; titrate to SaO2 >90% -CXR reviewed -Blood cultures negative x5 days -Leukocytosis improved, 9.8 today -Pulm (Dr. Galvan) following, appreciate all recs 3) Compensated CHF -LVEF 28% on echo from 06/2016 -BNP elevated however no significant pulmonary edema on CXR, lower extremity edema, or JVD -CXR reviewed -EKG revealed sinus rhythm at 90bpm with left axis deviation, t wave inversions in lateral leads seen on prior EKG -Cardiology (Dr. Lopez) consulted, appreciate all recs 4) Constipation -Miralax PRN 5) CAD -Continue ASA, lipitor, coreg 6) Dementia -Continue aricept 7) Hyperthyroidism -Continue methimazole Dispo: TCU, pending resolution of placement issue with POA, medically stable and cleared for d/c FEN: Heart-healthy diet Access: Peripheral IVs Consults: Pulm, Cardio, Palliative Ppx: Protonix for GI, Lovenox for DVT Patient seen, reviewed, and discussed with attending, Dr. Walsh.
[2016-10-23 16:04] VITALS: PULSE 92; RESP 15; TEMP 98.9; O2SAT 97
[2016-10-23 17:43] VITALS: BP 113/80
--- NOTE | 2016-10-24 17:31 | CP.PCM.DIS ---
Provider - Provider Date of Admission: 10/12/16 18:45 Attending physician: Justus Walsh MD Primary care physician: Justus Walsh MD Consults: Palliative: [place] Pulm: Mandy Cardio: John Time Spent in preparation of Discharge (in minutes): 35 Diagnosis - Discharge Diagnosis (1) COPD exacerbation Status: Chronic Priority: High (2) Dementia Status: Chronic Priority: High (3) Congestive heart failure Status: Chronic Priority: Medium (4) CAD (coronary artery disease) Status: Chronic Priority: Medium Hospital Course - Lab Results Lab Results: Most Recent Lab Values WBC 11.6 10^3/ul (4.5-11.0) H 10/20/16 11:30 RBC 5.10 10^6/uL (3.5-6.1) 10/20/16 11:30 Hgb 14.4 gm/dL (12.0-16.0) 10/20/16 11:30 Hct 43.3 % (36.0-48.0) 10/20/16 11:30 MCV 84.9 fL (80.0-105.0) 10/20/16 11:30 MCH 28.2 pg (25.0-35.0) 10/20/16 11:30 MCHC 33.3 g/dl (31.0-37.0) 10/20/16 11:30 RDW 18.7 % (11.5-14.5) H 10/20/16 11:30 Plt Count 391 10^3/uL (120.0-450.0) 10/20/16 11:30 MPV 10.8 fl (7.0-11.0) 10/20/16 11:30 Gran % 89.5 % (50.0-68.0) H 10/20/16 11:30 Lymph % (Auto) 4.5 % (22.0-35.0) L 10/20/16 11:30 [place] % (Auto) 4.2 % (1.0-6.0) 10/20/16 11:30 Eos % (Auto) 1.6 % (1.5-5.0) 10/20/16 11:30 Baso % (Auto) 0.2 % (0.0-3.0) 10/20/16 11:30 Gran # 10.36 (1.4-6.5) H 10/20/16 11:30 Lymph # 0.5 (1.2-3.4) L 10/20/16 11:30 [place] # 0.5 (0.1-0.6) 10/20/16 11:30 Eos # 0.2 (0.0-0.7) 10/20/16 11:30 Baso # 0.02 K/mm3 (0.0-2.0) 10/20/16 11:30 Sodium 139 mmol/L (132-148) 10/20/16 11:30 Potassium 4.0 mmol/L (3.6-5.0) 10/20/16 11:30 Chloride 109 mmol/L (98-107) H 10/20/16 11:30 Carbon Dioxide 21 mmol/L (21-33) 10/20/16 11:30 Anion Gap 13 (10-20) 10/20/16 11:30 BUN 35 mg/dL (7-21) H 10/20/16 11:30 Creatinine 1.1 mg/dL (0.5-1.4) 10/20/16 11:30 Est GFR ( Amer) 58 10/20/16 11:30 Est GFR (Non-Af Amer) 48 10/20/16 11:30 Random Glucose 110 mg/dL (70-110) 10/20/16 11:30 Calcium 8.9 mg/dL (8.4-10.5) 10/20/16 11:30 Phosphorus 2.7 mg/dL (2.5-4.5) 10/20/16 11:30 Magnesium 2.3 mg/dL (1.7-2.2) H 10/20/16 11:30 Total Bilirubin 0.3 mg/dL (0.2-1.3) 10/15/16 06:15 AST 19 U/L (15-39) 10/15/16 06:15 ALT 35 U/L (7-56) 10/15/16 06:15 Alkaline Phosphatase 57 U/L (38-133) 10/15/16 06:15 Total Protein 5.8 g/dL (5.8-8.3) 10/15/16 06:15 Albumin 2.9 g/dL (3.0-4.8) L 10/15/16 06:15 Globulin 2.8 gm/dL 10/15/16 06:15 Albumin/Globulin Ratio 1.0 (1.1-1.8) L 10/15/16 06:15 - Hospital Course Hospital Course: Please see discharge summary from 10/22/16 and Progress note from 10/23/16 for further details. Shortly, this is an 81 yo AA F with PMH of AAA, CVA, CHF (LVEF 28% on echo from 06/2016), NSTEMI, COPD, chronic anemia, HTN, seizures, dementia, cataracts, and hyperthyroidism who [place] [facility] [place]ness of breath and wheezing secondary likely secondary to COPD exacerbation, and was later transferred to the TCU for rehab. As per patient's daughter (primary caregiver) , patient's care needs have become too much for the daughter, so the daughter sought placement for her mother. However, daughter refused to allow patient to be placed at the facilities with availabilities, and disputed the discharge on . After discussions with Case Management and her PMD, Daughter elected to bring the patient home with her. Discharge Exam - Additional Findings Additional findings: Please refer to Progress Note for 10/23/16 for physical exam Discharge Plan - Follow Up Plan Condition: GOOD Disposition: HOME/ ROUTINE Instructions: Heart Failure (DC), Emphysema (DC), COPD (Chronic Obstructive Pulmonary Disease) (DC), Chronic Lung Disease and Infection Prevention (DC) Referrals: Justus Walsh MD [Primary Care Provider] -
== END 2016-10-23 21:22 | disposition home or self-care (01) | DRG 191 ==
LOC: TRCU 18:45
PROVIDERS: ADMIT Internal Medicine; ATTEND Internal Medicine
PROC: F07Z9FZ Gait Training/Functional Ambulation Treatment using Assistive, Adaptive, Supportive or Protective Equipment (ICD-10-PCS; principal; 2016-10-14)
PROC: F07L6YZ Therapeutic Exercise Treatment of Musculoskeletal System - Lower Back / Lower Extremity using Other Equipment (ICD-10-PCS; 2016-10-14)
PROC: F07Z5FZ Bed Mobility Treatment using Assistive, Adaptive, Supportive or Protective Equipment (ICD-10-PCS; 2016-10-17)
PROC: F07Z8FZ Transfer Training Treatment using Assistive, Adaptive, Supportive or Protective Equipment (ICD-10-PCS; 2016-10-17)
PROC: F08Z1FZ Dressing Techniques Treatment using Assistive, Adaptive, Supportive or Protective Equipment (ICD-10-PCS; 2016-10-20)
DX: J44.1 Chronic obstructive pulmonary disease with (acute) exacerbation (principal); I42.0 Dilated cardiomyopathy; I27.2 Other secondary pulmonary hypertension; I11.0 Hypertensive heart disease with heart failure; I50.9 Heart failure, unspecified; G30.9 Alzheimer's disease, unspecified; F02.80 Dementia in other diseases classified elsewhere, unspecified severity, without behavioral disturbance, psychotic disturbance, mood disturbance, and anxiety; I25.10 Atherosclerotic heart disease of native coronary artery without angina pectoris; Z66 Do not resuscitate; R62.7 Adult failure to thrive; J44.0 Chronic obstructive pulmonary disease with (acute) lower respiratory infection; J20.9 Acute bronchitis, unspecified; I71.4 Abdominal aortic aneurysm, without rupture; E05.90 Thyrotoxicosis, unspecified without thyrotoxic crisis or storm; N28.9 Disorder of kidney and ureter, unspecified; K59.00 Constipation, unspecified; D64.9 Anemia, unspecified; Z86.73 Personal history of transient ischemic attack (TIA), and cerebral infarction without residual deficits; I25.2 Old myocardial infarction; Z99.81 Dependence on supplemental oxygen; Z87.891 Personal history of nicotine dependence

== ENCOUNTER 2016-10-28 19:31 | Inpatient (IN) | payer MEDICARE, MEDICAID ==
[2016-10-28] MEDS ORDERED: Ipratropium 0.02% Inhal Soln (0.5 mg/2.5 ml) UD IH STA ×2 (19:53→19:54)
[2016-10-28] MEDS ORDERED: Levalbuterol 1.25 MG/3 ML Inhal Soln UD IH STA ×2 (19:53)
--- NOTE | 2016-10-28 20:00 | ED PDOC ---
Arrival/HPI - General Chief Complaint: Shortness Of Breath Time Seen by Provider: 10/28/16 19:41 Historian: Patient, Other (daughter) - History of Present Illness Narrative History of Present Illness (Text): 10/28/16 19:59 An 81 year old female, whose past medical history includes senile dementia, AAA , HTN, CVA, congestive heart failure, seizures, and COPD (O2-dependent) presents to the emergency department complaining of shortness of breath and chest pain for the past hour. Patient's daughter reports patient was discharged five days ago from TCU. Daughter also notes patient received breathing treatment this morning and a low grade fever. Patient notes chest pain prior to arrival but denies any headache, vision changes, cough, nausea, vomiting, abdominal pain, leg swelling or any other complaints at this time. PMD: Dr. Soriano Time/Duration: 1 hour Symptom Onset: Sudden Symptom Course: Unchanged Activities at Onset: Rest Context: Home Past Medical History - Provider Review Nursing Documentation Reviewed: Yes - Infectious Disease Hx of Infectious Diseases: None - Tetanus Immunization Tetanus Immunization: Unknown - Reproductive Menopause: Yes - Cardiac Hx Cardiac Disorders: Yes - Pulmonary Hx Chronic Obstructive Pulmonary Disease (COPD): Yes - Neurological HX Cerebrovascular Accident: Yes - HEENT Hx HEENT Disorder: Yes Hx Cataracts: Yes (left eye sx) - Renal Hx Renal Disorder: No - Endocrine/Metabolic Hx Hypothyroidism: Yes - Hematological/Oncological Hx Cancer: (denies) - Integumentary Hx Dermatological Disorder: No - Musculoskeletal/Rheumatological Hx Falls: No - Gastrointestinal Other/Comment: egd dx gastric erosions small hiatal hernia and gastric avm, 09/05 - Genitourinary/Gynecological Hx Genitourinary Disorders: No - Psychiatric Hx Psychophysiologic Disorder: No Hx Substance Use: No - Surgical History Hx Cataract Extraction: Yes - Anesthesia Hx Anesthesia: Yes Hx Anesthesia Reactions: No Hx Malignant Hyperthermia: No Family/Social History - Physician Review Nursing Documentation Reviewed: Yes Family/Social History: No Known Family HX Smoking Status: Never Smoked Hx Alcohol Use: No Hx Substance Use: No Allergies/Home Meds Allergies/Adverse Reactions: Allergies No Known Allergies Allergy (Verified 10/09/16 17:49) Home Medications: Home Meds Medication Instructions Recorded Confirmed Fluticasone/Vilanterol [Breo 1 puff IH DAILY 06/28/16 10/28/16 Ellipta 100-25 Mcg INH] Albuterol 0.083% [Albuterol 0.083% 1 inh NEB PRN PRN 09/28/16 10/28/16 Inhal Twyla (2.5 mg/3 ml) UD] Carvedilol [Coreg] 3.125 mg PO BID 10/09/16 10/28/16 Ferrous Sulfate [Feosol] 324 mg PO DAILY 10/09/16 10/28/16 Review of Systems - Physician Review All systems were reviewed & negative as marked: Yes - Review of Systems Constitutional: Fevers (low grade) Eyes: absent: Vision Changes Respiratory: SOB. absent: Cough Cardiovascular: Chest Pain Gastrointestinal: absent: Abdominal Pain, Nausea, Vomiting Musculoskeletal: absent: Other (leg swelling) Neurological: absent: Headache Physical Exam Vital Signs Reviewed: Yes Vital Signs Temp Pulse Resp BP Pulse Ox 10/28/16 20:35 100.4 F H 110 H 17 117/85 100 10/28/16 20:20 100.4 F H 10/28/16 19:52 100.4 F H 116 H 20 145/105 H 93 L 10/28/16 19:34 100.4 F H Temperature: Febrile Blood Pressure: Normal Pulse: Tachycardic Respiratory Rate: Tachypneic (mild) Appearance: Positive for: Non-Toxic Pain Distress: None Mental Status: Positive for: other (alert and oriented X2) - Systems Exam Head: Present: Atraumatic, Normocephalic Pupils: Present: PERRL Conjunctiva: Present: Normal Mouth: Present: Moist Mucous Membranes Pharnyx: Present: Normal. No: ERYTHEMA, EXUDATE Neck: Present: Normal Range of Motion. No: JVD Respiratory/Chest: Present: Wheezes (diffuse), Rhonchi (diffuse), Other ( diminished breath sounds) Cardiovascular: Present: Normal S1, S2, Tachycardic. No: Murmurs Abdomen: Present: Normal Bowel Sounds. No: Tenderness, Distention, Peritoneal Signs Back: Present: Normal Inspection Upper Extremity: Present: Normal Inspection. No: Cyanosis, Edema Lower Extremity: Present: Normal Inspection. No: Edema Neurological: Present: GCS=15, CN II-XII Intact, Speech Normal Skin: Present: Warm, Dry, Normal Color. No: Rashes Psychiatric: Present: Alert, Normal Insight, Normal Concentration, Other ( oriented X2) Medical Decision Making ED Course and Treatment: 10/28/16 19:57 Impression: An 81 year old female with shortness of breath. Differential Diagnosis included but are not limited to: pneumonia vs. chronic obstructive pulmonary disease vs. vs. less likely PE Plan: -- EKG -- chest xray -- labs -- Urinalysis -- Atrovent, Solumedrol, Tylenol, Xopenex -- Reassess and disposition Prior Visits: Notes and results from previous visits were reviewed. Patient last reported to the emergency department on 10/09/16 for evaluation of generalized weakness and b/l leg swelling. Patient admitted to Dr. Walsh's service. Patient was discharged on 10/12/16. Progress Notes: 10/28/16 20:07 EKG: Ordered, reviewed, and independently interpreted the EKG. Rate : 114 BPM Rhythm : Sinus tachycardia Interpretation : borderline left axis deviation, PVC, QRS 104, no new ST/T changes from EKG on 10/09/16 10/28/16 21:00 Chest xray: No change from previous chest xray, interpreted by me. 10/28/16 22:01 Patient with noted history of COPD presenting with diffuse wheezing and tachypnea with likely COPD. Labs are nondiagnostic. Patient given steroids and nebs with improvement of tachypnea but still persisting wheezing. CXR appears unchanged from previous. Patient with low grade temp also with 2/4 SIRS criteria but lactic acid is normal, so she does not fit code sepsis protocol. IVF held due to history of CHF. Abx given. Case discussed with Dr. Mccauley, covering Dr. Soriano for admission. Case also discussed with medical assistant internal medicine. 10/28/16 22:13 Patient with noted history of PE in the past; she reports some cp earlier, which she says has resolved and her tachypnea is much improved. PE less likely and would prefer to avoid IV contrast given GFR. Endorsed to Dr. Boyce, resident who is tonight, to reconsider if patient worsens later. - Lab Interpretations Lab Results: 10/28/16 20:10 10/28/16 20:10 Lab Results 10/28/16 20:30: pCO2 31 L, pO2 161.0 H, HCO3 19.6 L, ABG pH 7.41, ABG Total CO2 20.6 L, ABG O2 Saturation 99.7 H, ABG Base Excess -4.0 L, ABG Potassium 3.3 L, Sodium 143.0, Chloride 113.0 H, Glucose 89, Lactate 0.8, FiO2 52.0, Arterial Blood Potassium 3.3 L 10/28/16 20:10: Sodium 143, Chloride 108 H, Potassium 4.2, Carbon Dioxide 24, Anion Gap 15, BUN 24 H, Creatinine 1.2, Est GFR ( Amer) 52, Est GFR (Non- Af Amer) 43, Random Glucose 95, Calcium 9.2, Phosphorus 3.5, Magnesium 2.2, Total Bilirubin 0.6, AST 39, ALT 40, Alkaline Phosphatase 107, Lactate Dehydrogenase 658, Total Creatine Kinase 35, Troponin I < 0.01 D, NT-Pro-B Natriuret Pep 335, Total Protein 7.4, Albumin 3.6, Globulin 3.8, Albumin/ Globulin Ratio 0.9 L, Lipase 214 10/28/16 20:10: pO2 39, VBG pH 7.34, VBG pCO2 46.0, VBG HCO3 24.8, VBG Total CO2 26.2, VBG O2 Sat (Calc) 73.4 H, VBG Base Excess -1.4 L, VBG Potassium 4.4, Sodium 143.0, Chloride 109.0 H, Glucose 95, Lactate 1.5, FiO2 21.0, Venous Blood Potassium 4.4 10/28/16 20:10: PT 11.9 H, INR 1.10 H, APTT 29.2 10/28/16 20:10: WBC 8.0 D, RBC 5.06, Hgb 14.5, Hct 43.6, MCV 86.2, MCH 28.7, MCHC 33.3, RDW 17.9 H, Plt Count 336, MPV 10.5, Gran % 80.2 H, Lymph % (Auto) 7.8 L, [place] % (Auto) 9.3 H, Eos % (Auto) 2.2, Baso % (Auto) 0.5, Gran # 6.43, Lymph # 0.6 L, [place] # 0.8 H, Eos # 0.2, Baso # 0.04, ESR 24 H I have reviewed the lab results: Yes - RAD Interpretation Radiology Orders: 10/28/16 19:51 CHEST PORTABLE [RAD] Stat - EKG Interpretation Interpreted by ED Physician: Yes Type: 12 lead EKG - Medication Orders Current Medication Orders: Acetaminophen (Tylenol 325mg Tab) 650 mg PO Q4H PRN PRN Reason: Fever >100.4 F Albuterol/Ipratropium (Duoneb 3 Mg/0.5 Mg (3 Ml) Ud) 3 ml IH [id number] [facility] Albuterol/Ipratropium (Duoneb 3 Mg/0.5 Mg (3 Ml) Ud) 3 ml IH Q2H PRN PRN Reason: Shortness of Breath Aspirin (Ecotrin) 81 mg PO DAILY [facility] Atorvastatin Calcium (Lipitor) 10 mg PO DIN [facility] Carvedilol (Coreg) 3.125 mg PO BID [facility] Donepezil HCl (Aricept) 5 mg PO HS [facility] Ferrous Sulfate (Feosol) 324 mg PO DAILY [facility] Cefepime HCl (Maxipime 1gm) 1 gm in 100 mls @ 100 mls/hr IVPB STAT STA PRN Reason: Protocol Stop: 10/28/16 22:25 Last Admin: 10/28/16 22:09 Dose: 100 mls/hr Vancomycin HCl (Vancomycin 1gm) 1 gm in 250 mls @ 133.333 mls/hr IVPB STAT STA PRN Reason: Protocol Stop: 10/28/16 23:20 Levetiracetam (Keppra) 750 mg PO DAILY [facility] Loratadine (Claritin) 10 mg PO DAILY [facility] Methimazole (Tapazole) 5 mg PO DAILY [facility] Methylprednisolone (Solu-Medrol) 40 mg IVP Q12 [facility] Discontinued Medications Acetaminophen (Tylenol 325mg Tab) 650 mg PO STAT STA Stop: 10/28/16 19:54 Last Admin: 10/28/16 20:20 Dose: 650 mg Ipratropium [place] (Atrovent) 0.5 mg IH STAT STA Stop: 10/28/16 19:54 Last Admin: 10/28/16 20:21 Dose: 0.5 mg Ipratropium [place] (Atrovent) 0.5 mg IH STAT STA Stop: 10/28/16 19:55 Last Admin: 10/28/16 20:47 Dose: 0.5 mg Levalbuterol HCl (Xopenex) 1.25 mg IH STAT STA Stop: 10/28/16 19:54 Last Admin: 10/28/16 20:21 Dose: 1.25 mg Levalbuterol HCl (Xopenex) 1.25 mg IH STAT STA Stop: 10/28/16 19:54 Last Admin: 10/28/16 20:47 Dose: 1.25 mg Methylprednisolone (Solu-Medrol) 125 mg IVP STAT STA Stop: 10/28/16 19:54 Last Admin: 10/28/16 20:20 Dose: 125 mg - Scribe Statement The provider has reviewed the documentation as recorded by the Batsheva Pearson Provider Scribe Attestation: All medical record entries made by the Batsheva were at my direction and personally dictated by me. I have reviewed the chart and agree that the record accurately reflects my personal performance of the history, physical exam, medical decision making, and the department course for this patient. I have also personally directed, reviewed, and agree with the discharge instructions and disposition. Disposition/Present on Arrival - Present on Arrival Any Indicators Present on Arrival: No History of DVT/PE: No History of Uncontrolled Diabetes: No Urinary Catheter: No History of Decub. Ulcer: No History Surgical Site Infection Following: None - Disposition Have Diagnosis and Disposition been Completed?: Yes Diagnosis: COPD exacerbation Disposition: HOSPITALIZED Disposition Time: 21:20 Patient Plan: Admission, Telemetry Patient Problems: Current Active Problems Problem Status Onset COPD exacerbation Chronic Condition: FAIR
[2016-10-28 20:24] LABS: BASO # 0.04 K/mm3 (0.0-2.0); BASO % 0.5 % (0.0-3.0); EOS # 0.2 (0.0-0.7); EOS % 2.2 % (1.5-5.0); GRAN # 6.43 (1.4-6.5); GRAN % 80.2 % (50.0-68.0); HEMOGLOBIN 14.5 gm/dL (12.0-16.0); LYMPH # 0.6 (1.2-3.4); LYMPH % 7.8 % (22.0-35.0); MEAN CELL VOLUME 86.2 fL (80.0-105.0); MEAN CORPUSCULAR HEMOGLOBIN 28.7 pg (25.0-35.0); MEAN CORPUSCULAR HGB CONC 33.3 g/dl (31.0-37.0); MEAN PLATELET VOLUME 10.5 fl (7.0-11.0); MONO # 0.8 (0.1-0.6); MONO % 9.3 % (1.0-6.0); PLATELET COUNT 336 10^3/uL (120.0-450.0); RBC 5.06 10^6/uL (3.5-6.1); RED CELL DISTRIBUTION WIDTH 17.9 % (11.5-14.5)
[2016-10-28 20:34] LABS: VENOUS BLOOD GAS BASE EXCESS -1.4 mmol/L (0.0-2.0); VENOUS BLOOD GAS PO2 39 mm/Hg (30-55); VENOUS BLOOD PH 7.34 (7.32-7.43)
[2016-10-28 20:36] LABS: ALB/GLOB RATIO 0.9 (1.1-1.8); ALBUMIN 3.6 g/dL (3.0-4.8); AST/SGOT 39 U/L (15-39); BLOOD UREA NITROGEN 24 mg/dL (7-21); CALCIUM 9.2 mg/dL (8.4-10.5); GFR AFRICAN-AMERICAN 52; GFR NON-AFRICAN AMERICAN 43; LIPASE 214 U/L (23-300); MAGNESIUM 2.2 mg/dL (1.7-2.2)
[2016-10-28 20:41] LABS: INR 1.1 (0.93-1.08); PARTIAL THROMBOPLASTIN TIME 29.2 Seconds (23.7-30.8); PROTHROMBIN TIME 11.9 Seconds (9.9-11.8)
[2016-10-28 20:45] LABS: ARTERIAL BLOOD GAS HCO3 19.6 mmol/L (21-28); ARTERIAL BLOOD GAS O2 SAT 99.7 % (95-98); ARTERIAL BLOOD GAS PCO2 31 mm/Hg (35-45); ARTERIAL BLOOD GAS PH 7.41 (7.35-7.45); ARTERIAL BLOOD GAS TCO2 20.6 mmol.L (22-28)
[2016-10-28 20:48] LABS: B-TYPE NATRIURETIC PEPTIDE 335 pg/mL (0-450)
[2016-10-28 20:51] LABS: ALT/SGPT 40 U/L (7-56)
[2016-10-28 21:02] LABS: TROPONIN I < 0.01 ng/mL
[2016-10-28] MEDS ORDERED: Cefepime 1gm in NS 100ml 1 GM/100 ML BAG IVPB STA (21:26)
[2016-10-28] MEDS ORDERED: Vancomycin 1gm in NS 250ml 1 GM/250 ML BAG IVPB STA (21:28)
[2016-10-28] MEDS ORDERED: Albuterol-Ipratrop 3 mg / 0.5 (3 ml) UD IH PRN (21:50)
--- NOTE | 2016-10-29 00:07 | CP.PCM.HP ---
History of Present Illness - History of Present Illness History of Present Illness: cc: shortness of breath HPI: Patient is an 81yo female with history of hypertension, AAA, CVA, lung cancer, NSTEMI, CHF, COPD on home oxygen, PE, anemia, seizure disorder, dementia and hyperthyroidism that presented to [facility] c/o shortness of breath. Per patient's daughter, she had [place] [facility] [place] for [place] exacerbation. Her daughter reported that she complained of shortness of breath shortly before arrival to the ED. Patient attempted to use her home inhalers however they provided minimal relief. She subsequently was brought to the ED for further evaluation. She denied chest pain, palpitations, abdominal pain, nausea, vomiting. In the ED, she was noted to have a rectal temp of 100.4F and heart rate of 110bpm. 12point ROS as per HPI above, otherwise negative PMHx: AAA, CVA, lung cancer, NSTEMI, CHF, COPD, on home o2, cataracts, anemia, HTN, seizures, dementia, hyperthyroidism PSHx: thyroidectomy, left cataract Allergies: NKDA Family Hx: Notable for Breast and stomach cancer Social hx: Former smoker, occasional alcohol use. Denies illicit drug use PMD: Dr. Walsh/Christie Present on Admission - Present on Admission Any Indicators Present on Admission: Yes History of DVT/PE: Yes Past Patient History - Infectious Disease Hx of Infectious Diseases: None - Tetanus Immunizations Tetanus Immunization: Unknown - Past Medical History & Family History Past Medical History?: Yes - Past Social History Smoking Status: Never Smoked - CARDIAC Hx Cardiac Disorders: Yes - PULMONARY Hx Chronic Obstructive Pulmonary Disease (COPD): Yes - NEUROLOGICAL HX Cerebrovascular Accident: Yes - HEENT Hx HEENT Problems: Yes Hx Cataracts: Yes (left eye sx) - RENAL Hx Chronic Kidney Disease: No - ENDOCRINE/METABOLIC Hx Hypothyroidism: Yes - HEMATOLOGICAL/ONCOLOGICAL Hx Cancer: (denies) - INTEGUMENTARY Hx Dermatological Problems: No - MUSCULOSKELETAL/RHEUMATOLOGICAL Hx Falls: No - GASTROINTESTINAL Other/Comment: egd dx gastric erosions small hiatal hernia and gastric avm, 09/05 - GENITOURINARY/GYNECOLOGICAL Hx Genitourinary Disorders: No - PSYCHIATRIC Hx Psychophysiologic Disorder: No Hx Substance Use: No - SURGICAL HISTORY Hx Cataract Extraction: Yes - ANESTHESIA Hx Anesthesia: Yes Hx Anesthesia Reactions: No Hx Malignant Hyperthermia: No Meds Allergies/Adverse Reactions: Allergies Allergy/AdvReac Type Severity Reaction Status Date / Time No Known Allergies Allergy Verified 10/09/16 17:49 Physical Exam - Constitutional Appears: No Acute Distress, Chronically Ill - Head Exam Head Exam: ATRAUMATIC, NORMAL INSPECTION, NORMOCEPHALIC - Eye Exam Eye Exam: EOMI, PERRL - ENT Exam ENT Exam: Mucous Membranes Moist - Neck Exam Neck exam: Positive for: Normal Inspection. Negative for: Tenderness, Thyromegaly - Respiratory Exam Respiratory Exam: Decreased Breath Sounds, Rhonchi, Wheezes. absent: Clear to Auscultation Bilateral, Rales Additional comments: decreased breath sounds; audible wheezing and ronchi bilaterally - Cardiovascular Exam Cardiovascular Exam: Tachycardia, +S1, +S2. absent: Gallop, Rubs - GI/Abdominal Exam GI & Abdominal Exam: Normal Bowel Sounds, Soft. absent: Distended, Firm, Guarding, Rigid, Tenderness - Extremities Exam Extremities exam: Positive for: normal inspection. Negative for: calf tenderness, pedal edema - Neurological Exam Neurological exam: Alert - Psychiatric Exam Psychiatric exam: Normal Affect, Normal Mood - Skin Skin Exam: Dry, Intact, Normal Color, Warm Results - Vital Signs Recent Vital Signs: Last Vital Signs Temp 97.7 F 10/28/16 23:30 Pulse 103 H 10/28/16 23:30 Resp 20 10/28/16 23:30 BP 104/76 10/28/16 23:30 Pulse Ox 100 10/28/16 20:35 - Labs Result Diagrams: 10/28/16 20:10 10/28/16 20:10 Assessment & Plan - Assessment and Plan (Free Text) Plan: 81yo female with history of AAA, CVA, CHF (LVEF 28% on echo from 06/2016), PE, NSTEMI, COPD, chronic anemia, HTN, seizures, dementia, cataracts, hyperthyroidism presenting with shortness of breath and wheezing secondary likely secondary to COPD exacerbation. 1. Shortness of breath likely 2/2 COPD Exacerbation -CXR reviewed; appears similar to prior CXR with no apparent consolidation however official read pending -EKG reviewed; sinus tachycardia at 114bpm with no acute ST-T wave changes relative to prior EKG -Continue duoneb q4h FRANCESCO and duoneb q2h PRN -Continue solumedrol 40mg q12h; taper as indicated -Oxygen via NC; titrate to SaO2 ~90-93% -Blood, urine, sputum cultures pending -lactate within normal limits -Continue with levaquin 250mg IV daily; renally dosed; pending ID further recommendations -Procalcitonin pending -Should dyspnea worsen, will consider CTA to r/o PE, however given renal impairment and less likelihood of PE, will hold off for now. Will endorse to day team to consider PE should patient become unstable. -Pulmonary consulted - Dr. Galvan -ID consulted - Dr. Jones 2. Compensated CHF -LVEF 28% on echo from 06/2016 -BNP within normal limits -EKG/CXR reviewed as stated above -Will hold off IVF given history of CHF; patient hemodynamically stable at this time 3. CAD -Continue ASA, lipitor, coreg 4. Dementia -Continue aricept 5. Hyperthyroidism -Continue methimazole 6. GI/DVT prophylaxis -Protonix/heparin Patient seen and case discussed with attending, Dr. Mccauley - Date & Time Date: 10/29/16 Time: 01:49
[2016-10-29 01:04] VITALS: BMI 19.2
[2016-10-29] MEDS: Albuterol-Ipratrop 3 mg / 0.5 (3 ml) UD IH SCH ×8 (07:44→23:59)
--- NOTE | 2016-10-29 07:45 | RAD ---
HISTORY: Sepsis Patient COMPARISON: 10/09/2016 FINDINGS: LUNGS: No active pulmonary disease. PLEURA: No significant pleural effusion identified, no pneumothorax apparent. CARDIOVASCULAR: Normal. OSSEOUS STRUCTURES: No significant abnormalities. VISUALIZED UPPER ABDOMEN: Normal. OTHER FINDINGS: None. IMPRESSION: No active disease.
[2016-10-29 07:49] LABS: BASO # 0.01 K/mm3 (0.0-2.0); BASO % 0.2 % (0.0-3.0); GRAN # 5.72 (1.4-6.5); GRAN % 92.5 % (50.0-68.0); HEMOGLOBIN 12.9 gm/dL (12.0-16.0); LYMPH # 0.4 (1.2-3.4); MEAN CELL VOLUME 85.8 fL (80.0-105.0); MEAN CORPUSCULAR HEMOGLOBIN 27.8 pg (25.0-35.0); MEAN CORPUSCULAR HGB CONC 32.4 g/dl (31.0-37.0); MEAN PLATELET VOLUME 10.7 fl (7.0-11.0); MONO # 0.1 (0.1-0.6); MONO % 1.3 % (1.0-6.0); PLATELET COUNT 334 10^3/uL (120.0-450.0); RBC 4.64 10^6/uL (3.5-6.1); RED CELL DISTRIBUTION WIDTH 17.7 % (11.5-14.5); WHITE BLOOD COUNT 6.2 10^3/ul (4.5-11.0)
[2016-10-29 08:21] LABS: ALT/SGPT 29 U/L (7-56); AST/SGOT 26 U/L (15-39); BLOOD UREA NITROGEN 29 mg/dL (7-21); CALCIUM 9.1 mg/dL (8.4-10.5); GFR AFRICAN-AMERICAN > 60; GFR NON-AFRICAN AMERICAN 53
[2016-10-29] MEDS: methIMAzole 5 MG TAB PO SCH (09:10)
[2016-10-29] MEDS: MethylPREDNISolone 40 mg Vial IVP SCH ×2 (09:10→21:44)
[2016-10-29] MEDS ORDERED: levoFLOXacin 250 mg in D5W 250 MG/50 ML BAG IVPB SCH (10:00)
--- NOTE | 2016-10-29 10:38 | CP.PCM.CON ---
History of Present Illness - History of Present Illness History of Present Illness: WEAKNESS / SOB Review of Systems - Review of Systems Systems not reviewed;Unavailable: Dementia - Constitutional Constitutional: Fever, Weakness - Respiratory Respiratory: Dyspnea Past Patient History - Infectious Disease Hx of Infectious Diseases: None - Tetanus Immunizations Tetanus Immunization: Unknown - Past Medical History & Family History Past Medical History?: Yes - Past Social History Smoking Status: Never Smoked - CARDIAC Hx Cardiac Disorders: Yes - PULMONARY Hx Chronic Obstructive Pulmonary Disease (COPD): Yes - NEUROLOGICAL HX Cerebrovascular Accident: Yes - HEENT Hx HEENT Problems: Yes Hx Cataracts: Yes (left eye sx) - RENAL Hx Chronic Kidney Disease: No - ENDOCRINE/METABOLIC Hx Hypothyroidism: Yes - HEMATOLOGICAL/ONCOLOGICAL Hx Cancer: (denies) - INTEGUMENTARY Hx Dermatological Problems: No - MUSCULOSKELETAL/RHEUMATOLOGICAL Hx Falls: No - GASTROINTESTINAL Other/Comment: egd dx gastric erosions small hiatal hernia and gastric avm, 09/05 - GENITOURINARY/GYNECOLOGICAL Hx Genitourinary Disorders: No - PSYCHIATRIC Hx Psychophysiologic Disorder: No Hx Substance Use: No - SURGICAL HISTORY Hx Cataract Extraction: Yes - ANESTHESIA Hx Anesthesia: Yes Hx Anesthesia Reactions: No Hx Malignant Hyperthermia: No Meds Allergies/Adverse Reactions: Allergies Allergy/AdvReac Type Severity Reaction Status Date / Time No Known Allergies Allergy Verified 10/09/16 17:49 - Medications Medications: Current Medications Acetaminophen (Tylenol 325mg Tab) 650 mg PO Q4H PRN PRN Reason: Fever >100.4 F Albuterol/Ipratropium (Duoneb 3 Mg/0.5 Mg (3 Ml) Ud) 3 ml IH [id number] [facility] Last Admin: 10/29/16 07:55 Dose: Not Given Albuterol/Ipratropium (Duoneb 3 Mg/0.5 Mg (3 Ml) Ud) 3 ml IH Q2H PRN PRN Reason: Shortness of Breath Aspirin (Ecotrin) 81 mg PO DAILY [facility] Last Admin: 10/29/16 09:10 Dose: 81 mg Atorvastatin Calcium (Lipitor) 10 mg PO DIN [facility] Carvedilol (Coreg) 3.125 mg PO BID [facility] Last Admin: 10/29/16 09:10 Dose: 3.125 mg Donepezil HCl (Aricept) 5 mg PO HS [facility] Last Admin: 10/29/16 07:54 Dose: Not Given Doxycycline Hyclate (Doryx) 100 mg PO Q12 [facility] PRN Reason: Protocol Stop: 11/07/16 10:33 Ferrous Sulfate (Feosol) 324 mg PO DAILY [facility] Last Admin: 10/29/16 09:10 Dose: 324 mg Heparin Sodium (Porcine) (Heparin) 5,000 units SC Q12 [facility] PRN Reason: Protocol Last Admin: 10/29/16 09:11 Dose: 5,000 units Cefepime HCl (Maxipime 1gm) 1 gm in 100 mls @ 100 mls/hr IVPB Q8 [facility] PRN Reason: Protocol Stop: 11/07/16 14:01 Levetiracetam (Keppra) 750 mg PO DAILY [facility] Last Admin: 10/29/16 09:10 Dose: 750 mg Loratadine (Claritin) 10 mg PO DAILY [facility] Last Admin: 10/29/16 09:10 Dose: 10 mg Methimazole (Tapazole) 5 mg PO DAILY [facility] Last Admin: 10/29/16 09:10 Dose: 5 mg Methylprednisolone (Solu-Medrol) 40 mg IVP Q12 [facility] Last Admin: 10/29/16 09:10 Dose: 40 mg Pantoprazole Sodium (Protonix Inj) 40 mg IVP DAILY [facility] Last Admin: 10/29/16 09:10 Dose: 40 mg Physical Exam - Constitutional Appears: Well - Head Exam Head Exam: ATRAUMATIC, NORMAL INSPECTION, NORMOCEPHALIC - Eye Exam Eye Exam: EOMI, Normal appearance, PERRL Pupil Exam: NORMAL ACCOMODATION, PERRL - ENT Exam ENT Exam: Mucous Membranes Moist, Normal Exam - Neck Exam Neck exam: Positive for: Normal Inspection - Respiratory Exam Respiratory Exam: Clear to Auscultation Bilateral, NORMAL BREATHING PATTERN - Cardiovascular Exam Cardiovascular Exam: REGULAR RHYTHM - GI/Abdominal Exam GI & Abdominal Exam: Normal Bowel Sounds, Soft. absent: Tenderness - Rectal Exam Rectal Exam: NORMAL INSPECTION - Exam Exam: Circumcision, NORMAL INSPECTION External exam: NORMAL EXTERNAL EXAM Speculum exam: NORMAL SPECULUM EXAM Bimanual exam: NORMAL BIMANUAL EXAM - Extremities Exam Extremities exam: Positive for: normal inspection - Back Exam Back exam: NORMAL INSPECTION - Neurological Exam Neurological exam: Alert, CN II-XII Intact, Normal Gait, Oriented x3, Reflexes Normal - Psychiatric Exam Psychiatric exam: Normal Affect, Normal Mood - Skin Skin Exam: Dry, Intact, Normal Color, Warm Results - Vital Signs Recent Vital Signs: Last Vital Signs Temp 98.3 F 10/29/16 06:00 Pulse 91 H 10/29/16 06:00 Resp 18 10/29/16 06:00 BP 116/88 10/29/16 09:11 Pulse Ox 99 10/29/16 06:00 - Labs Result Diagrams: 10/29/16 07:41 10/29/16 07:41 Labs: Laboratory Results - last 24 hr 10/29/16 10/29/16 10/29/16 02:15 07:41 07:41 WBC 6.2 D RBC 4.64 Hgb 12.9 Hct 39.8 MCV 85.8 MCH 27.8 MCHC 32.4 RDW 17.7 H Plt Count 334 MPV 10.7 Gran % 92.5 H Lymph % (Auto) 6.0 L [place] % (Auto) 1.3 Eos % (Auto) 0.0 L Baso % (Auto) 0.2 Gran # 5.72 Lymph # 0.4 L [place] # 0.1 Eos # 0.0 Baso # 0.01 Sodium 144 Potassium 5.0 Chloride 110 Carbon Dioxide 18 L Anion Gap 21 H BUN 29 H Creatinine 1.0 Est GFR ( Amer) > 60 Est GFR (Non-Af Amer) 53 Random Glucose 126 H Lactic Acid Calcium 9.1 Total Bilirubin 0.5 AST 26 ALT 29 Alkaline Phosphatase 74 Troponin I < 0.01 Total Protein 5.8 Albumin 3.0 Globulin 2.8 Albumin/Globulin Ratio 1.0 L 10/29/16 10/29/16 07:41 07:41 WBC RBC Hgb Hct MCV MCH MCHC RDW Plt Count MPV Gran % Lymph % (Auto) [place] % (Auto) Eos % (Auto) Baso % (Auto) Gran # Lymph # [place] # Eos # Baso # Sodium Potassium Chloride Carbon Dioxide Anion Gap BUN Creatinine Est GFR ( Amer) Est GFR (Non-Af Amer) Random Glucose Lactic Acid 1.0 Calcium Total Bilirubin AST ALT Alkaline Phosphatase Troponin I 0.01 Total Protein Albumin Globulin Albumin/Globulin Ratio Assessment & Plan (1) SIRS (systemic inflammatory response syndrome) Status: Acute - Assessment and Plan (Free Text) Plan: MAX /DOX PENDING [place] - Date & Time Date: 10/29/16 Time: 10:00
--- NOTE | 2016-10-29 11:29 | CARD ---
APPROVED REPORT EKG Measurement Heart [id number] <Conclusion> Sinus tachycardia Biatrial enlargement Left axis deviation Pulmonary disease pattern Septal infarct, age undetermined ST & T wave abnormality, consider lateral ischemia Abnormal ECG
[2016-10-29] MEDS: Cefepime 1gm in NS 100ml 1 GM/100 ML BAG IVPB SCH ×2 (13:19→21:45)
--- NOTE | 2016-10-29 17:02 | CP.PCM.HP ---
<JoseJuan Manuel - Last Filed: 10/29/16 22:36> History of Present Illness - History of Present Illness History of Present Illness: Juan Manuel Garcia D.O. PGY-2, Internal Medicine, Dr. Walsh Service: H&P CC: SOB for 1 day 81 year old female well known to the service with a PMH of hypertension, COPD on home oxygen, previous PE, anemia, seizure disorder, dementia, AAA, CVA, lung cancer, NSTEMI, CHF, and hyperthyroidism that [place] [facility] [place] with complaints of shortness of breath. Patient's dementia make obtaining a history somewhat difficult but per the daughter the patient complained of shortness of breath. Patient's shortness of breath was gradual throughout the day, worsening , with no major alleviating or aggravating factors. Patient has inhalers and tried to use them at home but had minimal relief and so she was brought in by the daughter. Patient has had these episodes before and done well with steroids and nebulizers. Patient usually stays at home and is helped by this daughter. No other complaints elicited including no N/V/D/C/subjective fevers/chills or otherwise. PMD: Dr. Walsh PMH: as above PSH: thyroidectomy, left cataract SH: former smoker, sporadic alcohol, no illicit drug use FH: breast and stomach CA in the family Meds: reviewed Allergies: NKA Present on Admission - Present on Admission Any Indicators Present on Admission: No Past Patient History - Infectious Disease Hx of Infectious Diseases: None - Tetanus Immunizations Tetanus Immunization: Unknown - Past Medical History & Family History Past Medical History?: Yes - Past Social History Smoking Status: Never Smoked - CARDIAC Hx Cardiac Disorders: Yes - PULMONARY Hx Chronic Obstructive Pulmonary Disease (COPD): Yes - NEUROLOGICAL HX Cerebrovascular Accident: Yes - HEENT Hx HEENT Problems: Yes Hx Cataracts: Yes (left eye sx) - RENAL Hx Chronic Kidney Disease: No - ENDOCRINE/METABOLIC Hx Hypothyroidism: Yes - HEMATOLOGICAL/ONCOLOGICAL Hx Cancer: (denies) - INTEGUMENTARY Hx Dermatological Problems: No - MUSCULOSKELETAL/RHEUMATOLOGICAL Hx Falls: No - GASTROINTESTINAL Other/Comment: egd dx gastric erosions small hiatal hernia and gastric avm, 09/05 - GENITOURINARY/GYNECOLOGICAL Hx Genitourinary Disorders: No - PSYCHIATRIC Hx Psychophysiologic Disorder: No Hx Substance Use: No - SURGICAL HISTORY Hx Cataract Extraction: Yes - ANESTHESIA Hx Anesthesia: Yes Hx Anesthesia Reactions: No Hx Malignant Hyperthermia: No Meds Allergies/Adverse Reactions: Allergies Allergy/AdvReac Type Severity Reaction Status Date / Time No Known Allergies Allergy Verified 10/09/16 17:49 Results - Vital Signs Recent Vital Signs: Last Vital Signs Temp 98.1 F 10/29/16 12:00 Pulse 126 H 10/29/16 12:00 Resp 19 10/29/16 12:00 BP 142/108 H 10/29/16 12:00 Pulse Ox 99 10/29/16 06:00 - Labs Result Diagrams: 10/29/16 07:41 10/29/16 07:41 Labs: Laboratory Results - last 24 hr 10/28/16 10/29/16 10/29/16 21:45 02:15 07:41 WBC 6.2 D RBC 4.64 Hgb 12.9 Hct 39.8 MCV 85.8 MCH 27.8 MCHC 32.4 RDW 17.7 H Plt Count 334 MPV 10.7 Gran % 92.5 H Lymph % (Auto) 6.0 L [place] % (Auto) 1.3 Eos % (Auto) 0.0 L Baso % (Auto) 0.2 Gran # 5.72 Lymph # 0.4 L [place] # 0.1 Eos # 0.0 Baso # 0.01 Sodium Potassium Chloride Carbon Dioxide Anion Gap BUN Creatinine Est GFR ( Amer) Est GFR (Non-Af Amer) Random Glucose Lactic Acid Calcium Total Bilirubin AST ALT Alkaline Phosphatase Troponin I < 0.01 Total Protein Albumin Globulin Albumin/Globulin Ratio Procalcitonin 0.15 L 10/29/16 10/29/16 10/29/16 07:41 07:41 07:41 WBC RBC Hgb Hct MCV MCH MCHC RDW Plt Count MPV Gran % Lymph % (Auto) [place] % (Auto) Eos % (Auto) Baso % (Auto) Gran # Lymph # [place] # Eos # Baso # Sodium 144 Potassium 5.0 Chloride 110 Carbon Dioxide 18 L Anion Gap 21 H BUN 29 H Creatinine 1.0 Est GFR ( Amer) > 60 Est GFR (Non-Af Amer) 53 Random Glucose 126 H Lactic Acid 1.0 Calcium 9.1 Total Bilirubin 0.5 AST 26 ALT 29 Alkaline Phosphatase 74 Troponin I 0.01 Total Protein 5.8 Albumin 3.0 Globulin 2.8 Albumin/Globulin Ratio 1.0 L Procalcitonin Assessment & Plan - Assessment and Plan (Free Text) Assessment: 81 year old female well known to the service with a PMH of hypertension, COPD on home oxygen, previous PE, anemia, seizure disorder, dementia, AAA, CVA, lung cancer, NSTEMI, CHF, and hyperthyroidism that presented with complaints of shortness of breath. Plan: 1. Shortness of breath Multiple possible etiologies, likely a combination of COPD exacerbation given her wheezing as well as some volume overload Pulm Dr. Galvan following, discuss case with him Given lasix 40 x1, will evaluate response Cont q4h nebs with q2 PRN Cont solumedrol 40q12 Cont O2 NC 2L, maintain O2 sat above 90% ID Dr. Jones consulted, pending recs 2. Compensated CHF Last EF 28% BNP wnl CXR shows some congestion Will recheck after lasix 3. Hx CAD Continue home ASA, lipitor and carvedilol 4. Hx Dementia Stable, continue home aricept 5. Hyperthyroidism Continue home methimazole GI/DVT ppx: protonix/heparin sc Patient was seen and examined and case was discussed at length with attending physician. - Date & Time Date: 10/29/16 <Justus Walsh - Last Filed: 11/08/16 11:36> Results - Vital Signs Recent Vital Signs: Last Vital Signs Temp 97.9 F 11/02/16 15:55 Pulse 75 11/02/16 15:55 Resp 20 11/02/16 15:55 BP 110/71 11/02/16 15:55 Pulse Ox 99 11/02/16 15:55 - Labs Result Diagrams: 11/02/16 08:20 11/02/16 08:20 Attending/Attestation - Attestation I have personally seen and examined this patient.: Yes I have fully participated in the care of the patient.: Yes I have reviewed all pertinent clinical information: Yes Notes (Text): 11/08/16 11:36 Medical record note made by resident after discussion with my direction and input after patient personally seen and examined by me. I have reviewed the chart and agree that the record accurately reflects my personal performance of the history, physical, data review and medical decision making for the course of this patient.
[2016-10-30] MEDS: Albuterol-Ipratrop 3 mg / 0.5 (3 ml) UD IH SCH ×5 (04:31→19:54)
[2016-10-30] MEDS: Cefepime 1gm in NS 100ml 1 GM/100 ML BAG IVPB SCH (05:49)
[2016-10-30 07:00] LABS: HEMOGLOBIN 12.6 gm/dL (12.0-16.0); MEAN CELL VOLUME 83.6 fL (80.0-105.0); MEAN CORPUSCULAR HEMOGLOBIN 27.6 pg (25.0-35.0); MEAN PLATELET VOLUME 10.9 fl (7.0-11.0); PLATELET COUNT 383 10^3/uL (120.0-450.0); RBC 4.57 10^6/uL (3.5-6.1); RED CELL DISTRIBUTION WIDTH 17.4 % (11.5-14.5); WHITE BLOOD COUNT 14.8 10^3/ul (4.5-11.0)
[2016-10-30 07:12] LABS: ALB/GLOB RATIO 0.9 (1.1-1.8); ALBUMIN 3.1 g/dL (3.0-4.8); CALCIUM 8.8 mg/dL (8.4-10.5)
[2016-10-30 08:32] LABS: LYMPHOCYTE 2 % (22.0-35.0); MONOCYTE 2 % (1.0-6.0); NEUTROPHIL 96 % (50.0-70.0)
[2016-10-30] MEDS: methIMAzole 5 MG TAB PO SCH (09:10)
[2016-10-30] MEDS: MethylPREDNISolone 40 mg Vial IVP SCH ×2 (09:11→21:20)
--- NOTE | 2016-10-30 11:43 | CP.PCM.PN ---
Subjective - Date & Time of Evaluation Date of Evaluation: 10/30/16 Time of Evaluation: 09:00 - Subjective Subjective: DOING WELL NO FEVER Objective - Vital Signs/Intake and Output Vital Signs (last 24 hours): Temp Pulse Resp BP Pulse Ox 97.9 F 60 20 115/65 96 10/30/16 08:19 10/30/16 09:10 10/30/16 08:19 10/30/16 09:10 10/30/16 08:19 Intake and Output: 10/30/16 10/30/16 06:59 18:59 Intake Total 120 260 Balance 120 260 - Medications Medications: Current Medications Acetaminophen (Tylenol 325mg Tab) 650 mg PO Q4H PRN PRN Reason: Fever >100.4 F Albuterol/Ipratropium (Duoneb 3 Mg/0.5 Mg (3 Ml) Ud) 3 ml IH [id number] [facility] Last Admin: 10/30/16 11:17 Dose: 3 ml Albuterol/Ipratropium (Duoneb 3 Mg/0.5 Mg (3 Ml) Ud) 3 ml IH Q2H PRN PRN Reason: Shortness of Breath Aspirin (Ecotrin) 81 mg PO DAILY [facility] Last Admin: 10/30/16 09:10 Dose: 81 mg Atorvastatin Calcium (Lipitor) 10 mg PO DIN [facility] Last Admin: 10/29/16 18:12 Dose: 10 mg Carvedilol (Coreg) 3.125 mg PO BID [facility] Last Admin: 10/30/16 09:10 Dose: 3.125 mg Donepezil HCl (Aricept) 5 mg PO HS [facility] Last Admin: 10/29/16 21:44 Dose: 5 mg Doxycycline Hyclate (Doryx) 100 mg PO Q12 [facility] PRN Reason: Protocol Stop: 11/07/16 10:33 Last Admin: 10/30/16 09:10 Dose: 100 mg Ferrous Sulfate (Feosol) 324 mg PO DAILY [facility] Last Admin: 10/30/16 09:09 Dose: 324 mg Furosemide (Lasix) 40 mg PO DAILY [facility] Last Admin: 10/30/16 09:09 Dose: 40 mg Heparin Sodium (Porcine) (Heparin) 5,000 units SC Q12 [facility] PRN Reason: Protocol Last Admin: 10/30/16 09:11 Dose: 5,000 units Cefepime HCl (Maxipime 1gm) 1 gm in 100 mls @ 100 mls/hr IVPB Q8 [facility] PRN Reason: Protocol Stop: 11/07/16 14:01 Last Admin: 10/30/16 05:49 Dose: 100 mls/hr Levetiracetam (Keppra) 750 mg PO DAILY [facility] Last Admin: 10/30/16 09:10 Dose: 750 mg Lisinopril (Zestril) 5 mg PO DAILY [facility] Last Admin: 10/30/16 09:10 Dose: 5 mg Loratadine (Claritin) 10 mg PO DAILY [facility] Last Admin: 10/30/16 09:10 Dose: 10 mg Methimazole (Tapazole) 5 mg PO DAILY [facility] Last Admin: 10/30/16 09:10 Dose: 5 mg Methylprednisolone (Solu-Medrol) 30 mg IVP Q12 [facility] Last Admin: 10/30/16 09:11 Dose: 30 mg Pantoprazole Sodium (Protonix Inj) 40 mg IVP DAILY [facility] Last Admin: 10/30/16 09:11 Dose: 40 mg - Labs Labs: 10/30/16 06:30 10/30/16 06:30 PT 11.9 Seconds (9.9-11.8) H 10/28/16 20:10 INR 1.10 (0.93-1.08) H 10/28/16 20:10 APTT 29.2 Seconds (23.7-30.8) 10/28/16 20:10 - Constitutional Appears: Well - Head Exam Head Exam: ATRAUMATIC, NORMAL INSPECTION, NORMOCEPHALIC - Eye Exam Eye Exam: EOMI, Normal appearance, PERRL Pupil Exam: NORMAL ACCOMODATION, PERRL - ENT Exam ENT Exam: Mucous Membranes Moist, Normal Exam - Neck Exam Neck Exam: Full ROM, Normal Inspection. absent: Lymphadenopathy - Respiratory Exam Respiratory Exam: Clear to Ausculation Bilateral, NORMAL BREATHING PATTERN - Cardiovascular Exam Cardiovascular Exam: REGULAR RHYTHM, +S1, +S2. absent: Murmur - GI/Abdominal Exam GI & Abdominal Exam: Soft, Normal Bowel Sounds. absent: Tenderness - Rectal Exam Rectal Exam: NORMAL INSPECTION - Exam Exam: Circumcision, NORMAL INSPECTION External exam: NORMAL EXTERNAL EXAM Speculum exam: NORMAL SPECULUM EXAM Bimanual exam: NORMAL BIMANUAL EXAM - Extremities Exam Extremities Exam: Full ROM, Normal Capillary Refill, Normal Inspection. absent : Joint Swelling, Pedal Edema - Back Exam Back Exam: NORMAL INSPECTION - Neurological Exam Neurological Exam: Alert, Awake, CN II-XII Intact, Normal Gait, Oriented x3 - Psychiatric Exam Psychiatric exam: Normal Affect, Normal Mood - Skin Skin Exam: Dry, Intact, Normal Color, Warm Assessment and Plan (1) SIRS (systemic inflammatory response syndrome) Status: Acute (2) COPD exacerbation Status: Chronic (3) AAA (abdominal aortic aneurysm) without rupture Status: Acute - Assessment and Plan (Free Text) Assessment: BC NEG PROCAL NEG Plan: PO DOX 100 MG BID 5 DAYS AND PO VANTIN 200 MG BID 5 DAYS
--- NOTE | 2016-10-30 13:22 | CP.PCM.PN ---
<PAUL LOVE - Last Filed: 10/30/16 13:37> Subjective - Date & Time of Evaluation Date of Evaluation: 10/30/16 Time of Evaluation: 06:45 - Subjective Subjective: Paul Love D.O. PGY1 - Internal Medicine - [facility] Patient seen and examined at bedside. Today is hospital day 2. No acute events overnight. She is no longer complaining of SOB. She also denies CP, wheezing, fever, chills, N/V/D/C. Objective - Vital Signs/Intake and Output Vital Signs (last 24 hours): Temp Pulse Resp BP Pulse Ox 97.9 F 60 20 115/65 96 10/30/16 08:19 10/30/16 09:10 10/30/16 08:19 10/30/16 09:10 10/30/16 08:19 Intake and Output: 10/30/16 10/30/16 06:59 18:59 Intake Total 120 260 Balance 120 260 - Medications Medications: Current Medications Acetaminophen (Tylenol 325mg Tab) 650 mg PO Q4H PRN PRN Reason: Fever >100.4 F Albuterol/Ipratropium (Duoneb 3 Mg/0.5 Mg (3 Ml) Ud) 3 ml IH [id number] [facility] Last Admin: 10/30/16 11:17 Dose: 3 ml Albuterol/Ipratropium (Duoneb 3 Mg/0.5 Mg (3 Ml) Ud) 3 ml IH Q2H PRN PRN Reason: Shortness of Breath Aspirin (Ecotrin) 81 mg PO DAILY [facility] Last Admin: 10/30/16 09:10 Dose: 81 mg Atorvastatin Calcium (Lipitor) 10 mg PO DIN [facility] Last Admin: 10/29/16 18:12 Dose: 10 mg Carvedilol (Coreg) 3.125 mg PO BID [facility] Last Admin: 10/30/16 09:10 Dose: 3.125 mg Donepezil HCl (Aricept) 5 mg PO HS [facility] Last Admin: 10/29/16 21:44 Dose: 5 mg Doxycycline Hyclate (Doryx) 100 mg PO Q12 [facility] PRN Reason: Protocol Stop: 11/07/16 10:33 Last Admin: 10/30/16 09:10 Dose: 100 mg Ferrous Sulfate (Feosol) 324 mg PO DAILY [facility] Last Admin: 10/30/16 09:09 Dose: 324 mg Furosemide (Lasix) 40 mg PO DAILY [facility] Last Admin: 10/30/16 09:09 Dose: 40 mg Heparin Sodium (Porcine) (Heparin) 5,000 units SC Q12 [facility] PRN Reason: Protocol Last Admin: 10/30/16 09:11 Dose: 5,000 units Levetiracetam (Keppra) 750 mg PO DAILY [facility] Last Admin: 10/30/16 09:10 Dose: 750 mg Lisinopril (Zestril) 5 mg PO DAILY [facility] Last Admin: 10/30/16 09:10 Dose: 5 mg Loratadine (Claritin) 10 mg PO DAILY [facility] Last Admin: 10/30/16 09:10 Dose: 10 mg Methimazole (Tapazole) 5 mg PO DAILY [facility] Last Admin: 10/30/16 09:10 Dose: 5 mg Methylprednisolone (Solu-Medrol) 30 mg IVP Q12 [facility] Last Admin: 10/30/16 09:11 Dose: 30 mg Pantoprazole Sodium (Protonix Inj) 40 mg IVP DAILY [facility] Last Admin: 10/30/16 09:11 Dose: 40 mg - Labs Labs: 10/30/16 06:30 10/30/16 06:30 PT 11.9 Seconds (9.9-11.8) H 10/28/16 20:10 INR 1.10 (0.93-1.08) H 10/28/16 20:10 APTT 29.2 Seconds (23.7-30.8) 10/28/16 20:10 - Constitutional Appears: Well, No Acute Distress - Head Exam Head Exam: ATRAUMATIC, NORMOCEPHALIC - Eye Exam Eye Exam: EOMI, Normal appearance Pupil Exam: PERRL - ENT Exam ENT Exam: Mucous Membranes Moist - Neck Exam Neck Exam: Full ROM. absent: Lymphadenopathy, Thyromegaly - Respiratory Exam Respiratory Exam: Wheezes (B/L upper lung avila, faint), NORMAL BREATHING PATTERN. absent: Rales, Rhonchi - Cardiovascular Exam Cardiovascular Exam: REGULAR RHYTHM, +S1, +S2 - GI/Abdominal Exam GI & Abdominal Exam: Soft, Normal Bowel Sounds. absent: Tenderness - Extremities Exam Extremities Exam: absent: Calf Tenderness, Pedal Edema - Back Exam Back Exam: absent: CVA tenderness (L), CVA tenderness (R) - Neurological Exam Neurological Exam: Alert, Awake, Oriented x3 - Psychiatric Exam Psychiatric exam: Normal Affect, Normal Mood - Skin Skin Exam: Dry, Intact, Warm Assessment and Plan - Assessment and Plan (Free Text) Assessment: 81 year old female with a PMH of hypertension, COPD on home oxygen, previous PE , anemia, seizure disorder, dementia, AAA, CVA, lung cancer, NSTEMI, CHF, and hyperthyroidism that presented to [facility] ER with complaints of shortness of breath and fever. She is also receiving antibiotics for SIRS, which is improving. Plan: 1. Shortness of breath - Given one dose lasix 40 yesterday, today, SOB improved significantly, residual mild wheezing in bl upper lung avila - Continue q4h nebs with q2 PRN, solumedrol 40q12 - Continue O2 NC 2L, maintain O2 sat above 90% - ID Dr. Jones consulted, appreciate all recs 2. SIRS - Afebrile since starting antibiotics. Today, WBC increased to 14.8, up from 8.0 on admission - IV antibiotics switched to PO doxycycline 100mg BID x5d and PO cefpodoxime 200mg BID x5d as per ID - Will continue to monitor 3. Compensated CHF - Last EF 28% - BNP wnl, CXR on admission showed some congestion - Clinically improved after lasix, will recheck CXR in AM if still symptomatic, otherwise consider d/c 4. Hx CAD - Continue home ASA, lipitor and carvedilol 5. Hx Dementia - Stable, continue home aricept 6. Hyperthyroidism - Continue home methimazole GI/DVT ppx: protonix/heparin sc Patient was seen and examined and case was discussed at length with attending Dr. Soriano. <Russ Soriano - Last Filed: 10/31/16 15:29> Objective - Vital Signs/Intake and Output Vital Signs (last 24 hours): Temp Pulse Resp BP Pulse Ox 97.6 F 80 18 120/80 99 10/31/16 07:30 10/31/16 11:20 10/31/16 07:30 10/31/16 11:20 10/31/16 07:30 Intake and Output: 10/31/16 10/31/16 06:59 18:59 Intake Total 120 Output Total 1 Balance 119 - Medications Medications: Current Medications Acetaminophen (Tylenol 325mg Tab) 650 mg PO Q4H PRN PRN Reason: Fever >100.4 F Albuterol/Ipratropium (Duoneb 3 Mg/0.5 Mg (3 Ml) Ud) 3 ml IH [id number] [facility] Last Admin: 10/31/16 11:12 Dose: 3 ml Albuterol/Ipratropium (Duoneb 3 Mg/0.5 Mg (3 Ml) Ud) 3 ml IH Q2H PRN PRN Reason: Shortness of Breath Aspirin (Ecotrin) 81 mg PO DAILY [facility] Last Admin: 10/31/16 11:15 Dose: 81 mg Atorvastatin Calcium (Lipitor) 10 mg PO DIN [facility] Last Admin: 10/30/16 17:34 Dose: 10 mg Carvedilol (Coreg) 3.125 mg PO BID [facility] Last Admin: 10/31/16 11:20 Dose: 3.125 mg Cefpodoxime Proxetil (Vantin) 200 mg PO Q24H [facility] PRN Reason: Protocol Last Admin: 10/31/16 11:14 Dose: 200 mg Donepezil HCl (Aricept) 5 mg PO HS [facility] Last Admin: 10/30/16 21:26 Dose: 5 mg Doxycycline Hyclate (Doryx) 100 mg PO Q12 [facility] PRN Reason: Protocol Stop: 11/07/16 10:33 Last Admin: 10/31/16 11:14 Dose: 100 mg Ferrous Sulfate (Feosol) 324 mg PO DAILY [facility] Last Admin: 10/31/16 11:15 Dose: 324 mg Furosemide (Lasix) 40 mg PO DAILY [facility] Last Admin: 10/31/16 11:20 Dose: 40 mg Heparin Sodium (Porcine) (Heparin) 5,000 units SC Q12 [facility] PRN Reason: Protocol Last Admin: 10/31/16 11:12 Dose: 5,000 units Levetiracetam (Keppra) 750 mg PO DAILY [facility] Last Admin: 10/31/16 11:14 Dose: 750 mg Lisinopril (Zestril) 5 mg PO DAILY [facility] Last Admin: 10/31/16 11:19 Dose: 5 mg Loratadine (Claritin) 10 mg PO DAILY [facility] Last Admin: 10/31/16 11:15 Dose: 10 mg Methimazole (Tapazole) 5 mg PO DAILY [facility] Last Admin: 10/31/16 11:15 Dose: 5 mg Methylprednisolone (Solu-Medrol) 30 mg IVP Q12 [facility] Last Admin: 10/31/16 11:12 Dose: 30 mg Pantoprazole Sodium (Protonix Ec Tab) 40 mg PO 0600 [facility] Last Admin: 10/31/16 05:51 Dose: 40 mg Polyethylene Glycol (Miralax) 17 gm PO DAILY PRN PRN Reason: Constipation Last Admin: 10/31/16 11:10 Dose: 17 gm - Labs Labs: 10/31/16 06:10 10/31/16 06:10 PT 11.9 Seconds (9.9-11.8) H 10/28/16 20:10 INR 1.10 (0.93-1.08) H 10/28/16 20:10 APTT 29.2 Seconds (23.7-30.8) 10/28/16 20:10 Attending/Attestation - Attestation I have personally seen and examined this patient.: Yes I have fully participated in the care of the patient.: Yes I have reviewed all pertinent clinical information, including history, physical exam and plan: Yes Notes (Text): 10/31/16 15:29 Medical record note made by the resident after discussion with my direction and input after the patient was personally seen and examined by me. I have reviewed the chart and agree that the record accurately reflects by personal performance of the history, physical exam, data review, and medical decision-making, in the course for the patient. I have also personally directed the plan of care.
[2016-10-30] MEDS ORDERED: POLYETHYLENE GLYCOL 3350 17 GM/Dose PACKET PO ONE (13:24)
[2016-10-31] MEDS: Albuterol-Ipratrop 3 mg / 0.5 (3 ml) UD IH SCH ×6 (00:55→19:45)
[2016-10-31] MEDS: Pantoprazole 40 mg EC Tab PO SCH (05:51)
[2016-10-31 07:06] LABS: GRAN # 15.53 (1.4-6.5); GRAN % 94.7 % (50.0-68.0); HEMOGLOBIN 12.3 gm/dL (12.0-16.0); LYMPH # 0.5 (1.2-3.4); MEAN CELL VOLUME 84.7 fL (80.0-105.0); MEAN CORPUSCULAR HEMOGLOBIN 28.1 pg (25.0-35.0); MEAN CORPUSCULAR HGB CONC 33.2 g/dl (31.0-37.0); MEAN PLATELET VOLUME 10.9 fl (7.0-11.0); MONO # 0.4 (0.1-0.6); MONO % 2.3 % (1.0-6.0); PLATELET COUNT 404 10^3/uL (120.0-450.0); RBC 4.37 10^6/uL (3.5-6.1); RED CELL DISTRIBUTION WIDTH 17.5 % (11.5-14.5); WHITE BLOOD COUNT 16.4 10^3/ul (4.5-11.0)
[2016-10-31] MEDS ORDERED: POLYETHYLENE GLYCOL 3350 17 GM/Dose PACKET PO PRN (10:13)
--- NOTE | 2016-10-31 11:09 | CP.PCM.PN ---
Subjective - Date & Time of Evaluation Date of Evaluation: 10/31/16 Time of Evaluation: 10:15 - Subjective Subjective: Comfortable in bed, afebrile, not in distress. Objective - Vital Signs/Intake and Output Vital Signs (last 24 hours): Temp Pulse Resp BP Pulse Ox 97.6 F 76 18 98/69 L 99 10/31/16 07:30 10/31/16 07:30 10/31/16 07:30 10/31/16 07:30 10/31/16 07:30 Intake and Output: 10/31/16 10/31/16 06:59 18:59 Intake Total 120 Output Total 1 Balance 119 - Medications Medications: Current Medications Acetaminophen (Tylenol 325mg Tab) 650 mg PO Q4H PRN PRN Reason: Fever >100.4 F Albuterol/Ipratropium (Duoneb 3 Mg/0.5 Mg (3 Ml) Ud) 3 ml IH [id number] [facility] Last Admin: 10/31/16 07:53 Dose: 3 ml Albuterol/Ipratropium (Duoneb 3 Mg/0.5 Mg (3 Ml) Ud) 3 ml IH Q2H PRN PRN Reason: Shortness of Breath Aspirin (Ecotrin) 81 mg PO DAILY [facility] Last Admin: 10/30/16 09:10 Dose: 81 mg Atorvastatin Calcium (Lipitor) 10 mg PO DIN [facility] Last Admin: 10/30/16 17:34 Dose: 10 mg Carvedilol (Coreg) 3.125 mg PO BID [facility] Last Admin: 10/30/16 17:33 Dose: Not Given Donepezil HCl (Aricept) 5 mg PO HS [facility] Last Admin: 10/30/16 21:26 Dose: 5 mg Doxycycline Hyclate (Doryx) 100 mg PO Q12 [facility] PRN Reason: Protocol Stop: 11/07/16 10:33 Last Admin: 10/30/16 21:26 Dose: 100 mg Ferrous Sulfate (Feosol) 324 mg PO DAILY [facility] Last Admin: 10/30/16 09:09 Dose: 324 mg Furosemide (Lasix) 40 mg PO DAILY [facility] Last Admin: 10/30/16 09:09 Dose: 40 mg Heparin Sodium (Porcine) (Heparin) 5,000 units SC Q12 [facility] PRN Reason: Protocol Last Admin: 10/30/16 21:25 Dose: 5,000 units Levetiracetam (Keppra) 750 mg PO DAILY [facility] Last Admin: 10/30/16 09:10 Dose: 750 mg Lisinopril (Zestril) 5 mg PO DAILY [facility] Last Admin: 10/30/16 09:10 Dose: 5 mg Loratadine (Claritin) 10 mg PO DAILY [facility] Last Admin: 10/30/16 09:10 Dose: 10 mg Methimazole (Tapazole) 5 mg PO DAILY [facility] Last Admin: 10/30/16 09:10 Dose: 5 mg Methylprednisolone (Solu-Medrol) 30 mg IVP Q12 [facility] Last Admin: 10/30/16 21:20 Dose: 30 mg Pantoprazole Sodium (Protonix Ec Tab) 40 mg PO 0600 [facility] Last Admin: 10/31/16 05:51 Dose: 40 mg - Labs Labs: 10/31/16 06:10 10/31/16 06:10 PT 11.9 Seconds (9.9-11.8) H 10/28/16 20:10 INR 1.10 (0.93-1.08) H 10/28/16 20:10 APTT 29.2 Seconds (23.7-30.8) 10/28/16 20:10 - Constitutional Appears: Non-toxic, No Acute Distress - Head Exam Head Exam: NORMAL INSPECTION - Neck Exam Neck Exam: absent: Meningismus - Respiratory Exam Respiratory Exam: Decreased Breath Sounds - Cardiovascular Exam Cardiovascular Exam: +S1, +S2 - GI/Abdominal Exam GI & Abdominal Exam: Soft. absent: Tenderness Assessment and Plan - Assessment and Plan (Free Text) Plan: Assessment Systemic Inflammatory Response Syndrome probably due to acute COPD exacerbation , clinically improving abdominal aortic aneurysm Plan complete 5 days of Doxycycline and Vantin (day 2 today); blood cx have been negative and procalcitonin has been negative will monitor clinically
[2016-10-31] MEDS: MethylPREDNISolone 40 mg Vial IVP SCH ×2 (11:12→23:21)
[2016-10-31] MEDS: Cefpodoxime (Vantin) 200 mg Tab PO SCH (11:14)
[2016-10-31] MEDS: methIMAzole 5 MG TAB PO SCH (11:15)
--- NOTE | 2016-10-31 20:02 | CP.PCM.PN ---
Addendum entered and electronically signed by Juan Manuel Garcia DO 11/01/16 11:30: Patient was seen and examined and case was discussed at length with Dr. Love. Patient likely had combination of COPD exacerbation and CHF exacerbation, fluid status improved after lasix with no more crackles, on nebs and steroids, will taper as necessary. Discussed with Dr. Galvan. 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 Will discuss with daughter. Juan Manuel Garcia D.O. PGY-2 Original Note: <SELVIN LOVE - Last Filed: 10/31/16 19:59> Subjective - Date & Time of Evaluation Date of Evaluation: 10/31/16 Time of Evaluation: 06:45 - Subjective Subjective: Selvin Love D.O. PGY1 - Internal Medicine - [facility] Patient seen and examined at bedside. Today is hospital day 3. No acute events overnight. She is complaining of constipation for which she typically takes miralax at home. She denies SOB, CP, wheezing, fever, chills, N/V/D/C. Objective - Vital Signs/Intake and Output Vital Signs (last 24 hours): Temp Pulse Resp BP Pulse Ox 97.9 F 75 18 99/72 L 99 10/31/16 16:44 10/31/16 16:44 10/31/16 16:44 10/31/16 16:44 10/31/16 16:44 - Medications Medications: Current Medications Acetaminophen (Tylenol 325mg Tab) 650 mg PO Q4H PRN PRN Reason: Fever >100.4 F Albuterol/Ipratropium (Duoneb 3 Mg/0.5 Mg (3 Ml) Ud) 3 ml IH [id number] [facility] Last Admin: 10/31/16 19:45 Dose: 3 ml Albuterol/Ipratropium (Duoneb 3 Mg/0.5 Mg (3 Ml) Ud) 3 ml IH Q2H PRN PRN Reason: Shortness of Breath Aspirin (Ecotrin) 81 mg PO DAILY [facility] Last Admin: 10/31/16 11:15 Dose: 81 mg Atorvastatin Calcium (Lipitor) 10 mg PO DIN [facility] Last Admin: 10/31/16 17:47 Dose: 10 mg Carvedilol (Coreg) 3.125 mg PO BID [facility] Last Admin: 10/31/16 17:44 Dose: Not Given Cefpodoxime Proxetil (Vantin) 200 mg PO Q24H [facility] PRN Reason: Protocol Last Admin: 10/31/16 11:14 Dose: 200 mg Donepezil HCl (Aricept) 5 mg PO HS [facility] Last Admin: 10/30/16 21:26 Dose: 5 mg Doxycycline Hyclate (Doryx) 100 mg PO Q12 [facility] PRN Reason: Protocol Stop: 11/07/16 10:33 Last Admin: 10/31/16 11:14 Dose: 100 mg Ferrous Sulfate (Feosol) 324 mg PO DAILY [facility] Last Admin: 10/31/16 11:15 Dose: 324 mg Furosemide (Lasix) 40 mg PO DAILY [facility] Last Admin: 10/31/16 11:20 Dose: 40 mg Heparin Sodium (Porcine) (Heparin) 5,000 units SC Q12 [facility] PRN Reason: Protocol Last Admin: 10/31/16 11:12 Dose: 5,000 units Levetiracetam (Keppra) 750 mg PO DAILY [facility] Last Admin: 10/31/16 11:14 Dose: 750 mg Lisinopril (Zestril) 5 mg PO DAILY [facility] Last Admin: 10/31/16 11:19 Dose: 5 mg Loratadine (Claritin) 10 mg PO DAILY [facility] Last Admin: 10/31/16 11:15 Dose: 10 mg Methimazole (Tapazole) 5 mg PO DAILY [facility] Last Admin: 10/31/16 11:15 Dose: 5 mg Methylprednisolone (Solu-Medrol) 30 mg IVP Q12 [facility] Last Admin: 10/31/16 11:12 Dose: 30 mg Pantoprazole Sodium (Protonix Ec Tab) 40 mg PO 0600 [facility] Last Admin: 10/31/16 05:51 Dose: 40 mg Polyethylene Glycol (Miralax) 17 gm PO DAILY PRN PRN Reason: Constipation Last Admin: 10/31/16 11:10 Dose: 17 gm - Labs Labs: 10/31/16 06:10 10/31/16 06:10 PT 11.9 Seconds (9.9-11.8) H 10/28/16 20:10 INR 1.10 (0.93-1.08) H 10/28/16 20:10 APTT 29.2 Seconds (23.7-30.8) 10/28/16 20:10 - Constitutional Appears: Well, Non-toxic, Chronically Ill - Head Exam Head Exam: ATRAUMATIC, NORMOCEPHALIC - Eye Exam Eye Exam: EOMI, Normal appearance, PERRL - ENT Exam ENT Exam: Mucous Membranes Moist - Neck Exam Neck Exam: Full ROM. absent: Lymphadenopathy, Thyromegaly - Respiratory Exam Respiratory Exam: Clear to Ausculation Bilateral. absent: Rales, Rhonchi, Wheezes - Cardiovascular Exam Cardiovascular Exam: RRR, +S1, +S2. absent: JVD - GI/Abdominal Exam GI & Abdominal Exam: Soft, Normal Bowel Sounds. absent: Tenderness - Extremities Exam Extremities Exam: Full ROM. absent: Pedal Edema, Tenderness - Back Exam Back Exam: absent: CVA tenderness (L), CVA tenderness (R) - Neurological Exam Neurological Exam: Alert, Awake, Oriented x3 - Psychiatric Exam Psychiatric exam: Normal Affect, Normal Mood - Skin Skin Exam: Dry, Intact, Warm Assessment and Plan - Assessment and Plan (Free Text) Assessment: 81 year old female with a PMH of hypertension, COPD on home oxygen, previous PE , anemia, seizure disorder, dementia, AAA, CVA, lung cancer, NSTEMI, CHF, and hyperthyroidism that [place] [facility] [place] with complaints of shortness of breath and fever. She is also receiving antibiotics for SIRS, which is improving. Plan: 1. Shortness of breath - Improved - Given one dose lasix 40 on day 1, today, no SOB - Continue q4h nebs with q2 PRN, solumedrol 40q12 - Continue O2 NC 2L, maintain O2 sat above 90% - ID Dr. Jones consulted, appreciate all recs 2. SIRS - Afebrile since starting antibiotics. Today, WBC increased to 16.4, up from 8.0 on admission, likely 2/2 solumedrol - Continue PO doxycycline 100mg BID x5d and PO cefpodoxime 200mg BID x5d as per ID - Will continue to monitor 3. Compensated CHF - Last EF 28% - BNP wnl, CXR on admission showed some congestion - Clinically improved 4. Hx CAD - Continue home ASA, lipitor and carvedilol 5. Hx Dementia - Stable, continue home aricept 6. Hyperthyroidism - Continue home methimazole 7. Constipation - Start miralax PRN GI/DVT ppx: protonix/heparin sc Disposition: Working with daughter for skilled nursing placement Patient was seen and examined and case was discussed at length with senior resident Dr. Garcia PGY2 and attending Dr. Soriano. <Russ Soriano - Last Filed: 11/19/16 16:45> Objective - Vital Signs/Intake and Output Vital Signs (last 24 hours): Temp Pulse Resp BP Pulse Ox 97.9 F 75 20 110/71 99 11/02/16 15:55 11/02/16 15:55 11/02/16 15:55 11/02/16 15:55 11/02/16 15:55 - Labs Labs: 11/02/16 08:20 11/02/16 08:20 PT 11.9 Seconds (9.9-11.8) H 10/28/16 20:10 INR 1.10 (0.93-1.08) H 10/28/16 20:10 APTT 29.2 Seconds (23.7-30.8) 10/28/16 20:10 Attending/Attestation - Attestation I have personally seen and examined this patient.: Yes I have fully participated in the care of the patient.: Yes I have reviewed all pertinent clinical information, including history, physical exam and plan: Yes Notes (Text): 11/19/16 16:45 Medical record note made by the resident after discussion with my direction and input after the patient was personally seen and examined by me. I have reviewed the chart and agree that the record accurately reflects by personal performance of the history, physical exam, data review, and medical decision-making, in the course for the patient. I have also personally directed the plan of care.
[2016-11-01] MEDS: Albuterol-Ipratrop 3 mg / 0.5 (3 ml) UD IH SCH ×7 (00:10→23:31)
[2016-11-01] MEDS: Pantoprazole 40 mg EC Tab PO SCH (06:13)
[2016-11-01 07:10] LABS: ALBUMIN 3.2 g/dL (3.0-4.8); CALCIUM 8.9 mg/dL (8.4-10.5)
[2016-11-01 07:20] LABS: GRAN # 11.45 (1.4-6.5); GRAN % 94.7 % (50.0-68.0); HEMOGLOBIN 12.6 gm/dL (12.0-16.0); LYMPH # 0.4 (1.2-3.4); LYMPH % 3.1 % (22.0-35.0); MEAN CELL VOLUME 85.9 fL (80.0-105.0); MEAN CORPUSCULAR HEMOGLOBIN 27.8 pg (25.0-35.0); MEAN CORPUSCULAR HGB CONC 32.4 g/dl (31.0-37.0); MEAN PLATELET VOLUME 11.1 fl (7.0-11.0); MONO # 0.3 (0.1-0.6); MONO % 2.2 % (1.0-6.0); PLATELET COUNT 386 10^3/uL (120.0-450.0); RBC 4.53 10^6/uL (3.5-6.1); RED CELL DISTRIBUTION WIDTH 17.7 % (11.5-14.5); WHITE BLOOD COUNT 12.1 10^3/ul (4.5-11.0)
[2016-11-01 08:04] VITALS: RESP 20
[2016-11-01] MEDS: methIMAzole 5 MG TAB PO SCH (11:48)
--- NOTE | 2016-11-01 12:15 | CP.PCM.PN ---
Subjective - Date & Time of Evaluation Date of Evaluation: 11/01/16 Time of Evaluation: 10:40 - Subjective Subjective: Comfortable in bed, afebrile, not in distress, no SOB at rest. Objective - Vital Signs/Intake and Output Vital Signs (last 24 hours): Temp Pulse Resp BP Pulse Ox 97.8 F 73 20 107/73 97 11/01/16 08:03 11/01/16 08:03 11/01/16 08:03 11/01/16 08:03 11/01/16 08:03 Intake and Output: 11/01/16 11/01/16 06:59 18:59 Intake Total 540 Balance 540 - Medications Medications: Current Medications Acetaminophen (Tylenol 325mg Tab) 650 mg PO Q4H PRN PRN Reason: Fever >100.4 F Albuterol/Ipratropium (Duoneb 3 Mg/0.5 Mg (3 Ml) Ud) 3 ml IH [id number] [facility] Last Admin: 11/01/16 07:52 Dose: Not Given Albuterol/Ipratropium (Duoneb 3 Mg/0.5 Mg (3 Ml) Ud) 3 ml IH Q2H PRN PRN Reason: Shortness of Breath Aspirin (Ecotrin) 81 mg PO DAILY [facility] Last Admin: 10/31/16 11:15 Dose: 81 mg Atorvastatin Calcium (Lipitor) 10 mg PO DIN [facility] Last Admin: 10/31/16 17:47 Dose: 10 mg Carvedilol (Coreg) 3.125 mg PO BID [facility] Last Admin: 10/31/16 17:44 Dose: Not Given Cefpodoxime Proxetil (Vantin) 200 mg PO Q24H [facility] PRN Reason: Protocol Last Admin: 10/31/16 11:14 Dose: 200 mg Donepezil HCl (Aricept) 5 mg PO HS [facility] Last Admin: 10/31/16 23:20 Dose: 5 mg Doxycycline Hyclate (Doryx) 100 mg PO Q12 [facility] PRN Reason: Protocol Stop: 11/07/16 10:33 Last Admin: 10/31/16 23:20 Dose: 100 mg Ferrous Sulfate (Feosol) 324 mg PO DAILY [facility] Last Admin: 10/31/16 11:15 Dose: 324 mg Furosemide (Lasix) 40 mg PO DAILY [facility] Last Admin: 10/31/16 11:20 Dose: 40 mg Heparin Sodium (Porcine) (Heparin) 5,000 units SC Q12 [facility] PRN Reason: Protocol Last Admin: 10/31/16 23:19 Dose: 5,000 units Levetiracetam (Keppra) 750 mg PO DAILY [facility] Last Admin: 10/31/16 11:14 Dose: 750 mg Lisinopril (Zestril) 5 mg PO DAILY [facility] Last Admin: 10/31/16 11:19 Dose: 5 mg Loratadine (Claritin) 10 mg PO DAILY [facility] Last Admin: 10/31/16 11:15 Dose: 10 mg Methimazole (Tapazole) 5 mg PO DAILY [facility] Last Admin: 10/31/16 11:15 Dose: 5 mg Pantoprazole Sodium (Protonix Ec Tab) 40 mg PO 0600 [facility] Last Admin: 11/01/16 06:13 Dose: 40 mg Polyethylene Glycol (Miralax) 17 gm PO DAILY PRN PRN Reason: Constipation Last Admin: 10/31/16 11:10 Dose: 17 gm Prednisone (Prednisone Tab) 40 mg PO DAILY [facility] - Labs Labs: 11/01/16 06:45 11/01/16 06:45 PT 11.9 Seconds (9.9-11.8) H 10/28/16 20:10 INR 1.10 (0.93-1.08) H 10/28/16 20:10 APTT 29.2 Seconds (23.7-30.8) 10/28/16 20:10 - Constitutional Appears: Non-toxic, No Acute Distress - Head Exam Head Exam: NORMAL INSPECTION - Neck Exam Neck Exam: absent: Meningismus - Respiratory Exam Respiratory Exam: Decreased Breath Sounds - Cardiovascular Exam Cardiovascular Exam: +S1, +S2 - GI/Abdominal Exam GI & Abdominal Exam: Soft. absent: Tenderness Assessment and Plan - Assessment and Plan (Free Text) Plan: Assessment Systemic Inflammatory Response Syndrome probably due to acute COPD exacerbation , clinically improving abdominal aortic aneurysm Plan complete 5 days of Doxycycline and Vantin (day 3 today); blood cx have been negative and procalcitonin has been negative will continue to monitor clinically while the patient is in the hospital
[2016-11-01] MEDS: Cefpodoxime (Vantin) 200 mg Tab PO SCH (13:54)
--- NOTE | 2016-11-01 19:57 | CP.PCM.PN ---
Addendum entered and electronically signed by Juan Manuel Garcia DO 11/02/16 14:02: Patient was seen and examined and discussed case at length with Dr. Love. Patient to be D/C'ed today with continued abx. Juan Manuel Garcia D.O. PGY-2 Original Note: <SELVIN LOVE - Last Filed: 11/01/16 19:53> Subjective - Date & Time of Evaluation Date of Evaluation: 11/01/16 Time of Evaluation: 06:45 - Subjective Subjective: Selvin Love D.O. PGY1 - Internal Medicine - [facility] Patient seen and examined at bedside. No acute events overnight. She has no complaints. She denies SOB, CP, wheezing, fever, chills, N/V/D/C. Patient's daughter and CM will contact nursing homes today for placement after discharge. Objective - Vital Signs/Intake and Output Vital Signs (last 24 hours): Temp Pulse Resp BP Pulse Ox 98 F 71 20 113/79 96 11/01/16 17:13 11/01/16 17:13 11/01/16 17:13 11/01/16 17:13 11/01/16 17:13 Intake and Output: 11/01/16 11/02/16 18:59 06:59 Intake Total 560 Balance 560 - Medications Medications: Current Medications Acetaminophen (Tylenol 325mg Tab) 650 mg PO Q4H PRN PRN Reason: Fever >100.4 F Albuterol/Ipratropium (Duoneb 3 Mg/0.5 Mg (3 Ml) Ud) 3 ml [facility] [id number] [facility] Last Admin: 11/01/16 16:12 Dose: Not Given Albuterol/Ipratropium (Duoneb 3 Mg/0.5 Mg (3 Ml) Ud) 3 ml IH Q2H PRN PRN Reason: Shortness of Breath Aspirin (Ecotrin) 81 mg PO DAILY [facility] Last Admin: 11/01/16 11:46 Dose: 81 mg Atorvastatin Calcium (Lipitor) 10 mg PO DIN [facility] Last Admin: 11/01/16 17:35 Dose: 10 mg Carvedilol (Coreg) 3.125 mg PO BID [facility] Last Admin: 11/01/16 17:35 Dose: 3.125 mg Cefpodoxime Proxetil (Vantin) 200 mg PO Q24H [facility] PRN Reason: Protocol Last Admin: 11/01/16 13:54 Dose: 200 mg Donepezil HCl (Aricept) 5 mg PO HS [facility] Last Admin: 10/31/16 23:20 Dose: 5 mg Doxycycline Hyclate (Doryx) 100 mg PO Q12 FR[facility] PRN Reason: Protocol Stop: 11/07/16 10:33 Last Admin: 11/01/16 11:45 Dose: 100 mg Ferrous Sulfate (Feosol) 324 mg PO DAILY [facility] Last Admin: 11/01/16 11:46 Dose: 324 mg Furosemide (Lasix) 40 mg PO DAILY [facility] Last Admin: 11/01/16 11:48 Dose: 40 mg Heparin Sodium (Porcine) (Heparin) 5,000 units SC Q12 [facility] PRN Reason: Protocol Last Admin: 11/01/16 11:33 Dose: 5,000 units Levetiracetam (Keppra) 750 mg PO DAILY [facility] Last Admin: 11/01/16 11:47 Dose: 750 mg Lisinopril (Zestril) 5 mg PO DAILY [facility] Last Admin: 10/31/16 11:19 Dose: 5 mg Loratadine (Claritin) 10 mg PO DAILY [facility] Last Admin: 11/01/16 11:42 Dose: 10 mg Methimazole (Tapazole) 5 mg PO DAILY [facility] Last Admin: 11/01/16 11:48 Dose: 5 mg Pantoprazole Sodium (Protonix Ec Tab) 40 mg PO 0600 [facility] Last Admin: 11/01/16 06:13 Dose: 40 mg Polyethylene Glycol (Miralax) 17 gm PO DAILY PRN PRN Reason: Constipation Last Admin: 10/31/16 11:10 Dose: 17 gm Prednisone (Prednisone Tab) 40 mg PO DAILY [facility] Last Admin: 11/01/16 11:49 Dose: 40 mg - Labs Labs: 11/01/16 06:45 11/01/16 06:45 PT 11.9 Seconds (9.9-11.8) H 10/28/16 20:10 INR 1.10 (0.93-1.08) H 10/28/16 20:10 APTT 29.2 Seconds (23.7-30.8) 10/28/16 20:10 - Constitutional Appears: Well, Non-toxic, Chronically Ill - Eye Exam Eye Exam: EOMI, Normal appearance - ENT Exam ENT Exam: Mucous Membranes Moist - Neck Exam Neck Exam: Full ROM, Normal Inspection - Respiratory Exam Respiratory Exam: Clear to Ausculation Bilateral. absent: Rales, Rhonchi, Wheezes - Cardiovascular Exam Cardiovascular Exam: RRR, +S1, +S2 - GI/Abdominal Exam GI & Abdominal Exam: Soft, Normal Bowel Sounds. absent: Tenderness - Extremities Exam Extremities Exam: Full ROM, Normal Inspection. absent: Calf Tenderness - Neurological Exam Neurological Exam: Alert, Awake - Psychiatric Exam Psychiatric exam: Normal Affect, Normal Mood - Skin Skin Exam: Dry, Intact Assessment and Plan - Assessment and Plan (Free Text) Assessment: 81 year old female with a PMH of hypertension, COPD on home oxygen, previous PE , anemia, seizure disorder, dementia, AAA, CVA, lung cancer, NSTEMI, CHF, and hyperthyroidism that presented to [facility] ER with complaints of shortness of breath and fever. She is also receiving antibiotics for SIRS, which is improving. Plan: 1. Shortness of breath - Improved - SOB was likely secondary to COPD exacerbation and CHF exacerbation, now improved - Given one dose lasix 40 on day 1, today, no SOB - Switched to PO prednisone, will d/c on medrol dose pack - Continue O2 NC 2L, maintain O2 sat above 90% 2. SIRS - Likely secondary to COPD exacerbation, potential underlying infectious etiology - Afebrile since starting antibiotics. Today, WBC increased to 16.4, up from 8.0 on admission, likely 2/2 solumedrol - Continue PO doxycycline 100mg BID x10d and PO cefpodoxime 200mg BID x10d as per ID - ID Dr. Jones consulted, appreciate all recs - Will continue to monitor 3. Compensated CHF - Last EF 28% - BNP wnl, CXR on admission showed some congestion - Clinically improved 4. Hx CAD - Continue home ASA, lipitor and carvedilol 5. Hx Dementia - Stable, continue home aricept 6. Hyperthyroidism - Continue home methimazole 7. Constipation - Continue miralax PRN GI/DVT ppx: protonix/heparin sc Disposition: Working with daughter for long-term placement Patient was seen and examined and case was discussed at length with senior resident Dr. Garcia PGY2 and attending Dr. Walsh. <Justus Walsh - Last Filed: 11/08/16 11:40> Objective - Vital Signs/Intake and Output Vital Signs (last 24 hours): Temp Pulse Resp BP Pulse Ox 97.9 F 75 20 110/71 99 11/02/16 15:55 11/02/16 15:55 11/02/16 15:55 11/02/16 15:55 11/02/16 15:55 - Labs Labs: 11/02/16 08:20 11/02/16 08:20 PT 11.9 Seconds (9.9-11.8) H 10/28/16 20:10 INR 1.10 (0.93-1.08) H 10/28/16 20:10 APTT 29.2 Seconds (23.7-30.8) 10/28/16 20:10 Attending/Attestation - Attestation I have personally seen and examined this patient.: Yes I have fully participated in the care of the patient.: Yes I have reviewed all pertinent clinical information, including history, physical exam and plan: Yes Notes (Text): 11/08/16 11:40 Medical record note made by resident after discussion with my direction and input after patient personally seen and examined by me. I have reviewed the chart and agree that the record accurately reflects my personal performance of the history, physical, data review and medical decision making for the course of this patient.
[2016-11-02] MEDS: Albuterol-Ipratrop 3 mg / 0.5 (3 ml) UD IH SCH ×4 (04:00→15:41)
[2016-11-02] MEDS: Pantoprazole 40 mg EC Tab PO SCH (06:18)
[2016-11-02] MEDS ORDERED: Budesonide 0.5 mg/2 ml Inhal Susp UD IH SCH (08:00)
[2016-11-02 08:52] LABS: BASO # 0.01 K/mm3 (0.0-2.0); BASO % 0.1 % (0.0-3.0); EOS % 0.1 % (1.5-5.0); GRAN # 10.45 (1.4-6.5); GRAN % 88.1 % (50.0-68.0); HEMOGLOBIN 12.2 gm/dL (12.0-16.0); LYMPH # 0.8 (1.2-3.4); LYMPH % 6.6 % (22.0-35.0); MEAN CELL VOLUME 85.8 fL (80.0-105.0); MEAN CORPUSCULAR HEMOGLOBIN 27.9 pg (25.0-35.0); MEAN CORPUSCULAR HGB CONC 32.4 g/dl (31.0-37.0); MEAN PLATELET VOLUME 10.6 fl (7.0-11.0); MONO # 0.6 (0.1-0.6); MONO % 5.1 % (1.0-6.0); PLATELET COUNT 389 10^3/uL (120.0-450.0); RBC 4.38 10^6/uL (3.5-6.1); RED CELL DISTRIBUTION WIDTH 17.4 % (11.5-14.5); WHITE BLOOD COUNT 11.9 10^3/ul (4.5-11.0)
[2016-11-02 09:05] LABS: ALBUMIN 2.9 g/dL (3.0-4.8)
[2016-11-02] MEDS ORDERED: POLYETHYLENE GLYCOL 3350 17 GM/Dose PACKET PO SCH (10:00)
[2016-11-02] MEDS: Cefpodoxime (Vantin) 200 mg Tab PO SCH (11:06)
[2016-11-02] MEDS: methIMAzole 5 MG TAB PO SCH (11:06)
[2016-11-02 11:08] VITALS: PULSE 75
[2016-11-02 15:56] VITALS: BP 110/71; TEMP 97.9; O2SAT 99
--- NOTE | 2016-11-02 18:24 | CP.PCM.DIS ---
Addendum entered and electronically signed by Juan Manuel Garcia DO 11/05/16 06:50: Patient was seen and examined at bedside and case was discussed at length with Dr. Joshua Thompson PGY-1. Patient had a mixture of CHF and COPD exacerbations with rales and wheezing, both responsive to nebulizer treatment, IV steroids, and diuretic use. Will see back in the office next week. Juan Manuel Garcia D.O. PGY-2 Original Note: <PAUL LOVE - Last Filed: 11/02/16 18:24> Provider - Provider Date of Admission: 10/28/16 21:23 Attending physician: Justus Walsh MD Primary care physician: Russ Soriano MD Consults: YAA Galvan Time Spent in preparation of Discharge (in minutes): 45 Diagnosis - Discharge Diagnosis (1) Anemia Status: Acute Priority: Medium (2) Constipation Status: Chronic Priority: Low (3) SIRS (systemic inflammatory response syndrome) Status: Acute Priority: High (4) Chronic obstructive pulmonary disease Status: Chronic Priority: High (5) Congestive heart failure Status: Chronic Priority: High Hospital Course - Lab Results Lab Results: Most Recent Lab Values WBC 11.9 10^3/ul (4.5-11.0) H 11/02/16 08:20 RBC 4.38 10^6/uL (3.5-6.1) 11/02/16 08:20 Hgb 12.2 gm/dL (12.0-16.0) 11/02/16 08:20 Hct 37.6 % (36.0-48.0) 11/02/16 08:20 MCV 85.8 fL (80.0-105.0) 11/02/16 08:20 MCH 27.9 pg (25.0-35.0) 11/02/16 08:20 MCHC 32.4 g/dl (31.0-37.0) 11/02/16 08:20 RDW 17.4 % (11.5-14.5) H 11/02/16 08:20 Plt Count 389 10^3/uL (120.0-450.0) 11/02/16 08:20 MPV 10.6 fl (7.0-11.0) 11/02/16 08:20 Gran % 88.1 % (50.0-68.0) H 11/02/16 08:20 Lymph % (Auto) 6.6 % (22.0-35.0) L 11/02/16 08:20 Yates % (Auto) 5.1 % (1.0-6.0) 11/02/16 08:20 Eos % (Auto) 0.1 % (1.5-5.0) L 11/02/16 08:20 Baso % (Auto) 0.1 % (0.0-3.0) 11/02/16 08:20 Gran # 10.45 (1.4-6.5) H 11/02/16 08:20 Lymph # 0.8 (1.2-3.4) L 11/02/16 08:20 Yates # 0.6 (0.1-0.6) 11/02/16 08:20 Eos # 0.0 (0.0-0.7) 11/02/16 08:20 Baso # 0.01 K/mm3 (0.0-2.0) 11/02/16 08:20 Neutrophils % (Manual) 96 % (50.0-70.0) H 10/30/16 06:30 Lymphocytes % (Manual) 2 % (22.0-35.0) L 10/30/16 06:30 Monocytes % (Manual) 2 % (1.0-6.0) 10/30/16 06:30 ESR 24 mm/hr (0.0-20.0) H 10/28/16 20:10 PT 11.9 Seconds (9.9-11.8) H 10/28/16 20:10 INR 1.10 (0.93-1.08) H 10/28/16 20:10 APTT 29.2 Seconds (23.7-30.8) 10/28/16 20:10 pCO2 31 mm/Hg (35-45) L 10/28/16 20:30 pO2 161.0 mm/Hg (80-100) H 10/28/16 20:30 HCO3 19.6 mmol/L (21-28) L 10/28/16 20:30 ABG pH 7.41 (7.35-7.45) 10/28/16 20:30 ABG Total CO2 20.6 mmol.L (22-28) L 10/28/16 20:30 ABG O2 Saturation 99.7 % (95-98) H 10/28/16 20:30 ABG Base Excess -4.0 mmol/L (-2.0-3.0) L 10/28/16 20:30 ABG Potassium 3.3 mmol/L (3.6-5.2) L 10/28/16 20:30 VBG pH 7.34 (7.32-7.43) 10/28/16 20:10 VBG pCO2 46.0 (40-60) 10/28/16 20:10 VBG HCO3 24.8 mmol/l (21-28) 10/28/16 20:10 VBG Total CO2 26.2 mmol.L (22-28) 10/28/16 20:10 VBG O2 Sat (Calc) 73.4 % (40-65) H 10/28/16 20:10 VBG Base Excess -1.4 mmol/L (0.0-2.0) L 10/28/16 20:10 VBG Potassium 4.4 mmol/L (3.6-5.2) 10/28/16 20:10 Sodium 143.0 mmol/L (132-148) 10/28/16 20:30 Chloride 113.0 mmol/L (98-107) H 10/28/16 20:30 Glucose 89 mg/dl (65-105) 10/28/16 20:30 Lactate 0.8 mmol/L (0.7-2.1) 10/28/16 20:30 FiO2 52.0 % 10/28/16 20:30 Sodium 141 mmol/L (132-148) 11/02/16 08:20 Potassium 4.0 mmol/L (3.6-5.0) 11/02/16 08:20 Chloride 109 mmol/L (95-110) 11/02/16 08:20 Carbon Dioxide 25 mmol/L (21-33) 11/02/16 08:20 Anion Gap 11 (10-20) 11/02/16 08:20 BUN 57 mg/dL (7-21) H 11/02/16 08:20 Creatinine 1.1 mg/dL (0.5-1.4) 11/02/16 08:20 Est GFR ( Amer) 58 11/02/16 08:20 Est GFR (Non-Af Amer) 48 11/02/16 08:20 Random Glucose 113 mg/dL (70-110) H 11/02/16 08:20 Lactic Acid 1.0 mmol/L (0.7-2.1) 10/29/16 07:41 Calcium 9.0 mg/dL (8.4-10.5) 11/02/16 08:20 Phosphorus 3.5 mg/dL (2.5-4.5) 10/28/16 20:10 Magnesium 2.2 mg/dL (1.7-2.2) 10/28/16 20:10 Total Bilirubin 0.4 mg/dL (0.2-1.3) 11/02/16 08:20 AST 33 U/L (15-39) 11/02/16 08:20 ALT 50 U/L (7-56) 11/02/16 08:20 Alkaline Phosphatase 60 U/L (38-133) 11/02/16 08:20 Lactate Dehydrogenase 658 U/L (333-699) 10/28/16 20:10 Total Creatine Kinase 35 U/L (35-230) 10/28/16 20:10 Troponin I 0.01 ng/mL 10/29/16 07:41 C-React Prot High Sens > 15.00 mg/L (1.00-3.00) H 10/28/16 20:10 NT-Pro-B Natriuret Pep 335 pg/mL (0-450) 10/28/16 20:10 Total Protein 5.7 g/dL (5.8-8.3) L 11/02/16 08:20 Albumin 2.9 g/dL (3.0-4.8) L 11/02/16 08:20 Globulin 2.8 gm/dL 11/02/16 08:20 Albumin/Globulin Ratio 1.0 (1.1-1.8) L 11/02/16 08:20 Amylase 147 U/L (35-125) H 11/02/16 08:20 Lipase 227 U/L (23-300) 11/02/16 08:20 Procalcitonin 0.15 NG/ML (0.19-0.49) L 10/28/16 21:45 Arterial Blood Potassium 3.3 mmol/L (3.6-5.2) L 10/28/16 20:30 Venous Blood Potassium 4.4 mmol/L (3.6-5.2) 10/28/16 20:10 - Hospital Course Hospital Course: 81F with a PMH of HTN, COPD on home O2, Previous PE, Anemia, Seizure disorder, Dementia, AAA, CVA, Lung CA, NSTEMI, CHF, and Hyperthyroidism who initially presented to [facility] with shortness of breath and fever. Workup included CXR and EKG which did not show significant changes from previous studies, as well as blood work to rule out pneumonia. patient was started on IV doxycycline and cefipime for possible HCAP and was given 40mg IV lasix once and started on Duoneb and Budesonide. Also, ID, cardiology, and pulmonology were consulted. The next morning, her SOB improved significantly, fevers resolved, and ID changed her antibiotics from IV to PO. She continued to have some slight wheezing on exam, so she continued the Duoneb. On day 3, we considered discharge , but there was some difficulty with placement at a halfway facility so we continued treatment for SIRS, COPD exacerbation, and now constipation with PRN miralax. On day 4, she was switched from inhaled steroids to PO. Today, she is doing well with no new complaints. She denies SOB, CP, fever, chills, diarrhea, and constipation. Placement was arranged with [facility]. Prescriptions for home antibiotics and steroids were sent to [facility] pharmacy. Instructions were given to patient's daughter and all questions were answered to her satisfaction, and she was discharged to [facility]. Discharge Exam - Head Exam Head Exam: NORMAL INSPECTION - Eye Exam Eye Exam: EOMI, Normal appearance - ENT Exam ENT Exam: Mucous Membranes Moist - Neck Exam Neck exam: Full Rom, Normal Inspection - Respiratory Exam Respiratory Exam: Clear to PA & Lateral. absent: Rales, Rhonchi, Wheezes - Cardiovascular Exam Cardiovascular Exam: RRR, +S1, +S2 - GI/Abdominal Exam GI & Abdominal Exam: Normal Bowel Sounds, Soft. absent: Tenderness - Extremities Exam Extremities exam: normal inspection - Neurological Exam Neurological exam: Alert - Psychiatric Exam Psychiatric exam: Normal Affect, Normal Mood - Skin Skin Exam: Dry, Intact, Normal Color Discharge Plan - Discharge Medications Prescriptions: Cefpodoxime [Vantin] 200 mg PO Q24H #3 tab Doxycycline Hyclate [Doryx] 100 mg PO Q12 #3 cap Methylprednisolone [Medrol Dose Pack (21 tabs)] See Taper PO DAILY #21 mg - Follow Up Plan Condition: FAIR Disposition: TRANSF TO SNF Patient education suggested?: Yes Instructions: Heart Failure (DC), Heart Failure (GEN), Chest Pain (DC), Pacemaker (DC), Pacemaker (GEN), Pulmonary Edema (DC), Pulmonary Edema (GEN), Constipation (DC), Constipation (GEN), Urinary Incontinence (GEN), Dementia (GEN ), COPD (Chronic Obstructive Pulmonary Disease) (DC), Chronic Hypertension (DC) , Ascites (DC), Ascites (GEN), Fall Prevention (DC) Additional Instructions: 1. Continue antibiotics as prescribed. Scripts sent to [facility]. 2. Continue with steroid taper as prescribed. Script sent to [facility] pharmacy. 3. Follow up with PCP within 2 weeks 4. For any new or worsening symptoms or concern, see PCP immediately or return to ER Referrals: Russ Soriano MD [Primary Care Provider] - <Russ Soriano - Last Filed: 11/19/16 16:57> Provider - Provider Date of Admission: 10/28/16 21:23 Attending physician: Justus Walsh MD Primary care physician: Russ Soriano MD Hospital Course - Lab Results Lab Results: Most Recent Lab Values WBC 11.9 10^3/ul (4.5-11.0) H 11/02/16 08:20 RBC 4.38 10^6/uL (3.5-6.1) 11/02/16 08:20 Hgb 12.2 gm/dL (12.0-16.0) 11/02/16 08:20 Hct 37.6 % (36.0-48.0) 11/02/16 08:20 MCV 85.8 fL (80.0-105.0) 11/02/16 08:20 MCH 27.9 pg (25.0-35.0) 11/02/16 08:20 MCHC 32.4 g/dl (31.0-37.0) 11/02/16 08:20 RDW 17.4 % (11.5-14.5) H 11/02/16 08:20 Plt Count 389 10^3/uL (120.0-450.0) 11/02/16 08:20 MPV 10.6 fl (7.0-11.0) 11/02/16 08:20 Gran % 88.1 % (50.0-68.0) H 11/02/16 08:20 Lymph % (Auto) 6.6 % (22.0-35.0) L 11/02/16 08:20 Yates % (Auto) 5.1 % (1.0-6.0) 11/02/16 08:20 Eos % (Auto) 0.1 % (1.5-5.0) L 11/02/16 08:20 Baso % (Auto) 0.1 % (0.0-3.0) 11/02/16 08:20 Gran # 10.45 (1.4-6.5) H 11/02/16 08:20 Lymph # 0.8 (1.2-3.4) L 11/02/16 08:20 Yates # 0.6 (0.1-0.6) 11/02/16 08:20 Eos # 0.0 (0.0-0.7) 11/02/16 08:20 Baso # 0.01 K/mm3 (0.0-2.0) 11/02/16 08:20 Neutrophils % (Manual) 96 % (50.0-70.0) H 10/30/16 06:30 Lymphocytes % (Manual) 2 % (22.0-35.0) L 10/30/16 06:30 Monocytes % (Manual) 2 % (1.0-6.0) 10/30/16 06:30 ESR 24 mm/hr (0.0-20.0) H 10/28/16 20:10 PT 11.9 Seconds (9.9-11.8) H 10/28/16 20:10 INR 1.10 (0.93-1.08) H 10/28/16 20:10 APTT 29.2 Seconds (23.7-30.8) 10/28/16 20:10 pCO2 31 mm/Hg (35-45) L 10/28/16 20:30 pO2 161.0 mm/Hg (80-100) H 10/28/16 20:30 HCO3 19.6 mmol/L (21-28) L 10/28/16 20:30 ABG pH 7.41 (7.35-7.45) 10/28/16 20:30 ABG Total CO2 20.6 mmol.L (22-28) L 10/28/16 20:30 ABG O2 Saturation 99.7 % (95-98) H 10/28/16 20:30 ABG Base Excess -4.0 mmol/L (-2.0-3.0) L 10/28/16 20:30 ABG Potassium 3.3 mmol/L (3.6-5.2) L 10/28/16 20:30 VBG pH 7.34 (7.32-7.43) 10/28/16 20:10 VBG pCO2 46.0 (40-60) 10/28/16 20:10 VBG HCO3 24.8 mmol/l (21-28) 10/28/16 20:10 VBG Total CO2 26.2 mmol.L (22-28) 10/28/16 20:10 VBG O2 Sat (Calc) 73.4 % (40-65) H 10/28/16 20:10 VBG Base Excess -1.4 mmol/L (0.0-2.0) L 10/28/16 20:10 VBG Potassium 4.4 mmol/L (3.6-5.2) 10/28/16 20:10 Sodium 143.0 mmol/L (132-148) 10/28/16 20:30 Chloride 113.0 mmol/L (98-107) H 10/28/16 20:30 Glucose 89 mg/dl (65-105) 10/28/16 20:30 Lactate 0.8 mmol/L (0.7-2.1) 10/28/16 20:30 FiO2 52.0 % 10/28/16 20:30 Sodium 141 mmol/L (132-148) 11/02/16 08:20 Potassium 4.0 mmol/L (3.6-5.0) 11/02/16 08:20 Chloride 109 mmol/L (95-110) 11/02/16 08:20 Carbon Dioxide 25 mmol/L (21-33) 11/02/16 08:20 Anion Gap 11 (10-20) 11/02/16 08:20 BUN 57 mg/dL (7-21) H 11/02/16 08:20 Creatinine 1.1 mg/dL (0.5-1.4) 11/02/16 08:20 Est GFR ( Amer) 58 11/02/16 08:20 Est GFR (Non-Af Amer) 48 11/02/16 08:20 Random Glucose 113 mg/dL (70-110) H 11/02/16 08:20 Lactic Acid 1.0 mmol/L (0.7-2.1) 10/29/16 07:41 Calcium 9.0 mg/dL (8.4-10.5) 11/02/16 08:20 Phosphorus 3.5 mg/dL (2.5-4.5) 10/28/16 20:10 Magnesium 2.2 mg/dL (1.7-2.2) 10/28/16 20:10 Total Bilirubin 0.4 mg/dL (0.2-1.3) 11/02/16 08:20 AST 33 U/L (15-39) 11/02/16 08:20 ALT 50 U/L (7-56) 11/02/16 08:20 Alkaline Phosphatase 60 U/L (38-133) 11/02/16 08:20 Lactate Dehydrogenase 658 U/L (333-699) 10/28/16 20:10 Total Creatine Kinase 35 U/L (35-230) 10/28/16 20:10 Troponin I 0.01 ng/mL 10/29/16 07:41 C-React Prot High Sens > 15.00 mg/L (1.00-3.00) H 10/28/16 20:10 NT-Pro-B Natriuret Pep 335 pg/mL (0-450) 10/28/16 20:10 Total Protein 5.7 g/dL (5.8-8.3) L 11/02/16 08:20 Albumin 2.9 g/dL (3.0-4.8) L 11/02/16 08:20 Globulin 2.8 gm/dL 11/02/16 08:20 Albumin/Globulin Ratio 1.0 (1.1-1.8) L 11/02/16 08:20 Amylase 147 U/L (35-125) H 11/02/16 08:20 Lipase 227 U/L (23-300) 11/02/16 08:20 Procalcitonin 0.15 NG/ML (0.19-0.49) L 10/28/16 21:45 Arterial Blood Potassium 3.3 mmol/L (3.6-5.2) L 10/28/16 20:30 Venous Blood Potassium 4.4 mmol/L (3.6-5.2) 10/28/16 20:10 Attending/Attestation - Attestation I have personally seen and examined this patient.: Yes I have fully participated in the care of the patient.: Yes I have reviewed all pertinent clinical information, including history, physical exam and plan: Yes Notes (Text): 11/19/16 16:57 Medical record note made by the resident after discussion with my direction and input after the patient was personally seen and examined by me. I have reviewed the chart and agree that the record accurately reflects by personal performance of the history, physical exam, data review, and medical decision-making, in the course for the patient. I have also personally directed the plan of care.
--- NOTE | 2016-11-07 15:44 | CP.PCM.CON ---
History of Present Illness - History of Present Illness History of Present Illness: Patient is an 81 year old woman who presents with shortness of breath. Patient's PMHx is notable is for severe chronic obstructive pulmonary disease with pulmonary hypertension documented on previous echocardiogram in June of this year. In addition, her ejection fraction is approximately 28% to 30% consistent with a dilated cardiomyopathy. Her dyspnea is associated with a small elevation of the ProBNP. No chest pain noted. Review of Systems - Review of Systems All systems: reviewed and no additional remarkable complaints except - Respiratory Respiratory: Dyspnea Past Patient History - Infectious Disease Hx of Infectious Diseases: None - Tetanus Immunizations Tetanus Immunization: Unknown - Past Medical History & Family History Past Medical History?: Yes - Past Social History Smoking Status: Former Smoker - CARDIAC Hx Cardiac Disorders: Yes - PULMONARY Hx Chronic Obstructive Pulmonary Disease (COPD): Yes - NEUROLOGICAL HX Cerebrovascular Accident: Yes - HEENT Hx HEENT Problems: Yes Hx Cataracts: Yes (left eye sx) - RENAL Hx Chronic Kidney Disease: No - ENDOCRINE/METABOLIC Hx Hypothyroidism: Yes - HEMATOLOGICAL/ONCOLOGICAL Hx Cancer: (denies) - INTEGUMENTARY Hx Dermatological Problems: No - MUSCULOSKELETAL/RHEUMATOLOGICAL Hx Falls: No - GASTROINTESTINAL Other/Comment: egd dx gastric erosions small hiatal hernia and gastric avm, 09/05 - GENITOURINARY/GYNECOLOGICAL Hx Genitourinary Disorders: No - PSYCHIATRIC Hx Psychophysiologic Disorder: No Hx Substance Use: No - SURGICAL HISTORY Hx Cataract Extraction: Yes - ANESTHESIA Hx Anesthesia: Yes Hx Anesthesia Reactions: No Hx Malignant Hyperthermia: No Meds Home Medications: Home Medication List Medication Instructions Recorded Confirmed Type Cefpodoxime [Vantin] 200 mg PO Q24H #3 tab 11/01/16 Rx Doxycycline Hyclate [Doryx] 100 mg PO Q12 #3 cap 11/01/16 Rx Methylprednisolone [Medrol Dose See Taper PO DAILY #21 mg 11/01/16 Rx Pack (21 tabs)] Allergies/Adverse Reactions: Allergies Allergy/AdvReac Type Severity Reaction Status Date / Time No Known Allergies Allergy Verified 10/09/16 17:49 Physical Exam - Constitutional Additional comments: BP: 142/108. HR: 90s - Respiratory Exam Respiratory Exam: Decreased Breath Sounds (B/L) - Cardiovascular Exam Cardiovascular Exam: +S1. absent: JVD - Extremities Exam Additional comments: Without change Results - Vital Signs Recent Vital Signs: Last Vital Signs Temp 97.9 F 11/02/16 15:55 Pulse 75 11/02/16 15:55 Resp 20 11/02/16 15:55 BP 110/71 11/02/16 15:55 Pulse Ox 99 11/02/16 15:55 - Labs Result Diagrams: 11/02/16 08:20 11/02/16 08:20 - Impressions Impression: EKG shows normal sinus rhythm with left anterior hemiblock Labs: BUN and Creatinine is 29 and 1.0. Glucose is 126. Troponin is negative. ProBNP is 335. Hemoglobin is 12.9 Assessment & Plan - Assessment and Plan (Free Text) Assessment: Exacerbation of COPD Pulmonary hypertension Dilated cardiomyopathy Diabetes mellitus Dyspnea Plan: Given these findings, we will add low dose SETH inhibitor due to her dilated cardiomyopathy as well as once daily Lasix for the next 2-3 days to see of this improves her symptoms. - Date & Time Date: 10/29/16 Time: 17:21
--- NOTE | 2016-11-10 16:24 | CP.PCM.PN ---
Subjective - Date & Time of Evaluation Date of Evaluation: 11/02/16 Time of Evaluation: 08:00 - Subjective Subjective: Pt is awake, alert. No SOB. Objective - Vital Signs/Intake and Output Vital Signs (last 24 hours): 11/02/16: BP 127/92. HR IS IN THE 70s. Temp Pulse Resp BP Pulse Ox 97.9 F 75 20 110/71 99 11/02/16 15:55 11/02/16 15:55 11/02/16 15:55 11/02/16 15:55 11/02/16 15:55 - Labs Labs: 11/02/16: HEMOGLOBIN: 12.2.CHEMISTRY: BUN AND CREATININE 57 AND 1.1. 11/02/16 08:20 11/02/16 08:20 PT 11.9 Seconds (9.9-11.8) H 10/28/16 20:10 INR 1.10 (0.93-1.08) H 10/28/16 20:10 APTT 29.2 Seconds (23.7-30.8) 10/28/16 20:10 - Neck Exam Additional comments: NEGATIVE JVD - Respiratory Exam Respiratory Exam: absent: Rales - Cardiovascular Exam Cardiovascular Exam: +S1, +S2 - Extremities Exam Extremities Exam: absent: Pedal Edema - Neurological Exam Neurological Exam: Alert, Awake Assessment and Plan - Assessment and Plan (Free Text) Assessment: 1. RESOLUTION OF CHF 2. COPD 3. HTN WITH HX OF CVA Plan: GIVEN THESE FINDINGS, THE PT BREATHING IS BETTER CONTROLLED. ON PO LASIX DESPITE HER INCREASE IN BUN AND CREATININE. WILL CONTINUE ON LASIX ONCE A DAY. PT HAS BEEN TRANSFERRED TO [facility] TODAY
== END 2016-11-02 16:44 | DRG 191 ==
LOC: ED 19:31 → ERH 21:23 → 2RSO 10-29 00:19 → 5RNO 10-29 22:37
PROVIDERS: ADMIT Internal Medicine; ATTEND Internal Medicine
PROC: 3E0F7GC Introduction of Other Therapeutic Substance into Respiratory Tract, Via Natural or Artificial Opening (ICD-10-PCS; principal; 2016-10-29)
DX: J44.1 Chronic obstructive pulmonary disease with (acute) exacerbation (principal); R65.10 Systemic inflammatory response syndrome (SIRS) of non-infectious origin without acute organ dysfunction; I11.0 Hypertensive heart disease with heart failure; I50.9 Heart failure, unspecified; C34.90 Malignant neoplasm of unspecified part of unspecified bronchus or lung; F03.90 Unspecified dementia, unspecified severity, without behavioral disturbance, psychotic disturbance, mood disturbance, and anxiety; Z99.81 Dependence on supplemental oxygen; I71.4 Abdominal aortic aneurysm, without rupture; D64.9 Anemia, unspecified; E05.90 Thyrotoxicosis, unspecified without thyrotoxic crisis or storm; I25.10 Atherosclerotic heart disease of native coronary artery without angina pectoris; G40.909 Epilepsy, unspecified, not intractable, without status epilepticus; K59.00 Constipation, unspecified; I25.2 Old myocardial infarction; Z86.73 Personal history of transient ischemic attack (TIA), and cerebral infarction without residual deficits; Z86.711 Personal history of pulmonary embolism; Z87.891 Personal history of nicotine dependence; Z79.51 Long term (current) use of inhaled steroids

== ENCOUNTER 2017-03-15 11:45 | Emergency (ER) | payer MEDICARE, MEDICAID ==
[2017-03-15 11:46] VITALS: BMI 22.3
[2017-03-15 12:10] VITALS: TEMP 98.3
[2017-03-15 12:36] LABS: BASO # 0.06 K/mm3 (0.0-2.0); BASO % 0.6 % (0.0-3.0); EOS # 0.1 (0.0-0.7); EOS % 1.3 % (1.5-5.0); GRAN # 8.38 (1.4-6.5); GRAN % 80.1 % (50.0-68.0); HEMATOCRIT 49.7 % (36.0-48.0); LYMPH # 1.2 (1.2-3.4); LYMPH % 11.8 % (22.0-35.0); MEAN CELL VOLUME 89.7 fl (80.0-105.0); MEAN CORPUSCULAR HEMOGLOBIN 29.2 pg (25.0-35.0); MEAN CORPUSCULAR HGB CONC 32.6 g/dl (31.0-37.0); MEAN PLATELET VOLUME 10.6 fl (7.0-11.0); MONO # 0.7 (0.1-0.6); MONO % 6.2 % (1.0-6.0); RED CELL DISTRIBUTION WIDTH 16.1 % (11.5-14.5); WHITE BLOOD COUNT 10.5 10^3/ul (4.5-11.0)
[2017-03-15 12:56] LABS: INR 1.15 (0.93-1.08); PARTIAL THROMBOPLASTIN TIME 25.4 Seconds (25.1-36.5)
--- NOTE | 2017-03-15 13:01 | ED PDOC ---
Arrival/HPI - General Chief Complaint: Seizure Time Seen by Provider: 03/15/17 12:31 Historian: Family (Daughter), Caregiver (Homemaker) - History of Present Illness Narrative History of Present Illness (Text): 03/15/17 12:43 An 81 year old female, whose past medical history includes senile dementia, AAA , HTN, CVA, congestive heart failure, seizures, and COPD (O2-dependent), presents to the emergency department s/p a seizure episode. The patient's homemaker states that she was taking the patient to the restroom and noticed that she began to lean over to her left side, drool, and mumble. As per the homemaker, the patient's seizure activity are similar to the one she experienced today. The patient denies fevers, chills, headache, dizziness, chest pain, shortness of breath, dyspnea on exertion, cough, abdominal pain, nausea, vomiting, diarrhea, back pain, neck pain, urinary/bowel changes, or any other complaint. Daughter states that patient is currently at mental baseline. PMD: Dr. Soriano Time/Duration: Prior to Arrival Symptom Onset: Sudden Symptom Course: Unchanged Activities at Onset: Rest, Light Context: Home Past Medical History - Provider Review Nursing Documentation Reviewed: Yes - Infectious Disease Hx of Infectious Diseases: None - Tetanus Immunization Tetanus Immunization: Unknown - Reproductive Menopause: Yes - Cardiac Hx Cardiac Disorders: Yes - Pulmonary Hx Chronic Obstructive Pulmonary Disease (COPD): Yes - Neurological HX Cerebrovascular Accident: Yes Hx Seizures: Yes - HEENT Hx HEENT Disorder: Yes Hx Cataracts: Yes (left eye sx) - Renal Hx Renal Disorder: No - Endocrine/Metabolic Hx Hypothyroidism: Yes - Hematological/Oncological Hx Cancer: (denies) - Integumentary Hx Dermatological Disorder: No - Musculoskeletal/Rheumatological Hx Falls: No - Gastrointestinal Other/Comment: egd dx gastric erosions small hiatal hernia and gastric avm, 09/05 - Genitourinary/Gynecological Hx Genitourinary Disorders: No - Psychiatric Hx Psychophysiologic Disorder: No Hx Substance Use: No - Surgical History Hx Cataract Extraction: Yes - Anesthesia Hx Anesthesia: Yes Hx Anesthesia Reactions: No Hx Malignant Hyperthermia: No Family/Social History - Physician Review Nursing Documentation Reviewed: Yes Family/Social History: No Known Family HX Smoking Status: Former Smoker Hx Alcohol Use: No Hx Substance Use: No Allergies/Home Meds Allergies/Adverse Reactions: Allergies No Known Allergies Allergy (Verified 10/09/16 17:49) Home Medications: Home Meds Medication Instructions Recorded Confirmed Albuterol 0.083% [Albuterol 0.083% 1 inh NEB PRN PRN 09/28/16 03/15/17 Inhal Twyla (2.5 mg/3 ml) UD] Carvedilol [Coreg] 3.125 mg PO BID 10/09/16 03/15/17 Ferrous Sulfate [Feosol] 324 mg PO DAILY 10/09/16 03/15/17 Cyproheptadine [Periactin] 4 mg PO DAILY 03/15/17 03/15/17 Fluticasone/Vilanterol [Breo 1 puff INH HS 03/15/17 03/15/17 Ellipta 100-25 Mcg INH] Lisinopril [Zestril] 5 mg PO DAILY 03/15/17 03/15/17 Megestrol [Megace] 20 ml PO DAILY 03/15/17 03/15/17 Review of Systems - Physician Review All systems were reviewed & negative as marked: Yes - Review of Systems Constitutional: absent: Fevers Respiratory: absent: SOB Physical Exam - Physical Exam Narrative Physical Exam (Text): 03/15/17 13:02 Constitutional: No acute distress. Head: Normocephalic. Atraumatic. Eyes: PERRL. ENT: Moist mucous membranes. Neck: Supple. No midline tenderness. Cardiovascular: Regular rate. Chest: No tenderness. Respiratory: Clear to auscultation bilaterally. GI: Soft. Nontender. Nondistended. Back: No CVA tenderness. No midline tenderness. Musculoskeletal: No tenderness or swelling of extremities. Full ROM x4 Skin: No rash. Neurologic: Alert and Oriented x2, no focal deficit. Vital Signs Reviewed: Yes Vital Signs Temp Pulse Resp BP Pulse Ox 03/15/17 15:11 84 18 128/79 99 03/15/17 11:45 98.3 F 85 16 132/76 132 H Temperature: Afebrile Blood Pressure: Normal Pulse: Regular Respiratory Rate: Normal Appearance: Positive for: Well-Appearing, Non-Toxic, Comfortable Pain Distress: None Finger Stick Blood Glucose: 102 Medical Decision Making ED Course and Treatment: 03/15/17 13:02 Impression: An 81 year old female c PMHx seizure disorder p/w seizure. Plan: -- EKG -- Chest X-ray -- Labs -- Urinalysis -- Reassess and disposition Progress Notes: CHEST X-RAY Dictator : Raul Starr MD Report Date : 03/15/2017 14:17:38 IMPRESSION: No active disease. EKG: Ordered, reviewed, and independently interpreted the EKG. Rate : 76 BPM Rhythm : NSR Interpretation : No ST elevations Comparison : No change from previous. Discussed case with Dr. Soriano, reviewed lab findings, CXR, UA. Patient at baseline, no complaints. Dr. Soriano agrees with discharge, f/u with him in office. - Lab Interpretations Lab Results: 03/15/17 12:15 03/15/17 13:20 Lab Results 03/15/17 13:43: Urine Color Yellow, Urine Appearance Sl cloudy, Urine pH 6.0, Ur Specific [place] >= 1.030, Urine Protein Trace H, Urine Glucose (UA) Negative , Urine Ketones Negative, Urine Blood Small H, Urine Nitrate Negative, Urine Bilirubin Negative, Urine Urobilinogen 0.2, Ur Leukocyte Esterase Negative, Urine RBC 0 - 2, Urine WBC Negative 03/15/17 13:20: Sodium 148, Potassium 4.0, Chloride 115 H, Carbon Dioxide 26, Anion Gap 11, BUN 31 H, Creatinine 1.1, Est GFR ( Amer) 58, Est GFR (Non- Af Amer) 48, Random Glucose 86, Calcium 9.2, Total Bilirubin 0.5, AST 22, ALT 30 , Alkaline Phosphatase 63, Total Protein 6.5, Albumin 3.5, Globulin 3.0, Albumin /Globulin Ratio 1.2 03/15/17 12:15: PT 12.7 H, INR 1.15 H, APTT 25.4 03/15/17 12:15: WBC 10.5, RBC 5.54, Hgb 16.2 H, Hct 49.7 H, MCV 89.7, MCH 29.2, MCHC 32.6, RDW 16.1 H, Plt Count 457 H, MPV 10.6, Gran % 80.1 H, Lymph % (Auto) 11.8 L, [place] % (Auto) 6.2 H, Eos % (Auto) 1.3 L, Baso % (Auto) 0.6, Gran # 8.38 H, Lymph # 1.2, [place] # 0.7 H, Eos # 0.1, Baso # 0.06 I have reviewed the lab results: Yes - RAD Interpretation Radiology Orders: 03/15/17 12:42 CHEST PORTABLE [RAD] Stat - EKG Interpretation Interpreted by ED Physician: Yes Type: 12 lead EKG - Scribe Statement The provider has reviewed the documentation as recorded by the Scribe Laxmi Ho Provider Scribe Attestation: All medical record entries made by the Scribe were at my direction and personally dictated by me. I have reviewed the chart and agree that the record accurately reflects my personal performance of the history, physical exam, medical decision making, and the department course for this patient. I have also personally directed, reviewed, and agree with the discharge instructions and disposition. Disposition/Present on Arrival - Present on Arrival Any Indicators Present on Arrival: Yes History of DVT/PE: Yes History of Uncontrolled Diabetes: No Urinary Catheter: No History of Decub. Ulcer: No History Surgical Site Infection Following: None - Disposition Have Diagnosis and Disposition been Completed?: Yes Diagnosis: Seizure Disposition: HOME/ ROUTINE Disposition Time: 14:27 Patient Plan: Discharge Condition: STABLE Discharge Instructions (ExitCare): Epilepsy (ED) Referrals: Russ Soriano MD [Primary Care Provider] - Follow up with primary Forms: [employer] ([employer])
[2017-03-15 13:44] LABS: ALB/GLOB RATIO 1.2 (1.1-1.8); BILIRUBIN,TOTAL 0.5 mg/dL (0.2-1.3); CALCIUM 9.2 mg/dL (8.4-10.5); TOTAL PROTEIN 6.5 g/dL (5.8-8.3)
[2017-03-15 13:51] LABS: URINE BILIRUBIN NEGATIVE (NEGATIVE); URINE BLOOD SMALL (NEGATIVE); URINE GLUCOSE (UA) NEGATIVE (NEGATIVE); URINE KETONE NEGATIVE (NEGATIVE); URINE LEUKOCYTE ESTERASE NEGATIVE Leu/uL (NEGATIVE); URINE PROTEIN TRACE mg/dL (<30 mg/dL); URINE UROBILINOGEN 0.2 E.U./dL (<1 E.U./dL)
[2017-03-15 13:54] LABS: URINE APPEARANCE SL CLOUDY (CLEAR); URINE COLOR YELLOW (YELLOW)
[2017-03-15 13:56] LABS: URINE RBC 0 - 2 /hpf (0-2); URINE WBC NEGATIVE /hpf (0-6)
--- NOTE | 2017-03-15 14:19 | RAD ---
HISTORY: Seizure. Portable study 12:52. COMPARISON: No prior. FINDINGS: LUNGS: No active pulmonary disease. PLEURA: No significant pleural effusion identified, no pneumothorax apparent. CARDIOVASCULAR: Normal. OSSEOUS STRUCTURES: No significant abnormalities. VISUALIZED UPPER ABDOMEN: Normal. OTHER FINDINGS: None. IMPRESSION: No active disease.
[2017-03-15 15:12] VITALS: BP 128/79; PULSE 84; RESP 18; O2SAT 99
--- NOTE | 2017-03-15 23:03 | CARD ---
APPROVED REPORT EKG Measurement Heart [id number] <Conclusion> Normal sinus rhythm Left axis deviation Pulmonary disease pattern Septal infarct, age undetermined ST & T wave abnormality, consider lateral ischemia Abnormal ECG
== END 2017-03-15 15:12 | disposition home or self-care (01) ==
LOC: ED 11:45
DX: G40.909 Epilepsy, unspecified, not intractable, without status epilepticus (principal); I10 Essential (primary) hypertension; Z86.73 Personal history of transient ischemic attack (TIA), and cerebral infarction without residual deficits; J44.9 Chronic obstructive pulmonary disease, unspecified; Z87.891 Personal history of nicotine dependence; Z99.81 Dependence on supplemental oxygen

== ENCOUNTER 2017-03-22 12:31 | Inpatient (IN) | payer MEDICARE, MEDICAID ==
[2017-03-22 13:17] VITALS: BMI 18.7
[2017-03-22] MEDS: Sodium Chloride 0.9% 1,000 ML IV SCH (13:30)
[2017-03-22 13:42] LABS: PH,URINE 5.5 (4.7-8.0); URINE BILIRUBIN NEGATIVE (NEGATIVE); URINE BLOOD TRACE-INTACT (NEGATIVE); URINE GLUCOSE (UA) NEGATIVE (NEGATIVE); URINE KETONE NEGATIVE (NEGATIVE); URINE LEUKOCYTE ESTERASE NEGATIVE Leu/uL (NEGATIVE); URINE PROTEIN NEGATIVE mg/dL (<30 mg/dL); URINE UROBILINOGEN 0.2 E.U./dL (<1 E.U./dL)
--- NOTE | 2017-03-22 13:46 | RAD ---
HISTORY: r/o infiltrate COMPARISON: 03/15/2017 FINDINGS: LUNGS: No active pulmonary disease. PLEURA: No significant pleural effusion identified, no pneumothorax apparent. CARDIOVASCULAR: Normal. OSSEOUS STRUCTURES: No significant abnormalities. VISUALIZED UPPER ABDOMEN: Normal. OTHER FINDINGS: None. IMPRESSION: No active disease.
[2017-03-22 13:47] LABS: URINE APPEARANCE CLEAR (CLEAR); URINE COLOR YELLOW (YELLOW)
--- NOTE | 2017-03-22 13:53 | ED PDOC ---
Arrival/HPI - General Chief Complaint: Weakness/Neurological Deficit Time Seen by Provider: 03/22/17 12:37 Historian: Patient, Family (daughter), Caregiver - History of Present Illness Narrative History of Present Illness (Text): 03/22/17 13:50 A 81 year old female, whose past medical history includes senile dementia, AAA, HTN, CVA, congestive heart failure, seizures, and COPD (O2-dependent), is brought in by police crime scene technician and daughter, and presents to the emergency department complaining of increasing weakness for 4-5 days. Per police crime scene technician and daughter, patient has developed decreased ambulating and decrease appetite. Also, daughter notes patient has experienced increased urinary frequency, but denies patient of any hematuria or bloody stool. Patient notes experiencing mild back pain, but denies of any fever, vomiting, chest pain, shortness of breath, or any other complaints at this time. PMD: Dr. Soriano Past Medical History - Provider Review Nursing Documentation Reviewed: Yes - Infectious Disease Hx of Infectious Diseases: None - Tetanus Immunization Tetanus Immunization: Unknown - Reproductive Menopause: Yes - Cardiac Hx Cardiac Disorders: Yes Hx Hypertension: Yes - Pulmonary Hx Respiratory Disorders: Yes Hx Chronic Obstructive Pulmonary Disease (COPD): Yes Hx Emphysema: Yes Other/Comment: CHF - Neurological Hx Neurological Disorder: Yes HX Cerebrovascular Accident: Yes Hx Seizures: Yes - HEENT Hx HEENT Disorder: Yes Hx Cataracts: Yes (left eye sx) - Renal Hx Renal Disorder: No - Endocrine/Metabolic Hx Endocrine Disorders: Yes Hx Hypothyroidism: Yes - Hematological/Oncological Hx Cancer: (denies) - Integumentary Hx Dermatological Disorder: No - Musculoskeletal/Rheumatological Hx Musculoskeletal Disorders: Yes Hx Back Pain: Yes - Gastrointestinal Hx Gastrointestinal Disorders: Yes Other/Comment: egd dx gastric erosions small hiatal hernia and gastric avm, 09/05 - Genitourinary/Gynecological Hx Genitourinary Disorders: No - Psychiatric Hx Psychophysiologic Disorder: No Hx Substance Use: No - Surgical History Hx Cataract Extraction: Yes - Anesthesia Hx Anesthesia: Yes Hx Anesthesia Reactions: No Hx Malignant Hyperthermia: No Family/Social History - Physician Review Nursing Documentation Reviewed: Yes Family/Social History: No Known Family HX Smoking Status: Former Smoker Hx Alcohol Use: No Hx Substance Use: No Allergies/Home Meds Allergies/Adverse Reactions: Allergies No Known Allergies Allergy (Verified 10/09/16 17:49) Home Medications: Home Meds Medication Instructions Recorded Confirmed Albuterol 0.083% [Albuterol 0.083% 1 inh NEB PRN PRN 09/28/16 03/22/17 Inhal Twyla (2.5 mg/3 ml) UD] Carvedilol [Coreg] 3.125 mg PO BID 10/09/16 03/22/17 Ferrous Sulfate [Feosol] 324 mg PO DAILY 10/09/16 03/22/17 Cyproheptadine [Periactin] 4 mg PO DAILY 03/15/17 03/22/17 Fluticasone/Vilanterol [Breo 1 puff INH HS 03/15/17 03/22/17 Ellipta 100-25 Mcg INH] Lisinopril [Zestril] 5 mg PO DAILY 03/15/17 03/22/17 Megestrol [Megace] 20 ml PO DAILY 03/15/17 03/22/17 Review of Systems - Physician Review All systems were reviewed & negative as marked: Yes - Review of Systems Constitutional: Other (increasing weakness, decreased ambulating). absent: Fevers Respiratory: absent: SOB Cardiovascular: absent: Chest Pain Gastrointestinal: Appetite Changes (decreased appetite). absent: Stool Changes (no bloody stool), Vomiting Genitourinary Female: Frequency (increased urinary frequency). absent: Hematuria Musculoskeletal: Back Pain (mild) Physical Exam Vital Signs Reviewed: Yes Vital Signs Temp Pulse Resp BP Pulse Ox 03/22/17 16:24 78 17 120/84 99 03/22/17 14:46 81 16 116/78 98 03/22/17 12:32 99.7 F H 80 16 114/75 98 Temperature: Afebrile Blood Pressure: Normal Pulse: Regular Respiratory Rate: Normal Appearance: Positive for: Well-Appearing Pain Distress: None Mental Status: Positive for: Alert and Oriented X 3 - Systems Exam Head: Present: Atraumatic, Normocephalic Pupils: Present: PERRL Extroacular Muscles: Present: EOMI Conjunctiva: Present: Normal Mouth: Present: Dry Neck: Present: Normal Range of Motion Respiratory/Chest: Present: Clear to Auscultation, Good Air Exchange. No: Respiratory Distress, Accessory Muscle Use Cardiovascular: Present: Regular Rate and Rhythm, Normal S1, S2. No: Murmurs Abdomen: Present: Normal Bowel Sounds. No: Tenderness, Distention, Peritoneal Signs Back: Present: Normal Inspection Upper Extremity: Present: Normal Inspection. No: Cyanosis, Edema Lower Extremity: Present: Normal Inspection. No: Edema Neurological: Present: GCS=15, CN II-XII Intact, Speech Normal Skin: Present: Warm, Dry, Normal Color. No: Rashes Psychiatric: Present: Alert, Oriented x 3, Normal Insight, Normal Concentration Medical Decision Making ED Course and Treatment: 03/22/17 12:55 Impression: 81 year old female with increasing weakness, decreased ambulating, decreased appetite, increased urinary frequency, and mild back pain. Physical exam shows mucous membranes are dry; rest of exam is unremarkable. Plan: -- EKG -- Chest X-ray -- Labs -- Blood Culture -- Urine Culture -- Urinalysis -- IV Fluids -- Reassess and disposition Prior Visits: Notes and results from previous visits were reviewed. Patient was last seen in the emergency department on 03/15/2017 for s/p seizure episode. Patient was d/c home. Progress Notes: 03/22/2017 13:45 Chest X-ray IMPRESSION: No active disease. Dictator: Dewayne Ann MD - Lab Interpretations Lab Results: 03/22/17 13:00 03/22/17 15:35 Lab Results 03/22/17 15:35: Free T4 1.24, Total T3 0.82 L, TSH 3rd Generation 0.90 03/22/17 15:35: Sodium 145, Potassium 4.0, Chloride 115 H, Carbon Dioxide 22, Anion Gap 12, BUN 29 H, Creatinine 0.9, Est GFR ( Amer) > 60, Est GFR ( Non-Af Amer) > 60, Random Glucose 95, Calcium 9.3, Total Bilirubin 0.4, AST 29, ALT 34, Alkaline Phosphatase 67, Troponin I < 0.01, Total Protein 6.4, Albumin 3.4, Globulin 3.1, Albumin/Globulin Ratio 1.1 03/22/17 13:20: Urine Color Yellow, Urine Appearance Clear, Urine pH 5.5, Ur Specific [place] >= 1.030, Urine Protein Negative, Urine Glucose (UA) Negative, Urine Ketones Negative, Urine Blood Trace-intact H, Urine Nitrate Negative, Urine Bilirubin Negative, Urine Urobilinogen 0.2, Ur Leukocyte Esterase Negative , Urine RBC 0 - 2, Urine WBC 0 - 2, Ur Epithelial Cells 0 - 2 03/22/17 13:00: WBC 10.5, RBC 5.43, Hgb 15.6, Hct 48.1 H, MCV 88.6, MCH 28.7, MCHC 32.4, RDW 16.6 H, Plt Count 489 H, MPV 11.4 H, Gran % 82.8 H, Lymph % (Auto ) 10.1 L, [place] % (Auto) 5.6, Eos % (Auto) 1.0 L, Baso % (Auto) 0.5, Gran # 8.73 H, Lymph # 1.1 L, [place] # 0.6, Eos # 0.1, Baso # 0.05 - RAD Interpretation Radiology Orders: 03/22/17 13:17 CHEST PORTABLE [RAD] Stat 03/22/17 14:44 HEAD W/O CONTRAST [CT] Stat - Medication Orders Current Medication Orders: Aspirin (Ecotrin) 81 mg PO DAILY [facility] Atorvastatin Calcium (Lipitor) 10 mg PO DIN [facility] Carvedilol (Coreg) 3.125 mg PO BID [facility] Donepezil HCl (Aricept) 5 mg PO HS [facility] Sodium Chloride (Sodium Chloride 0.9%) 1,000 mls @ 100 mls/hr IV .Q10H [facility] Last Admin: 03/22/17 13:30 Dose: 100 mls/hr eMAR Start Stop Document 03/22/17 13:30 SF (Rec: 03/22/17 13:30 SF [id number]) Intravenous Solution Start Date 03/22/17 Start Time 13:30 End Date 03/22/17 Levetiracetam (Keppra) 750 mg PO DAILY [facility] Lisinopril (Zestril) 5 mg PO DAILY [facility] Megestrol Acetate (Megace) 800 mg PO DAILY [facility] Methimazole (Tapazole) 5 mg PO DAILY [facility] - Scribe Statement The provider has reviewed the documentation as recorded by the Batsheva Quezada Provider Scribe Attestation: All medical record entries made by the Scribe were at my direction and personally dictated by me. I have reviewed the chart and agree that the record accurately reflects my personal performance of the history, physical exam, medical decision making, and the department course for this patient. I have also personally directed, reviewed, and agree with the discharge instructions and disposition. Disposition/Present on Arrival - Present on Arrival Any Indicators Present on Arrival: No History of DVT/PE: Yes History of Uncontrolled Diabetes: No Urinary Catheter: No History of Decub. Ulcer: No History Surgical Site Infection Following: None - Disposition Have Diagnosis and Disposition been Completed?: Yes Diagnosis: Dehydration Disposition: HOSPITALIZED Disposition Time: 16:50 Condition: STABLE
[2017-03-22 13:56] LABS: URINE EPITHELIAL CELLS 0 - 2 /hpf (0-5); URINE RBC 0 - 2 /hpf (0-2); URINE WBC 0 - 2 /hpf (0-6)
[2017-03-22 14:56] LABS: BASO # 0.05 K/mm3 (0.0-2.0); BASO % 0.5 % (0.0-3.0); EOS # 0.1 (0.0-0.7); GRAN # 8.73 (1.4-6.5); GRAN % 82.8 % (50.0-68.0); HEMATOCRIT 48.1 % (36.0-48.0); LYMPH # 1.1 (1.2-3.4); LYMPH % 10.1 % (22.0-35.0); MEAN CELL VOLUME 88.6 fl (80.0-105.0); MEAN CORPUSCULAR HEMOGLOBIN 28.7 pg (25.0-35.0); MEAN CORPUSCULAR HGB CONC 32.4 g/dl (31.0-37.0); MEAN PLATELET VOLUME 11.4 fl (7.0-11.0); MONO # 0.6 (0.1-0.6); MONO % 5.6 % (1.0-6.0); RED CELL DISTRIBUTION WIDTH 16.6 % (11.5-14.5); WHITE BLOOD COUNT 10.5 10^3/ul (4.5-11.0)
[2017-03-22 16:10] LABS: BLOOD UREA NITROGEN 29 mg/dL (7-21); GFR AFRICAN-AMERICAN > 60; GLUCOSE,RANDOM 95 mg/dL (70-110)
[2017-03-22 16:11] LABS: ALB/GLOB RATIO 1.1 (1.1-1.8); ALKALINE PHOSPHATASE 67 U/L (38-126); ALT/SGPT 34 U/L (7-56); AST/SGOT 29 U/L (14-36); BILIRUBIN,TOTAL 0.4 mg/dL (0.2-1.3); CALCIUM 9.3 mg/dL (8.4-10.5); CARBON DIOXIDE 22 mmol/L (21-33); CHLORIDE 115 mmol/L (98-107); SODIUM 145 mmol/L (132-148); TOTAL PROTEIN 6.4 g/dL (5.8-8.3); TROPONIN I < 0.01 ng/mL
[2017-03-22 16:28] LABS: FREE T4 1.24 ng/dL (0.78-2.19); T3 0.82 ng/mL (0.97-1.69); THYROID STIMULATING HORMONE 0.9 mIU/mL (0.46-4.68)
--- NOTE | 2017-03-22 16:50 | CT ---
PROCEDURE: CT HEAD WITHOUT CONTRAST. HISTORY: r/o ICH COMPARISON: Comparison is made to the previous study dated 11/23/2015 TECHNIQUE: Axial computed tomography images were obtained through the head/brain without intravenous contrast. Radiation dose: Total exam DLP = 770.10 mGy-cm. This CT exam was performed using one or more of the following dose reduction techniques: Automated exposure control, adjustment of the mA and/or kV according to patient size, and/or use of iterative reconstruction technique. FINDINGS: HEMORRHAGE: No intracranial hemorrhage. BRAIN: No mass effect or edema. Moderate atrophy is again noted. Moderate to extensive white matter changes suggestive of chronic microvascular ischemic disease are again noted. Small encephalomalacia at the right internal capsule suggestive of old lacunar infarct is again noted. VENTRICLES: Unremarkable. No hydrocephalus. CALVARIUM: Unremarkable. PARANASAL SINUSES: Unremarkable as visualized. No significant inflammatory changes. MASTOID AIR CELLS: Unremarkable as visualized. No inflammatory changes. OTHER FINDINGS: None. IMPRESSION: No evidence of acute intracranial hemorrhage. No evidence of significant interval change compared to the previous study.
--- NOTE | 2017-03-22 18:04 | CP.PCM.HP ---
History of Present Illness - History of Present Illness History of Present Illness: 80 year old female with a past medical history of dementia, AAA, hypertension, cva, chf (last echo showed 26% EF), seizures, COPD, and thyroid disease who comes into the hospital with complaints of difficulty ambulating , unspecified back pain, and increase in urinary frequency per the daughter. The daughter states that since Saturday she's noticed her mother having trouble ambulating from the sitting position. She also states she has a decrease in appetite in conjunction with the initial presenting symptoms. She was recently hospitalized for questionable seizure this year. She denies the mother reporting any chest pain, shortness of breath, nausea, vomiting, lightheadedness , dizziness, changes in vision, or any other complaints. PMD: Dr. Soriano PMH: as above PSH: thyroidectomy, left cataract SH: former smoker, sporadic alcohol, no illicit drug use FH: breast and stomach CA in the family Meds: reviewed Allergies: NKDA Present on Admission - Present on Admission Any Indicators Present on Admission: No Review of Systems - Constitutional Constitutional: As Per HPI - EENT Eyes: As Per HPI Ears: As Per HPI Nose/Mouth/Throat: As Per HPI - Cardiovascular Cardiovascular: As Per HPI - Respiratory Respiratory: As Per HPI - Gastrointestinal Gastrointestinal: As Per HPI - Genitourinary Genitourinary: As Per HPI - Musculoskeletal Musculoskeletal: As Per HPI - Integumentary Integumentary: As Per HPI - Neurological Neurological: As Per HPI - Psychiatric Psychiatric: As Per HPI - Endocrine Endocrine: As Per HPI - Hematologic/Lymphatic Hematologic: As Per HPI Past Patient History - Infectious Disease Hx of Infectious Diseases: None - Tetanus Immunizations Tetanus Immunization: Unknown - Past Medical History & Family History Past Medical History?: Yes - Past Social History Smoking Status: Former Smoker - CARDIAC Hx Cardiac Disorders: Yes Hx Hypertension: Yes - PULMONARY Hx Respiratory Disorders: Yes Hx Chronic Obstructive Pulmonary Disease (COPD): Yes Hx Emphysema: Yes Other/Comment: CHF - NEUROLOGICAL Hx Neurological Disorder: Yes HX Cerebrovascular Accident: Yes Hx Seizures: Yes - HEENT Hx HEENT Problems: Yes Hx Cataracts: Yes (left eye sx) - RENAL Hx Chronic Kidney Disease: No - ENDOCRINE/METABOLIC Hx Endocrine Disorders: Yes Hx Hypothyroidism: Yes - HEMATOLOGICAL/ONCOLOGICAL Hx Cancer: (denies) - INTEGUMENTARY Hx Dermatological Problems: No - MUSCULOSKELETAL/RHEUMATOLOGICAL Hx Musculoskeletal Disorders: Yes Hx Back Pain: Yes - GASTROINTESTINAL Hx Gastrointestinal Disorders: Yes Other/Comment: egd dx gastric erosions small hiatal hernia and gastric avm, 09/05 - GENITOURINARY/GYNECOLOGICAL Hx Genitourinary Disorders: No - PSYCHIATRIC Hx Psychophysiologic Disorder: No Hx Substance Use: No - SURGICAL HISTORY Hx Cataract Extraction: Yes - ANESTHESIA Hx Anesthesia: Yes Hx Anesthesia Reactions: No Hx Malignant Hyperthermia: No Meds Allergies/Adverse Reactions: Allergies Allergy/AdvReac Type Severity Reaction Status Date / Time No Known Allergies Allergy Verified 10/09/16 17:49 Physical Exam - Head Exam Head Exam: ATRAUMATIC, NORMAL INSPECTION, NORMOCEPHALIC - Eye Exam Eye Exam: EOMI, Normal appearance, PERRL Pupil Exam: NORMAL ACCOMODATION, PERRL. absent: Irregular, Unequal - ENT Exam ENT Exam: Mucous Membranes Moist, Normal Oropharynx - Neck Exam Neck exam: Positive for: Normal Inspection. Negative for: Lymphadenopathy, Thyromegaly - Respiratory Exam Respiratory Exam: Clear to Auscultation Bilateral, NORMAL BREATHING PATTERN. absent: Chest Wall Tenderness, Prolonged Expiratory Phase, Respiratory Distress - Cardiovascular Exam Cardiovascular Exam: REGULAR RHYTHM, +S1, +S2 - GI/Abdominal Exam GI & Abdominal Exam: Normal Bowel Sounds, Soft. absent: Hypoactive Bowel Sounds , Organomegaly - Extremities Exam Extremities exam: Positive for: normal inspection. Negative for: pedal edema - Back Exam Back exam: NORMAL INSPECTION. absent: CVA tenderness (L), CVA tenderness (R), paraspinal tenderness - Neurological Exam Neurological exam: Alert, Oriented x3 - Psychiatric Exam Psychiatric exam: Normal Affect, Normal Mood - Skin Skin Exam: Dry, Intact Results - Vital Signs Recent Vital Signs: Last Vital Signs Temp 99.7 F H 03/22/17 12:32 Pulse 84 03/22/17 18:01 Resp 17 03/22/17 18:01 BP 118/80 03/22/17 18:01 Pulse Ox 99 03/22/17 18:01 - Labs Result Diagrams: 03/22/17 13:00 03/22/17 15:35 Assessment & Plan - Assessment and Plan (Free Text) Assessment: 81 year old female well known to the service with a PMH of hypertension, COPD on home oxygen, previous PE, anemia, seizure disorder, dementia, AAA, CVA, lung cancer, NSTEMI, CHF, and hyperthyroidism that presented with weakness, decreased appetite and difficulty ambulating. Plan: 1. Unspecified weakness -PT/OT consulted. Will f/u with rec's. -Head ct done in the emergency department was negative for any acute process. 2.Mild back pain -Physical exam was negative for tenderness to palpation. Difficult to ascertain due to history of dementia and poor communication. -Pain management. 3. Compensated CHF Last EF 28% BNP wnl CXR shows some congestion Will recheck after lasix 4. Hx CAD Continue home ASA, lipitor and carvedilol 5. Hx Dementia Stable, continue home aricept 6.Decreased appeptite -Nutrition consult. Will f/u with rec's. 7. h/o hyptertension -continue home meds. 8.h/o CHF -continue home meds. 9.h/o of thyroid disease -continue home meds 10 .h/o of COPD -continue home meds. GI PPX -protonix DVT ppx -SCD's.
[2017-03-23] MEDS: Sodium Chloride 0.9% 1,000 ML IV SCH ×2 (01:44→17:31)
--- NOTE | 2017-03-23 09:15 | CP.PCM.PN ---
Subjective - Date & Time of Evaluation Date of Evaluation: 03/23/17 Time of Evaluation: 07:15 - Subjective Subjective: Medicine note for Dr. Soriano Patient seen and examined at bedside. Patient resting comfortably in bed sleeping but easily awoken. Patient is confused and [place] I reminded her she was in the hospital and at the end of the exam she could not remember where I told her she was. Patient says she is having some left knee pain "at the bottom" but can not localize it when I try asking her what she means by "bottom". Patient denies fever, chills, chest pain, SOB, changes in vision, abdominal pain, N&V, diarrhea, constipation, changes in urination, and calf pain. Objective - Vital Signs/Intake and Output Vital Signs (last 24 hours): Temp Pulse Resp BP Pulse Ox 98.1 F 75 20 95/66 L 98 03/23/17 07:30 03/23/17 07:30 03/23/17 07:30 03/23/17 07:30 03/23/17 07:30 Intake and Output: 03/23/17 03/23/17 06:59 18:59 Intake Total 960 Balance 960 - Medications Medications: Current Medications Aspirin (Ecotrin) 81 mg PO DAILY [facility] Atorvastatin Calcium (Lipitor) 10 mg PO DIN [facility] Carvedilol (Coreg) 3.125 mg PO BID [facility] Donepezil HCl (Aricept) 5 mg PO HS [facility] Last Admin: 03/22/17 22:03 Dose: 5 mg Sodium Chloride (Sodium Chloride 0.9%) 1,000 mls @ 100 mls/hr IV .Q10H [facility] Last Admin: 03/23/17 01:44 Dose: 100 mls/hr Levetiracetam (Keppra) 750 mg PO DAILY [facility] Lisinopril (Zestril) 5 mg PO DAILY [facility] Megestrol Acetate (Megace) 800 mg PO DAILY [facility] Methimazole (Tapazole) 5 mg PO DAILY [facility] - Constitutional Appears: Non-toxic, No Acute Distress, Older Than Stated Age, Confused, Chronically Ill - Head Exam Head Exam: NORMAL INSPECTION - Eye Exam Eye Exam: EOMI, Normal appearance - ENT Exam ENT Exam: Mucous Membranes Moist, Normal Oropharynx Additional comments: no bite esquivel on tongue - Respiratory Exam Respiratory Exam: Clear to Ausculation Bilateral, NORMAL BREATHING PATTERN. absent: Accessory Muscle Use, Rales, Rhonchi, Wheezes, Respiratory Distress - Cardiovascular Exam Cardiovascular Exam: RRR, +S1, +S2 - GI/Abdominal Exam GI & Abdominal Exam: Soft, Normal Bowel Sounds. absent: Tenderness - Extremities Exam Extremities Exam: Normal Inspection. absent: Calf Tenderness, Joint Swelling, Pedal Edema, Tenderness - Neurological Exam Neurological Exam: Alert, Awake. absent: Oriented x3 (oriented to person only ) - Psychiatric Exam Psychiatric exam: Normal Mood - Skin Skin Exam: Dry, Intact, Normal Color, Warm Assessment and Plan - Assessment and Plan (Free Text) Plan: 1. Unspecified weakness -Possibly secondary to dehydration. -PT/OT consulted. Will f/u with rec's. -Head ct done in the emergency department was negative for any acute process. -Neurology Consulted (Dr. Hernandez) - recs appreciated -f/u blood and urine cultures 2. History of seizures -Jaylan 3. Mild back pain -Patient denies pain today (03/23) except for in her knee however physical exam was negative -Physical exam was negative for tenderness to palpation on admission. Difficult to ascertain due to history of dementia and poor communication. -Pain management. 4. Compensated CHF -Last echo shows EF 28% -BNP wnl -CXR shows some congestion -Will recheck after lasix 5. Hx CAD -Continue home ASA, lipitor and carvedilol 6. Hx Dementia -Stable, continue home aricept 7.Decreased appeptite -Nutrition consult. Will f/u with rec's. 8. h/o hyptertension -continue home meds. 9.h/o CHF -continue home meds. 10.h/o of thyroid disease -continue home meds. 11. h/o of COPD -continue home meds. GI PPX -protonix DVT ppx -SCD's. Patient seen, examined and discussed with attending
--- NOTE | 2017-03-23 09:53 | CARD ---
APPROVED REPORT EKG Measurement Heart [id number] <Conclusion> Normal sinus rhythm Left axis deviation, LAHB IVCD Levy-septal infarct, age undetermined ST & T wave abnormality, consider lateral ischemia Prolonged QTc No change
[2017-03-23] MEDS: Megestrol Acetate 40 mg/ml Cup PO SCH (09:54)
[2017-03-23] MEDS: methIMAzole 5 MG TAB PO SCH (09:55)
--- NOTE | 2017-03-23 20:12 | CON ---
DATE: HISTORY OF PRESENT ILLNESS: This is an 81-year-old female with the past medical history of dementia, hypertension, CVA, congestive heart failure, seizure, and COPD, came to the emergency room with an increasing weakness for 4 to 5 days and the patient also complaint of increased urinary frequency and mild low back pain and called to evaluate the patient. PAST MEDICAL HISTORY: Dementia, hypertension, CVA, congestive heart failure, seizure, and COPD. ALLERGIES: NO KNOWN DRUG ALLERGY. HOME MEDICATIONS: Coreg, Periactin, and lisinopril. PHYSICAL EXAMINATION: HEENT: Normocephalic and atraumatic. NECK: Supple. VITAL SIGNS: Blood pressure 114/75. NEUROLOGIC: Alert, awake, and oriented to self. No aphasia. Cranial nerves II through XII were tested. Pupils reactive. Spontaneous movement of the extremities noted. Deep tendon reflexes are 1+. Both plantars are downgoing. Sensory appears intact. Cerebellar and gait deferred. IMPRESSION AND PLAN: An 81-year-old with increasing weakness, decreased appetite, increased urinary frequency, mild back pain, and possibly altered mental status and possibly mild encephalopathy, superimposed on dementia, and CAT scan of the head was negative. Workup in progress. We will follow up. Jay Hernandez MD
[2017-03-24] MEDS: Sodium Chloride 0.9% 1,000 ML IV SCH ×2 (04:00→14:51)
--- NOTE | 2017-03-24 07:24 | CP.PCM.PN ---
Subjective - Date & Time of Evaluation Date of Evaluation: 03/24/17 Time of Evaluation: 07:20 - Subjective Subjective: Medicine note for Dr. Soriano Patient seen and examined at bedside. Patient resting comfortably in bed. Patient says she has improving appetite and ate well yesterday which was confirmed by nursing. Patient is having some lower abdominal pain however, but denies N&V, diarrhea, and constipation. Patient becomes upset when I ask her if she knows where she is saying she does not want to answer that because shes asked it so many times this morning. When I asked if she wanted to know where she was, she said no. She denies any other new complaints at this time. Objective - Vital Signs/Intake and Output Vital Signs (last 24 hours): Temp Pulse Resp BP Pulse Ox 97.7 F 83 20 135/85 96 03/23/17 16:00 03/23/17 17:34 03/23/17 16:00 03/23/17 17:34 03/23/17 16:00 Intake and Output: 03/24/17 03/24/17 06:59 18:59 Intake Total 2760 Balance 2760 - Medications Medications: Current Medications Aspirin (Ecotrin) 81 mg PO DAILY [facility] Last Admin: 03/23/17 09:54 Dose: 81 mg Atorvastatin Calcium (Lipitor) 10 mg PO DIN [facility] Last Admin: 03/23/17 17:34 Dose: 10 mg Carvedilol (Coreg) 3.125 mg PO BID [facility] Last Admin: 03/23/17 17:34 Dose: 3.125 mg Donepezil HCl (Aricept) 5 mg PO HS [facility] Last Admin: 03/23/17 21:43 Dose: 5 mg Sodium Chloride (Sodium Chloride 0.9%) 1,000 mls @ 100 mls/hr IV .Q10H [facility] Last Admin: 03/24/17 04:00 Dose: 100 mls/hr Levetiracetam (Keppra) 750 mg PO DAILY [facility] Last Admin: 03/23/17 09:54 Dose: 750 mg Lisinopril (Zestril) 5 mg PO DAILY [facility] Last Admin: 03/23/17 09:55 Dose: 5 mg Megestrol Acetate (Megace) 800 mg PO DAILY [facility] Last Admin: 03/23/17 09:54 Dose: 800 mg Methimazole (Tapazole) 5 mg PO DAILY [facility] Last Admin: 03/23/17 09:55 Dose: 5 mg - Additional Findings Additional findings: - Constitutional Appears: Non-toxic, No Acute Distress, Older Than Stated Age, Confused, Chronically Ill - Head Exam Head Exam: NORMAL INSPECTION - Eye Exam Eye Exam: EOMI, Normal appearance - ENT Exam ENT Exam: Mucous Membranes Moist, Normal Oropharynx Additional comments: no bite esquivel on tongue - Respiratory Exam Respiratory Exam: Clear to Ausculation Bilateral, NORMAL BREATHING PATTERN. absent: Accessory Muscle Use, Rales, Rhonchi, Wheezes, Respiratory Distress - Cardiovascular Exam Cardiovascular Exam: RRR, +S1, +S2 - GI/Abdominal Exam GI & Abdominal Exam: Soft, Normal Bowel Sounds. absent: Tenderness - Extremities Exam Extremities Exam: Normal Inspection. absent: Calf Tenderness, Joint Swelling, Pedal Edema, Tenderness - Neurological Exam Neurological Exam: Alert, Awake. absent: Oriented x3 - Psychiatric Exam Psychiatric exam: Normal Mood - Skin Skin Exam: Dry, Intact, Normal Color, Warm Assessment and Plan - Assessment and Plan (Free Text) Plan: 1. Unspecified weakness -Possibly secondary to dehydration. -PT/OT consulted. Will f/u with rec's. -Head ct done in the emergency department was negative for any acute process. -Neurology Consulted (Dr. Hernandez) - recs appreciated -f/u blood and urine cultures 2. History of seizures -Keemelyra 3. Mild back pain -Patient denies pain today (03/23) except for in her knee however physical exam was negative -Physical exam was negative for tenderness to palpation on admission. Difficult to ascertain due to history of dementia and poor communication. -Pain management. 4. Compensated CHF -Last echo shows EF 28% -BNP wnl -CXR shows some congestion -Will recheck after lasix 5. Hx CAD -Continue home ASA, lipitor and carvedilol 6. Hx Dementia -Stable, continue home aricept 7.Decreased appeptite -Nutrition consult. Will f/u with rec's. 8. h/o hyptertension -continue home meds. 9.h/o CHF -continue home meds. 10.h/o of thyroid disease -continue home meds. 11. h/o of COPD -continue home meds. GI PPX -protonix DVT ppx -SCD's. Patient seen, examined and discussed with attending
[2017-03-24] MEDS: methIMAzole 5 MG TAB PO SCH (10:47)
[2017-03-24] MEDS: Megestrol Acetate 40 mg/ml Cup PO SCH (10:47)
[2017-03-24] MEDS: Albuterol 0.083% Inhal Sol (2.5 mg/3 mL) UD INH PRN (19:09)
[2017-03-24] MEDS ORDERED: Non Formulary Medication (Fluticasone/Vilanterol [Breo Ellipta 100-25 Mcg Inh] 1 PUFF) INH SCH (22:00)
[2017-03-25] MEDS: Albuterol 0.083% Inhal Sol (2.5 mg/3 mL) UD INH PRN ×2 (02:59→20:57)
[2017-03-25 07:08] LABS: BASO # 0.04 K/mm3 (0.0-2.0); BASO % 0.4 % (0.0-3.0); EOS # 0.1 (0.0-0.7); EOS % 1.1 % (1.5-5.0); GRAN # 8.51 (1.4-6.5); GRAN % 82.1 % (50.0-68.0); HEMATOCRIT 44.3 % (36.0-48.0); LYMPH # 1.1 (1.2-3.4); LYMPH % 10.6 % (22.0-35.0); MEAN CELL VOLUME 87.9 fl (80.0-105.0); MEAN CORPUSCULAR HEMOGLOBIN 28.6 pg (25.0-35.0); MEAN CORPUSCULAR HGB CONC 32.5 g/dl (31.0-37.0); MEAN PLATELET VOLUME 10.4 fl (7.0-11.0); MONO # 0.6 (0.1-0.6); MONO % 5.8 % (1.0-6.0); RED CELL DISTRIBUTION WIDTH 16.5 % (11.5-14.5); WHITE BLOOD COUNT 10.4 10^3/ul (4.5-11.0)
[2017-03-25 07:56] LABS: ALKALINE PHOSPHATASE 67 U/L (38-126); ALT/SGPT 31 U/L (7-56); AST/SGOT 22 U/L (14-36); BILIRUBIN,TOTAL 0.5 mg/dL (0.2-1.3); BLOOD UREA NITROGEN 16 mg/dL (7-21); CALCIUM 8.9 mg/dL (8.4-10.5); CARBON DIOXIDE 24 mmol/L (21-33); CHLORIDE 115 mmol/L (98-107); GFR AFRICAN-AMERICAN > 60; GLUCOSE,RANDOM 81 mg/dL (70-110); POTASSIUM 3.7 mmol/L (3.6-5.0); SODIUM 147 mmol/L (132-148); TOTAL PROTEIN 6.4 g/dL (5.8-8.3)
[2017-03-25] MEDS: Tiotropium 18 mcg Cap For Inhalation IH SCH (11:03)
[2017-03-25] MEDS: Megestrol Acetate 40 mg/ml Cup PO SCH (11:05)
[2017-03-25] MEDS: methIMAzole 5 MG TAB PO SCH (11:05)
--- NOTE | 2017-03-25 11:15 | CP.PCM.PN ---
Subjective - Date & Time of Evaluation Date of Evaluation: 03/25/17 Time of Evaluation: 07:15 - Subjective Subjective: Patient seen and examined this AM at bedside. Patient resting comfortably in bed. No acute events reported overnight. Patient is complaining of general weakness and increased urinary frequency. Patient denies chest pain, shortness of breath, N/V/F/C. Patient partially participates in interview process with one word to few word answers. Patient partially participates in physical exam. Objective - Vital Signs/Intake and Output Vital Signs (last 24 hours): Temp Pulse Resp BP Pulse Ox 97.6 F 67 19 162/99 H 96 03/25/17 07:30 03/25/17 07:30 03/25/17 07:30 03/25/17 07:30 03/25/17 07:30 Intake and Output: 03/25/17 03/25/17 06:59 18:59 Intake Total 120 Balance 120 - Medications Medications: Current Medications Albuterol Sulfate (Albuterol 0.083% Inhal Twyla (2.5 Mg/3 Ml) Ud) 2.5 mg INH Q6H PRN PRN Reason: Wheezing Last Admin: 03/25/17 02:59 Dose: 2.5 mg Aspirin (Ecotrin) 81 mg PO DAILY [facility] Last Admin: 03/24/17 10:45 Dose: 81 mg Atorvastatin Calcium (Lipitor) 10 mg PO DIN [facility] Last Admin: 03/23/17 17:34 Dose: 10 mg Carvedilol (Coreg) 3.125 mg PO BID [facility] Last Admin: 03/24/17 18:01 Dose: 3.125 mg Donepezil HCl (Aricept) 5 mg PO HS [facility] Last Admin: 03/24/17 22:48 Dose: 5 mg Sodium Chloride (Sodium Chloride 0.9%) 1,000 mls @ 100 mls/hr IV .Q10H [facility] Last Admin: 03/24/17 14:51 Dose: 100 mls/hr Levetiracetam (Keppra) 750 mg PO DAILY [facility] Last Admin: 03/24/17 10:44 Dose: 750 mg Lisinopril (Zestril) 5 mg PO DAILY [facility] Last Admin: 03/24/17 10:45 Dose: 5 mg Megestrol Acetate (Megace) 800 mg PO DAILY [facility] Last Admin: 03/24/17 10:47 Dose: 800 mg Methimazole (Tapazole) 5 mg PO DAILY [facility] Last Admin: 03/24/17 10:47 Dose: 5 mg Non-Formulary Medication (Fluticasone/Vilanterol [Breo Ellipta 100-25 Mcg Inh]) 1 puff INH HS [facility] Last Admin: 03/24/17 22:49 Dose: Not Given Tiotropium Pre[place] (Spiriva) 18 mcg IH DAILY [facility] - Labs Labs: 03/25/17 06:30 03/25/17 06:30 - Constitutional Appears: Non-toxic, No Acute Distress - Head Exam Head Exam: ATRAUMATIC, NORMAL INSPECTION, NORMOCEPHALIC - Eye Exam Eye Exam: EOMI, PERRL - ENT Exam ENT Exam: Mucous Membranes Moist - Respiratory Exam Respiratory Exam: Clear to Ausculation Bilateral, NORMAL BREATHING PATTERN - Cardiovascular Exam Cardiovascular Exam: REGULAR RHYTHM, +S1, +S2 - GI/Abdominal Exam GI & Abdominal Exam: Soft, Normal Bowel Sounds. absent: Guarding, Rigid, Tenderness, Diminished Bowel Sounds, Hyperactive Bowel Sounds - Extremities Exam Extremities Exam: absent: Calf Tenderness, Pedal Edema - Neurological Exam Neurological Exam: Alert, Awake Additional comments: Oriented to place and name, not time Minimal participation in neuro exam, showing movement and sensation in all four extremities - Psychiatric Exam Psychiatric exam: Normal Affect, Normal Mood - Skin Skin Exam: Dry, Intact. absent: Rash Assessment and Plan - Assessment and Plan (Free Text) Assessment: 81 year old female well known to the service with a PMH of hypertension, COPD on home oxygen, previous PE, anemia, seizure disorder, dementia, AAA, CVA, lung cancer, NSTEMI, CHF, and hyperthyroidism who was admitted for weakness, decreased appetite and difficulty ambulating. Plan: 1. Unspecified weakness - Etiology: Deconditioning vs. dehydration vs. neurologic etiology -PT/OT -Head ct done in the emergency department was negative for any acute process. -Neurology Consulted (Dr. Hernandez) - Workup in progress - Will follow up -blood and urine cultures negative for to date 2. History of seizures - Keppra - Monitor 3. Compensated Systolic CHF -Last echo shows EF 28% -BNP wnl -CXR shows some congestion 5. Hx CAD -Continue home ASA, lipitor and carvedilol 6. Hx Dementia -Stable, continue home aricept 7. h/o hyptertension -continue home meds. 8.h/o of thyroid disease -continue home meds. 9. h/o of COPD -continue home meds. GI PPX: protonix DVT ppx: SCD's Case and plan discussed with attending
[2017-03-25] MEDS: Sodium Chloride 0.9% 1,000 ML IV SCH (11:55)
--- NOTE | 2017-03-25 14:01 | CP.PCM.PN ---
<America Chaney - Last Filed: 03/25/17 18:07> Subjective - Date & Time of Evaluation Date of Evaluation: 03/25/17 Time of Evaluation: 10:00 - Subjective Subjective: PGY-[address] Hernandez's service Patient seen and examined at bedside. No acute distress. Patient is alert and oriented to person, place and situation. Patient denies any weakness, dizziness , headache. Objective - Vital Signs/Intake and Output Vital Signs (last 24 hours): Temp Pulse Resp BP Pulse Ox 97.6 F 67 19 162/91 H 96 03/25/17 07:30 03/25/17 11:06 03/25/17 07:30 03/25/17 11:06 03/25/17 07:30 Intake and Output: 03/25/17 03/25/17 06:59 18:59 Intake Total 120 Balance 120 - Medications Medications: Current Medications Albuterol Sulfate (Albuterol 0.083% Inhal Twyla (2.5 Mg/3 Ml) Ud) 2.5 mg INH Q6H PRN PRN Reason: Wheezing Last Admin: 03/25/17 02:59 Dose: 2.5 mg Aspirin (Ecotrin) 81 mg PO DAILY [facility] Last Admin: 03/25/17 11:03 Dose: 81 mg Atorvastatin Calcium (Lipitor) 10 mg PO DIN [facility] Last Admin: 03/23/17 17:34 Dose: 10 mg Carvedilol (Coreg) 3.125 mg PO BID [facility] Last Admin: 03/25/17 11:05 Dose: 3.125 mg Donepezil HCl (Aricept) 5 mg PO HS [facility] Last Admin: 03/24/17 22:48 Dose: 5 mg Sodium Chloride (Sodium Chloride 0.9%) 1,000 mls @ 100 mls/hr IV .Q10H [facility] Last Admin: 03/25/17 11:55 Dose: 100 mls/hr Levetiracetam (Keppra) 750 mg PO DAILY [facility] Last Admin: 03/25/17 11:03 Dose: 750 mg Lisinopril (Zestril) 5 mg PO DAILY [facility] Last Admin: 03/25/17 11:06 Dose: 5 mg Megestrol Acetate (Megace) 800 mg PO DAILY [facility] Last Admin: 03/25/17 11:05 Dose: 800 mg Methimazole (Tapazole) 5 mg PO DAILY [facility] Last Admin: 03/25/17 11:05 Dose: 5 mg Non-Formulary Medication (Fluticasone/Vilanterol [Breo Ellipta 100-25 Mcg Inh]) 1 puff INH HS [facility] Last Admin: 03/24/17 22:49 Dose: Not Given Tiotropium Rosalia (Spiriva) 18 mcg IH DAILY [facility] Last Admin: 03/25/17 11:03 Dose: 18 mcg - Labs Labs: 03/25/17 06:30 03/25/17 06:30 - Constitutional Appears: No Acute Distress - Head Exam Head Exam: ATRAUMATIC, NORMAL INSPECTION, NORMOCEPHALIC - Eye Exam Eye Exam: EOMI, Normal appearance - ENT Exam ENT Exam: Mucous Membranes Moist - Respiratory Exam Respiratory Exam: Clear to Ausculation Bilateral, NORMAL BREATHING PATTERN. absent: Respiratory Distress - Cardiovascular Exam Cardiovascular Exam: REGULAR RHYTHM - Neurological Exam Neurological Exam: Alert, Awake. absent: Oriented x3 - Skin Skin Exam: Dry, Intact, Normal Color, Warm Assessment and Plan - Assessment and Plan (Free Text) Assessment: 21 yo female with PMH of dementia, HN, CVA, CHF, seizure, copd presented with AMS and increasing weakness due to transit altered mental status most likely due to deconditioning and underlying dementia 1. AMS with weakness 2. h/o seizures 3. h/o dementia - EEG and MRI done in the past, reviewed - CT head was negative - continue keppra - asa nad plavix for stroke prevention - PT/OT - consider subacute rehab Thank you for the consult, please reconsult if needed Case reviewed and discussed with Dr. Hernandez. <Venu Hernandez - Last Filed: 03/25/17 22:04> Objective - Vital Signs/Intake and Output Vital Signs (last 24 hours): Temp Pulse Resp BP Pulse Ox 97.2 F L 67 16 136/85 98 03/25/17 16:00 03/25/17 18:39 03/25/17 16:00 03/25/17 18:39 03/25/17 16:00 Intake and Output: 03/25/17 03/26/17 18:59 06:59 Intake Total 480 660 Balance 480 660 - Medications Medications: Current Medications Albuterol Sulfate (Albuterol 0.083% Inhal Twyla (2.5 Mg/3 Ml) Ud) 2.5 mg INH Q6H PRN PRN Reason: Wheezing Last Admin: 03/25/17 20:57 Dose: 2.5 mg Aspirin (Ecotrin) 81 mg PO DAILY [facility] Last Admin: 03/25/17 11:03 Dose: 81 mg Atorvastatin Calcium (Lipitor) 10 mg PO DIN [facility] Last Admin: 03/25/17 18:40 Dose: 10 mg Carvedilol (Coreg) 3.125 mg PO BID [facility] Last Admin: 03/25/17 18:39 Dose: 3.125 mg Donepezil HCl (Aricept) 5 mg PO HS [facility] Last Admin: 03/25/17 21:52 Dose: 5 mg Sodium Chloride (Sodium Chloride 0.9%) 1,000 mls @ 100 mls/hr IV .Q10H [facility] Last Admin: 03/25/17 11:55 Dose: 100 mls/hr Levetiracetam (Keppra) 750 mg PO DAILY [facility] Last Admin: 03/25/17 11:03 Dose: 750 mg Lisinopril (Zestril) 5 mg PO DAILY [facility] Last Admin: 03/25/17 11:06 Dose: 5 mg Megestrol Acetate (Megace) 800 mg PO DAILY [facility] Last Admin: 03/25/17 11:05 Dose: 800 mg Methimazole (Tapazole) 5 mg PO DAILY [facility] Last Admin: 03/25/17 11:05 Dose: 5 mg Non-Formulary Medication (Fluticasone/Vilanterol [Breo Ellipta 100-25 Mcg Inh]) 1 puff INH HS [facility] Last Admin: 03/24/17 22:49 Dose: Not Given Tiotropium Rosalia (Spiriva) 18 mcg IH DAILY [facility] Last Admin: 03/25/17 11:03 Dose: 18 mcg Attending/Attestation - Attestation I have personally seen and examined this patient.: Yes I have fully participated in the care of the patient.: Yes I have reviewed all pertinent clinical information, including history, physical exam and plan: Yes
--- NOTE | 2017-03-25 15:35 | CP.PCM.CON ---
<Zoe Louie - Last Filed: 03/25/17 15:42> History of Present Illness - History of Present Illness History of Present Illness: 81 year old female with a PMHx of dementia, AAA, hypertension, CVA, CHF (last echo showed 26% EF), seizures, COPD, and thyroid disease seen and evaluated at bedside for bilateral hallux pain. Patient states that she does not have any pain in her toes unless if you touch it. Patient is not responding to certain questions and tends to ignore them. Patient denies of any other pedal complains at this time. Patient denies of any recent F/N/V/C/SOB/CP today. PMHx: Dementia, AAA, hypertension, CVA, CHF, seizures, COPD, and thyroid disease PSHx: thyroidectomy, left cataract Allergies: N.K.D.A SHx: former smoker, sporadic alcohol, no illicit drug use Review of Systems - Constitutional Constitutional: As Per HPI Past Patient History - Infectious Disease Hx of Infectious Diseases: None - Tetanus Immunizations Tetanus Immunization: Unknown - Past Medical History & Family History Past Medical History?: Yes - Past Social History Smoking Status: Former Smoker - CARDIAC Hx Congestive Heart Failure: Yes Hx Hypertension: Yes - PULMONARY Hx Chronic Obstructive Pulmonary Disease (COPD): Yes - NEUROLOGICAL HX Cerebrovascular Accident: Yes - HEENT Hx HEENT Problems: Yes Hx Cataracts: Yes (left eye sx) - RENAL Hx Chronic Kidney Disease: No - ENDOCRINE/METABOLIC Hx Endocrine Disorders: Yes Hx Hypothyroidism: Yes - HEMATOLOGICAL/ONCOLOGICAL Hx Cancer: (denies) - INTEGUMENTARY Hx Dermatological Problems: No - MUSCULOSKELETAL/RHEUMATOLOGICAL Hx Falls: Yes - GASTROINTESTINAL Hx Gastrointestinal Disorders: Yes Other/Comment: egd dx gastric erosions small hiatal hernia and gastric avm, 09/05 - GENITOURINARY/GYNECOLOGICAL Hx Genitourinary Disorders: No - PSYCHIATRIC Hx Psychophysiologic Disorder: No Hx Substance Use: No - SURGICAL HISTORY Hx Cataract Extraction: Yes - ANESTHESIA Hx Anesthesia: Yes Hx Anesthesia Reactions: No Hx Malignant Hyperthermia: No Meds Allergies/Adverse Reactions: Allergies Allergy/AdvReac Type Severity Reaction Status Date / Time No Known Allergies Allergy Verified 10/09/16 17:49 - Medications Medications: Current Medications Albuterol Sulfate (Albuterol 0.083% Inhal Twyla (2.5 Mg/3 Ml) Ud) 2.5 mg INH Q6H PRN PRN Reason: Wheezing Last Admin: 03/25/17 02:59 Dose: 2.5 mg Aspirin (Ecotrin) 81 mg PO DAILY [facility] Last Admin: 03/25/17 11:03 Dose: 81 mg Atorvastatin Calcium (Lipitor) 10 mg PO DIN [facility] Last Admin: 03/23/17 17:34 Dose: 10 mg Carvedilol (Coreg) 3.125 mg PO BID [facility] Last Admin: 03/25/17 11:05 Dose: 3.125 mg Donepezil HCl (Aricept) 5 mg PO HS [facility] Last Admin: 03/24/17 22:48 Dose: 5 mg Sodium Chloride (Sodium Chloride 0.9%) 1,000 mls @ 100 mls/hr IV .Q10H [facility] Last Admin: 03/25/17 11:55 Dose: 100 mls/hr Levetiracetam (Keppra) 750 mg PO DAILY [facility] Last Admin: 03/25/17 11:03 Dose: 750 mg Lisinopril (Zestril) 5 mg PO DAILY [facility] Last Admin: 03/25/17 11:06 Dose: 5 mg Megestrol Acetate (Megace) 800 mg PO DAILY [facility] Last Admin: 03/25/17 11:05 Dose: 800 mg Methimazole (Tapazole) 5 mg PO DAILY [facility] Last Admin: 03/25/17 11:05 Dose: 5 mg Non-Formulary Medication (Fluticasone/Vilanterol [Breo Ellipta 100-25 Mcg Inh]) 1 puff INH HS [facility] Last Admin: 03/24/17 22:49 Dose: Not Given Tiotropium [place] (Spiriva) 18 mcg IH DAILY [facility] Last Admin: 03/25/17 11:03 Dose: 18 mcg Physical Exam - Constitutional Appears: Well, Non-toxic, No Acute Distress - Extremities Exam Additional comments: Bilateral LE exam: VASC: DP/PT pulses are non-palpable b/l, Cap refill time: > 3 sec to all digit and is sluggish, Temp gradient: cool to cold from proximal to distal, no pitting or non-pitting edema noted b/l DERM: Hyperpigmented skin noted at the distal tip of the hallux b/l, no open lesions, no interdigital maceration, no clinical suspicion of active infectiion NEURO: Protective sensation slightly diminished ORTHO: Pain on palpation at the distal tips of the hallux b/l (L>R), no pain during ROM of the hallux at the MTPJ b/l - Neurological Exam Neurological exam: Alert, Oriented x3 - Psychiatric Exam Psychiatric exam: Normal Affect, Normal Mood Results - Vital Signs Recent Vital Signs: Last Vital Signs Temp 97.6 F 03/25/17 07:30 Pulse 67 03/25/17 11:06 Resp 19 03/25/17 07:30 BP 162/91 H 03/25/17 11:06 Pulse Ox 96 03/25/17 07:30 - Labs Result Diagrams: 03/25/17 06:30 03/25/17 06:30 Labs: Laboratory Results - last 24 hr 03/25/17 03/25/17 06:30 06:30 WBC 10.4 RBC 5.04 Hgb 14.4 Hct 44.3 MCV 87.9 MCH 28.6 MCHC 32.5 RDW 16.5 H Plt Count 431 MPV 10.4 Gran % 82.1 H Lymph % (Auto) 10.6 L [place] % (Auto) 5.8 Eos % (Auto) 1.1 L Baso % (Auto) 0.4 Gran # 8.51 H Lymph # 1.1 L [place] # 0.6 Eos # 0.1 Baso # 0.04 Sodium 147 Potassium 3.7 Chloride 115 H Carbon Dioxide 24 Anion Gap 12 BUN 16 Creatinine 1.0 Est GFR ( Amer) > 60 Est GFR (Non-Af Amer) 53 Random Glucose 81 Calcium 8.9 Total Bilirubin 0.5 AST 22 ALT 31 Alkaline Phosphatase 67 Total Protein 6.4 Albumin 3.3 Globulin 3.1 Albumin/Globulin Ratio 1.0 L Assessment & Plan - Assessment and Plan (Free Text) Assessment: 81 y/o female with PMHx of dementia, AAA, hypertension, CVA, CHF, seizures, COPD , and thyroid disease seen and evaluated for bilateral hallux pain secondary to ischemic changes Plan: Patient seen and evaluated at bedside Patient discussed in details with attending Dr. Farias Labs, vitals and charts reviewed - afebrile and no leukocytosis Optifoam applied to bilateral hallux Arterial duplex ordered Multipodus boots ordered - boots to be worn in bed at all times Thank you for the podiatry consult - will continue to follow patient while in house - Date & Time Date: 03/25/17 Time: 15:44 <Magalis Farias - Last Filed: 03/27/17 15:16> Meds - Medications Medications: Current Medications Albuterol Sulfate (Albuterol 0.083% Inhal Twyla (2.5 Mg/3 Ml) Ud) 2.5 mg INH Q6H PRN PRN Reason: Wheezing Last Admin: 03/26/17 20:45 Dose: 2.5 mg Aspirin (Ecotrin) 81 mg PO DAILY [facility] Last Admin: 03/27/17 09:39 Dose: 81 mg Atorvastatin Calcium (Lipitor) 10 mg PO DIN [facility] Last Admin: 03/26/17 18:12 Dose: 10 mg Carvedilol (Coreg) 3.125 mg PO BID [facility] Last Admin: 03/27/17 09:40 Dose: 3.125 mg Donepezil HCl (Aricept) 5 mg PO HS [facility] Last Admin: 03/26/17 22:37 Dose: 5 mg Sodium Chloride (Sodium Chloride 0.9%) 1,000 mls @ 100 mls/hr IV .Q10H [facility] Last Admin: 03/27/17 10:51 Dose: 100 mls/hr Levetiracetam (Keppra) 750 mg PO DAILY [facility] Last Admin: 03/27/17 09:40 Dose: 750 mg Lisinopril (Zestril) 5 mg PO DAILY [facility] Last Admin: 03/27/17 09:39 Dose: 5 mg Megestrol Acetate (Megace) 800 mg PO DAILY [facility] Last Admin: 03/27/17 09:41 Dose: 800 mg Methimazole (Tapazole) 5 mg PO DAILY [facility] Last Admin: 03/27/17 09:41 Dose: 5 mg Non-Formulary Medication (Fluticasone/Vilanterol [Breo Ellipta 100-25 Mcg Inh]) 1 puff INH HS [facility] Last Admin: 03/24/17 22:49 Dose: Not Given Tiotropium [place] (Spiriva) 18 mcg IH DAILY [facility] Last Admin: 03/27/17 09:41 Dose: 18 mcg Results - Vital Signs Recent Vital Signs: Last Vital Signs Temp 99 F 03/27/17 07:00 Pulse 82 03/27/17 09:40 Resp 18 03/27/17 07:00 BP 159/90 H 03/27/17 09:40 Pulse Ox 98 03/27/17 07:00 - Labs Result Diagrams: 03/27/17 06:50 03/26/17 06:30 Labs: Laboratory Results - last 24 hr 03/27/17 06:50 WBC 9.4 RBC 4.71 Hgb 13.3 Hct 40.3 MCV 85.6 MCH 28.2 MCHC 33.0 RDW 16.2 H Plt Count 390 MPV 10.6 Gran % 78.7 H Lymph % (Auto) 13.8 L [place] % (Auto) 5.3 Eos % (Auto) 1.7 Baso % (Auto) 0.5 Gran # 7.42 H Lymph # 1.3 [place] # 0.5 Eos # 0.2 Baso # 0.05 Attending/Attestation - Attestation I have personally seen and examined this patient.: Yes I have fully participated in the care of the patient.: Yes I have reviewed all pertinent clinical information: Yes Notes (Text): 03/27/17 15:15 PVD most likely secondary to low ejection fraction but will order arterial dopplers to scan for occlusions
[2017-03-26 07:18] LABS: BASO # 0.04 K/mm3 (0.0-2.0); BASO % 0.4 % (0.0-3.0); EOS # 0.2 (0.0-0.7); GRAN # 8.59 (1.4-6.5); GRAN % 78.8 % (50.0-68.0); HEMATOCRIT 43.1 % (36.0-48.0); LYMPH # 1.3 (1.2-3.4); LYMPH % 11.7 % (22.0-35.0); MEAN CELL VOLUME 86.9 fl (80.0-105.0); MEAN CORPUSCULAR HEMOGLOBIN 28.8 pg (25.0-35.0); MEAN CORPUSCULAR HGB CONC 33.2 g/dl (31.0-37.0); MEAN PLATELET VOLUME 10.5 fl (7.0-11.0); MONO # 0.8 (0.1-0.6); MONO % 7.1 % (1.0-6.0); RED CELL DISTRIBUTION WIDTH 16.3 % (11.5-14.5); WHITE BLOOD COUNT 10.9 10^3/ul (4.5-11.0)
[2017-03-26 07:53] LABS: ALB/GLOB RATIO 1.1 (1.1-1.8); ALKALINE PHOSPHATASE 58 U/L (38-126); ALT/SGPT 32 U/L (7-56); AST/SGOT 25 U/L (14-36); BILIRUBIN,TOTAL 0.6 mg/dL (0.2-1.3); BLOOD UREA NITROGEN 16 mg/dL (7-21); CALCIUM 8.9 mg/dL (8.4-10.5); CARBON DIOXIDE 23 mmol/L (21-33); CHLORIDE 110 mmol/L (98-107); GFR AFRICAN-AMERICAN > 60; GLUCOSE,RANDOM 85 mg/dL (70-110); POTASSIUM 3.8 mmol/L (3.6-5.0); SODIUM 142 mmol/L (132-148); TOTAL PROTEIN 6.3 g/dL (5.8-8.3)
--- NOTE | 2017-03-26 10:34 | CP.PCM.PN ---
Subjective - Date & Time of Evaluation Date of Evaluation: 03/26/17 Time of Evaluation: 06:45 - Subjective Subjective: Patient seen and evaluated at bedside. Patient noted to have elevated BP this AM. AM meds given early. Patient with limited participation in interview and physical exam. Providing only one to few word answers to questioning. Patient expresses desire not to participate. Patient complains of continued increase in frequency with urination. Patient denies dysuria, hematuria, fever, chills, nausea, chest pain, shortness of breath, abdominal discomfort. Objective - Vital Signs/Intake and Output Vital Signs (last 24 hours): Temp Pulse Resp BP Pulse Ox 98.6 F 70 18 165/99 H 97 03/26/17 07:30 03/26/17 07:30 03/26/17 07:30 03/26/17 07:30 03/26/17 07:30 Intake and Output: 03/26/17 03/26/17 06:59 18:59 Intake Total 780 Balance 780 - Medications Medications: Current Medications Albuterol Sulfate (Albuterol 0.083% Inhal Twyla (2.5 Mg/3 Ml) Ud) 2.5 mg INH Q6H PRN PRN Reason: Wheezing Last Admin: 03/25/17 20:57 Dose: 2.5 mg Aspirin (Ecotrin) 81 mg PO DAILY [facility] Last Admin: 03/25/17 11:03 Dose: 81 mg Atorvastatin Calcium (Lipitor) 10 mg PO DIN [facility] Last Admin: 03/25/17 18:40 Dose: 10 mg Carvedilol (Coreg) 3.125 mg PO BID [facility] Last Admin: 03/25/17 18:39 Dose: 3.125 mg Donepezil HCl (Aricept) 5 mg PO HS [facility] Last Admin: 03/25/17 21:52 Dose: 5 mg Sodium Chloride (Sodium Chloride 0.9%) 1,000 mls @ 100 mls/hr IV .Q10H [facility] Last Admin: 03/25/17 11:55 Dose: 100 mls/hr Levetiracetam (Keppra) 750 mg PO DAILY [facility] Last Admin: 03/25/17 11:03 Dose: 750 mg Lisinopril (Zestril) 5 mg PO DAILY [facility] Last Admin: 03/25/17 11:06 Dose: 5 mg Megestrol Acetate (Megace) 800 mg PO DAILY [facility] Last Admin: 03/25/17 11:05 Dose: 800 mg Methimazole (Tapazole) 5 mg PO DAILY [facility] Last Admin: 03/25/17 11:05 Dose: 5 mg Non-Formulary Medication (Fluticasone/Vilanterol [Breo Ellipta 100-25 Mcg Inh]) 1 puff INH HS [facility] Last Admin: 03/24/17 22:49 Dose: Not Given Tiotropium [place] (Spiriva) 18 mcg IH DAILY [facility] Last Admin: 03/25/17 11:03 Dose: 18 mcg - Labs Labs: 03/26/17 06:30 03/26/17 06:30 - Constitutional Appears: Non-toxic, No Acute Distress - Head Exam Head Exam: ATRAUMATIC, NORMAL INSPECTION, NORMOCEPHALIC - Eye Exam Eye Exam: EOMI, PERRL. absent: Conjunctival injection Pupil Exam: PERRL - ENT Exam ENT Exam: Mucous Membranes Dry - Respiratory Exam Respiratory Exam: Clear to Ausculation Bilateral, NORMAL BREATHING PATTERN. absent: Rales, Rhonchi, Wheezes - Cardiovascular Exam Cardiovascular Exam: REGULAR RHYTHM, +S1, +S2 - GI/Abdominal Exam GI & Abdominal Exam: Soft, Normal Bowel Sounds, Pulsatile Mass (hx of AAA). absent: Distended, Guarding, Rigid, Tenderness - Extremities Exam Extremities Exam: Normal Capillary Refill. absent: Calf Tenderness, Pedal Edema , Tenderness - Neurological Exam Neurological Exam: Alert, Awake Neuro motor strength exam: Left Upper Extremity: 4, Right Upper Extremity: 4, Left Lower Extremity: 4, Right Lower Extremity: 4 Additional comments: Oriented to place and name, not time Minimal participation in neuro exam, showing movement and sensation in all four extremities - Psychiatric Exam Psychiatric exam: Flat Affect, Normal Mood - Skin Skin Exam: Dry, Warm Assessment and Plan (1) Dehydration Status: Acute (2) Weakness Status: Acute (3) Dementia Status: Chronic - Assessment and Plan (Free Text) Assessment: 81 year old female well known to the service with a PMH of hypertension, COPD on home oxygen, previous PE, anemia, seizure disorder, dementia, AAA, CVA, lung cancer, NSTEMI, CHF, and hyperthyroidism who was admitted for weakness, dehydration, difficulty ambulating and altered mental status Plan: Unspecified weakness - Etiology: Deconditioning vs. dehydration vs. neurologic etiology -PT with recommendations for TCU, continue to f/u recs - Continue PT at this time due to patient deconditioning -Head CT: Negative for any acute process. -Neurology Consulted (Dr. Hernandez) - continue keppra, asa, plavix - Deconditioning and underlying dementia -blood and urine cultures negative to date AMS - hx of dementia and seizures - AAO to person and place, not time - Continue keppra for seizure - Neuro consult indicating underlying dementia - patient appears to be at baseline Compensated Systolic CHF -Last echo shows EF 28% -BNP wnl -CXR shows some congestion Biateral hallux pain - Podiatry consulted, appreciate recs - Optifoam applied - Arterial duplex - multipodus boots Hx CAD -Continue home ASA, lipitor and carvedilol Hx Dementia -Stable, continue home aricept Hypertension - continue home meds - elevated this AM, continue to monitor Hypothyroidism -continue home meds. COPD -continue home meds. GI PPX: protonix DVT ppx: SCD's Case and plan discussed with attending
[2017-03-26] MEDS: Megestrol Acetate 40 mg/ml Cup PO SCH (10:52)
[2017-03-26] MEDS: methIMAzole 5 MG TAB PO SCH (10:52)
[2017-03-26] MEDS: Tiotropium 18 mcg Cap For Inhalation IH SCH (11:22)
[2017-03-26] MEDS: Sodium Chloride 0.9% 1,000 ML IV SCH ×2 (11:33→14:46)
--- NOTE | 2017-03-26 15:52 | CP.PCM.PN ---
Subjective - Date & Time of Evaluation Date of Evaluation: 03/26/17 Time of Evaluation: 15:53 - Subjective Subjective: 81 y/o female seen and evaluated at bedside with attending Dr. Farias for pain in her hallux bilaterally. Patient appears to be resting comfortably in her bed and is in NAD. Patient denies of any acute overnight events and is AAOx3. Patient denies of any overnight F/N/V/C/SOB/CP. Patient denies of any pain in her feet bilaterally and states that the toes only bother her if touched. Denies of any other pedal complains at this time. Objective - Vital Signs/Intake and Output Vital Signs (last 24 hours): Temp Pulse Resp BP Pulse Ox 98.6 F 68 18 162/110 H 97 03/26/17 07:30 03/26/17 10:51 03/26/17 07:30 03/26/17 10:51 03/26/17 07:30 Intake and Output: 03/26/17 03/26/17 06:59 18:59 Intake Total 780 480 Balance 780 480 - Medications Medications: Current Medications Albuterol Sulfate (Albuterol 0.083% Inhal Twyla (2.5 Mg/3 Ml) Ud) 2.5 mg INH Q6H PRN PRN Reason: Wheezing Last Admin: 03/25/17 20:57 Dose: 2.5 mg Aspirin (Ecotrin) 81 mg PO DAILY [facility] Last Admin: 03/26/17 10:51 Dose: 81 mg Atorvastatin Calcium (Lipitor) 10 mg PO DIN [facility] Last Admin: 03/25/17 18:40 Dose: 10 mg Carvedilol (Coreg) 3.125 mg PO BID [facility] Last Admin: 03/26/17 10:51 Dose: 3.125 mg Donepezil HCl (Aricept) 5 mg PO HS [facility] Last Admin: 03/25/17 21:52 Dose: 5 mg Sodium Chloride (Sodium Chloride 0.9%) 1,000 mls @ 100 mls/hr IV .Q10H [facility] Last Admin: 03/26/17 14:46 Dose: 100 mls/hr Levetiracetam (Keppra) 750 mg PO DAILY [facility] Last Admin: 03/26/17 10:52 Dose: 750 mg Lisinopril (Zestril) 5 mg PO DAILY [facility] Last Admin: 03/26/17 10:51 Dose: 5 mg Megestrol Acetate (Megace) 800 mg PO DAILY [facility] Last Admin: 03/26/17 10:52 Dose: 800 mg Methimazole (Tapazole) 5 mg PO DAILY [facility] Last Admin: 03/26/17 10:52 Dose: 5 mg Non-Formulary Medication (Fluticasone/Vilanterol [Breo Ellipta 100-25 Mcg Inh]) 1 puff INH HS [facility] Last Admin: 03/24/17 22:49 Dose: Not Given Tiotropium [place] (Spiriva) 18 mcg IH DAILY [facility] Last Admin: 03/26/17 11:22 Dose: 18 mcg - Labs Labs: 03/26/17 06:30 03/26/17 06:30 - Constitutional Appears: Well, Non-toxic, No Acute Distress - Extremities Exam Additional comments: Bilateral LE exam: VASC: DP/PT pulses are non-palpable b/l, Cap refill time: > 3 sec to all digit and is sluggish, Temp gradient: cool to cold from proximal to distal, no pitting or non-pitting edema noted b/l DERM: Hyperpigmented skin noted at the distal tip of the hallux b/l, no open lesions, no interdigital maceration, no clinical suspicion of active infectiion NEURO: Protective sensation slightly diminished ORTHO: Pain on palpation at the distal tips of the hallux b/l (L>R), no pain during ROM of the hallux at the MTPJ b/l - Neurological Exam Neurological Exam: Alert, Awake, Oriented x3 - Psychiatric Exam Psychiatric exam: Normal Affect, Normal Mood Assessment and Plan - Assessment and Plan (Free Text) Assessment: 81 y/o female with PMHx of dementia, AAA, hypertension, CVA, CHF, seizures, COPD , and thyroid disease seen and evaluated for bilateral hallux pain secondary to ischemic changes Plan: Patient seen and evaluated at bedside Patient discussed in details with attending Dr. Farias Labs, vitals and charts reviewed - afebrile and no leukocytosis Multipodus boots ordered - boots to be worn in bed at all times Arterial duplex ordered - abnormal waveform in feet b/l. HAKEEM/PVR WNL and no suspicion of blockade in the LE blood flow. Bilateral hallux pain is highly due to poor EF (ECHO shows 26% EF) Vascular consult placed- recommendations appreciated Podiatry will continue to follow patient while in house
--- NOTE | 2017-03-26 19:04 | US ---
PROCEDURE: Lower extremity HAKEEM exam HISTORY: Peripheral vascular disease with pain and ulceration. Previous smoker. PHYSICIAN(S): Carlos Sinclair MD. FINDINGS: The resting ABIs are inaccurate an artificially elevated due to calcified vessels: Right, 0.98 and left, 0.77 The brachial systolic pressures are symmetric. The high thigh pressures and waveforms are relatively normal. The calf PVR waveforms are severely blunted and do not augment. This is consistent with bilateral SFA occlusive disease. The ankle and metatarsal waveforms are severely blunted and nearly flat. This is consistent with bilateral tibial occlusive disease. IMPRESSION: 1. Inaccurate resting ABIs due to calcification. 2. Bilateral SFA disease. 3. Bilateral tibial disease 4. If further evaluation is indicated, a CTA runoff, MRA with gadolinium runoff, or conventional arteriogram can be considered.
[2017-03-26] MEDS: Albuterol 0.083% Inhal Sol (2.5 mg/3 mL) UD INH PRN (20:45)
[2017-03-27 07:26] LABS: BASO # 0.05 K/mm3 (0.0-2.0); BASO % 0.5 % (0.0-3.0); EOS # 0.2 (0.0-0.7); EOS % 1.7 % (1.5-5.0); GRAN # 7.42 (1.4-6.5); GRAN % 78.7 % (50.0-68.0); HEMATOCRIT 40.3 % (36.0-48.0); LYMPH # 1.3 (1.2-3.4); LYMPH % 13.8 % (22.0-35.0); MEAN CELL VOLUME 85.6 fl (80.0-105.0); MEAN CORPUSCULAR HEMOGLOBIN 28.2 pg (25.0-35.0); MEAN PLATELET VOLUME 10.6 fl (7.0-11.0); MONO # 0.5 (0.1-0.6); MONO % 5.3 % (1.0-6.0); RED CELL DISTRIBUTION WIDTH 16.2 % (11.5-14.5); WHITE BLOOD COUNT 9.4 10^3/ul (4.5-11.0)
[2017-03-27] MEDS: Megestrol Acetate 40 mg/ml Cup PO SCH (09:41)
[2017-03-27] MEDS: Tiotropium 18 mcg Cap For Inhalation IH SCH (09:41)
[2017-03-27] MEDS: methIMAzole 5 MG TAB PO SCH (09:41)
--- NOTE | 2017-03-27 09:51 | CP.PCM.PN ---
Subjective - Date & Time of Evaluation Date of Evaluation: 03/27/17 Time of Evaluation: 09:49 - Subjective Subjective: 81 y/o female seen and evaluated at bedside for pain in her hallux bilaterally. Patient appears to be resting comfortably in her bed and is in NAD. Patient denies of any acute overnight events and is AAOx3. Denies of any other pedal complains at this time. Objective - Vital Signs/Intake and Output Vital Signs (last 24 hours): Temp Pulse Resp BP Pulse Ox 99 F 82 18 156/100 H 98 03/27/17 07:00 03/27/17 07:00 03/27/17 07:00 03/27/17 07:00 03/27/17 07:00 Intake and Output: 03/27/17 03/27/17 06:59 18:59 Intake Total 480 Balance 480 - Medications Medications: Current Medications Albuterol Sulfate (Albuterol 0.083% Inhal Twyla (2.5 Mg/3 Ml) Ud) 2.5 mg INH Q6H PRN PRN Reason: Wheezing Last Admin: 03/26/17 20:45 Dose: 2.5 mg Aspirin (Ecotrin) 81 mg PO DAILY [facility] Last Admin: 03/26/17 10:51 Dose: 81 mg Atorvastatin Calcium (Lipitor) 10 mg PO DIN [facility] Last Admin: 03/26/17 18:12 Dose: 10 mg Carvedilol (Coreg) 3.125 mg PO BID [facility] Last Admin: 03/26/17 18:09 Dose: 3.125 mg Donepezil HCl (Aricept) 5 mg PO HS [facility] Last Admin: 03/26/17 22:37 Dose: 5 mg Sodium Chloride (Sodium Chloride 0.9%) 1,000 mls @ 100 mls/hr IV .Q10H [facility] Last Admin: 03/26/17 14:46 Dose: 100 mls/hr Levetiracetam (Keppra) 750 mg PO DAILY [facility] Last Admin: 03/26/17 10:52 Dose: 750 mg Lisinopril (Zestril) 5 mg PO DAILY [facility] Last Admin: 03/26/17 10:51 Dose: 5 mg Megestrol Acetate (Megace) 800 mg PO DAILY [facility] Last Admin: 03/26/17 10:52 Dose: 800 mg Methimazole (Tapazole) 5 mg PO DAILY [facility] Last Admin: 03/26/17 10:52 Dose: 5 mg Non-Formulary Medication (Fluticasone/Vilanterol [Breo Ellipta 100-25 Mcg Inh]) 1 puff INH HS [facility] Last Admin: 03/24/17 22:49 Dose: Not Given Tiotropium [place] (Spiriva) 18 mcg IH DAILY [facility] Last Admin: 03/26/17 11:22 Dose: 18 mcg - Labs Labs: 03/27/17 06:50 03/26/17 06:30 - Constitutional Appears: Well, Non-toxic, No Acute Distress - Extremities Exam Additional comments: Bilateral LE exam: VASC: DP/PT pulses are non-palpable b/l, Cap refill time: > 3 sec to all digit and is sluggish, Temp gradient: cool to cold from proximal to distal, no pitting or non-pitting edema noted b/l DERM: Hyperpigmented skin noted at the distal tip of the hallux b/l, no open lesions, no interdigital maceration, no clinical suspicion of active infectiion NEURO: Protective sensation slightly diminished ORTHO: Pain on palpation at the distal tips of the hallux b/l (L>R), no pain during ROM of the hallux at the MTPJ b/l - Neurological Exam Neurological Exam: Alert, Awake, Oriented x3 - Psychiatric Exam Psychiatric exam: Normal Affect, Normal Mood Assessment and Plan - Assessment and Plan (Free Text) Assessment: 81 y/o female with PMHx of dementia, AAA, hypertension, CVA, CHF, seizures, COPD , and thyroid disease seen and evaluated for bilateral hallux pain secondary to ischemic changes Plan: Patient seen and evaluated at bedside Patient discussed in details with attending Dr. Farias Labs, vitals and charts reviewed - afebrile and no leukocytosis Multipodus boots ordered - boots to be worn in bed at all times Arterial duplex ordered - abnormal waveform in feet b/l. HAKEEM/PVR WNL and no suspicion of blockade in the LE blood flow. Bilateral hallux pain is highly due to poor EF (ECHO shows 26% EF) Vascular consult placed Patient is stable from podiatry standpoint - please re-consult as needed
[2017-03-27] MEDS: Sodium Chloride 0.9% 1,000 ML IV SCH (10:51)
[2017-03-27] MEDS: Albuterol 0.083% Inhal Sol (2.5 mg/3 mL) UD INH PRN (20:35)
[2017-03-28] MEDS: Megestrol Acetate 40 mg/ml Cup PO SCH (09:42)
[2017-03-28] MEDS: Tiotropium 18 mcg Cap For Inhalation IH SCH (09:43)
[2017-03-28] MEDS: methIMAzole 5 MG TAB PO SCH (09:43)
--- NOTE | 2017-03-28 13:12 | CP.PCM.PN ---
Subjective - Date & Time of Evaluation Date of Evaluation: 03/27/17 Time of Evaluation: 06:45 - Subjective Subjective: Patient seen and evaluated at bedside. No acute events overnight. Patient denies complaints at time of interview. Patient denies chest pain, shortness of breath, abdominal discomfort, n/v/f/c. Patient continues to work with PT. Objective - Vital Signs/Intake and Output Vital Signs (last 24 hours): Temp Pulse Resp BP Pulse Ox 98.4 F 66 20 142/85 98 03/28/17 08:48 03/28/17 09:43 03/28/17 08:48 03/28/17 09:43 03/28/17 08:48 Intake and Output: 03/28/17 03/28/17 06:59 18:59 Intake Total 1920 Balance 1920 - Medications Medications: Current Medications Albuterol Sulfate (Albuterol 0.083% Inhal Twyla (2.5 Mg/3 Ml) Ud) 2.5 mg INH Q6H PRN PRN Reason: Wheezing Last Admin: 03/27/17 20:35 Dose: 2.5 mg Aspirin (Ecotrin) 81 mg PO DAILY [facility] Last Admin: 03/28/17 09:43 Dose: 81 mg Atorvastatin Calcium (Lipitor) 10 mg PO DIN [facility] Last Admin: 03/27/17 17:56 Dose: 10 mg Carvedilol (Coreg) 3.125 mg PO BID [facility] Last Admin: 03/28/17 09:42 Dose: 3.125 mg Donepezil HCl (Aricept) 5 mg PO HS [facility] Last Admin: 03/27/17 22:12 Dose: 5 mg Ibuprofen (Motrin Tab) 600 mg PO Q6H PRN PRN Reason: Pain, moderate (4-7) Last Admin: 03/28/17 10:41 Dose: 600 mg Levetiracetam (Keppra) 750 mg PO DAILY [facility] Last Admin: 03/28/17 09:42 Dose: 750 mg Lisinopril (Zestril) 5 mg PO DAILY [facility] Last Admin: 03/28/17 09:43 Dose: 5 mg Megestrol Acetate (Megace) 800 mg PO DAILY [facility] Last Admin: 03/28/17 09:42 Dose: 800 mg Methimazole (Tapazole) 5 mg PO DAILY [facility] Last Admin: 03/28/17 09:43 Dose: 5 mg Non-Formulary Medication (Fluticasone/Vilanterol [Breo Ellipta 100-25 Mcg Inh]) 1 puff INH HS [facility] Last Admin: 03/24/17 22:49 Dose: Not Given Tiotropium [place] (Spiriva) 18 mcg IH DAILY [facility] Last Admin: 03/28/17 09:43 Dose: 18 mcg - Labs Labs: 03/27/17 06:50 03/26/17 06:30 - Constitutional Appears: Non-toxic, No Acute Distress - Head Exam Head Exam: ATRAUMATIC, NORMAL INSPECTION, NORMOCEPHALIC - Eye Exam Eye Exam: EOMI, PERRL - Respiratory Exam Respiratory Exam: Clear to Ausculation Bilateral, NORMAL BREATHING PATTERN. absent: Rales, Rhonchi, Wheezes - Cardiovascular Exam Cardiovascular Exam: REGULAR RHYTHM, +S1, +S2 - GI/Abdominal Exam GI & Abdominal Exam: Soft, Normal Bowel Sounds. absent: Guarding, Rigid, Tenderness - Extremities Exam Extremities Exam: Normal Capillary Refill. absent: Pedal Edema - Back Exam Additional comments: kyphosis noted thoracic - Neurological Exam Neurological Exam: Alert, Awake Additional comments: alert and oriented person place not time - Psychiatric Exam Psychiatric exam: Flat Affect - Skin Skin Exam: Dry, Normal Color, Warm Assessment and Plan (1) Dehydration Status: Acute (2) Weakness Status: Acute (3) Dementia Status: Chronic - Assessment and Plan (Free Text) Assessment: 81 year old female well known to the service with a PMH of hypertension, COPD on home oxygen, previous PE, anemia, seizure disorder, dementia, AAA, CVA, lung cancer, NSTEMI, CHF, and hyperthyroidism who was admitted for weakness, dehydration, difficulty ambulating and altered mental status Plan: Unspecified weakness - Etiology: Deconditioning vs. dehydration vs. neurologic etiology -PT with recommendations for TCU, continue to f/u recs - Continue PT at this time due to patient deconditioning -Head CT: Negative for any acute process. -Neurology Consulted (Dr. Hernandez) - continue keppra, asa, plavix - Deconditioning and underlying dementia -blood and urine cultures negative AMS - hx of dementia and seizures - AAO to person and place, not time - Continue keppra for seizure - Neuro consult indicating underlying dementia - patient appears to be at baseline Compensated Systolic CHF -Last echo shows EF 28% -BNP wnl -CXR shows some congestion, no rales on exam Biateral hallux pain - Podiatry consulted, appreciate recs - Optifoam applied - multipodus boots Hx CAD -Continue home ASA, lipitor and carvedilol Hx Dementia -Stable, continue home aricept Hypertension - continue home meds - elevated this AM, continue to monitor Hypothyroidism -continue home meds. COPD -continue home meds. GI PPX: protonix DVT ppx: SCD's Patient Case and plan discussed and reviewed with attending
--- NOTE | 2017-03-28 13:30 | CP.PCM.DIS ---
Provider - Provider Date of Admission: 03/25/17 09:40 Attending physician: Justus Walsh MD Primary care physician: Russ Soriano MD Consults: Podiatry: Dr. Farias Neurology: Dr. Jay Hernandez Vascular: Dr. Carlos Sinclair Time Spent in preparation of Discharge (in minutes): 25 Diagnosis - Discharge Diagnosis (1) Dehydration Status: Acute (2) Weakness Status: Acute (3) Dementia Status: Chronic Priority: High Hospital Course - Lab Results Lab Results: Most Recent Lab Values WBC 9.4 10^3/ul (4.5-11.0) 03/27/17 06:50 RBC 4.71 10^6/uL (3.5-6.1) 03/27/17 06:50 Hgb 13.3 g/dL (12.0-16.0) 03/27/17 06:50 Hct 40.3 % (36.0-48.0) 03/27/17 06:50 MCV 85.6 fl (80.0-105.0) 03/27/17 06:50 MCH 28.2 pg (25.0-35.0) 03/27/17 06:50 MCHC 33.0 g/dl (31.0-37.0) 03/27/17 06:50 RDW 16.2 % (11.5-14.5) H 03/27/17 06:50 Plt Count 390 10^3/uL (120.0-450.0) 03/27/17 06:50 MPV 10.6 fl (7.0-11.0) 03/27/17 06:50 Gran % 78.7 % (50.0-68.0) H 03/27/17 06:50 Lymph % (Auto) 13.8 % (22.0-35.0) L 03/27/17 06:50 [place] % (Auto) 5.3 % (1.0-6.0) 03/27/17 06:50 Eos % (Auto) 1.7 % (1.5-5.0) 03/27/17 06:50 Baso % (Auto) 0.5 % (0.0-3.0) 03/27/17 06:50 Gran # 7.42 (1.4-6.5) H 03/27/17 06:50 Lymph # 1.3 (1.2-3.4) 03/27/17 06:50 [place] # 0.5 (0.1-0.6) 03/27/17 06:50 Eos # 0.2 (0.0-0.7) 03/27/17 06:50 Baso # 0.05 K/mm3 (0.0-2.0) 03/27/17 06:50 Sodium 142 mmol/L (132-148) 03/26/17 06:30 Potassium 3.8 mmol/L (3.6-5.0) 03/26/17 06:30 Chloride 110 mmol/L (98-107) H 03/26/17 06:30 Carbon Dioxide 23 mmol/L (21-33) 03/26/17 06:30 Anion Gap 13 (10-20) 03/26/17 06:30 BUN 16 mg/dL (7-21) 03/26/17 06:30 Creatinine 0.9 mg/dl (0.7-1.2) 03/26/17 06:30 Est GFR ( Amer) > 60 03/26/17 06:30 Est GFR (Non-Af Amer) > 60 03/26/17 06:30 Random Glucose 85 mg/dL (70-110) 03/26/17 06:30 Calcium 8.9 mg/dL (8.4-10.5) 03/26/17 06:30 Total Bilirubin 0.6 mg/dL (0.2-1.3) 03/26/17 06:30 AST 25 U/L (14-36) 03/26/17 06:30 ALT 32 U/L (7-56) 03/26/17 06:30 Alkaline Phosphatase 58 U/L (38-126) 03/26/17 06:30 Troponin I < 0.01 ng/mL 03/22/17 15:35 Total Protein 6.3 g/dL (5.8-8.3) 03/26/17 06:30 Albumin 3.3 g/dL (3.0-4.8) 03/26/17 06:30 Globulin 3.1 gm/dL 03/26/17 06:30 Albumin/Globulin Ratio 1.1 (1.1-1.8) 03/26/17 06:30 Free T4 1.24 ng/dL (0.78-2.19) 03/22/17 15:35 Total T3 0.82 ng/mL (0.97-1.69) L 03/22/17 15:35 TSH 3rd Generation 0.90 mIU/mL (0.46-4.68) 03/22/17 15:35 Urine Color Yellow (YELLOW) 03/22/17 13:20 Urine Appearance Clear (CLEAR) 03/22/17 13:20 Urine pH 5.5 (4.7-8.0) 03/22/17 13:20 Ur Specific [place] >= 1.030 (1.005-1.035) 03/22/17 13:20 Urine Protein Negative mg/dL (<30 mg/dL) 03/22/17 13:20 Urine Glucose (UA) Negative mg/dL (NEGATIVE) 03/22/17 13:20 Urine Ketones Negative mg/dL (NEGATIVE) 03/22/17 13:20 Urine Blood Trace-intact (NEGATIVE) H 03/22/17 13:20 Urine Nitrate Negative (NEGATIVE) 03/22/17 13:20 Urine Bilirubin Negative (NEGATIVE) 03/22/17 13:20 Urine Urobilinogen 0.2 E.U./dL (<1 E.U./dL) 03/22/17 13:20 Ur Leukocyte Esterase Negative [place]/uL (NEGATIVE) 03/22/17 13:20 Urine RBC 0 - 2 /hpf (0-2) 03/22/17 13:20 Urine WBC 0 - 2 /hpf (0-6) 03/22/17 13:20 Ur Epithelial Cells 0 - 2 /hpf (0-5) 03/22/17 13:20 - Hospital Course Hospital Course: Patient is an 80 year old female with a past medical history of dementia, AAA, hypertension, CVA, CHF (last echo showed 26% EF), seizures, COPD, and thyroid disease who comes into the hospital with complaints of difficulty ambulating, unspecified back pain, and increase in urinary frequency per the daughter. Daughter reported for past 4-5 days she noticed patient with difficulty ambulating at home. Patient was evaluated in ED and found to have elevated BUN with generalized weakness on exam. Patient was admitted for further work up and evaluation for presenting symptoms. Neurology was consulted to evaluate the patient for possible altered mental status. Patient had CT of the head negative for acute changes. Neurology recommendations were to continue keppra, ASA, and plavix, PT/OT with consideration of subacute rehab. Neurology evaluated the patient to have AMS and increasing weakness due to transit altered mental status most likely due to deconditioning and underlying dementia. Patient noted to have bilateral halux ulcers and podiatry was consulted and evaluated the patient for wound care. Arterial duplex was ordered showing abnormal waveform in the feet bilaterally with HAKEEM/PVR within normal limits, and without blockage. Podiatry consulted vascular with Dr. Carlos Sinclair for recommendations for further management. Vascular indicated no intervention necessary at this time and for possibly outpatient treatment. Patient daughter was contacted by social media designer and upper caser and spoken to regarding plan and family indicated wanting to take patient home with home services planned. Patient was evaluated to be hemodynamically stable, normothermic, and euvolemic and appropriate for discharge with outpatient follow up and treatment. Patient agreeable to plan. - Date & Time of H&P Date of H&P: 03/22/17 Time of H&P: 18:04 Discharge Exam - Head Exam Head Exam: ATRAUMATIC, NORMAL INSPECTION, NORMOCEPHALIC - Eye Exam Eye Exam: EOMI, PERRL - ENT Exam ENT Exam: Mucous Membranes Moist - Respiratory Exam Respiratory Exam: Clear to PA & Lateral, NORMAL BREATHING PATTERN. absent: Rales, Rhonchi, Wheezes - Cardiovascular Exam Cardiovascular Exam: REGULAR RHYTHM, +S1, +S2 - GI/Abdominal Exam GI & Abdominal Exam: Normal Bowel Sounds. absent: Soft, Tenderness - Extremities Exam Extremities exam: pedal pulses present - Neurological Exam Neurological exam: Alert Additional comments: AAO2 person and place, not time Motor and sensory grossly intact - Psychiatric Exam Psychiatric exam: Normal Affect, Normal Mood - Skin Skin Exam: Dry, Normal Color Additional comments: patient sacral region and gluteal region examined, no evidence of decubitus ulcer, bony prominence of sacrum and coccyx appreciated Discharge Plan - Follow Up Plan Condition: STABLE Disposition: HOME/ ROUTINE Instructions: Dehydration (DC), Pneumococcal Vaccine for Adults (DC), Influenza Vaccine (GEN) Additional Instructions: Follow up with PMD within one week of discharge Take medications as prescribed to you - Continue home medications as prescribed to you Continue to work with physical therapy outpatient Return to the hospital or ED if symptoms worsen or return Referrals: Russ Soriano MD [Primary Care Provider] -
[2017-03-28] MEDS: Albuterol 0.083% Inhal Sol (2.5 mg/3 mL) UD INH PRN (19:24)
[2017-03-29 08:35] VITALS: BP 145/94; PULSE 67; RESP 18; TEMP 98.8; O2SAT 97
[2017-03-29] MEDS: Megestrol Acetate 40 mg/ml Cup PO SCH ×2 (10:22→10:36)
[2017-03-29] MEDS: Tiotropium 18 mcg Cap For Inhalation IH SCH ×2 (10:23→10:36)
[2017-03-29] MEDS: methIMAzole 5 MG TAB PO SCH ×2 (10:23→10:36)
--- NOTE | 2017-03-29 12:41 | CP.PCM.PN ---
Subjective - Date & Time of Evaluation Date of Evaluation: 03/29/17 Time of Evaluation: 12:39 - Subjective Subjective: Patient was originally planned for discharge on 03/28/2017. Due to transportation issues and family concern a safe discharge was unable to be achieved and thus the patient was not discharged. Patient discharged 03/29/2017. Objective - Vital Signs/Intake and Output Vital Signs (last 24 hours): Temp Pulse Resp BP Pulse Ox 98.8 F 67 18 145/94 H 97 03/29/17 08:35 03/29/17 08:35 03/29/17 08:35 03/29/17 08:35 03/29/17 08:35 Intake and Output: 03/29/17 03/29/17 06:59 18:59 Intake Total 240 120 Output Total 0 Balance 240 120 - Labs Labs: 03/27/17 06:50 03/26/17 06:30 Assessment and Plan (1) Dehydration Status: Acute (2) Weakness Status: Acute (3) Dementia Status: Chronic
--- NOTE | 2017-03-29 12:44 | CP.PCM.DIS ---
Provider - Provider Date of Admission: 03/25/17 09:40 Attending physician: Justus Walsh MD Primary care physician: Russ Soriano MD Consults: Neurology: Dr. Venu Hernandez Podiatry: Dr. Farias Vascular: Dr. Carlos Sinclair Time Spent in preparation of Discharge (in minutes): 25 Diagnosis - Discharge Diagnosis (1) Dehydration Status: Acute (2) Weakness Status: Acute (3) Dementia Status: Chronic Priority: High Hospital Course - Lab Results Lab Results: Most Recent Lab Values WBC 9.4 10^3/ul (4.5-11.0) 03/27/17 06:50 RBC 4.71 10^6/uL (3.5-6.1) 03/27/17 06:50 Hgb 13.3 g/dL (12.0-16.0) 03/27/17 06:50 Hct 40.3 % (36.0-48.0) 03/27/17 06:50 MCV 85.6 fl (80.0-105.0) 03/27/17 06:50 MCH 28.2 pg (25.0-35.0) 03/27/17 06:50 MCHC 33.0 g/dl (31.0-37.0) 03/27/17 06:50 RDW 16.2 % (11.5-14.5) H 03/27/17 06:50 Plt Count 390 10^3/uL (120.0-450.0) 03/27/17 06:50 MPV 10.6 fl (7.0-11.0) 03/27/17 06:50 Gran % 78.7 % (50.0-68.0) H 03/27/17 06:50 Lymph % (Auto) 13.8 % (22.0-35.0) L 03/27/17 06:50 [place] % (Auto) 5.3 % (1.0-6.0) 03/27/17 06:50 Eos % (Auto) 1.7 % (1.5-5.0) 03/27/17 06:50 Baso % (Auto) 0.5 % (0.0-3.0) 03/27/17 06:50 Gran # 7.42 (1.4-6.5) H 03/27/17 06:50 Lymph # 1.3 (1.2-3.4) 03/27/17 06:50 [place] # 0.5 (0.1-0.6) 03/27/17 06:50 Eos # 0.2 (0.0-0.7) 03/27/17 06:50 Baso # 0.05 K/mm3 (0.0-2.0) 03/27/17 06:50 Sodium 142 mmol/L (132-148) 03/26/17 06:30 Potassium 3.8 mmol/L (3.6-5.0) 03/26/17 06:30 Chloride 110 mmol/L (98-107) H 03/26/17 06:30 Carbon Dioxide 23 mmol/L (21-33) 03/26/17 06:30 Anion Gap 13 (10-20) 03/26/17 06:30 BUN 16 mg/dL (7-21) 03/26/17 06:30 Creatinine 0.9 mg/dl (0.7-1.2) 03/26/17 06:30 Est GFR ( Amer) > 60 03/26/17 06:30 Est GFR (Non-Af Amer) > 60 03/26/17 06:30 Random Glucose 85 mg/dL (70-110) 03/26/17 06:30 Calcium 8.9 mg/dL (8.4-10.5) 03/26/17 06:30 Total Bilirubin 0.6 mg/dL (0.2-1.3) 03/26/17 06:30 AST 25 U/L (14-36) 03/26/17 06:30 ALT 32 U/L (7-56) 03/26/17 06:30 Alkaline Phosphatase 58 U/L (38-126) 03/26/17 06:30 Troponin I < 0.01 ng/mL 03/22/17 15:35 Total Protein 6.3 g/dL (5.8-8.3) 03/26/17 06:30 Albumin 3.3 g/dL (3.0-4.8) 03/26/17 06:30 Globulin 3.1 gm/dL 03/26/17 06:30 Albumin/Globulin Ratio 1.1 (1.1-1.8) 03/26/17 06:30 Free T4 1.24 ng/dL (0.78-2.19) 03/22/17 15:35 Total T3 0.82 ng/mL (0.97-1.69) L 03/22/17 15:35 TSH 3rd Generation 0.90 mIU/mL (0.46-4.68) 03/22/17 15:35 Urine Color Yellow (YELLOW) 03/22/17 13:20 Urine Appearance Clear (CLEAR) 03/22/17 13:20 Urine pH 5.5 (4.7-8.0) 03/22/17 13:20 Ur Specific [place] >= 1.030 (1.005-1.035) 03/22/17 13:20 Urine Protein Negative mg/dL (<30 mg/dL) 03/22/17 13:20 Urine Glucose (UA) Negative mg/dL (NEGATIVE) 03/22/17 13:20 Urine Ketones Negative mg/dL (NEGATIVE) 03/22/17 13:20 Urine Blood Trace-intact (NEGATIVE) H 03/22/17 13:20 Urine Nitrate Negative (NEGATIVE) 03/22/17 13:20 Urine Bilirubin Negative (NEGATIVE) 03/22/17 13:20 Urine Urobilinogen 0.2 E.U./dL (<1 E.U./dL) 03/22/17 13:20 Ur Leukocyte Esterase Negative [place]/uL (NEGATIVE) 03/22/17 13:20 Urine RBC 0 - 2 /hpf (0-2) 03/22/17 13:20 Urine WBC 0 - 2 /hpf (0-6) 03/22/17 13:20 Ur Epithelial Cells 0 - 2 /hpf (0-5) 03/22/17 13:20 - Hospital Course Hospital Course: Patient is an 80 year old female with a past medical history of dementia, AAA , hypertension, CVA, CHF (last echo showed 26% EF), seizures, COPD, and thyroid disease who comes into the hospital with complaints of difficulty ambulating, unspecified back pain, and increase in urinary frequency per the daughter. Daughter reported for past 4-5 days she noticed patient with difficulty ambulating at home. Patient was evaluated in ED and found to have elevated BUN with generalized weakness on exam. Patient was admitted for further work up and evaluation for presenting symptoms. Neurology was consulted to evaluate the patient for possible altered mental status. Patient had CT of the head negative for acute changes. Neurology recommendations were to continue keppra, ASA, and plavix, PT/OT with consideration of subacute rehab. Neurology evaluated the patient to have AMS and increasing weakness due to transit altered mental status most likely due to deconditioning and underlying dementia. Patient noted to have bilateral halux ulcers and podiatry was consulted and evaluated the patient for wound care. Arterial duplex was ordered showing abnormal waveform in the feet bilaterally with HAKEEM/PVR within normal limits, and without blockage. Podiatry consulted vascular with Dr. Carlos Sinclair for recommendations for further management. Vascular indicated no intervention necessary at this time and for possibly outpatient treatment. Plan for patient to be discharged on 03/28/2017 but due to transportation issues and family concern a safe discharge was unable to be achieved. Patient was not discharged and treated for one more night with discharge on 03/29/2017. Patient's daughter was spoken to and discharge plan was discussed. Family indicated wanting to take patient home with home services planned. Patient was evaluated to be hemodynamically stable, normothermic, and euvolemic and appropriate for discharge with outpatient follow up and treatment. Patient agreeable to plan. - Date & Time of H&P Date of H&P: 04/11/17 Time of H&P: 18:09 Discharge Exam - Head Exam Head Exam: ATRAUMATIC, NORMAL INSPECTION, NORMOCEPHALIC - Eye Exam Eye Exam: EOMI, PERRL - ENT Exam ENT Exam: Mucous Membranes Moist - Respiratory Exam Respiratory Exam: NORMAL BREATHING PATTERN, UNREMARKABLE - Cardiovascular Exam Cardiovascular Exam: REGULAR RHYTHM, +S1, +S2 - GI/Abdominal Exam GI & Abdominal Exam: Normal Bowel Sounds, Soft. absent: Mass, Tenderness - Extremities Exam Extremities exam: pedal pulses present - Neurological Exam Neurological exam: Alert Additional comments: AAO to person and place Patient refusing to participate in neuro exam - Psychiatric Exam Psychiatric exam: Normal Affect, Normal Mood - Skin Skin Exam: Dry, Intact, Warm Discharge Plan - Follow Up Plan Condition: STABLE Disposition: HOME/ ROUTINE Instructions: Dehydration (DC), Pneumococcal Vaccine for Adults (DC), Influenza Vaccine (GEN) Additional Instructions: Follow up with PMD within one week of discharge Take medications as prescribed to you - Continue home medications as prescribed to you Continue to work with physical therapy outpatient Return to the hospital or ED if symptoms worsen or return Referrals: Russ Soriano MD [Primary Care Provider] -
== END 2017-03-29 12:07 | disposition home or self-care (01) | DRG 641 ==
LOC: ED 12:31 → ERH 17:29 → 5RSO 18:14 → OBSVTOIN 03-25 09:40 → 5RNO 03-27 15:54
PROVIDERS: ADMIT Family Medicine; ATTEND Internal Medicine
DX: E86.0 Dehydration (principal); I50.22 Chronic systolic (congestive) heart failure; I11.0 Hypertensive heart disease with heart failure; F03.90 Unspecified dementia, unspecified severity, without behavioral disturbance, psychotic disturbance, mood disturbance, and anxiety; D64.9 Anemia, unspecified; J43.9 Emphysema, unspecified; G40.909 Epilepsy, unspecified, not intractable, without status epilepticus; I71.4 Abdominal aortic aneurysm, without rupture; R26.2 Difficulty in walking, not elsewhere classified; R35.0 Frequency of micturition; I73.9 Peripheral vascular disease, unspecified; M54.5 Low back pain; E05.90 Thyrotoxicosis, unspecified without thyrotoxic crisis or storm; I25.10 Atherosclerotic heart disease of native coronary artery without angina pectoris; Z86.73 Personal history of transient ischemic attack (TIA), and cerebral infarction without residual deficits; I25.2 Old myocardial infarction; Z98.42 Cataract extraction status, left eye; Z87.891 Personal history of nicotine dependence; Z85.118 Personal history of other malignant neoplasm of bronchus and lung; Z86.711 Personal history of pulmonary embolism

== ENCOUNTER 2017-04-03 14:37 | Observation (INO) | payer MEDICARE, MEDICAID ==
[2017-04-03 15:15] VITALS: RESP 18
--- NOTE | 2017-04-03 15:21 | ED PDOC ---
Arrival/HPI - General Time Seen by Provider: 04/03/17 14:48 Historian: Patient, Family - History of Present Illness Narrative History of Present Illness (Text): 04/03/17 15:18 A 81 year old female, whose past medical history includes seizure and dementia, brought into the emergency department by family for witnessed seizure prior to arrival. As per family, patient had a tonic clonic seizure. pt has known h/o of seizure. pt had urinary incontinece during seizure. called pmd sent to er. Patient denies any pain or discomfort at this time. Family report patient was recently discharged from the hospital. HPI and ROS limited due to patients state. 04/03/17 18:55 Time/Duration: Prior to Arrival Context: Home Past Medical History - Provider Review Nursing Documentation Reviewed: Yes - Infectious Disease Hx of Infectious Diseases: None - Tetanus Immunization Tetanus Immunization: Unknown - Cardiac Hx Congestive Heart Failure: Yes Hx Hypertension: Yes - Pulmonary Hx Chronic Obstructive Pulmonary Disease (COPD): Yes - Neurological HX Cerebrovascular Accident: Yes - HEENT Hx HEENT Disorder: Yes Hx Cataracts: Yes (left eye sx) - Renal Hx Renal Disorder: No - Endocrine/Metabolic Hx Endocrine Disorders: Yes Hx Hypothyroidism: Yes - Hematological/Oncological Hx Cancer: (denies) - Integumentary Hx Dermatological Disorder: No - Musculoskeletal/Rheumatological Hx Falls: Yes - Gastrointestinal Hx Gastrointestinal Disorders: Yes Other/Comment: egd dx gastric erosions small hiatal hernia and gastric avm, 09/05 - Genitourinary/Gynecological Hx Genitourinary Disorders: No - Psychiatric Hx Psychophysiologic Disorder: No Hx Substance Use: No - Surgical History Hx Cataract Extraction: Yes - Anesthesia Hx Anesthesia: Yes Hx Anesthesia Reactions: No Hx Malignant Hyperthermia: No Family/Social History - Physician Review Nursing Documentation Reviewed: Yes Family/Social History: No Known Family HX Smoking Status: Former Smoker Hx Alcohol Use: No Hx Substance Use: No Allergies/Home Meds Allergies/Adverse Reactions: Allergies No Known Allergies Allergy (Verified 10/09/16 17:49) Home Medications: Home Meds Medication Instructions Recorded Confirmed Albuterol 0.083% [Albuterol 0.083% 1 inh NEB PRN PRN 09/28/16 03/22/17 Inhal Twyla (2.5 mg/3 ml) UD] Carvedilol [Coreg] 3.125 mg PO BID 10/09/16 03/22/17 Ferrous Sulfate [Feosol] 324 mg PO DAILY 10/09/16 03/22/17 Cyproheptadine [Periactin] 4 mg PO DAILY 03/15/17 03/22/17 Fluticasone/Vilanterol [Breo 1 puff INH HS 03/15/17 03/22/17 Ellipta 100-25 Mcg INH] Lisinopril [Zestril] 5 mg PO DAILY 03/15/17 03/22/17 Megestrol [Megace] 20 ml PO DAILY 03/15/17 03/22/17 Review of Systems - Review of Systems Systems not reviewed;Unavailable: Dementia Physical Exam Vital Signs Reviewed: Yes Vital Signs Temp Pulse Resp BP Pulse Ox 04/03/17 15:14 98.2 F 69 18 136/78 99 Temperature: Afebrile Blood Pressure: Normal Pulse: Regular Respiratory Rate: Normal Appearance: Positive for: Well-Appearing, Non-Toxic, Comfortable Pain Distress: None Mental Status: Positive for: other (Delayed repsonses to questions) - Systems Exam Head: Present: Atraumatic, Normocephalic Pupils: Present: PERRL Extroacular Muscles: Present: EOMI Conjunctiva: Present: Normal Mouth: Present: Moist Mucous Membranes Neck: Present: Normal Range of Motion Respiratory/Chest: Present: Clear to Auscultation, Good Air Exchange. No: Respiratory Distress, Accessory Muscle Use Cardiovascular: Present: Regular Rate and Rhythm, Normal S1, S2. No: Murmurs Abdomen: Present: Normal Bowel Sounds. No: Tenderness, Distention, Peritoneal Signs Back: Present: Normal Inspection Upper Extremity: Present: Normal Inspection. No: Cyanosis, Edema Lower Extremity: Present: Normal Inspection. No: Edema Skin: Present: Warm, Dry, Normal Color. No: Rashes Medical Decision Making ED Course and Treatment: 04/03/17 15:18 Impression: A 81 year old female brought in after seizure. Patient denies any complaints at this time. known seizure d/o - sent by pmd for admission Plan: -- Head CT -- Chest xray -- EKG -- Labs -- Urinalysis -- Reassess and disposition Progress Notes: EKG shows NSR at [address]/T wave changes, no interval changes from previous. Interpreted by me. 04/03/17 18:56 neuro intact. pt resting comfortably. imaging neg. acccepted by dr landers covering dr aburto - Lab Interpretations Lab Results: 04/03/17 15:30 04/03/17 15:30 Lab Results 04/03/17 15:51: PT 13.2 H, INR 1.21 H, APTT 26.8 04/03/17 15:30: Sodium 146, Potassium 4.2, Chloride 112 H, Carbon Dioxide 23, Anion Gap 15, BUN 32 H, Creatinine 1.2, Est GFR ( Amer) 52, Est GFR (Non- Af Amer) 43, Random Glucose 143 H, Calcium 9.7, Magnesium 2.2, Total Bilirubin 0.7, AST 22, ALT 24, Alkaline Phosphatase 67, Lactate Dehydrogenase 766 H, Total Creatine Kinase 63, Troponin I 0.01, Total Protein 6.8, Albumin 3.7, Globulin 3.0, Albumin/Globulin Ratio 1.2 04/03/17 15:30: WBC 10.7, RBC 5.09, Hgb 14.9, Hct 45.3, MCV 89.0 D, MCH 29.3, MCHC 32.9, RDW 17.1 H, Plt Count 436, MPV 10.8, Gran % 80.1 H, Lymph % (Auto) 12.3 L, Schley % (Auto) 5.5, Eos % (Auto) 1.7, Baso % (Auto) 0.4, Gran # 8.57 H, Lymph # 1.3, Schley # 0.6, Eos # 0.2, Baso # 0.04 I have reviewed the lab results: Yes - RAD Interpretation Radiology Orders: 04/03/17 15:15 CHEST PORTABLE [RAD] Stat 04/03/17 15:16 HEAD W/O CONTRAST [CT] Stat - Scribe Statement The provider has reviewed the documentation as recorded by the Mindyiblianna Hatfield Provider Scribe Attestation: All medical record entries made by the Scribe were at my direction and personally dictated by me. I have reviewed the chart and agree that the record accurately reflects my personal performance of the history, physical exam, medical decision making, and the department course for this patient. I have also personally directed, reviewed, and agree with the discharge instructions and disposition. Disposition/Present on Arrival - Present on Arrival Any Indicators Present on Arrival: No History of DVT/PE: Yes History of Uncontrolled Diabetes: No Urinary Catheter: No History Surgical Site Infection Following: None - Disposition Have Diagnosis and Disposition been Completed?: Yes Diagnosis: Seizure Disposition: HOSPITALIZED Disposition Time: 07:00 Patient Problems: Current Active Problems Problem Status Onset Seizure Acute Condition: STABLE
[2017-04-03 15:22] VITALS: BMI 18.3
[2017-04-03 15:49] LABS: BASO # 0.04 K/mm3 (0.0-2.0); BASO % 0.4 % (0.0-3.0); EOS # 0.2 (0.0-0.7); EOS % 1.7 % (1.5-5.0); GRAN # 8.57 (1.4-6.5); GRAN % 80.1 % (50.0-68.0); HEMATOCRIT 45.3 % (36.0-48.0); LYMPH # 1.3 (1.2-3.4); LYMPH % 12.3 % (22.0-35.0); MEAN CORPUSCULAR HEMOGLOBIN 29.3 pg (25.0-35.0); MEAN CORPUSCULAR HGB CONC 32.9 g/dl (31.0-37.0); MEAN PLATELET VOLUME 10.8 fl (7.0-11.0); MONO # 0.6 (0.1-0.6); MONO % 5.5 % (1.0-6.0); RED CELL DISTRIBUTION WIDTH 17.1 % (11.5-14.5); WHITE BLOOD COUNT 10.7 10^3/ul (4.5-11.0)
[2017-04-03 16:08] LABS: ALB/GLOB RATIO 1.2 (1.1-1.8); BILIRUBIN,TOTAL 0.7 mg/dL (0.2-1.3); CALCIUM 9.7 mg/dL (8.4-10.5); MAGNESIUM 2.2 mg/dL (1.7-2.2); POTASSIUM 4.2 mmol/L (3.6-5.0); TOTAL PROTEIN 6.8 g/dL (5.8-8.3)
[2017-04-03 16:11] LABS: TROPONIN I 0.01 ng/mL
[2017-04-03 16:16] LABS: INR 1.21 (0.93-1.08); PARTIAL THROMBOPLASTIN TIME 26.8 Seconds (25.1-36.5)
--- NOTE | 2017-04-03 18:15 | RAD ---
HISTORY: seizure COMPARISON: 03/22/2017 FINDINGS: LUNGS: No active pulmonary disease. PLEURA: No significant pleural effusion identified, no pneumothorax apparent. CARDIOVASCULAR: Normal. OSSEOUS STRUCTURES: No significant abnormalities. VISUALIZED UPPER ABDOMEN: Normal. OTHER FINDINGS: None. IMPRESSION: No active pulmonary disease.
--- NOTE | 2017-04-03 18:34 | CT ---
PROCEDURE: CT HEAD WITHOUT CONTRAST. HISTORY: seizure COMPARISON: 03/22/2017. TECHNIQUE: Axial computed tomography images were obtained through the head/brain without intravenous contrast. Radiation dose: Total exam DLP = 1605.51 mGy-cm. This CT exam was performed using one or more of the following dose reduction techniques: Automated exposure control, adjustment of the mA and/or kV according to patient size, and/or use of iterative reconstruction technique. FINDINGS: HEMORRHAGE: No intracranial hemorrhage. BRAIN: There are severe chronic microangiopathic changes. There are old lacunar infarctions in the right caudate head and anterior vega radiata. There is no mass, mass effect or abnormal extra-axial fluid collection.There are coarse atherosclerotic calcifications in the cavernous carotid arteries. VENTRICLES: There is moderate global parenchymal volume loss and proportionate enlargement of the ventricles and cortical sulci. CALVARIUM: The skull base and calvarium are normal. PARANASAL SINUSES: Predominantly clear. MASTOID AIR CELLS: Predominantly clear. OTHER FINDINGS: None. IMPRESSION: No acute intracranial abnormality. Severe chronic microangiopathic changes and moderate age-related global parenchymal volume loss.
--- NOTE | 2017-04-03 18:48 | CP.PCM.HP ---
History of Present Illness - History of Present Illness History of Present Illness: Medicine H/P for Dr. Parisa Jensen DO PGY - 1, Pager [phone] CC: Seizure HPI: Patient is an 80 year old female with PMH of dementia, AAA, HTN, CVA, CHF with last known EF of 26%, lung cancer, hx NSTEMI, previous PE, anemia, COPD, thyroid disorder and seizure disorder who presents to [facility] [place] [facility] sent over from PMD office with complaints of seizure activity. Patient recently discharged from [facility] [place] on 03/29/2017 previously treated for AMS and weakness. Daughter at bedside states that pt had a seizure for 8 minutes with generalized movement and loss of bladder (not bowel). PMD: Dr. Soriano PMH: as above PSH: thyroidectomy, left cataract SH: former smoker, sporadic alcohol, no illicit drug use FH: breast and stomach CA in the family Meds: reviewed Allergies: NKDA Pt denies f/ch/cp/sob/n/v/d/dysuria/frequency/urgency/hematuria/hematochezia/ hematemesis ROS: 12 point ROS performed but not well elicited 2/2 pt mental status Const'l: pt denies fever, chills, generalized weakness ENT: pt denies dysphagia, otalgia, hearing deficit, rhinorrhea Eyes: pt denies sudden loss of vision, diplopia, blurred vision MSK: pt denies muscle stiffness, joint pain, extremity cramping Cardio: pt denies sob, heart murmur, cp Pulm: pt denies cough, hemoptysis, wheeze GI: pt denies loss of appetite, abdominal pain, constipation, melena, n/v/d : pt denies burning on urination, urinary frequency, hematuria, urinary urgency Neuro: pt denies paresis, paresthesia, dizziness, horvath, numbness, tingling Derm: pt denies skin changes, lesions, nail changes Endo: pt denies intolerance to heat/cold, diaphoresis, night sweats, polydipsia Psych: pt denies anxiety, depression, mood changes Present on Admission - Present on Admission Any Indicators Present on Admission: No Past Patient History - Infectious Disease Hx of Infectious Diseases: None - Tetanus Immunizations Tetanus Immunization: Unknown - Past Medical History & Family History Past Medical History?: Yes - Past Social History Smoking Status: Former Smoker - CARDIAC Hx Congestive Heart Failure: Yes Hx Hypertension: Yes - PULMONARY Hx Chronic Obstructive Pulmonary Disease (COPD): Yes - NEUROLOGICAL HX Cerebrovascular Accident: Yes - HEENT Hx HEENT Problems: Yes Hx Cataracts: Yes (left eye sx) - RENAL Hx Chronic Kidney Disease: No - ENDOCRINE/METABOLIC Hx Endocrine Disorders: Yes Hx Hypothyroidism: Yes - HEMATOLOGICAL/ONCOLOGICAL Hx Cancer: (denies) - INTEGUMENTARY Hx Dermatological Problems: No - MUSCULOSKELETAL/RHEUMATOLOGICAL Hx Falls: Yes - GASTROINTESTINAL Hx Gastrointestinal Disorders: Yes Other/Comment: egd dx gastric erosions small hiatal hernia and gastric avm, 09/05 - GENITOURINARY/GYNECOLOGICAL Hx Genitourinary Disorders: No - PSYCHIATRIC Hx Psychophysiologic Disorder: No Hx Substance Use: No - SURGICAL HISTORY Hx Cataract Extraction: Yes - ANESTHESIA Hx Anesthesia: Yes Hx Anesthesia Reactions: No Hx Malignant Hyperthermia: No Meds Allergies/Adverse Reactions: Allergies Allergy/AdvReac Type Severity Reaction Status Date / Time No Known Allergies Allergy Verified 10/09/16 17:49 Physical Exam - Additional Findings Additional findings: Phys Exam: VS as below Const'l: a&o x 4, nad Head/Neck: neck supple, no jvd, trachea midline, carotid midline, no cervical /head mass Eyes: yumi, nonicteric sclera, eom intact ENT: auditory acuity grossly intact, throat not congested, no nasal deformity Cardio: rrr, no m/r/g, no carotid bruit, nml s1, s2 Pulm: no accessory muscle use, equal nml breath sounds bilaterally, ctab Abd: s/nt/nd, nbs x 4 q, no palpable masses Derm: no rashes, no ulcers, no lesions Extr: no edema, no cyanosis, no calf tenderness, no lesions, no varicosities Neuro: cn II-XII grossly intact, ue and le 5/5 muscle strength bilaterally, no los ue, le bilaterally and core Results - Vital Signs Recent Vital Signs: Last Vital Signs Temp 98.2 F 04/03/17 15:14 Pulse 69 04/03/17 15:14 Resp 18 04/03/17 15:14 BP 136/78 04/03/17 15:14 Pulse Ox 99 04/03/17 15:14 - Labs Result Diagrams: 04/03/17 15:30 04/03/17 15:30 Labs: Laboratory Results - last 24 hr 04/03/17 04/03/17 04/03/17 15:30 15:30 15:51 WBC 10.7 RBC 5.09 Hgb 14.9 Hct 45.3 MCV 89.0 D MCH 29.3 MCHC 32.9 RDW 17.1 H Plt Count 436 MPV 10.8 Gran % 80.1 H Lymph % (Auto) 12.3 L Payette % (Auto) 5.5 Eos % (Auto) 1.7 Baso % (Auto) 0.4 Gran # 8.57 H Lymph # 1.3 Payette # 0.6 Eos # 0.2 Baso # 0.04 PT 13.2 H INR 1.21 H APTT 26.8 Sodium 146 Potassium 4.2 Chloride 112 H Carbon Dioxide 23 Anion Gap 15 BUN 32 H Creatinine 1.2 Est GFR ( Amer) 52 Est GFR (Non-Af Amer) 43 Random Glucose 143 H Calcium 9.7 Magnesium 2.2 Total Bilirubin 0.7 AST 22 ALT 24 Alkaline Phosphatase 67 Lactate Dehydrogenase 766 H Total Creatine Kinase 63 Troponin I 0.01 Total Protein 6.8 Albumin 3.7 Globulin 3.0 Albumin/Globulin Ratio 1.2 Assessment & Plan - Assessment and Plan (Free Text) Assessment: A/P: 81 year old female well known to the service with a PMH of hypertension, COPD on home oxygen, previous PE, anemia, seizure disorder, dementia, AAA, CVA, lung cancer, NSTEMI, CHF, and hyperthyroidism who was admitted for seizure activity. Seizure activity Etiology: Medication effect v. med compliance v. electrolyte anb v. infectious v. toxin Keppra Neuro consult with Dr. Hernandez EEG CT Head showed: Seizure precaution, aspiration precaution, fall precautions Check electrolytes, CMP, Mg, Ca, PO4, CBC, UA, TSH? Tox screen, ETOH level, Keppra level CXR, CT head from recent admission negative for acute process, mass NPO PT/OT Compensated Systolic CHF -Last echo shows EF 28% -CXR pending Hx CAD -Continue home ASA, lipitor and carvedilol Hx Dementia -Stable, continue home aricept Hypertension - continue home meds - elevated this AM, continue to monitor Hypothyroidism -continue home meds. COPD -continue home meds. GI PPX: protonix DVT ppx: SCD's
[2017-04-03] MEDS ORDERED: Albuterol 0.083% Inhal Sol (2.5 mg/3 mL) UD INH PRN (19:28)
--- NOTE | 2017-04-03 19:39 | CARD ---
APPROVED REPORT EKG Measurement Heart [id number] CT [id number] <Conclusion> Sinus rhythm with premature supraventricular complexes and premature ventricular complexes or fusion complexes Left axis deviation Anterior infarct, age undetermined ST & T wave abnormality, consider lateral ischemia Abnormal ECG
[2017-04-03 20:19] LABS: MAGNESIUM 2.3 mg/dL (1.7-2.2); PHOSPHOROUS 3.7 mg/dL (2.5-4.5)
[2017-04-03] MEDS ORDERED: Fluticasone/Vilanterol [Breo Ellipta 100-25 Mcg Inh] INH SCH (22:00)
[2017-04-04] MEDS ORDERED: Pantoprazole 20 mg EC Tab PO SCH (06:00)
[2017-04-04 06:23] VITALS: O2SAT 98
--- NOTE | 2017-04-04 08:54 | CP.PCM.PN ---
Subjective - Date & Time of Evaluation Date of Evaluation: 04/04/17 Time of Evaluation: 07:45 - Subjective Subjective: PGY-[address] MARQUEZ/DR. VAZ Patient seen this AM on telemetry floor. Patient resting in bed comfortably. No family at bedside. Patient refusing blood draw at time of interview as well as physical exam. Pt only answers yes and no to questions. Patient denies chest pain, shob, abdominal pain, n/v/f/c. Objective - Vital Signs/Intake and Output Vital Signs (last 24 hours): Temp Pulse Resp BP Pulse Ox 98.0 F 67 18 151/88 H 98 04/04/17 06:00 04/04/17 06:00 04/04/17 06:00 04/04/17 06:00 04/04/17 06:00 Intake and Output: 04/04/17 04/04/17 06:59 18:59 Intake Total 120 Balance 120 - Medications Medications: Current Medications Albuterol Sulfate (Albuterol 0.083% Inhal Twyla (2.5 Mg/3 Ml) Ud) 0.29815 mg INH PRN PRN PRN Reason: Wheezing Aspirin (Ecotrin) 81 mg PO DAILY [facility] Atorvastatin Calcium (Lipitor) 10 mg PO DIN [facility] Carvedilol (Coreg) 3.125 mg PO BID [facility] Last Admin: 04/03/17 20:18 Dose: 3.125 mg Cyproheptadine HCl (Periactin) 4 mg PO DAILY [facility] Donepezil HCl (Aricept) 5 mg PO HS [facility] Last Admin: 04/03/17 21:36 Dose: 5 mg Ferrous Sulfate (Feosol) 324 mg PO DAILY [facility] Heparin Sodium (Porcine) (Heparin) 5,000 units SC Q12 [facility] PRN Reason: Protocol Last Admin: 04/03/17 21:36 Dose: 5,000 units Levetiracetam 500 mg/ Sodium (Chloride) 105 mls @ 460 mls/hr IV TID [facility] Lisinopril (Zestril) 5 mg PO DAILY [facility] Megestrol Acetate (Megace) 800 mg PO DAILY [facility] Methimazole (Tapazole) 5 mg PO DAILY [facility] Fluticasone/Vilanterol [Breo Ellipta 100-25 Mcg Inh] 1 puff INH HS [facility] Last Admin: 04/03/17 21:48 Dose: Not Given Pantoprazole Sodium (Protonix Ec Tab) 20 mg PO 0600 [facility] Last Admin: 04/04/17 05:54 Dose: 20 mg Tiotropium Olin (Spiriva) 18 mcg IH DAILY [facility] - Labs Labs: PT 13.2 SECONDS (9.4-12.5) H 04/03/17 15:51 INR 1.21 (0.93-1.08) H 04/03/17 15:51 APTT 26.8 Seconds (25.1-36.5) 04/03/17 15:51 - Constitutional Appears: No Acute Distress - Head Exam Head Exam: ATRAUMATIC, NORMAL INSPECTION, NORMOCEPHALIC - Eye Exam Eye Exam: EOMI, PERRL - Cardiovascular Exam Cardiovascular Exam: REGULAR RHYTHM, +S1, +S2 - GI/Abdominal Exam GI & Abdominal Exam: Soft, Normal Bowel Sounds - Extremities Exam Extremities Exam: absent: Pedal Edema - Neurological Exam Neurological Exam: Alert, Awake - Skin Skin Exam: Dry, Normal Color. absent: Rash - Additional Findings Additional findings: PHYSICAL EXAM LIMITED DUE TO PATIENT REFUSING TO COMPLY WITH EXAM Assessment and Plan - Assessment and Plan (Free Text) Assessment: 81 year old female well known to the service with a PMH of hypertension, COPD on home oxygen, previous PE, anemia, seizure disorder, dementia, AAA, CVA, lung cancer, NSTEMI, CHF, and hyperthyroidism who was admitted for seizure activity. Plan: 1. Seizure activity - Etiology: Medication effect v. med compliance v. electrolyte anb v. infectious v. toxin - Keppra level, f/u - Increase Keppra from home dose of 750 BID, to 1000 BID - Neuro consult with Dr. Hernandez - f/u EEG - CT Head showed: negative for acute process, chronic changes - Seizure precaution, aspiration precaution, fall precautions - Electrolytes stable - CXR, CT head from recent admission negative for acute process, mass - PT/OT 2. Compensated Systolic CHF -Last echo shows EF 28% -CXR pending 3. Hx CAD -Continue home ASA, lipitor and carvedilol 4. Hx Dementia -Stable, continue home aricept 5. Hypertension - Lisinopril, coreg, - continue to monitor 6. Hyperthyroidism - methimazole 7. COPD -spiriva, albuterol Q6 PRN GI PPX: protonix DVT ppx: Heparin SC Case seen, discussed and plan reviewed with attending
[2017-04-04] MEDS: levETIRAcetam 500mg IVPB 500 MG/100 ML BAG IV SCH ×2 (09:43→13:59)
[2017-04-04 09:47] VITALS: BP 133/75
[2017-04-04] MEDS ORDERED: methIMAzole 5 MG TAB PO SCH (10:00)
[2017-04-04] MEDS ORDERED: Tiotropium 18 mcg Cap For Inhalation IH SCH (10:00)
[2017-04-04] MEDS ORDERED: Megestrol Acetate 40 mg/ml Cup PO SCH (10:00)
--- NOTE | 2017-04-04 10:50 | CP.PCM.CON ---
<America Chaney - Last Filed: 04/04/17 11:48> History of Present Illness - History of Present Illness History of Present Illness: PGY-2 Neurology consult note for Dr. Hernandez's service 81 yo female with PMH of dementia, AAA, HTN, CVA, CHF with last known EF of 26% , lung cancer, hx NSTEMI, previous PE, anemia, COPD, thyroid disorder and seizure disorder who presents to ED for seizure activity. Patient was sent over from PMD office after reports seizure despite being on keppra 750mg daily. Patient recently discharged from [facility] on 03/29/2017 previously treated for AMS and weakness. Per HPI Daughter reported that the patient had a seizure for 8 minutes with generalized movement and loss of bladder not bowel. Patient states she doing ok. Review od systems limited, patient refuses to particapate. PMH: dementia, AAA, HTN, CVA, CHF with last known EF of 26%, lung cancer, hx NSTEMI, previous PE, anemia, COPD, thyroid disorder and seizure disorder PSH: thyroidectomy, left cataract SH: former smoker, sporadic alcohol, no illicit drug use FH: breast and stomach CA in the family Allergies: NKDA Review of Systems - Review of Systems Systems not reviewed;Unavailable: Uncooperative Past Patient History - Infectious Disease Hx of Infectious Diseases: None - Tetanus Immunizations Tetanus Immunization: Unknown - Past Medical History & Family History Past Medical History?: Yes - Past Social History Smoking Status: Former Smoker - CARDIAC Hx Congestive Heart Failure: Yes Hx Hypercholesterolemia: Yes Hx Hypertension: Yes - PULMONARY Hx Chronic Obstructive Pulmonary Disease (COPD): Yes Hx Emphysema: Yes Hx Pneumonia: Yes - NEUROLOGICAL Hx Dementia: Yes Hx Transient Ischemic Attacks (TIA): Yes - HEENT Hx Cataracts: Yes - RENAL Hx Chronic Kidney Disease: No - ENDOCRINE/METABOLIC Hx Hypothyroidism: Yes - HEMATOLOGICAL/ONCOLOGICAL Hx Cancer: (denies) - INTEGUMENTARY Hx Dermatological Problems: No - MUSCULOSKELETAL/RHEUMATOLOGICAL Hx Degenerative Joint Disease: Yes Hx Falls: Yes - GASTROINTESTINAL Hx Gastrointestinal Disorders: Yes Other/Comment: egd dx gastric erosions small hiatal hernia and gastric avm, 09/05 - GENITOURINARY/GYNECOLOGICAL Hx Incontinence: Yes - PSYCHIATRIC Hx Psychophysiologic Disorder: No Hx Substance Use: No - SURGICAL HISTORY Hx Cataract Extraction: Yes - ANESTHESIA Hx Anesthesia: Yes Hx Anesthesia Reactions: No Hx Malignant Hyperthermia: No Meds Home Medications: Home Medication List Medication Instructions Recorded Confirmed Type Levetiracetam [Keppra] 500 mg PO Q12 #60 tablet 04/04/17 Rx Allergies/Adverse Reactions: Allergies Allergy/AdvReac Type Severity Reaction Status Date / Time No Known Allergies Allergy Verified 10/09/16 17:49 - Medications Medications: Current Medications Albuterol Sulfate (Albuterol 0.083% Inhal Twyla (2.5 Mg/3 Ml) Ud) 2.5 mg INH [id number] PRN PRN Reason: WHEEZING Aspirin (Ecotrin) 81 mg PO DAILY [facility] Last Admin: 04/04/17 09:41 Dose: 81 mg Atorvastatin Calcium (Lipitor) 10 mg PO DIN [facility] Carvedilol (Coreg) 3.125 mg PO BID [facility] Last Admin: 04/04/17 09:42 Dose: 3.125 mg Cyproheptadine HCl (Periactin) 4 mg PO DAILY [facility] Last Admin: 04/04/17 09:43 Dose: 4 mg Donepezil HCl (Aricept) 5 mg PO HS [facility] Last Admin: 04/03/17 21:36 Dose: 5 mg Ferrous Sulfate (Feosol) 324 mg PO DAILY [facility] Last Admin: 04/04/17 09:41 Dose: 324 mg Heparin Sodium (Porcine) (Heparin) 5,000 units SC Q12 [facility] PRN Reason: Protocol Last Admin: 04/04/17 09:42 Dose: 5,000 units Levetiracetam (Keppra 500mg Ivpb) 500 mg in 100 mls @ 400 mls/hr IV TID [facility] Stop: 04/04/17 18:00 Last Admin: 04/04/17 09:43 Dose: 400 mls/hr Levetiracetam 1,000 mg/ Sodium (Chloride) 110 mls @ 460 mls/hr IV Q12 [facility] Lisinopril (Zestril) 5 mg PO DAILY [facility] Last Admin: 04/04/17 09:41 Dose: 5 mg Megestrol Acetate (Megace) 800 mg PO DAILY [facility] Last Admin: 04/04/17 09:41 Dose: 800 mg Methimazole (Tapazole) 5 mg PO DAILY [facility] Last Admin: 04/04/17 09:44 Dose: 5 mg Fluticasone/Vilanterol [Breo Ellipta 100-25 Mcg Inh] 1 puff INH HS [facility] Last Admin: 04/03/17 21:48 Dose: Not Given Pantoprazole Sodium (Protonix Ec Tab) 20 mg PO 0600 [facility] Last Admin: 04/04/17 05:54 Dose: 20 mg Tiotropium [place] (Spiriva) 18 mcg IH DAILY [facility] Last Admin: 04/04/17 09:43 Dose: 18 mcg Physical Exam - Constitutional Appears: No Acute Distress - Head Exam Head Exam: ATRAUMATIC, NORMAL INSPECTION, NORMOCEPHALIC - Eye Exam Eye Exam: EOMI - Respiratory Exam Respiratory Exam: NORMAL BREATHING PATTERN. absent: Respiratory Distress - Additional Findings Additional findings: limited due, patient refused to participate Results - Vital Signs Recent Vital Signs: Last Vital Signs Temp 98.0 F 04/04/17 06:00 Pulse 81 04/04/17 09:41 Resp 18 04/04/17 06:00 BP 133/75 04/04/17 09:41 Pulse Ox 98 04/04/17 06:00 - Labs Result Diagrams: 04/03/17 15:30 04/03/17 15:30 Assessment & Plan - Assessment and Plan (Free Text) Assessment: 81 yo female with PMH of dementia, AAA, HTN, CVA, CHF with last known EF of 26% , lung cancer, hx NSTEMI, previous PE, anemia, COPD, thyroid disorder and seizure disorder who presents to ED for break through seizure activity. 1. seizure - CT head showed severe chronic microangiopathic changes and moderate age related global parenchymal volume loss - previous MRI on 08/28/15 showed few foci of restricted diffusion within brainstem - EEG ordered - Keppra 1000mg BID - Monitor electrolytes, replace as needed - PT/OT Case reviewed and discussed with attending <Jay Hernandez - Last Filed: 04/04/17 18:06> Meds - Medications Medications: Current Medications Albuterol Sulfate (Albuterol 0.083% Inhal Twyla (2.5 Mg/3 Ml) Ud) 2.5 mg INH [id number] PRN PRN Reason: WHEEZING Aspirin (Ecotrin) 81 mg PO DAILY [facility] Last Admin: 04/04/17 09:41 Dose: 81 mg Atorvastatin Calcium (Lipitor) 10 mg PO DIN [facility] Carvedilol (Coreg) 3.125 mg PO BID [facility] Last Admin: 04/04/17 09:42 Dose: 3.125 mg Cyproheptadine HCl (Periactin) 4 mg PO DAILY [facility] Last Admin: 04/04/17 09:43 Dose: 4 mg Donepezil HCl (Aricept) 5 mg PO HS [facility] Last Admin: 04/03/17 21:36 Dose: 5 mg Ferrous Sulfate (Feosol) 324 mg PO DAILY [facility] Last Admin: 04/04/17 09:41 Dose: 324 mg Heparin Sodium (Porcine) (Heparin) 5,000 units SC Q12 [facility] PRN Reason: Protocol Last Admin: 04/04/17 09:42 Dose: 5,000 units Levetiracetam 1,000 mg/ Sodium (Chloride) 110 mls @ 460 mls/hr IV Q12 [facility] Lisinopril (Zestril) 5 mg PO DAILY [facility] Last Admin: 04/04/17 09:41 Dose: 5 mg Megestrol Acetate (Megace) 800 mg PO DAILY [facility] Last Admin: 04/04/17 09:41 Dose: 800 mg Methimazole (Tapazole) 5 mg PO DAILY [facility] Last Admin: 04/04/17 09:44 Dose: 5 mg Fluticasone/Vilanterol [Breo Ellipta 100-25 Mcg Inh] 1 puff INH HS [facility] Last Admin: 04/03/17 21:48 Dose: Not Given Pantoprazole Sodium (Protonix Ec Tab) 20 mg PO 0600 [facility] Last Admin: 04/04/17 05:54 Dose: 20 mg Tiotropium [place] (Spiriva) 18 mcg IH DAILY [facility] Last Admin: 04/04/17 09:43 Dose: 18 mcg Results - Vital Signs Recent Vital Signs: Last Vital Signs Temp 97.9 F 04/04/17 12:00 Pulse 80 04/04/17 14:00 Resp 18 04/04/17 06:00 BP 133/75 04/04/17 09:41 Pulse Ox 98 04/04/17 06:00 - Labs Result Diagrams: 04/03/17 15:30 04/03/17 15:30 Attending/Attestation - Attestation I have personally seen and examined this patient.: Yes I have fully participated in the care of the patient.: Yes I have reviewed all pertinent clinical information: Yes
[2017-04-04 12:22] VITALS: TEMP 97.9
[2017-04-04 14:55] VITALS: PULSE 80
--- NOTE | 2017-04-04 19:51 | CP.PCM.DIS ---
Provider - Provider Date of Admission: 04/03/17 18:35 Attending physician: Justus Walsh MD Primary care physician: Christie Consults: Neuro Time Spent in preparation of Discharge (in minutes): 40 Hospital Course - Lab Results Lab Results: Most Recent Lab Values WBC 10.7 10^3/ul (4.5-11.0) 04/03/17 15:30 RBC 5.09 10^6/uL (3.5-6.1) 04/03/17 15:30 Hgb 14.9 g/dL (12.0-16.0) 04/03/17 15:30 Hct 45.3 % (36.0-48.0) 04/03/17 15:30 MCV 89.0 fl (80.0-105.0) D 04/03/17 15:30 MCH 29.3 pg (25.0-35.0) 04/03/17 15:30 MCHC 32.9 g/dl (31.0-37.0) 04/03/17 15:30 RDW 17.1 % (11.5-14.5) H 04/03/17 15:30 Plt Count 436 10^3/uL (120.0-450.0) 04/03/17 15:30 MPV 10.8 fl (7.0-11.0) 04/03/17 15:30 Gran % 80.1 % (50.0-68.0) H 04/03/17 15:30 Lymph % (Auto) 12.3 % (22.0-35.0) L 04/03/17 15:30 [place] % (Auto) 5.5 % (1.0-6.0) 04/03/17 15:30 Eos % (Auto) 1.7 % (1.5-5.0) 04/03/17 15:30 Baso % (Auto) 0.4 % (0.0-3.0) 04/03/17 15:30 Gran # 8.57 (1.4-6.5) H 04/03/17 15:30 Lymph # 1.3 (1.2-3.4) 04/03/17 15:30 [place] # 0.6 (0.1-0.6) 04/03/17 15:30 Eos # 0.2 (0.0-0.7) 04/03/17 15:30 Baso # 0.04 K/mm3 (0.0-2.0) 04/03/17 15:30 PT 13.2 SECONDS (9.4-12.5) H 04/03/17 15:51 INR 1.21 (0.93-1.08) H 04/03/17 15:51 APTT 26.8 Seconds (25.1-36.5) 04/03/17 15:51 Sodium 146 mmol/L (132-148) 04/03/17 15:30 Potassium 4.2 mmol/L (3.6-5.0) 04/03/17 15:30 Chloride 112 mmol/L (98-107) H 04/03/17 15:30 Carbon Dioxide 23 mmol/L (21-33) 04/03/17 15:30 Anion Gap 15 (10-20) 04/03/17 15:30 BUN 32 mg/dL (7-21) H 04/03/17 15:30 Creatinine 1.2 mg/dl (0.7-1.2) 04/03/17 15:30 Est GFR ( Amer) 52 04/03/17 15:30 Est GFR (Non-Af Amer) 43 04/03/17 15:30 Random Glucose 143 mg/dL (70-110) H 04/03/17 15:30 Calcium 9.7 mg/dL (8.4-10.5) 04/03/17 15:30 Phosphorus 3.7 mg/dL (2.5-4.5) 04/03/17 15:39 Magnesium 2.3 mg/dL (1.7-2.2) H 04/03/17 15:39 Total Bilirubin 0.7 mg/dL (0.2-1.3) 04/03/17 15:30 AST 22 U/L (14-36) 04/03/17 15:30 ALT 24 U/L (7-56) 04/03/17 15:30 Alkaline Phosphatase 67 U/L (38-126) 04/03/17 15:30 Lactate Dehydrogenase 766 U/L (333-699) H 04/03/17 15:30 Total Creatine Kinase 63 U/L (35-230) 04/03/17 15:30 Troponin I 0.01 ng/mL 04/03/17 15:30 Total Protein 6.8 g/dL (5.8-8.3) 04/03/17 15:30 Albumin 3.7 g/dL (3.0-4.8) 04/03/17 15:30 Globulin 3.0 gm/dL 04/03/17 15:30 Albumin/Globulin Ratio 1.2 (1.1-1.8) 04/03/17 15:30 - Hospital Course Hospital Course: 80 year old female with PMH of dementia, AAA, HTN, CVA, CHF (EF of 26%), lung cancer, hx NSTEMI, previous PE, anemia, COPD, thyroid disorder and seizure disorder who presents from PMD office with complaints of seizure activity. In the ED basic labwork was done. CXR was negative. CT head was done and was negative for any acute intracranial abnormality. Neurology was consulted. Pt was sent to telemetry floor for close monitoring. Neurology recommended doing an EEG which was done. Keppra was increased from her home dose of 750mg daily to 500mg BID. Neurology Dr Hernandez was contacted by nursing staff which stated ok to d/c home and will follow up for report of EEG or any abnormality. Script of Keppra written and sent over to pt pharmacy. Pt and her daughter understand the importance of taking her medications. They verbalized understanding. No other complaints. Discharge Exam - Head Exam Head Exam: ATRAUMATIC, NORMAL INSPECTION, NORMOCEPHALIC - Eye Exam Eye Exam: EOMI, PERRL - Respiratory Exam Respiratory Exam: Clear to PA & Lateral. absent: Wheezes - Cardiovascular Exam Cardiovascular Exam: REGULAR RHYTHM, +S1, +S2 - GI/Abdominal Exam GI & Abdominal Exam: Normal Bowel Sounds. absent: Soft - Neurological Exam Neurological exam: Alert, Oriented x3 - Psychiatric Exam Psychiatric exam: Normal Affect, Normal Mood - Skin Skin Exam: Dry, Intact, Warm Discharge Plan - Discharge Medications Prescriptions: Levetiracetam [Keppra] 500 mg PO Q12 #60 tablet - Follow Up Plan Condition: IMPROVED Disposition: HOME/ ROUTINE Patient education suggested?: Yes Additional Instructions: Take your medications as prescribed. Keppra increased from 750mg daily to 500mg BID. If your symptoms recur come back to the ED. Follow up with PMD in 3-5 days. Follow up with neurology in 1-2 weeks.
[2017-04-04] MEDS ORDERED: levETIRAcetam 1,000 MG in Sodium Chloride 0.9% 100 ML IV SCH (22:00)
== END 2017-04-04 18:45 | disposition home or self-care (01) ==
LOC: ED 14:37 → ERH 18:35 → 2RSO 20:58
PROVIDERS: ADMIT Internal Medicine; ATTEND Internal Medicine
DX: G40.89 Other seizures (principal); E78.00 Pure hypercholesterolemia, unspecified; F03.90 Unspecified dementia, unspecified severity, without behavioral disturbance, psychotic disturbance, mood disturbance, and anxiety; I11.0 Hypertensive heart disease with heart failure; I25.10 Atherosclerotic heart disease of native coronary artery without angina pectoris; I50.22 Chronic systolic (congestive) heart failure; I25.2 Old myocardial infarction; J43.9 Emphysema, unspecified; K25.9 Gastric ulcer, unspecified as acute or chronic, without hemorrhage or perforation; K44.9 Diaphragmatic hernia without obstruction or gangrene; Q27.33 Arteriovenous malformation of digestive system vessel; Z79.82 Long term (current) use of aspirin; Z79.899 Other long term (current) drug therapy; Z80.0 Family history of malignant neoplasm of digestive organs; Z85.118 Personal history of other malignant neoplasm of bronchus and lung; Z86.711 Personal history of pulmonary embolism; Z86.73 Personal history of transient ischemic attack (TIA), and cerebral infarction without residual deficits; Z87.01 Personal history of pneumonia (recurrent); Z87.11 Personal history of peptic ulcer disease; Z87.891 Personal history of nicotine dependence; Z99.81 Dependence on supplemental oxygen; Z98.42 Cataract extraction status, left eye; E89.0 Postprocedural hypothyroidism; M19.90 Unspecified osteoarthritis, unspecified site; Z91.81 History of falling; R32 Unspecified urinary incontinence; E05.90 Thyrotoxicosis, unspecified without thyrotoxic crisis or storm
CPT/HCPCS: 70450; 71010; 80053; 80299; 82550; 83615; 83735; 84100; 84484; 85025; 85610; 85730; 93005; 95812; 97162; 97530; 99285; G0378; G8978; G8979; G8980; J1644; J1953

== ENCOUNTER 2017-05-20 11:29 | Inpatient (IN) | payer MEDICARE, MEDICAID ==
[2017-05-20 11:43] VITALS: BMI 20.9
--- NOTE | 2017-05-20 12:01 | ED PDOC ---
Arrival/HPI - General Chief Complaint: Seizure Time Seen by Provider: 05/20/17 11:35 Historian: Patient - History of Present Illness Narrative History of Present Illness (Text): 05/20/17 11:40 Juanita Hidalgo is an 80 year old female, whose past medical history includes seizure, who presents to the emergency department s/p seizure this morning. Patient is nonverbal, history provided by daughter and home mortgage disclosure act specialist. recreation aide states that patient had a seizure this morning and describes that patient "was sitting in a wheelchair, when she slumped over and began to vomit." recreation aide states that this is normally how her seizures occur. No shaking, no tonic clonic activity, and now, patient is nonverbal. Patient quit smoking 6 years ago and does not drink alcohol. Patient has a living will and DNR. No other complaints at this time. Time/Duration: 4-6 hours Symptom Onset: Gradual Symptom Course: Resolved Activities at Onset: Light Context: Home Associated Symptoms (Text): 05/20/17 12:58 Patient is nonverbal and unable to give any history. History is obtained from the daughter and the home health aide and Dr. Mccauley who saw the patient in the emergency department. Aide reports the patient's typical seizure, though she does not describe seizure activity to me. There was one episode of vomiting. No diarrhea. No fever. No cough congestion or URI. Past Medical History - Provider Review Nursing Documentation Reviewed: Yes - Infectious Disease Hx of Infectious Diseases: None - Tetanus Immunization Tetanus Immunization: Unknown - Cardiac Hx Congestive Heart Failure: Yes Hx Hypertension: Yes - Pulmonary Hx Chronic Obstructive Pulmonary Disease (COPD): Yes Hx Emphysema: Yes Hx Pneumonia: Yes - Neurological Hx Dementia: Yes Hx Transient Ischemic Attacks (TIA): Yes - HEENT Hx Cataracts: Yes - Renal Hx Renal Disorder: No - Endocrine/Metabolic Hx Hypothyroidism: Yes - Hematological/Oncological Hx Cancer: (denies) - Integumentary Hx Dermatological Disorder: No - Musculoskeletal/Rheumatological Hx Degenerative Joint Disease: Yes Hx Falls: Yes - Gastrointestinal Hx Gastrointestinal Disorders: Yes Other/Comment: egd dx gastric erosions small hiatal hernia and gastric avm, 09/05 - Genitourinary/Gynecological Hx Incontinence: Yes - Psychiatric Hx Psychophysiologic Disorder: No Hx Substance Use: No - Surgical History Hx Cataract Extraction: Yes - Anesthesia Hx Anesthesia: Yes Hx Anesthesia Reactions: No Hx Malignant Hyperthermia: No Family/Social History - Physician Review Nursing Documentation Reviewed: Yes Family/Social History: No Known Family HX Smoking Status: Former Smoker Hx Alcohol Use: No Hx Substance Use: No Allergies/Home Meds Allergies/Adverse Reactions: Allergies No Known Allergies Allergy (Verified 10/09/16 17:49) Home Medications: Home Meds Medication Instructions Recorded Confirmed Albuterol 0.083% [Albuterol 0.083% 1 inh NEB PRN PRN 09/28/16 03/22/17 Inhal Twyla (2.5 mg/3 ml) UD] Carvedilol [Coreg] 3.125 mg PO BID 10/09/16 04/03/17 Ferrous Sulfate [Feosol] 324 mg PO DAILY 10/09/16 04/03/17 Cyproheptadine [Periactin] 4 mg PO DAILY 03/15/17 03/22/17 Fluticasone/Vilanterol [Breo 1 puff INH HS 03/15/17 03/22/17 Ellipta 100-25 Mcg INH] Lisinopril [Zestril] 5 mg PO DAILY 03/15/17 03/22/17 Megestrol [Megace] 20 ml PO DAILY 03/15/17 03/22/17 Review of Systems - Physician Review All systems were reviewed & negative as marked: Yes - Review of Systems Systems not reviewed;Unavailable: Altered Mental Status Constitutional: absent: Fevers Respiratory: absent: SOB, Cough Gastrointestinal: Vomiting Neurological: Seizure Physical Exam Vital Signs Reviewed: Yes Vital Signs Temp Pulse Resp BP Pulse Ox 05/20/17 12:13 97.7 F 05/20/17 11:44 98.5 F 82 18 106/76 98 Temperature: Afebrile Blood Pressure: Normal Pulse: Regular Respiratory Rate: Normal Appearance: Positive for: Other (chronically ill-appeari) Pain Distress: None Mental Status: Positive for: other (nonverbal but able to follow commands) - Systems Exam Head: Present: Atraumatic, Normocephalic Pupils: Present: PERRL Extroacular Muscles: Present: EOMI Conjunctiva: Present: Normal Ears: Present: NORMAL TM, Normal Canal. No: Erythema Mouth: Present: Moist Mucous Membranes Pharnyx: No: ERYTHEMA, EXUDATE, TONSILS ENLARGED Neck: Present: Normal Range of Motion Respiratory/Chest: Present: Clear to Auscultation, Good Air Exchange. No: Respiratory Distress, Accessory Muscle Use Cardiovascular: Present: Regular Rate and Rhythm, Normal S1, S2. No: Murmurs Abdomen: Present: Normal Bowel Sounds. No: Tenderness, Distention, Peritoneal Signs, Rebound, Guarding Back: Present: Normal Inspection Upper Extremity: Present: Normal Inspection. No: Cyanosis, Edema Lower Extremity: Present: Normal Inspection. No: Edema Neurological: Present: CN II-XII Intact, Other (unable to hold up either LE but can hold up UE; unable to test sensation, coordination, gait, or stance) Skin: Present: Warm, Dry, Normal Color. No: Rashes Psychiatric: Present: Alert, Oriented x 3, Normal Insight, Normal Concentration Medical Decision Making ED Course and Treatment: 05/20/17 12:03 Impression: 80 year old female who presents to the emergency department s/p seizure this morning. Plan: -- EKG -- Head CT w/o contrast -- Chest X-ray -- Urinalysis -- Labs -- Zofan -- Reassess and disposition Prior Visits: Notes and results from previous visits were reviewed. Patient was last seen in the emergency department on 04/03/17 for witnessed seizure prior to arrival. Patient was admitted to hospitalist care for further evaluation Progress Notes: 05/20/17 13:23 EKG shows normal sinus rhythm rate approximately 80 with poor R waves and intraventricular conduction delay and nonspecific ST and T-wave changes similar to EKG of 04/03/2017 - Lab Interpretations Lab Results: 05/20/17 11:50 05/20/17 11:50 Lab Results 05/20/17 13:12: Urine Color Yellow, Urine Appearance Sl cloudy, Urine pH 6.0, Ur Specific [place] >= 1.030, Urine Protein Trace H, Urine Glucose (UA) Negative , Urine Ketones Trace H, Urine Blood Small H, Urine Nitrate Positive H, Urine Bilirubin Negative, Urine Urobilinogen 1.0 H, Ur Leukocyte Esterase Moderate H, Urine RBC 0 - 2, Urine WBC Tntc, Ur Epithelial Cells 3 - 4, Urine Bacteria Many 05/20/17 11:50: Alcohol, Quantitative < 10 05/20/17 11:50: Sodium 148, Potassium 4.4, Chloride 111 H, Carbon Dioxide 24, Anion Gap 18, BUN 27 H, Creatinine 1.0, Est GFR ( Amer) > 60, Est GFR ( Non-Af Amer) 53, Random Glucose 97, Calcium 10.1, Phosphorus 3.2, Magnesium 2.1 , Total Bilirubin 0.6, AST 25, ALT 22, Alkaline Phosphatase 78, Lactate Dehydrogenase 657, Total Creatine Kinase 86, Troponin I 0.02 D, Total Protein 7.3, Albumin 3.8, Globulin 3.5, Albumin/Globulin Ratio 1.1, Lipase 307 H 05/20/17 11:50: PT 12.4, INR 1.08, APTT 28.8 05/20/17 11:50: WBC 10.1, RBC 4.80, Hgb 14.2, Hct 43.9, MCV 91.5, MCH 29.6, MCHC 32.3, RDW 17.8 H, Plt Count 483 H, MPV 10.4, Gran % 80.2 H, Lymph % (Auto) 12.0 L, [place] % (Auto) 5.5, Eos % (Auto) 1.7, Baso % (Auto) 0.6, Gran # 8.08 H, Lymph # 1.2, [place] # 0.6, Eos # 0.2, Baso # 0.06 I have reviewed the lab results: Yes - RAD Interpretation Radiology Orders: 05/20/17 11:43 HEAD W/O CONTRAST [CT] Stat 05/20/17 11:44 CHEST PORTABLE [RAD] Stat CT scan of the head is read by the radiologist shows no acute findings. Chest x- ray one view shows no acute findings. Equity Research Associate: Radiologist - Medication Orders Current Medication Orders: Ceftriaxone Sodium (Rocephin 1 Gram Ivpb) 1 gm in 100 mls @ 200 mls/hr IVPB STAT STA PRN Reason: Protocol Stop: 05/20/17 14:30 Discontinued Medications Ondansetron HCl (Zofran Inj) 4 mg IVP ONCE ONE Stop: 05/20/17 11:46 Last Admin: 05/20/17 12:59 Dose: 4 mg IVP Administration Document 05/20/17 12:59 LA (Rec: 05/20/17 12:59 LA [id number]) Charges for Administration # of IVP Administrations 1 - Scribe Statement The provider has reviewed the documentation as recorded by the Batsheva Ascencio Provider Scribe Attestation: All medical record entries made by the Scribe were at my direction and personally dictated by me. I have reviewed the chart and agree that the record accurately reflects my personal performance of the history, physical exam, medical decision making, and the department course for this patient. I have also personally directed, reviewed, and agree with the discharge instructions and disposition. Disposition/Present on Arrival - Present on Arrival Any Indicators Present on Arrival: No History of DVT/PE: No History of Uncontrolled Diabetes: No Urinary Catheter: No History of Decub. Ulcer: No History Surgical Site Infection Following: None - Disposition Have Diagnosis and Disposition been Completed?: Yes Diagnosis: UTI (urinary tract infection), Seizure, Altered mental status Disposition: HOSPITALIZED Disposition Time: 14:13 Patient Plan: Observation Patient Problems: Current Active Problems Problem Status Onset Altered mental status Acute Seizure Acute UTI (urinary tract infection) Acute Condition: FAIR Referrals: Raul Mccauley, [Primary Care Provider] - Follow up with primary Forms: [employer] (Japanese)
[2017-05-20 12:44] LABS: BASO # 0.06 K/mm3 (0.0-2.0); BASO % 0.6 % (0.0-3.0); EOS # 0.2 (0.0-0.7); EOS % 1.7 % (1.5-5.0); GRAN # 8.08 (1.4-6.5); GRAN % 80.2 % (50.0-68.0); HEMOGLOBIN 14.2 g/dL (12.0-16.0); LYMPH # 1.2 (1.2-3.4); MEAN CELL VOLUME 91.5 fl (80.0-105.0); MEAN CORPUSCULAR HEMOGLOBIN 29.6 pg (25.0-35.0); MEAN CORPUSCULAR HGB CONC 32.3 g/dl (31.0-37.0); MEAN PLATELET VOLUME 10.4 fl (7.0-11.0); MONO # 0.6 (0.1-0.6); MONO % 5.5 % (1.0-6.0); RBC 4.8 10^6/uL (3.5-6.1); RED CELL DISTRIBUTION WIDTH 17.8 % (11.5-14.5); WHITE BLOOD COUNT 10.1 10^3/ul (4.5-11.0)
[2017-05-20 12:52] LABS: ALB/GLOB RATIO 1.1 (1.1-1.8); ALBUMIN 3.8 g/dL (3.0-4.8); ALT/SGPT 22 U/L (7-56); AST/SGOT 25 U/L (14-36); BLOOD UREA NITROGEN 27 mg/dL (7-21); CALCIUM 10.1 mg/dL (8.4-10.5); GFR AFRICAN-AMERICAN > 60; GFR NON-AFRICAN AMERICAN 53; LIPASE 307 U/L (23-300); MAGNESIUM 2.1 mg/dL (1.7-2.2)
[2017-05-20 12:54] LABS: INR 1.08 (0.93-1.08); PARTIAL THROMBOPLASTIN TIME 28.8 Seconds (25.1-36.5); PROTHROMBIN TIME 12.4 SECONDS (9.4-12.5)
[2017-05-20 13:41] LABS: TROPONIN I 0.02 ng/mL
[2017-05-20 13:48] LABS: URINE BILIRUBIN NEGATIVE (NEGATIVE); URINE BLOOD SMALL (NEGATIVE); URINE GLUCOSE (UA) NEGATIVE (NEGATIVE); URINE LEUKOCYTE ESTERASE MODERATE Leu/uL (NEGATIVE); URINE NITRATE POSITIVE (NEGATIVE); URINE PROTEIN TRACE mg/dL (<30 mg/dL)
[2017-05-20 13:56] LABS: URINE APPEARANCE SL CLOUDY (CLEAR); URINE COLOR YELLOW (YELLOW)
[2017-05-20 14:00] LABS: URINE BACTERIA MANY (NEG); URINE RBC 0 - 2 /hpf (0-2); URINE WBC TNTC /hpf (0-6)
[2017-05-20] MEDS ORDERED: cefTRIAXone 1 gm 1 GM/100 ML BAG IVPB STA (14:01)
--- NOTE | 2017-05-20 14:02 | CT ---
PROCEDURE: CT HEAD WITHOUT CONTRAST. HISTORY: ams COMPARISON: 06/04/2016 TECHNIQUE: Axial computed tomography images were obtained through the head/brain without intravenous contrast. Radiation dose: Total exam DLP = 811 mGy-cm. This CT exam was performed using one or more of the following dose reduction techniques: Automated exposure control, adjustment of the mA and/or kV according to patient size, and/or use of iterative reconstruction technique. FINDINGS: HEMORRHAGE: No intracranial hemorrhage. BRAIN: No mass effect or edema. Severe chronic microvascular changes are seen VENTRICLES: Unremarkable. No hydrocephalus. CALVARIUM: Unremarkable. PARANASAL SINUSES: Unremarkable as visualized. No significant inflammatory changes. MASTOID AIR CELLS: Unremarkable as visualized. No inflammatory changes. OTHER FINDINGS: None. IMPRESSION: No acute for
--- NOTE | 2017-05-20 14:15 | RAD ---
HISTORY: seizure COMPARISON: 04/03/2017 FINDINGS: LUNGS: No active pulmonary disease. PLEURA: No significant pleural effusion identified, no pneumothorax apparent. CARDIOVASCULAR: Normal. OSSEOUS STRUCTURES: No significant abnormalities. VISUALIZED UPPER ABDOMEN: Normal. OTHER FINDINGS: None. IMPRESSION: No active disease.
[2017-05-20 15:29] VITALS: O2SAT 100
--- NOTE | 2017-05-20 16:19 | CARD ---
APPROVED REPORT EKG Measurement Heart [id number] <Conclusion> Normal sinus rhythm Left axis deviation Septal infarct, age undetermined ST & T wave abnormality, consider lateral ischemia Abnormal ECG
[2017-05-20] MEDS ORDERED: POLYETHYLENE GLYCOL 3350 17 GM/Dose PACKET PO ONE (16:20)
[2017-05-20] MEDS: Albuterol 0.083% Inhal Sol (2.5 mg/3 mL) UD INH SCH (21:00)
[2017-05-20] MEDS: Sodium Chloride 0.45% 1,000 ML IV SCH (22:57)
[2017-05-20] MEDS: Cefepime IV 2 gm in NS 2 GM/100 ML BAG IVPB SCH (22:57)
[2017-05-21] MEDS: Albuterol 0.083% Inhal Sol (2.5 mg/3 mL) UD INH SCH ×5 (02:11→23:29)
--- NOTE | 2017-05-21 06:10 | HP ---
DATE: 05/20/2017 HISTORY OF PRESENT ILLNESS: I saw Juanita this morning in the emergency room. The family called so that she was having a seizure, as she came to the emergency room, although she is nonverbal. shaking when we saw her, doing anything, but sitting up in the wheelchair and slumped over and she began to vomit, and they said that only she has a seizure, no shaking or tonic-clonic movements, nothing like that. She is nonverbal, unable to give any history. It seems to be a typical seizure. I will get Neurology consulted. PAST MEDICAL HISTORY: She also has a past medical history of hypertension, CHF, COPD, emphysema, pneumonia, TIA, dementia, cataracts, hypothyroidism, degenerative joint disease, falls, gastrointestinal disorders, gastric erosions, small hiatal hernia and gastric AVM, incontinence of urine. FAMILY HISTORY: No known family history. SOCIAL HISTORY: Former smoker. No alcohol. No drugs. ALLERGIES: NO KNOWN DRUG ALLERGIES. MEDICATIONS: She takes albuterol, Coreg, Feosol, Periactin, Breo inhaler, Zestril, Megace. REVIEW OF SYSTEMS: She is altered mentally, cannot get any history and review of systems from her. No apparent distress. She is looking at me, but the caregiver did say that she did slump over and was throwing up, but no shaking, no shortness of breath. No cough apparent. There was vomiting, questionable seizures. PHYSICAL EXAMINATION: VITAL SIGNS: She is 97.7 temperature, 82 pulse, 18 respiratory rate, 106/76 blood pressure, 98% O2 sat on room air. GENERAL: She is resting comfortably in bed, chronically ill appearance, nonverbal, but she can understand. HEENT: Head is atraumatic, normocephalic. Extraocular muscles intact. Throat is moist. NECK: Supple. Thyroid midline. No palpable appreciable lymphadenopathy. HEART: Regular rate. Normal S1, S2. LUNGS: Decreased breath sounds bilaterally, but clear to auscultation. ABDOMEN: Soft. Positive bowel sounds. Nontender. No guarding. No rebound or CVA tenderness. EXTREMITIES: No edema in the extremities. NEUROLOGIC: Cranial nerves II through XII grossly intact. She is alert, nonverbal. Possible seizure. SKIN: Warm and dry. No apparent rashes. LABORATORY DATA: She had multiple labs; 148 sodium, potassium 4.4, BUN 27, creatinine 1, GFR is 63, sugar is 73, calcium is 10.1, phosphorous 3.2, magnesium 2.1, total bilirubin is 0.6, AST is 25, ALT is 22, alkaline phosphatase 78, lactate dehydrogenase is 657. Total creatinine kinase is 86. Troponin I is 0.02. Total protein is 7.3, albumin is 3.8, globulin is 3.5, lipase is 307. Given some IV fluids for sure, alcohol less than 10. Urine is very bad, positive nitrites, moderate leukocytes, too numerous to count white cells, many bacteria. She has got a bad urinary tract infection. INR is 1.08. White count is 7.1, hemoglobin 14.2, hematocrit 43.9, platelets are 483,000. Head CT, chest x-ray, EKG were fairly okay. IMPRESSION AND PLAN: She is going to have a consult with Infectious Disease, also Neurology. She will be on IV fluids. She will be on her DuoNebs, Aricept, Coreg, Ecotrin, Keppra, Lipitor, MiraLax, Rocephin, Spiriva, Tapazole, Zestril, and Zofran. Check her labs tomorrow. Get Physical Therapy involved. Neurology has to say on what antibiotics. Infectious Disease wants to have her on Rocephin with IV fluids at this time. She is here for possible seizure and urinary tract infection. She is on observation at this time. Raul Mccauley DO MTDD
[2017-05-21 06:54] LABS: HEMOGLOBIN 11.9 g/dL (12.0-16.0); MEAN CELL VOLUME 90.8 fl (80.0-105.0); MEAN CORPUSCULAR HGB CONC 31.9 g/dl (31.0-37.0); MEAN PLATELET VOLUME 10.6 fl (7.0-11.0); RBC 4.11 10^6/uL (3.5-6.1); RED CELL DISTRIBUTION WIDTH 17.7 % (11.5-14.5); WHITE BLOOD COUNT 10.3 10^3/ul (4.5-11.0)
[2017-05-21 07:21] LABS: ALBUMIN 3.1 g/dL (3.0-4.8); ALT/SGPT 25 U/L (7-56); AST/SGOT 25 U/L (14-36); BLOOD UREA NITROGEN 25 mg/dL (7-21); CALCIUM 9.3 mg/dL (8.4-10.5); GFR AFRICAN-AMERICAN > 60; GFR NON-AFRICAN AMERICAN > 60
--- NOTE | 2017-05-21 08:41 | CP.PCM.CON ---
<Le Miller - Last Filed: 05/21/17 11:35> History of Present Illness - History of Present Illness History of Present Illness: PGY-[address] Hernandez Neurology consult: Seizure Ms Juanita Hidalgo, 80F, with PMH includes seizure, who presents to the emergency department s/p lost of consciousness. legislative aide states that patient had a lost of consciouness episodes yesterday, which was similar to the past seizure. The patient "was sitting in a wheelchair, when she slumped over and began to vomit. " Denied shaking, no tonic clonic activity. Upon ED arrival, vital signs stable. CBC, CMP unremarkable. She was found (+) UTI on U/A EKG shows normal sinus rhythm rate approximately 80 with poor R waves and intraventricular conduction delay and nonspecific ST and T-wave changes similar to EKG of 04/03/2017 ROS - (+) vomit x 1 No fever, cough, diarrhea PMH Seizure (on keppra 500 bid) CVA, dementia CAD, CHF (EF 26%), HTN COPD, emphysema Hyperthyroidism Urinary incontinence Anemia PSH thyroidectomy, left cataract EGD: dx gastric erosions small hiatal hernia and gastric avm, 09/06/15 FH breast and stomach CA in the family SH Home with aide Quit smoke 6 years ago Rarely drink Denied drug All NKDA Med Coreg, lisinopril Albuterol, Breo, spiriva methimazole 5 keppra 500 bid, Donepezil 5HS, ASA 81, lipitor 10 Review of Systems - Review of Systems All systems: reviewed and no additional remarkable complaints except Review of Systems: as in HPI Past Patient History - Infectious Disease Hx of Infectious Diseases: None - Tetanus Immunizations Tetanus Immunization: Unknown - Past Medical History & Family History Past Medical History?: Yes - Past Social History Smoking Status: Never Smoked - CARDIAC Hx Circulatory Problems: Yes Hx Hypercholesterolemia: Yes Hx Hypertension: Yes - PULMONARY Hx Chronic Obstructive Pulmonary Disease (COPD): Yes - NEUROLOGICAL Hx Alzheimer's Disease: Yes Hx Dementia: Yes - HEENT Hx Cataracts: Yes - RENAL Hx Chronic Kidney Disease: No - ENDOCRINE/METABOLIC Hx Hypothyroidism: Yes - HEMATOLOGICAL/ONCOLOGICAL Hx Anemia: Yes - INTEGUMENTARY Hx Dermatological Problems: No - MUSCULOSKELETAL/RHEUMATOLOGICAL Hx Falls: No - GASTROINTESTINAL Hx Gastrointestinal Disorders: Yes Other/Comment: egd dx gastric erosions small hiatal hernia and gastric avm, 09/05 - GENITOURINARY/GYNECOLOGICAL Hx Incontinence: Yes (timmons inserted on 05/20/17) - PSYCHIATRIC Hx Substance Use: No - SURGICAL HISTORY Hx Cataract Extraction: Yes - ANESTHESIA Hx Anesthesia: Yes Hx Anesthesia Reactions: No Hx Malignant Hyperthermia: No Meds Allergies/Adverse Reactions: Allergies Allergy/AdvReac Type Severity Reaction Status Date / Time No Known Allergies Allergy Verified 10/09/16 17:49 - Medications Medications: Current Medications Albuterol Sulfate (Albuterol 0.083% Inhal Twyla (2.5 Mg/3 Ml) Ud) 2.5 mg INH [id number] [facility] Last Admin: 05/21/17 02:11 Dose: Not Given Aspirin (Ecotrin) 81 mg PO DAILY [facility] Atorvastatin Calcium (Lipitor) 10 mg PO DIN [facility] Last Admin: 05/20/17 17:25 Dose: 10 mg Carvedilol (Coreg) 3.125 mg PO BID [facility] Last Admin: 05/20/17 17:25 Dose: 3.125 mg Donepezil HCl (Aricept) 5 mg PO HS [facility] Last Admin: 05/20/17 22:45 Dose: 5 mg Sodium Chloride (Sodium Chloride 0.45%) 1,000 mls @ 40 mls/hr IV .Q24H [facility] Last Admin: 05/20/17 22:57 Dose: 40 mls/hr Cefepime HCl (Maxipime 2gm) 2 gm in 100 mls @ 100 mls/hr IVPB Q12 [facility] PRN Reason: Protocol Stop: 05/25/17 22:01 Last Admin: 05/20/17 22:57 Dose: 100 mls/hr Levetiracetam (Keppra) 500 mg PO BID [facility] Last Admin: 05/20/17 17:25 Dose: 500 mg Lisinopril (Zestril) 5 mg PO DAILY [facility] Methimazole (Tapazole) 5 mg PO DAILY [facility] Tiotropium [facility] (Spiriva) 18 mcg IH DAILY [facility] Physical Exam - Constitutional Appears: No Acute Distress - Head Exam Head Exam: ATRAUMATIC, NORMAL INSPECTION, NORMOCEPHALIC - Eye Exam Eye Exam: EOMI, Normal appearance, PERRL Pupil Exam: NORMAL ACCOMODATION, PERRL - ENT Exam ENT Exam: Mucous Membranes Moist - Respiratory Exam Respiratory Exam: Clear to Auscultation Bilateral, NORMAL BREATHING PATTERN - Cardiovascular Exam Cardiovascular Exam: REGULAR RHYTHM, +S1, +S2 - GI/Abdominal Exam GI & Abdominal Exam: Normal Bowel Sounds, Soft. absent: Tenderness - Extremities Exam Extremities exam: Positive for: pedal pulses present. Negative for: calf tenderness - Neurological Exam Additional comments: Response time generally 3-5 seconds delayed AAOx1 open eyes spontanously not always follow commands neuro exam limited. - Skin Skin Exam: Dry, Warm Results - Vital Signs Recent Vital Signs: Last Vital Signs Temp 98.5 F 05/21/17 07:30 Pulse 83 05/21/17 07:30 Resp 18 05/21/17 07:30 BP 130/93 H 05/21/17 07:30 Pulse Ox 100 05/21/17 07:30 - Labs Result Diagrams: 05/21/17 06:20 05/21/17 06:20 Labs: Laboratory Results - last 24 hr 05/20/17 05/20/17 05/21/17 16:39 21:58 06:20 WBC 10.3 RBC 4.11 Hgb 11.9 L D Hct 37.3 MCV 90.8 MCH 29.0 MCHC 31.9 RDW 17.7 H Plt Count 448 MPV 10.6 Sodium Potassium Chloride Carbon Dioxide Anion Gap BUN Creatinine Est GFR ( Amer) Est GFR (Non-Af Amer) POC Glucose (mg/dL) 73 76 Random Glucose Calcium Total Bilirubin AST ALT Alkaline Phosphatase Total Protein Albumin Globulin Albumin/Globulin Ratio 05/21/17 05/21/17 06:20 07:06 WBC RBC Hgb Hct MCV MCH MCHC RDW Plt Count MPV Sodium 143 Potassium 3.9 Chloride 110 H Carbon Dioxide 23 Anion Gap 13 BUN 25 H Creatinine 0.9 Est GFR ( Amer) > 60 Est GFR (Non-Af Amer) > 60 POC Glucose (mg/dL) 81 Random Glucose 77 Calcium 9.3 Total Bilirubin 0.5 AST 25 ALT 25 Alkaline Phosphatase 60 Total Protein 6.2 Albumin 3.1 Globulin 3.1 Albumin/Globulin Ratio 1.0 L Assessment & Plan - Assessment and Plan (Free Text) Plan: Ms Juanita Hidalgo, 80F, with PMH includes seizure and dementia, who presents to the emergency department s/p lost of consciousness. legislative aide states that patient had a lost of consciouness episodes yesterday, which was similar to the past seizure. The patient "was sitting in a wheelchair, when she slumped over and began to vomit." Denied shaking, no tonic clonic activity. Questionable break through seizure for underlying urinary tract infection Mildly dehydrated - Continue Keppra PO 500 bid - avoid cefepime since it will lower seizure threshold - continue to treat UTI - continue Aricept - pt/ot s/r/d/w Dr Hernandez <Venu Hernandez - Last Filed: 05/21/17 12:56> Meds - Medications Medications: Current Medications Albuterol Sulfate (Albuterol 0.083% Inhal Twyla (2.5 Mg/3 Ml) Ud) 2.5 mg INH [id number] [facility] Last Admin: 05/21/17 08:56 Dose: 2.5 mg Aspirin (Ecotrin) 81 mg PO DAILY [facility] Last Admin: 05/21/17 11:24 Dose: 81 mg Atorvastatin Calcium (Lipitor) 10 mg PO DIN [facility] Last Admin: 05/20/17 17:25 Dose: 10 mg Carvedilol (Coreg) 3.125 mg PO BID [facility] Last Admin: 05/21/17 11:23 Dose: 3.125 mg Donepezil HCl (Aricept) 5 mg PO HS [facility] Last Admin: 05/20/17 22:45 Dose: 5 mg Sodium Chloride (Sodium Chloride 0.45%) 1,000 mls @ 40 mls/hr IV .Q24H [facility] Last Admin: 05/20/17 22:57 Dose: 40 mls/hr Cefepime HCl (Maxipime 2gm) 2 gm in 100 mls @ 100 mls/hr IVPB Q12 [facility] PRN Reason: Protocol Stop: 05/25/17 22:01 Last Admin: 05/21/17 11:37 Dose: 100 mls/hr Levetiracetam (Keppra) 500 mg PO BID [facility] Last Admin: 05/21/17 11:23 Dose: 500 mg Lisinopril (Zestril) 5 mg PO DAILY [facility] Last Admin: 05/21/17 11:24 Dose: 5 mg Methimazole (Tapazole) 5 mg PO DAILY [facility] Last Admin: 05/21/17 11:25 Dose: 5 mg Tiotropium [facility] (Spiriva) 18 mcg IH DAILY [facility] Results - Vital Signs Recent Vital Signs: Last Vital Signs Temp 98.5 F 05/21/17 07:30 Pulse 84 05/21/17 11:24 Resp 18 05/21/17 07:30 BP 136/96 H 05/21/17 11:24 Pulse Ox 100 05/21/17 07:30 - Labs Result Diagrams: 05/21/17 06:20 05/21/17 06:20 Labs: Laboratory Results - last 24 hr 05/20/17 05/20/17 05/21/17 16:39 21:58 06:20 WBC 10.3 RBC 4.11 Hgb 11.9 L D Hct 37.3 MCV 90.8 MCH 29.0 MCHC 31.9 RDW 17.7 H Plt Count 448 MPV 10.6 Sodium Potassium Chloride Carbon Dioxide Anion Gap BUN Creatinine Est GFR ( Amer) Est GFR (Non-Af Amer) POC Glucose (mg/dL) 73 76 Random Glucose Calcium Total Bilirubin AST ALT Alkaline Phosphatase Total Protein Albumin Globulin Albumin/Globulin Ratio 05/21/17 05/21/17 05/21/17 06:20 07:06 11:19 WBC RBC Hgb Hct MCV MCH MCHC RDW Plt Count MPV Sodium 143 Potassium 3.9 Chloride 110 H Carbon Dioxide 23 Anion Gap 13 BUN 25 H Creatinine 0.9 Est GFR ( Amer) > 60 Est GFR (Non-Af Amer) > 60 POC Glucose (mg/dL) 81 86 Random Glucose 77 Calcium 9.3 Total Bilirubin 0.5 AST 25 ALT 25 Alkaline Phosphatase 60 Total Protein 6.2 Albumin 3.1 Globulin 3.1 Albumin/Globulin Ratio 1.0 L Attending/Attestation - Attestation I have personally seen and examined this patient.: Yes I have fully participated in the care of the patient.: Yes I have reviewed all pertinent clinical information: Yes
[2017-05-21] MEDS ORDERED: cefTRIAXone 1 gm 1 GM/100 ML BAG IVPB SCH (10:00)
[2017-05-21] MEDS: methIMAzole 5 MG TAB PO SCH (11:25)
[2017-05-21] MEDS: Cefepime IV 2 gm in NS 2 GM/100 ML BAG IVPB SCH (11:37)
--- NOTE | 2017-05-21 15:08 | PN ---
DATE: SUBJECTIVE: She is comfortable in bed, more alert. She is eating a little bit. MEDICATIONS: She is on IV antibiotics, cefepime 2 g q.12h. by Infectious Disease. She is on albuterol, Aricept, Coreg, Ecotrin, Keppra, Lipitor, IV fluids, Spiriva, Tapazole, and Zestril. PHYSICAL EXAMINATION: VITAL SIGNS: Today are 98.5 temperature, 83 pulse, 130/93 blood pressure and 146/75 blood pressure, 18 respiratory rate, 100% O2 sat on 2 L nasal cannula. HEENT: Atraumatic and normocephalic. She is alert. She did say the word "yes" to the nurse this morning. HEART: Regular rate. LUNGS: Clear to auscultation. ABDOMEN: Soft, nontender. Positive bowel sounds. EXTREMITIES: No edema. She is bedridden and basically nonverbal. LABORATORY DATA: She has a 10.3 white count, 11.9 hemoglobin, 37.3 hematocrit with 448 platelets. She has a 143 sodium, potassium 3.9, BUN 25, creatinine 0.9, GFR is greater than 60, sugar 77, calcium 9.3, total bili is 0.5, AST is 25, ALT is 25, alk phos 50, total protein 6.2. Urine was with moderate leukocytes and many bacteria. ASSESSMENT AND PLAN: She is on multiple medications and IV antibiotics by Infectious Disease. I would discuss with Infectious Disease to take a look at it and if we can change it to tablets, we will try and discharge her today. If not, I will make her an inpatient for another 3 to 5 days of intravenous antibiotics. We will see what Infectious Disease has to say about the urine, although I do think she is clinically improving. Raul Mccauley DO
--- NOTE | 2017-05-21 16:31 | US ---
PROCEDURE: Ultrasound of the Kidneys HISTORY: rule out hydronephrosis COMPARISON: None available. TECHNIQUE: Sonogram of the kidneys. FINDINGS: RIGHT KIDNEY: Measures: 8.6 cm. Normal in size, contour and echogenicity. No stone, solid mass lesion or hydronephrosis visualized. LEFT KIDNEY: Measures: 8.0 cm. Normal in size, contour and echogenicity. No stone, solid mass lesion or hydronephrosis visualized. OTHER FINDINGS: None. IMPRESSION: Unremarkable renal sonogram.
--- NOTE | 2017-05-21 18:36 | CP.PCM.PCO ---
Physician Communication Note - Physician Communication Note Physician Communication Note: breakthrough sz sec to cerbral hypoperfusion/UTI. C/w donny
[2017-05-21] MEDS ORDERED: Thiamine 100 mg/ml Inj IM ONE (19:31)
[2017-05-21] MEDS: Meropenem IV 1 gm in NS 50 ML IVPB SCH (22:03)
[2017-05-22] MEDS: Albuterol 0.083% Inhal Sol (2.5 mg/3 mL) UD INH SCH ×5 (01:09→23:28)
--- NOTE | 2017-05-22 03:37 | CON ---
DATE: 05/21/2017 LOCATION: Ms. Juanita Hidalgo is seen early this morning in room 562, bed 2. CHIEF COMPLAINT: Weakness times several days. HISTORY OF PRESENT ILLNESS: This is an 81-year-old female with past medical history significant for hypothyroidism, history of seizures, history of cataracts, cerebrovascular accident, was admitted with fever and weakness. She is bedridden and poor historian with COPD, pulmonary emboli, Alzheimer's dementia and no diarrhea has been reported. There is no fever documented here, although there has been reports of fever reported in Emergency Room documents. No chest pain or shortness of breath. The patient did have a fever and in the Emergency Room, the patient was seen by Dr. Ronaldo Campa, and the patient had been admitted after having a seizure. PAST MEDICAL HISTORY: Significant for seizures, hypothyroidism, cataract, cerebrovascular accident, pulmonary emboli, chronic obstructive lung disease, Alzheimer's dementia. PAST SURGICAL HISTORY: Significant for cataract surgery, endoscopy, and thyroidectomy. ALLERGIES: THE PATIENT HAS NO KNOWN ALLERGIES. MEDICATIONS: Medications are noted and reviewed include Coreg, Aricept, and lisinopril. PHYSICAL EXAMINATION GENERAL: The patient is in bed. VITAL SIGNS: Temperature of 98, heart rate of 84, respiratory rate of 20, blood pressure 113/70. HEENT: Unremarkable. NECK: Supple. LUNGS: Have decreased breath sounds. HEART: Normal S1 and S2. ABDOMEN: Soft, nontender. LABORATORY EXAMINATION: Reveals a white count of 10,000, hemoglobin of 14, platelets 483. Coagulation is noted. Chemistries reveals a BUN of 25, creatinine 0.9, lipase of 307. Urinalysis is noted too numerous to count wbc's, many bacteria. Microbiology reveals gram-negative darlin, urinary tract infection. The patient had a chest x-ray, no active disease. ASSESSMENT: An 81-year-old female with seizures, hypothyroidism, cataracts, cerebrovascular accident, pulmonary emboli, chronic obstructive lung disease, Alzheimer's dementia with a gram-negative darlin, urinary tract infections and blood cultures negative in the past. Currently, the blood cultures are pending. We will check on the blood cultures and check on identification of gram-negative darlin in urine and treating the patient with meropenem. We will make further recommendations mostly identification of gram-negative darlin is available in the urine and blood cultures results are available. Jnog MD [facility] # [id number]
[2017-05-22 07:16] LABS: HEMOGLOBIN 12.2 g/dL (12.0-16.0); MEAN CELL VOLUME 89.2 fl (80.0-105.0); MEAN CORPUSCULAR HEMOGLOBIN 29.3 pg (25.0-35.0); MEAN CORPUSCULAR HGB CONC 32.9 g/dl (31.0-37.0); MEAN PLATELET VOLUME 10.1 fl (7.0-11.0); RBC 4.16 10^6/uL (3.5-6.1); RED CELL DISTRIBUTION WIDTH 17.6 % (11.5-14.5); WHITE BLOOD COUNT 8.5 10^3/ul (4.5-11.0)
[2017-05-22 07:32] LABS: ALT/SGPT 21 U/L (7-56); AST/SGOT 20 U/L (14-36); BLOOD UREA NITROGEN 18 mg/dL (7-21); CALCIUM 9.4 mg/dL (8.4-10.5); GFR AFRICAN-AMERICAN > 60; GFR NON-AFRICAN AMERICAN > 60
--- NOTE | 2017-05-22 09:21 | CP.PCM.PN ---
<Le Miller - Last Filed: 05/22/17 09:41> Subjective - Date & Time of Evaluation Date of Evaluation: 05/22/17 Time of Evaluation: 09:18 - Subjective Subjective: PGY-[address] Hernandez Pt sits comfortably in bed. No acute complaint. Her response time was prolonged as yesterday's Objective - Vital Signs/Intake and Output Vital Signs (last 24 hours): Temp Pulse Resp BP Pulse Ox 98.3 F 82 18 133/84 100 05/22/17 07:59 05/22/17 07:59 05/22/17 07:59 05/22/17 07:59 05/22/17 07:59 Intake and Output: 05/22/17 05/22/17 06:59 18:59 Intake Total 460 Output Total 300 Balance 160 - Medications Medications: Current Medications Albuterol Sulfate (Albuterol 0.083% Inhal Twyla (2.5 Mg/3 Ml) Ud) 2.[id number] [facility] Last Admin: 05/22/17 07:48 Dose: 2.5 mg Aspirin (Ecotrin) [address] [facility] Last Admin: 05/21/17 11:24 Dose: 81 mg Atorvastatin Calcium (Lipitor) [address] [facility] Last Admin: 05/21/17 16:56 Dose: 10 mg Carvedilol (Coreg) 3.[address] [facility] Last Admin: 05/21/17 17:14 Dose: Not Given Donepezil HCl (Aricept) [address] [facility] Last Admin: 05/21/17 22:00 Dose: 5 mg Sodium Chloride (Sodium Chloride 0.45%) 1,000 mls @ 40 mls/hr IV .Q24H [facility] Last Admin: 05/20/17 22:57 Dose: 40 mls/hr Meropenem (Merrem Iv 1 Gm Premix) 50 mls @ 100 mls/hr IVPB Q12 [facility] PRN Reason: Protocol Last Admin: 05/21/17 22:03 Dose: 100 mls/hr Levetiracetam (Keppra) [address] [facility] Last Admin: 05/21/17 16:56 Dose: 500 mg Lisinopril (Zestril) [address] [facility] Methimazole (Tapazole) [address] [facility] Last Admin: 05/21/17 11:25 Dose: 5 mg Tiotropium [facility] [place] (Spiriva) 18 mcg IH DAILY [facility] - Labs Labs: 05/22/17 06:45 05/22/17 06:45 PT 12.4 SECONDS (9.4-12.5) 05/20/17 11:50 INR 1.08 (0.93-1.08) 05/20/17 11:50 APTT 28.8 Seconds (25.1-36.5) 05/20/17 11:50 - Constitutional Appears: No Acute Distress - Head Exam Head Exam: ATRAUMATIC, NORMAL INSPECTION, NORMOCEPHALIC - Eye Exam Eye Exam: EOMI, Normal appearance - ENT Exam ENT Exam: Mucous Membranes Moist - Neck Exam Additional comments: supple - Respiratory Exam Respiratory Exam: Clear to Ausculation Bilateral, NORMAL BREATHING PATTERN. absent: Rales, Rhonchi, Wheezes - Cardiovascular Exam Cardiovascular Exam: REGULAR RHYTHM, +S1, +S2. absent: Murmur - Neurological Exam Neurological Exam: Alert, Awake Additional comments: Speech: One-word answer Motor: able to move upper extremities. does not follow command on LE Sensory: cannot assess Coordination: resting tremor - Psychiatric Exam Psychiatric exam: Flat Affect - Skin Skin Exam: Dry, Warm Assessment and Plan - Assessment and Plan (Free Text) Plan: Ms Juanita Hidalgo, 80F, with PMH includes seizure and dementia, who presents to the emergency department s/p lost of consciousness. health aid states that patient had a lost of consciouness episodes yesterday, which was similar to the past seizure. The patient "was sitting in a wheelchair, when she slumped over and began to vomit." Denied shaking, no tonic clonic activity. Questionable break through seizure secondary to cerebral hypoperfusion/UTI Mildly dehydrated Dementia on Aricept - Continue Keppra PO 500 bid - avoid cefepime since it will lower seizure threshold; Antibiotics changed to merem - continue to treat UTI - continue Aricept - pt/ot s/r/d/w Dr Hernandez <Venu Hernandez - Last Filed: 05/22/17 12:21> Objective - Vital Signs/Intake and Output Vital Signs (last 24 hours): Temp Pulse Resp BP Pulse Ox 98.3 F 82 18 133/84 100 05/22/17 07:59 05/22/17 07:59 05/22/17 07:59 05/22/17 07:59 05/22/17 07:59 Intake and Output: 05/22/17 05/22/17 06:59 18:59 Intake Total 460 Output Total 300 Balance 160 - Medications Medications: Current Medications Albuterol Sulfate (Albuterol 0.083% Inhal Twyla (2.5 Mg/3 Ml) Ud) 2.[id number] [facility] Last Admin: 05/22/17 07:48 Dose: 2.5 mg Aspirin (Ecotrin) [address] [facility] Last Admin: 05/22/17 10:44 Dose: 81 mg Atorvastatin Calcium (Lipitor) [address] [facility] Last Admin: 05/21/17 16:56 Dose: 10 mg Carvedilol (Coreg) 3.[address] [facility] Last Admin: 05/22/17 10:44 Dose: 3.125 mg Donepezil HCl (Aricept) [address] [facility] Last Admin: 05/21/17 22:00 Dose: 5 mg Sodium Chloride (Sodium Chloride 0.45%) 1,000 mls @ 40 mls/hr IV .Q24H [facility] Last Admin: 05/20/17 22:57 Dose: 40 mls/hr Ceftriaxone Sodium (Rocephin 2 Gm Ivpb) 2 gm in 100 mls @ 100 mls/hr IVPB DAILY [facility] PRN Reason: Protocol Stop: 05/31/17 12:03 Lisinopril (Zestril) [address] [facility] Last Admin: 05/22/17 10:44 Dose: 20 mg Methimazole (Tapazole) [address] [facility] Last Admin: 05/22/17 10:44 Dose: 5 mg Tiotropium [facility] [place] (Spiriva) [address] [facility] Last Admin: 05/22/17 10:44 Dose: 18 mcg - Labs Labs: 05/22/17 06:45 05/22/17 06:45 PT 12.4 SECONDS (9.4-12.5) 05/20/17 11:50 INR 1.08 (0.93-1.08) 05/20/17 11:50 APTT 28.8 Seconds (25.1-36.5) 05/20/17 11:50 Attending/Attestation - Attestation I have personally seen and examined this patient.: Yes I have fully participated in the care of the patient.: Yes I have reviewed all pertinent clinical information, including history, physical exam and plan: Yes
[2017-05-22] MEDS ORDERED: Thiamine 100 mg/ml Inj IM SCH (10:00)
[2017-05-22] MEDS: Tiotropium 18 mcg Cap For Inhalation IH SCH (10:44)
[2017-05-22] MEDS: Meropenem IV 1 gm in NS 50 ML IVPB SCH (10:44)
[2017-05-22] MEDS: methIMAzole 5 MG TAB PO SCH (10:44)
[2017-05-22] MEDS ORDERED: levETIRAcetam 500 mg/5ml UD cups PO SCH ×2 (10:46→18:00)
--- NOTE | 2017-05-22 13:33 | PN ---
DATE: 05/22/2017 SUBJECTIVE: I saw her resting comfortably in bed. She is still weak. Not talking to me, but she is looking at me. She is being seen by Infectious Disease and Neurology. PHYSICAL EXAMINATION: GENERAL: She is looking at me, fairly comfortable. VITAL SIGNS: Temperature 98.4, pulse 63, blood pressure 113/70, respiratory rate 20, and O2 saturation 100% on 2 L nasal cannula. HEENT: Head is atraumatic, normocephalic. HEART: Regular rate. LUNGS: Decreased breath sounds, but clear. ABDOMEN: Soft. EXTREMITIES: No edema. MEDICATIONS: She is currently on albuterol, Aricept, Coreg, Ecotrin, Keppra, Lipitor, Merrem IV, IV fluids, Spiriva, Tapazole, and Zestril. LABORATORY DATA: She has 142 sodium, potassium 3.7, BUN 18, creatinine 0.7, GFR is greater than 60, sugar is 82, calcium is 9.4, total bilirubin is 0.5, AST is 20, ALT is 21, alkaline phosphatase is 56, and total protein is 5.9. White count is 8.5, the best it has been. Hemoglobin 12.2, hematocrit 37.1, and platelets of 406. PLAN: She is being seen by Infectious Disease, on IV antibiotics for the gram-negative rods in the urine. She is being seen by Neurology for breakthrough seizures, and we will continue treatment until we can change the tablets and get her back home for house calls. We will check her labs tomorrow. Continue IV antibiotics and diet. Raul Mccauley DO
[2017-05-22] MEDS: cefTRIAXone 2 GM IN NS 2 GM/100 ML BAG IVPB SCH (15:42)
[2017-05-22] MEDS ORDERED: Bisacodyl 5mg EC Tab PO ONE (16:20)
--- NOTE | 2017-05-22 17:49 | PN ---
DATE: 05/21/2017 The patient is in bed, in no acute distress, nontoxic on exam. SUBJECTIVE: VITAL SIGNS: Temperature is 98, blood pressure is 120/70, and respiratory rate of 16. HEENT: Unremarkable. NECK: Supple. LUNGS: Decreased breath sounds. HEART: Normal S1, S2. ABDOMEN: Soft. LABORATORY DATA: Revealed the patient's white count is 8.5, hemoglobin is 12, BUN of 18, and creatinine of 0.7. Urinalysis is noted. Pathology is noted. Microbiology reveals blood cultures are negative and the urine culture with E. coli that is pansensitive . ASSESSMENT AND PLAN: This is an 81-year-old female admitted with pansensitive Escherichia coli urinary tract infection in phase of seizures and hypothyroidism, cataract, cerebrovascular accident, pulmonary emboli, chronic obstructive lung disease, Alzheimer's, and currently the blood cultures are reported no growth at 24 hours. If the blood cultures remain negative and the patient's clinical status continues to improve, may be able to switch to p.o. Vantin in the next 24 hours to 48 hours at 200 mg p.o. b.i.d. x7 days. Blood cultures preliminarily results show no growth. Jong Jones MD cc:
[2017-05-22] MEDS: levETIRAcetam 500 mg/5ml UD cups PO SCH (17:58)
[2017-05-22] MEDS ORDERED: Thiamine 100 mg/ml Inj IM ONE (18:50)
[2017-05-23] MEDS: Albuterol 0.083% Inhal Sol (2.5 mg/3 mL) UD INH SCH ×3 (01:21→13:37)
[2017-05-23] MEDS: Sodium Chloride 0.45% 1,000 ML IV SCH (04:31)
[2017-05-23 06:49] LABS: HEMOGLOBIN 11.1 g/dL (12.0-16.0); MEAN CELL VOLUME 92.4 fl (80.0-105.0); MEAN CORPUSCULAR HEMOGLOBIN 29.1 pg (25.0-35.0); MEAN CORPUSCULAR HGB CONC 31.5 g/dl (31.0-37.0); MEAN PLATELET VOLUME 10.1 fl (7.0-11.0); RBC 3.81 10^6/uL (3.5-6.1); RED CELL DISTRIBUTION WIDTH 17.5 % (11.5-14.5); WHITE BLOOD COUNT 8.3 10^3/ul (4.5-11.0)
[2017-05-23 07:38] LABS: ALBUMIN 2.9 g/dL (3.0-4.8); ALT/SGPT 26 U/L (7-56); AST/SGOT 20 U/L (14-36); BLOOD UREA NITROGEN 18 mg/dL (7-21); CALCIUM 9.3 mg/dL (8.4-10.5); GFR AFRICAN-AMERICAN > 60; GFR NON-AFRICAN AMERICAN > 60
[2017-05-23 08:41] VITALS: BP 137/98; PULSE 77; RESP 18; TEMP 98
[2017-05-23] MEDS: cefTRIAXone 2 GM IN NS 2 GM/100 ML BAG IVPB SCH (09:57)
[2017-05-23] MEDS: levETIRAcetam 500 mg/5ml UD cups PO SCH (09:58)
[2017-05-23] MEDS: Tiotropium 18 mcg Cap For Inhalation IH SCH (09:59)
[2017-05-23] MEDS: methIMAzole 5 MG TAB PO SCH (09:59)
--- NOTE | 2017-05-23 12:53 | DS ---
HISTORY: I saw Juanita resting comfortably in bed. She was talking to me quite well this morning. She is comfortable. No complaints, in good spirits. I think she is improving. I am going to be discharging her today. PHYSICAL EXAMINATION: VITAL SIGNS: Temperature 98, 77 pulse, 137/98 blood pressure, 112/75 blood pressure, 18 respiratory rate, 100% O2 sat on nasal cannula. HEENT: Atraumatic, normocephalic. HEART: Regular rate. LUNGS: Decreased breath sounds, but clear to auscultation. ABDOMEN: Soft. EXTREMITIES: No edema. MEDICATIONS: She is currently on albuterol, Aricept, Coreg, Ecotrin, Keppra, Lipitor, Rocephin which was stopped. I put her on Vantin for 7 days, 200 mg twice a day. IV fluid was stopped. Spiriva, Tapazole, and Zestril. LABORATORY DATA: She has an 8.3 white count, 11.1 hemoglobin, 35.2 hematocrit with 410 platelets. She has had a 141 sodium, potassium 3.7, BUN 18, creatinine 0.8, GFR is greater than 60, sugar is 81, calcium is 9.3, total bili is 0.3, AST is 20, ALT is 26, alk phos 56, total protein is 5.7. She had a UTI. She was seen by Neurology, Infectious Disease. She will be discharged today. Pharmacy can call me all her meds. I put hr on the Vantin for 7 days. She will be seen on house call. She was here for hypertension, UTI, and seizures. Raul Mccauley DO MTDD
--- NOTE | 2017-05-23 12:58 | CP.PCM.PN ---
<Le Miller - Last Filed: 05/23/17 13:32> Subjective - Date & Time of Evaluation Date of Evaluation: 05/23/17 Time of Evaluation: 12:56 - Subjective Subjective: Neurology PGY-[address] Hernandez Pt was easily awaken from sleep. Denies acute complaint Objective - Vital Signs/Intake and Output Vital Signs (last 24 hours): Temp Pulse Resp BP Pulse Ox 98.0 F 77 18 137/98 H 100 05/23/17 07:30 05/23/17 07:30 05/23/17 07:30 05/23/17 07:30 05/23/17 07:30 Intake and Output: 05/23/17 05/23/17 06:59 18:59 Intake Total 960 Output Total 300 Balance 660 - Medications Medications: Current Medications Albuterol Sulfate (Albuterol 0.083% Inhal Twyla (2.5 Mg/3 Ml) Ud) 2.5 mg INH [id number] [facility] Last Admin: 05/23/17 07:57 Dose: 2.5 mg Aspirin (Ecotrin) 81 mg PO DAILY [facility] Last Admin: 05/23/17 10:46 Dose: 81 mg Atorvastatin Calcium (Lipitor) 10 mg PO DIN [facility] Last Admin: 05/21/17 16:56 Dose: 10 mg Carvedilol (Coreg) 3.125 mg PO BID [facility] Last Admin: 05/23/17 09:58 Dose: 3.125 mg Donepezil HCl (Aricept) 5 mg PO HS [facility] Last Admin: 05/22/17 21:17 Dose: 5 mg Sodium Chloride (Sodium Chloride 0.45%) 1,000 mls @ 40 mls/hr IV .Q24H [facility] Last Admin: 05/23/17 04:31 Dose: 40 mls/hr Ceftriaxone Sodium (Rocephin 2 Gm Ivpb) 2 gm in 100 mls @ 100 mls/hr IVPB DAILY [facility] PRN Reason: Protocol Stop: 05/31/17 12:03 Last Admin: 05/23/17 09:57 Dose: 100 mls/hr Levetiracetam (Keppra) 500 mg PO BID [facility] Last Admin: 05/23/17 09:58 Dose: 500 mg Lisinopril (Zestril) 5 mg PO DAILY [facility] Last Admin: 05/23/17 09:58 Dose: 5 mg Methimazole (Tapazole) 5 mg PO DAILY [facility] Last Admin: 05/23/17 09:59 Dose: 5 mg Tiotropium [place] (Spiriva) 18 mcg IH DAILY [facility] Last Admin: 05/23/17 09:59 Dose: 18 mcg - Labs Labs: 05/23/17 06:00 05/23/17 06:00 PT 12.4 SECONDS (9.4-12.5) 05/20/17 11:50 INR 1.08 (0.93-1.08) 05/20/17 11:50 APTT 28.8 Seconds (25.1-36.5) 05/20/17 11:50 - Constitutional Appears: No Acute Distress - Head Exam Head Exam: ATRAUMATIC, NORMAL INSPECTION, NORMOCEPHALIC - Eye Exam Eye Exam: EOMI, Normal appearance, PERRL Pupil Exam: NORMAL ACCOMODATION - ENT Exam ENT Exam: Mucous Membranes Moist - Neck Exam Additional comments: supple - Respiratory Exam Respiratory Exam: Clear to Ausculation Bilateral, NORMAL BREATHING PATTERN - Cardiovascular Exam Cardiovascular Exam: REGULAR RHYTHM, +S1, +S2. absent: Murmur - GI/Abdominal Exam GI & Abdominal Exam: Soft, Normal Bowel Sounds. absent: Tenderness - Neurological Exam Neurological Exam: Alert, Awake Additional comments: Speech: One-word answer Motor: able to move upper extremities. does not follow command on LE Sensory: cannot assess Coordination: resting tremor - Psychiatric Exam Psychiatric exam: Flat Affect - Skin Skin Exam: Dry, Normal Color Assessment and Plan - Assessment and Plan (Free Text) Plan: Ms Juanita Hidalgo, 80F, with PMH includes seizure and dementia, who presents to the emergency department s/p lost of consciousness. wheel braider states that patient had a lost of consciouness episodes yesterday, which was similar to the past seizure. The patient "was sitting in a wheelchair, when she slumped over and began to vomit." Denied shaking, no tonic clonic activity. Questionable break through seizure secondary to cerebral hypoperfusion/UTI Mildly dehydrated Dementia on Aricept - Continue Keppra PO 500 bid - avoid cefepime since it will lower seizure threshold; Antibiotics changed to merem - continue to treat UTI - continue Aricept - pt/ot s/r/d/w Dr Hernandez <Venu Hernandez - Last Filed: 05/23/17 14:35> Objective - Vital Signs/Intake and Output Vital Signs (last 24 hours): Temp Pulse Resp BP Pulse Ox 98.0 F 77 18 137/98 H 100 05/23/17 07:30 05/23/17 07:30 05/23/17 07:30 05/23/17 07:30 05/23/17 07:30 Intake and Output: 05/23/17 05/23/17 06:59 18:59 Intake Total 960 Output Total 300 Balance 660 - Medications Medications: Current Medications Albuterol Sulfate (Albuterol 0.083% Inhal Twyla (2.5 Mg/3 Ml) Ud) 2.5 mg INH [id number] [facility] Last Admin: 05/23/17 13:37 Dose: 2.5 mg Aspirin (Ecotrin) 81 mg PO DAILY [facility] Last Admin: 05/23/17 10:46 Dose: 81 mg Atorvastatin Calcium (Lipitor) 10 mg PO DIN [facility] Last Admin: 05/21/17 16:56 Dose: 10 mg Carvedilol (Coreg) 3.125 mg PO BID [facility] Last Admin: 05/23/17 09:58 Dose: 3.125 mg Donepezil HCl (Aricept) 5 mg PO HS [facility] Last Admin: 05/22/17 21:17 Dose: 5 mg Sodium Chloride (Sodium Chloride 0.45%) 1,000 mls @ 40 mls/hr IV .Q24H [facility] Last Admin: 05/23/17 04:31 Dose: 40 mls/hr Ceftriaxone Sodium (Rocephin 2 Gm Ivpb) 2 gm in 100 mls @ 100 mls/hr IVPB DAILY [facility] PRN Reason: Protocol Stop: 05/31/17 12:03 Last Admin: 05/23/17 09:57 Dose: 100 mls/hr Levetiracetam (Keppra) 500 mg PO BID [facility] Last Admin: 05/23/17 09:58 Dose: 500 mg Lisinopril (Zestril) 5 mg PO DAILY [facility] Last Admin: 05/23/17 09:58 Dose: 5 mg Methimazole (Tapazole) 5 mg PO DAILY [facility] Last Admin: 05/23/17 09:59 Dose: 5 mg Tiotropium [place] (Spiriva) 18 mcg IH DAILY [facility] Last Admin: 05/23/17 09:59 Dose: 18 mcg - Labs Labs: 05/23/17 06:00 05/23/17 06:00 PT 12.4 SECONDS (9.4-12.5) 05/20/17 11:50 INR 1.08 (0.93-1.08) 05/20/17 11:50 APTT 28.8 Seconds (25.1-36.5) 05/20/17 11:50 Attending/Attestation - Attestation I have personally seen and examined this patient.: Yes I have fully participated in the care of the patient.: Yes I have reviewed all pertinent clinical information, including history, physical exam and plan: Yes
--- NOTE | 2017-05-23 23:50 | PN ---
DATE: 05/23/2017 SUBJECTIVE: The patient was seen early this morning in 562, bed 2. No fevers. No chills. PHYSICAL EXAMINATION: VITAL SIGNS: Temperature is 98, blood pressure is 130/90, and respiratory rate of 18. HEENT: Unremarkable. NECK: Supple. LUNGS: Decreased breath sounds. HEART: Normal S1, S2. ABDOMEN: Soft. LABORATORY DATA: Reveals the patient has a white count of 8.3, hemoglobin of 11, platelets of 440. Chemistries are noted. Urinalysis is noted. Microbiology reveals E. coli in the urine. ASSESSMENT AND PLAN: This is an 81-year-old female who was seen early this morning in room 562, bed 2, who was admitted with pansensitive Escherichia coli urinary tract infection with seizures and hypothyroidism, cataract, and switched to p.o. Vantin for discharge. Jong Jones MD
== END 2017-05-23 16:50 | disposition home or self-care (01) | DRG 101 ==
LOC: ED 11:29 → ERH 14:11 → 5RNO 16:06 → OBSVTOIN 05-21 16:11
PROVIDERS: ADMIT Family Medicine; ATTEND Family Medicine
DX: R56.9 Unspecified convulsions (principal); I11.0 Hypertensive heart disease with heart failure; I50.9 Heart failure, unspecified; D64.9 Anemia, unspecified; N39.0 Urinary tract infection, site not specified; G30.9 Alzheimer's disease, unspecified; F02.80 Dementia in other diseases classified elsewhere, unspecified severity, without behavioral disturbance, psychotic disturbance, mood disturbance, and anxiety; E03.9 Hypothyroidism, unspecified; E78.00 Pure hypercholesterolemia, unspecified; H26.9 Unspecified cataract; I25.10 Atherosclerotic heart disease of native coronary artery without angina pectoris; Z86.711 Personal history of pulmonary embolism; Z80.0 Family history of malignant neoplasm of digestive organs; Z85.3 Personal history of malignant neoplasm of breast; B96.20 Unspecified Escherichia coli [E. coli] as the cause of diseases classified elsewhere; J43.9 Emphysema, unspecified; Z66 Do not resuscitate; R32 Unspecified urinary incontinence; Z74.01 Bed confinement status; Z79.899 Other long term (current) drug therapy; Z86.73 Personal history of transient ischemic attack (TIA), and cerebral infarction without residual deficits; Z87.01 Personal history of pneumonia (recurrent); Z87.11 Personal history of peptic ulcer disease; Z87.891 Personal history of nicotine dependence

== ENCOUNTER 2017-07-04 11:47 | Emergency (ER) | payer MEDICARE, MEDICAID ==
[2017-07-04 11:52] VITALS: BMI 24.0
[2017-07-04 12:11] VITALS: RESP 18; TEMP 97.9
[2017-07-04 13:04] LABS: BASO # 0.08 K/mm3 (0.0-2.0); BASO % 0.7 % (0.0-3.0); EOS # 0.3 (0.0-0.7); EOS % 2.1 % (1.5-5.0); GRAN # 9.58 (1.4-6.5); GRAN % 78.4 % (50.0-68.0); HEMOGLOBIN 12.9 g/dL (12.0-16.0); LYMPH # 1.6 (1.2-3.4); LYMPH % 13.3 % (22.0-35.0); MEAN CELL VOLUME 93.5 fl (80.0-105.0); MEAN CORPUSCULAR HEMOGLOBIN 29.9 pg (25.0-35.0); MEAN CORPUSCULAR HGB CONC 31.9 g/dl (31.0-37.0); MEAN PLATELET VOLUME 10.4 fl (7.0-11.0); MONO # 0.7 (0.1-0.6); MONO % 5.5 % (1.0-6.0); RBC 4.32 10^6/uL (3.5-6.1); RED CELL DISTRIBUTION WIDTH 16.8 % (11.5-14.5); WHITE BLOOD COUNT 12.2 10^3/ul (4.5-11.0)
[2017-07-04 13:06] LABS: ALB/GLOB RATIO 1.1 (1.1-1.8); ALBUMIN 3.6 g/dL (3.0-4.8); ALT/SGPT 22 U/L (7-56); AST/SGOT 21 U/L (14-36); BLOOD UREA NITROGEN 21 mg/dL (7-21); CALCIUM 10.2 mg/dL (8.4-10.5); GFR AFRICAN-AMERICAN > 60; GFR NON-AFRICAN AMERICAN 60
[2017-07-04 13:17] LABS: TROPONIN I < 0.01 ng/mL
[2017-07-04 13:19] LABS: INR 1.17 (0.93-1.08); PARTIAL THROMBOPLASTIN TIME 31.1 Seconds (25.1-36.5); PROTHROMBIN TIME 13.5 SECONDS (9.4-12.5)
[2017-07-04 13:22] LABS: CK-MB 2.3 ng/mL (0.0-3.6)
--- NOTE | 2017-07-04 13:31 | CT ---
PROCEDURE: CT HEAD WITHOUT CONTRAST. HISTORY: seizure r/o ICH COMPARISON: 05/20/2017. TECHNIQUE: Axial computed tomography images were obtained through the head/brain without intravenous contrast. Radiation dose: Total exam DLP = 830.74 mGy-cm. This CT exam was performed using one or more of the following dose reduction techniques: Automated exposure control, adjustment of the mA and/or kV according to patient size, and/or use of iterative reconstruction technique. FINDINGS: HEMORRHAGE: No intracranial hemorrhage. BRAIN: There are severe chronic microangiopathic changes. There is an old lacunar infarction in the right caudate. There is no mass, effect or abnormal extra-axial fluid collection. There are coarse atherosclerotic calcifications in the cavernous carotid arteries. There is an old infarction versus adenoid cyst in the left anterior middle cranial fossa. . VENTRICLES: There is moderate age-related global parenchymal volume loss and proportionate enlargement of the ventricles and cortical sulci CALVARIUM: The skullbase and tiny PARANASAL SINUSES: There chronic sinusitis in the left ethmoid air cells. The remaining included paranasal sinuses are clear. MASTOID AIR CELLS: Predominantly clear. OTHER FINDINGS: None. IMPRESSION: No acute intracranial abnormality. Old lacunar infarction in the right caudate head. Severe chronic microangiopathic changes and moderate age-related global parenchymal volume loss.
--- NOTE | 2017-07-04 14:18 | RAD ---
PROCEDURE: CHEST RADIOGRAPH, 1 VIEW HISTORY: cough r/o infiltrate COMPARISON: 05/20/2019. FINDINGS: LUNGS: The lungs are hyperinflated and there is peribronchial thickening with chronic changes in both lungs. No focal consolidation PLEURA: No pneumothorax or pleural fluid seen. CARDIOVASCULAR: Normal. OSSEOUS STRUCTURES: No significant abnormalities. VISUALIZED UPPER ABDOMEN: Normal. OTHER FINDINGS: None. IMPRESSION: No active pulmonary disease. COPD.
--- NOTE | 2017-07-04 14:47 | ED PDOC ---
Arrival/HPI - General Chief Complaint: Seizure Time Seen by Provider: 07/04/17 12:22 - History of Present Illness Narrative History of Present Illness (Text): 07/04/17 14:44 Juanita Steele is a 82 year old female, whose past medical history includes seizures, who presents to the emergency department with family s/p seizure this morning. Patient denies any fevers, chills, chest pain, shortness of breath, abdominal pain, nausea, vomiting, diarrhea, back pain, neck pain headache, dizziness, or any other complaint. Time/Duration: Prior to Arrival Symptom Onset: Sudden Symptom Course: Unchanged Activities at Onset: Light Past Medical History - Provider Review Nursing Documentation Reviewed: Yes - Infectious Disease Hx of Infectious Diseases: None - Tetanus Immunization Tetanus Immunization: Unknown - Cardiac Hx Circulatory Problems: Yes Hx Hypertension: Yes - Pulmonary Hx Chronic Obstructive Pulmonary Disease (COPD): Yes - Neurological Hx Alzheimer's Disease: Yes Hx Dementia: Yes - HEENT Hx Cataracts: Yes - Renal Hx Renal Disorder: No - Endocrine/Metabolic Hx Hypothyroidism: Yes - Hematological/Oncological Hx Anemia: Yes - Integumentary Hx Dermatological Disorder: No - Musculoskeletal/Rheumatological Hx Falls: No - Gastrointestinal Hx Gastrointestinal Disorders: Yes Other/Comment: egd dx gastric erosions small hiatal hernia and gastric avm, 09/05 - Genitourinary/Gynecological Hx Incontinence: Yes (timmons inserted on 05/20/17) - Psychiatric Hx Psychophysiologic Disorder: No Hx Substance Use: No - Surgical History Hx Cataract Extraction: Yes - Anesthesia Hx Anesthesia: Yes Hx Anesthesia Reactions: No Hx Malignant Hyperthermia: No Family/Social History - Physician Review Nursing Documentation Reviewed: Yes Family/Social History: No Known Family HX Smoking Status: Never Smoked Hx Alcohol Use: No Hx Substance Use: No Allergies/Home Meds Allergies/Adverse Reactions: Allergies No Known Allergies Allergy (Verified 10/09/16 17:49) Home Medications: Home Meds Medication Instructions Recorded Confirmed Carvedilol [Coreg] 3.125 mg PO BID 10/09/16 07/04/17 Fluticasone/Vilanterol [Breo 1 puff INH HS 03/15/17 07/04/17 Ellipta 100-25 Mcg INH] Lisinopril [Zestril] 5 mg PO DAILY 03/15/17 07/04/17 Albuterol/Ipratropium [Duoneb 3 1 vial IH Q6H 07/04/17 07/04/17 mg/0.5 mg (3 ml) UD] Ferrous Sulfate [Feosol] 1 tab PO DAILY 07/04/17 07/04/17 Loratadine [Claritin] 1 tab PO DAILY 07/04/17 07/04/17 Megestrol Acetate [Megace] 20 ml PO DAILY 07/04/17 07/04/17 Pantoprazole Sodium [Protonix] 1 tab PO DAILY 07/04/17 07/04/17 Review of Systems - Physician Review All systems were reviewed & negative as marked: Yes - Review of Systems Constitutional: Normal Eyes: Normal ENT: Normal Respiratory: Normal. absent: SOB, Cough Cardiovascular: Normal. absent: Chest Pain, Palpitations Gastrointestinal: Normal. absent: Abdominal Pain, Diarrhea, Nausea, Vomiting Genitourinary Female: Normal. absent: Dysuria, Frequency, Hematuria, Urine Output Changes Musculoskeletal: Normal. absent: Back Pain, Neck Pain Skin: Normal. absent: Rash Neurological: Normal. absent: Headache, Dizziness Endocrine: Normal Hemo/Lymphatic: Normal Psychiatric: Normal Physical Exam Vital Signs Reviewed: Yes Vital Signs Temp Pulse Resp BP Pulse Ox 07/04/17 19:02 75 18 136/94 H 98 07/04/17 17:00 71 18 108/59 L 100 07/04/17 15:35 75 18 110/57 L 100 07/04/17 12:10 97.9 F 97 H 18 114/88 98 Temperature: Afebrile Blood Pressure: Normal Pulse: Tachycardic Respiratory Rate: Normal Appearance: Positive for: Well-Appearing, Non-Toxic, Comfortable Pain Distress: None Mental Status: Positive for: Alert and Oriented X 3 Finger Stick Blood Glucose: 113 - Systems Exam Head: Present: Atraumatic, Normocephalic Pupils: Present: PERRL Extroacular Muscles: Present: EOMI Conjunctiva: Present: Normal Mouth: Present: Moist Mucous Membranes Neck: Present: Normal Range of Motion Respiratory/Chest: Present: Clear to Auscultation, Good Air Exchange. No: Respiratory Distress, Accessory Muscle Use Cardiovascular: Present: Regular Rate and Rhythm, Normal S1, S2. No: Murmurs Abdomen: Present: Normal Bowel Sounds. No: Tenderness, Distention, Peritoneal Signs Back: Present: Normal Inspection Upper Extremity: Present: Normal Inspection. No: Cyanosis, Edema Lower Extremity: Present: Normal Inspection. No: Edema Neurological: Present: GCS=15, CN II-XII Intact, Speech Normal Skin: Present: Warm, Dry, Normal Color. No: Rashes Psychiatric: Present: Alert, Oriented x 3, Normal Insight, Normal Concentration Medical Decision Making ED Course and Treatment: 07/04/17 14:48 Impression: 82 year old female presents to the emergency department s/p seizure. Plan: -- EKG -- Urine Culture -- Urinalysis -- Reassess and disposition Prior Visits: Notes and results from previous visits were reviewed. Patient was last seen in the emergency department on 05/20/17 s/p seizure. Patient was hospitalized. Progress Notes: EKG reviewed, shows Sinus tachycardia at 101 bpm. Systolic murmur. - Lab Interpretations Microbiology Results: Microbiology Results 07/04/17 16:00 Urine Urine Culture - Final No Growth (<1,000 CFU/ML) Lab Results: 07/04/17 12:50 07/04/17 12:50 Lab Results 07/04/17 16:00: Urine Color Yellow, Urine Appearance Slight-cloudy, Urine pH 5.5 , Ur Specific [place] >= 1.030, Urine Protein Trace H, Urine Glucose (UA) Negative, Urine Ketones Negative, Urine Blood Moderate H, Urine Nitrate Negative , Urine Bilirubin Negative, Urine Urobilinogen 0.2, Ur Leukocyte Esterase Negative, Urine RBC 10 - 15, Urine WBC 2 - 5, Ur Epithelial Cells 3 - 4 07/04/17 12:50: Sodium 149 H, Potassium 3.8, Chloride 115 H, Carbon Dioxide 23, Anion Gap 15, BUN 21, Creatinine 0.9, Est GFR ( Amer) > 60, Est GFR (Non- Af Amer) 60, Random Glucose 125 H, Calcium 10.2, Magnesium 2.1, Total Bilirubin 0.7, AST 21, ALT 22, Alkaline Phosphatase 70, Lactate Dehydrogenase 608, Total Creatine Kinase 241 H, CK-MB (CK-2) 2.3, CK-MB (CK-2) % Cancelled, Troponin I < 0.01 D, Total Protein 6.9, Albumin 3.6, Globulin 3.3, Albumin/Globulin Ratio 1.1 07/04/17 12:50: PT 13.5 H, INR 1.17 H, APTT 31.1 07/04/17 12:50: WBC 12.2 H D, RBC 4.32, Hgb 12.9, Hct 40.4, MCV 93.5, MCH 29.9, MCHC 31.9, RDW 16.8 H, Plt Count 625 H, MPV 10.4, Gran % 78.4 H, Lymph % (Auto) 13.3 L, Cooper % (Auto) 5.5, Eos % (Auto) 2.1, Baso % (Auto) 0.7, Gran # 9.58 H, Lymph # (Auto) 1.6, Cooper # (Auto) 0.7 H, Eos # (Auto) 0.3, Baso # (Auto) 0.08 - RAD Interpretation Radiology Orders: 07/04/17 12:41 HEAD W/O CONTRAST [CT] Stat CHEST ONE VIEW [RAD] Stat - Scribe Statement The provider has reviewed the documentation as recorded by the Scriblianna Duke All medical record entries made by the Scriblianna were at my direction and personally dictated by me. I have reviewed the chart and agree that the record accurately reflects my personal performance of the history, physical exam, medical decision making, and the department course for this patient. I have also personally directed, reviewed, and agree with the discharge instructions and disposition. Disposition/Present on Arrival - Present on Arrival Any Indicators Present on Arrival: No History of DVT/PE: No History of Uncontrolled Diabetes: No Urinary Catheter: No History of Decub. Ulcer: No History Surgical Site Infection Following: None - Disposition Have Diagnosis and Disposition been Completed?: Yes Diagnosis: Seizure Disposition: HOME/ ROUTINE Disposition Time: 16:30 Condition: IMPROVED Discharge Instructions (ExitCare): Seizures, Adult (DC) Additional Instructions: Thank you for letting us take care of you today. The emergency medical care you received today was directed at your acute symptoms. If you were prescribed any medication, please fill it and take as directed. It may take several days for your symptoms to resolve. Return to the Emergency Department if your symptoms worsen, do not improve, or if you have any other problems. Please contact your doctor or call one of the physicians/clinics you have been referred to that are listed on the Patient Visit Information form that is included in your discharge packet. Bring any paperwork you were given at discharge with you along with any medications you are taking to your follow up visit. Our treatment cannot replace ongoing medical care by a primary care provider (PCP) outside of the emergency department. Thank you for allowing the [facility] team to be part of your care today. Follow up with Dr. Mccauley in 2-3 days for re-evaluation and further management. Referrals: Raul Mccauley, DO [Primary Care Provider] - Follow up with primary Forms: [employer] ([employer])
[2017-07-04 16:18] LABS: PH,URINE 5.5 (4.7-8.0); URINE BILIRUBIN NEGATIVE (NEGATIVE); URINE BLOOD MODERATE (NEGATIVE); URINE GLUCOSE (UA) NEGATIVE (NEGATIVE); URINE LEUKOCYTE ESTERASE NEGATIVE Leu/uL (NEGATIVE); URINE PROTEIN TRACE mg/dL (<30 mg/dL); URINE UROBILINOGEN 0.2 E.U./dL (<1 E.U./dL)
[2017-07-04 16:19] LABS: URINE APPEARANCE SLIGHT-CLOUDY (CLEAR); URINE COLOR YELLOW (YELLOW)
--- NOTE | 2017-07-04 17:44 | CARD ---
APPROVED REPORT EKG Measurement Heart [id number] <Conclusion> Sinus tachycardia Left axis deviation Pulmonary disease pattern Septal infarct, age undetermined Inferior infarct, age undetermined Abnormal ECG
[2017-07-04 19:03] VITALS: BP 136/94; PULSE 75; O2SAT 98
== END 2017-07-04 19:39 | disposition home or self-care (01) ==
LOC: ED 11:47
DX: R56.9 Unspecified convulsions (principal); I10 Essential (primary) hypertension; G30.9 Alzheimer's disease, unspecified; F02.80 Dementia in other diseases classified elsewhere, unspecified severity, without behavioral disturbance, psychotic disturbance, mood disturbance, and anxiety; D64.9 Anemia, unspecified